=== PATIENT | female | born 1940 | race Caucasian/White ===

== ENCOUNTER → 2017-11-19 08:07 | Outpatient (CLI) | payer MEDICARE, SELFPAY ==
--- NOTE | 2017-11-19 08:09 | DI.MG.S_ITS ---
BILATERAL DIGITAL SCREENING MAMMOGRAM 3D/2D WITH CAD: 11/19/2017 CLINICAL: Routine screening. Comparison is made to exams dated: 11/14/2016 mammogram, 10/13/2015 mammogram, and 10/07/2014 mammogram - [facility]. There are scattered fibroglandular elements in both breasts. Current study was also evaluated with a Computer Aided Detection (CAD) system. No significant masses, calcifications, or other findings are seen in either breast. There has been no significant interval change. IMPRESSION: NEGATIVE There is no mammographic evidence of malignancy. A 1 year screening mammogram is recommended. This exam was interpreted at Station ID: [id number]. NOTE: For mammograms, a report in lay terms will be sent to the patient. Approximately 15% of breast malignancies will not be visualized mammographically. In the management of a palpable breast mass, a negative mammogram must not discourage biopsy of a clinically suspicious lesion. Electronically Signed By: Jackson turcios/chel:11/19/2017 20:12:35 letter sent: Normal Exam ACR BI-RADS Category 1: Negative 3341F
== END ==
PROVIDERS: Family Provider Family Medicine; PCP Family Medicine; Visit Provider Family Medicine
DX: Z12.31 Encounter for screening mammogram for malignant neoplasm of breast (principal)
CPT/HCPCS: 77063; 77067

== ENCOUNTER → 2018-03-03 09:33 | Outpatient (CLI) | payer MEDICARE, SELFPAY ==
--- NOTE | 2018-03-03 | DI.ECHO.S_ITS ---
[facility] +---------+ [facility] +---------+ : : [address] [address] : : : : [id number] : : : : Phone: [phone]---------+ Echocardiogram Report + + :Name: HERBIE SALAS Study Date: 03/03/2018 Height: 61 in : :[facility] Exam Location: IS Weight: 136 lb : : Gender: Female BSA: 1.6 m2 : :: 1940 Age: 77 yrs BP: 140/86 mmHg: :Reason For Study: NONRHEUMATIC MR : :Ordering Physician: Peyton : :Milo Performed By: Kelly Bryan : :Referring: PEYTON TOBAR : + + Interpretation Summary The left ventricle is normal in size. The ejection fraction is estimated to be 55-60%. The right ventricle is normal in size and function. There is mild to moderate mitral regurgitation. Compared to the prior echo study, there has been a decrease in the severity of mitral regurgitation. There is moderate aortic regurgitation. Compared to the prior echo study, there has been no change in the severity of aortic regurgitation. There is mild tricuspid regurgitation. Compared to the prior echo exam, there has been no change in TR severity. The right ventricular systolic pressure is estimated to be at least 24 mmHg based on an estimated right atrial pressure of 3 mm Hg. The ascending aorta is mildly enlarged. Procedure: A two-dimensional transthoracic echocardiogram with color flow and Doppler was performed. The study quality was technically adequate. Comparison is made with the echocardiogram of 10/16/15. The patient was in normal sinus rhythm during the exam. Left Ventricle: The left ventricle is normal in size. Proximal septal thickening is noted. There is no echo evidence for significant left ventricular outflow tract obstruction. There is no thrombus. The ejection fraction is estimated to be 55-60%. There are no focal wall motion abnormalities. Diastolic parameters suggest a relaxation abnormality of the left ventricle, consistent with probable normal filling pressures. Right Ventricle: The right ventricle is normal in size and function. Atria: The left atrial size is normal. Left atrial size has decreased since the prior echo exam. There has been no significant change since the previous study. Right atrial size is normal. There is no Doppler evidence for an interatrial shunt. The atrial septum is aneurysmal. Mitral Valve: The mitral valve leaflets appear mildly thickened, but open well. There is mild mitral annular calcification. There is mild to moderate mitral regurgitation. Compared to the prior echo study, there has been a decrease in the severity of mitral regurgitation. Aortic Valve: The aortic valve is trileaflet. There is mild aortic valve sclerosis. The aortic valve opens well. There is an eccentric jet of aortic insufficiency directed against the anterior mitral leaflet. There is moderate aortic regurgitation. Compared to the prior echo study, there has been no change in the severity of aortic regurgitation. Tricuspid Valve: The tricuspid valve is normal. There is mild tricuspid regurgitation. The right ventricular systolic pressure is estimated to be at least 24 mmHg based on an estimated right atrial pressure of 3 mm Hg. Compared to the prior echo exam, there has been no change in TR severity. Pulmonic Valve: The pulmonic valve leaflets are thin and pliable; valve motion is normal. There is trace pulmonic regurgitation. Great Vessels: The aortic root is normal size. The ascending aorta is mildly enlarged. The aortic arch is normal in size. The pulmonary artery is normal size. The IVC is of normal diameter and collapses greater than 50% with a sniff. This suggests a low right atrial pressure of 3 mm Hg. Pericardium/ Pleura There is no pericardial effusion. There is no pleural effusion. MMode/2D Measurements & Calculations LVIDd: 4.5 cm LVOT diam: 1.9 cm LVIDs: 3.0 cm Ao root diam: 2.8 cm FS: 33.2 % asc Aorta Diam: 3.7 cm EPSS: 0.87 cm Ao Arch Diam (Prox Trans): 2.7 cm IVSd: 0.66 cm LVPWd: 0.78 cm LV aquino. diameter/BSA (cm/m^2): 2.8 LV sys. diameter/BSA (cm/m^2): 1.9 LA A2 area: 16.9 cm2 RA long axis: 4.0 cm LA A4 area: 14.1 cm2 RA area: 13.0 cm2 LA length (vol): 4.8 cm RA vol: 35.7 ml LA vol: 42.4 ml RA : 22.3 ml/m2 LA vol index: 26.4 ml/m2 IVC diam: 1.0 cm RVD1 (basal): 3.5 cm RVD2 (mid): 2.2 cm TAPSE: 2.4 cm Doppler Measurements & Calculations Ao V2 max: 103.0 cm/sec LVOT Max Isreal: 93.0 cm/sec Ao V2 mean: 65.8 cm/sec LV V1 max P.5 mmHg Ao max P.2 mmHg LV V1 VTI: 17.5 cm Ao mean P.0 mmHg FEMI(I,D): 2.9 cm2 Ao V2 VTI: 17.9 cm FEMI(V,D): 2.6 cm2 sev ratio: 0.98 FEMI indexed to BSA (cm^2/m^2): 1.8 AI P1/2t: 408.5 msec AI dec slope: 299.9 cm/sec2 MV E max isreal: 32.6 cm/sec TR max isreal: 229.4 cm/sec MV A max isreal: 68.5 cm/sec TR max P.0 mmHg MV E/A: 0.48 PA V2 max: 63.9 cm/sec Med Peak E' Isreal: 2.8 cm/sec PA V2 mean: 46.8 cm/sec E/E' med: 11.5 PA mean P.96 mmHg Lat Peak E' Isreal: 6.3 cm/sec PA pr(Accel): 51.6 mmHg E/E' lat: 5.2 E/e' average: 8.3 MV dec time: 0.34 sec Reading Physician:ROBER
== END ==
PROVIDERS: PCP Family Medicine; Visit Provider Internal Medicine Cardiovascular Disease
DX: I08.3 Combined rheumatic disorders of mitral, aortic and tricuspid valves (principal)
CPT/HCPCS: 93306

== ENCOUNTER → 2018-05-11 07:18 | Outpatient (CLI) | payer MEDICARE, SELFPAY ==
[2018-05-11 08:59] LABS: Add Manual Diff / Slide Review NO; Basophils Absolute Auto 0 /uL (0-100); Basophils Percent Auto 0.8 % (0-2); Eosinophils Absolute Auto 400 /uL (0-450); Eosinophils Percent Auto 7.3 % (2-4); Hematocrit 43.1 % (36-46); Hemoglobin 15.2 g/dL (12.0-16.0); Lymphocytes Absolute Auto 2300 /uL (1100-4500); Lymphocytes Percent Auto 41.6 % (25-40); Mean Corpuscular HGB Conc 35.2 % (30-36); Mean Corpuscular Hemoglobin 31.2 PG (26-34); Mean Corpuscular Volume 88.6 fL (80-100); Monocytes Absolute Auto 500 /uL (0-900); Monocytes Percent Auto 9.2 % (3-14); Neutrophils Absolute Auto 2300 /uL (1500-7000); Neutrophils Percent Auto 41.1 % (50-75); Platelet Count 222 X10^3/uL (150-400); Red Blood Cell Count 4.87 X10^6/uL (4.0-5.2); Red Cell Distribution Width 13.1 % (11.6-14.8); White Blood Cell Count 5.5 X10^3/uL (4.5-11.0)
[2018-05-11 09:27] LABS: Alanine Aminotransferase 25 IU/L (9-52); Albumin 4.3 g/dL (3.5-5.0); Albumin Globulin Ratio 1.3 (1.0-2.8); Alkaline Phosphatase 76 U/L (38-126); Aspartate Aminotransferase 28 IU/L (14-36); BUN Creatinine Ratio 22.9 (6-22); Bilirubin Total 0.5 mg/dL (0.2-1.3); Blood Urea Nitrogen 16 mg/dL (7-17); Calcium 9.1 mg/dL (8.4-10.2); Carbon Dioxide 28 mmol/L (22-32); Chloride 103 mmol/L (98-107); Cholesterol 208 mg/dL (140-199); Estimated Glomerular Filt Rate > 60.0 mL/min (>60); Globulin 3.4 g/dL (1.7-4.1); Glucose 90 mg/dL (80-110); HDL Cholesterol 39 mg/dL (40-60); HEMOLYSIS < 15 (0-50); LDL Cholesterol Calculated 119 mg/dL (<100); Potassium 4.2 mmol/L (3.4-5.1); Sodium 141 mmol/L (137-145); Total Protein 7.7 g/dL (6.3-8.2); Triglycerides 248 mg/dL (35-150)
[2018-05-11 09:57] LABS: TSH w/ Reflex to FT4 3.16 uIU/mL (0.47-4.68)
== END ==
PROVIDERS: PCP Family Medicine; Visit Provider Family Medicine
DX: E78.5 Hyperlipidemia, unspecified (principal); I10 Essential (primary) hypertension; I48.91 Unspecified atrial fibrillation
CPT/HCPCS: 36415; 80053; 80061; 84443; 85025

== ENCOUNTER → 2018-08-07 08:20 | Outpatient (CLI) | payer MEDICARE, SELFPAY | PROVIDERS: PCP Family Medicine; Visit Provider Specialist | DX: R30.0 Dysuria (principal) | CPT/HCPCS: 87086 ==

== ENCOUNTER → 2018-12-19 09:36 | Outpatient (CLI) | payer MEDICARE, SELFPAY ==
--- NOTE | 2018-12-19 | DI.MG.S_ITS ---
BILATERAL DIGITAL SCREENING MAMMOGRAM 3D/2D WITH CAD: 12/19/2018 CLINICAL: Routine screening. Comparison is made to exams dated: 11/19/2017 mammogram, 11/14/2016 mammogram, and 10/13/2015 mammogram - [facility]. There are scattered fibroglandular elements in both breasts. Current study was also evaluated with a Computer Aided Detection (CAD) system. No significant masses, calcifications, or other findings are seen in either breast. There has been no significant interval change. IMPRESSION: NEGATIVE There is no mammographic evidence of malignancy. A 1 year screening mammogram is recommended. This exam was interpreted at Station ID: [id number]. NOTE: For mammograms, a report in lay terms will be sent to the patient. Approximately 15% of breast malignancies will not be visualized mammographically. In the management of a palpable breast mass, a negative mammogram must not discourage biopsy of a clinically suspicious lesion. Electronically Signed By: Marilyn pearce/chel:12/21/2018 10:14:09 letter sent: Normal Exam ACR BI-RADS Category 1: Negative 3341F
== END ==
PROVIDERS: PCP Family Medicine; Visit Provider Family Medicine
DX: Z12.31 Encounter for screening mammogram for malignant neoplasm of breast (principal)
CPT/HCPCS: 77063; 77067

== ENCOUNTER → 2020-02-18 10:40 | Outpatient (CLI) | payer MEDICARE, SELFPAY ==
[2020-02-18 11:26] LABS: Appearance Urine UA SL CLOUDY; Bilirubin Urine UA NEGATIVE (NEGATIVE); Color Urine UA YELLOW; Glucose Urine UA NEGATIVE (Negative); Ketones Urine UA NEGATIVE (NEGATIVE); Leukocyte Esterase Urine UA 3+ (NEGATIVE); Nitrite Urine UA NEGATIVE (Negative); Occult Blood Urine UA 2+ (Negative); Protein Urine UA NEGATIVE (Negative); Urobilinogen Urine UA 0.2 E.U./dL (0.2)
[2020-02-18 11:41] LABS: Bacteria Urine Few (2-10); Culture Indicated Urine Specimen Cultured; RBC Urine 1-5/HPF (0-5/HPF); WBC Urine 30-100/HPF (0-5/HPF)
== END ==
PROVIDERS: PCP Family Medicine; Referring Provider Specialist; Visit Provider Specialist
DX: R39.9 Unspecified symptoms and signs involving the genitourinary system (principal)
CPT/HCPCS: 81001; 87077; 87086; 87186

== ENCOUNTER → 2020-09-27 07:05 | Outpatient (CLI) | payer MEDICARE, SELFPAY ==
[2020-09-27 08:15] LABS: Add Manual Diff / Slide Review NO; Basophils Absolute Auto 0 /uL (0-100); Basophils Percent Auto 0.5 % (0-2); Eosinophils Absolute Auto 300 /uL (0-450); Eosinophils Percent Auto 4.6 % (2-4); Hematocrit 41.8 % (36-46); Hemoglobin 14.3 g/dL (12.0-16.0); Lymphocytes Absolute Auto 2600 /uL (1100-4500); Lymphocytes Percent Auto 46.7 % (25-40); Mean Corpuscular HGB Conc 34.1 % (30-36); Mean Corpuscular Hemoglobin 31.6 PG (26-34); Mean Corpuscular Volume 92.5 fL (80-100); Monocytes Absolute Auto 500 /uL (0-900); Monocytes Percent Auto 8.8 % (3-14); Neutrophils Absolute Auto 2200 /uL (1500-7000); Neutrophils Percent Auto 39.4 % (50-75); Platelet Count 243 X10^3/uL (150-400); Red Blood Cell Count 4.52 X10^6/uL (4.0-5.2); Red Cell Distribution Width 12.8 % (11.6-14.8); White Blood Cell Count 5.6 X10^3/uL (4.5-11.0)
[2020-09-27 08:46] LABS: Alanine Aminotransferase 15 IU/L (<35); Albumin 4.1 g/dL (3.5-5.0); Albumin Globulin Ratio 1.2 (1.0-2.8); Alkaline Phosphatase 71 U/L (38-126); Aspartate Aminotransferase 27 IU/L (14-36); Bilirubin Total 0.7 mg/dL (0.2-1.3); Blood Urea Nitrogen 14 mg/dL (7-17); Calcium 9.5 mg/dL (8.4-10.2); Carbon Dioxide 27 mmol/L (22-32); Chloride 106 mmol/L (98-107); Cholesterol 180 mg/dL (140-199); Estimated Glomerular Filt Rate > 60.0 mL/min (>60); Globulin 3.4 g/dL (1.7-4.1); Glucose 98 mg/dL (80-110); HDL Cholesterol 42 mg/dL (40-60); HEMOLYSIS < 15 (0-50); LDL Cholesterol Calculated 117 mg/dL (<100); Sodium 138 mmol/L (137-145); Total Protein 7.5 g/dL (6.3-8.2); Triglycerides 106 mg/dL (35-150)
[2020-09-27 09:17] LABS: Thyroid Stimulating Hormone 2.75 uIU/mL (0.47-4.68)
== END ==
PROVIDERS: PCP Family Medicine; Referring Provider Family Medicine; Visit Provider Family Medicine
DX: E78.5 Hyperlipidemia, unspecified (principal); I10 Essential (primary) hypertension; I48.91 Unspecified atrial fibrillation
CPT/HCPCS: 36415; 80053; 80061; 84443; 85025

== ENCOUNTER → 2020-11-21 13:26 | Outpatient (CLI) | payer MEDICARE, SELFPAY ==
--- NOTE | 2020-11-21 | DI.ECHO.S_ITS ---
[facility] +---------+ Hospital +---------+ : : [address] : [address] [address] : : : : [id number] : : : : Phone: [phone]---------+ Echocardiogram Report + + :Name: HERBIE SALAS Study Date: 11/21/2020 Height: 61 in : :[facility] ReadingLocation: Weight: 120 lb : : Gender: Female BSA: 1.5 m2 : :: 1940 Age: 80 yrs BP: 162/93 mmHg: :Reason For Study: HYPERTENSION : :Ordering Physician: EKATERINA, : :PEYTON Performed By: Arely Zacarias : :Referring: PEYTON TOBAR : + + Interpretation Summary The left ventricle is normal in size and wall thickness. The ejection fraction is estimated to be 55-60%. The right ventricle is normal in size and function. There is mild to moderate mitral regurgitation. No significant change in mitral regurgitation severity from the previous study. There is moderate aortic regurgitation. Compared to the prior echo study, there has been no change in the severity of aortic regurgitation. There is mild to moderate tricuspid regurgitation. Compared to the prior echo exam, there has been an increase in TR severity. The right ventricular systolic pressure is estimated to be at least 27 mmHg based on an estimated right atrial pressure of 3 mm Hg. Procedure: A two-dimensional transthoracic echocardiogram with color flow and Doppler was performed. The study quality was technically adequate. Comparison is made with the echocardiogram of 03/03/2018. The patient was in sinus rhythm with heart rates between 74-84 bpm during the exam. Left Ventricle: The left ventricle is normal in size and wall thickness. There is no thrombus. The ejection fraction is estimated to be 55-60%. Septal motion is consistent with conduction abnormality. Diastolic parameters suggest a relaxation abnormality of the left ventricle, consistent with probable normal filling pressures. Right Ventricle: The right ventricle is normal in size and function. Atria: The left atrium is moderately dilated. The left atrium has significantly increased in size since the prior echo exam. Right atrial size is normal. The atrial septum is aneurysmal. There is no Doppler evidence for an interatrial shunt. Mitral Valve: The mitral valve leaflets appear mildly thickened, but open well. There is mild mitral annular calcification. There is mild to moderate mitral regurgitation. Compared to the prior echo study, there has been no change in the severity of mitral regurgitation. Aortic Valve: The aortic valve is trileaflet. The aortic valve opens well. There is no aortic valve stenosis. There is moderate aortic regurgitation. Compared to the prior echo study, there has been no change in the severity of aortic regurgitation. Tricuspid Valve: The tricuspid valve is normal. There is mild to moderate tricuspid regurgitation. The right ventricular systolic pressure is estimated to be at least 27 mmHg based on an estimated right atrial pressure of 3 mm Hg. Compared to the prior echo exam, there has been an increase in TR severity. Pulmonic Valve: The pulmonic valve is not well seen, but is grossly normal. There is mild to moderate pulmonic regurgitation. Great Vessels: The aortic root is normal size. The ascending aorta could not be visualized. The IVC is of normal diameter and collapses greater than 50% with a sniff. This suggests a low right atrial pressure of 3 mm Hg. Pericardium/ Pleura There is no pericardial effusion. There is no pleural effusion. MMode/2D Measurements & Calculations LVIDd: 3.7 cm LVOT diam: 2.1 cm LVIDs: 2.7 cm Ao root diam: 2.8 cm FS: 26.5 % Ao Arch Diam (Prox Trans): 2.4 cm IVSd: 0.83 cm LVPWd: 0.77 cm LV aquino. diameter/BSA (cm/m^2): 2.4 LV sys. diameter/BSA (cm/m^2): 1.8 LA A2 area: 22.9 cm2 RA long axis: 4.7 cm LA A4 area: 16.4 cm2 RA area: 14.6 cm2 LA length (vol): 4.8 cm RA vol: 38.2 ml LA vol: 66.4 ml RA : 25.1 ml/m2 LA vol index: 43.7 ml/m2 IVC diam: 0.85 cm RVD1 (basal): 3.0 cm TAPSE: 1.9 cm Doppler Measurements & Calculations Ao V2 max: 147.9 cm/sec LVOT Max Isreal: 107.9 cm/sec Ao V2 mean: 102.3 cm/sec LV V1 max P.7 mmHg Ao max P.8 mmHg LV V1 VTI: 21.9 cm Ao mean P.8 mmHg FEMI(I,D): 2.8 cm2 Ao V2 VTI: 26.1 cm FEMI(V,D): 2.4 cm2 sev ratio: 0.84 FEMI indexed to BSA (cm^2/m^2): 1.8 MV E max isreal: 39.5 cm/sec TR max isreal: 244.8 cm/sec MV A max isreal: 74.9 cm/sec TR max P.0 mmHg MV E/A: 0.53 PA V2 max: 106.2 cm/sec Med Peak E' Isreal: 5.8 cm/sec PA V2 mean: 71.5 cm/sec E/E' med: 6.9 PA mean P.4 mmHg Lat Peak E' Isreal: 6.8 cm/sec PA pr(Accel): 48.2 mmHg E/E' lat: 5.8 E/e' average: 6.3 MV dec time: 0.28 sec SV(LVOT): 73.2 ml Reading Physician:03:54 PM
== END ==
PROVIDERS: PCP Family Medicine; Referring Provider Internal Medicine Cardiovascular Disease; Visit Provider Internal Medicine Cardiovascular Disease
DX: I10 Essential (primary) hypertension (principal); Z98.890 Other specified postprocedural states; Z86.79 Personal history of other diseases of the circulatory system; I35.1 Nonrheumatic aortic (valve) insufficiency; I34.0 Nonrheumatic mitral (valve) insufficiency; I07.1 Rheumatic tricuspid insufficiency
CPT/HCPCS: 93306

== ENCOUNTER → 2020-11-25 13:28 | Outpatient (CLI) | payer MEDICARE, SELFPAY ==
--- NOTE | 2020-11-25 13:30 | DI.MG.S_ITS ---
BILATERAL DIGITAL SCREENING MAMMOGRAM 3D/2D WITH CAD: 11/25/2020 CLINICAL: Routine screening. Comparison is made to exams dated: 12/19/2018 mammogram, 11/19/2017 mammogram, and 11/14/2016 mammogram - [facility]. There are scattered fibroglandular elements in both breasts. Current study was also evaluated with a Computer Aided Detection (CAD) system. No significant masses, calcifications, or other findings are seen in either breast. There has been no significant interval change. IMPRESSION: NEGATIVE There is no mammographic evidence of malignancy. A 1 year screening mammogram is recommended. This exam was interpreted at Station ID: [id number]. NOTE: For mammograms, a report in lay terms will be sent to the patient. Approximately 15% of breast malignancies will not be visualized mammographically. In the management of a palpable breast mass, a negative mammogram must not discourage biopsy of a clinically suspicious lesion. Electronically Signed By: Prasanth Rivera M.D. at/chel:11/27/2020 07:20:41 letter sent: Normal Exam ACR BI-RADS Category 1: Negative 3341F
== END ==
PROVIDERS: PCP Family Medicine; Referring Provider Family Medicine; Visit Provider Family Medicine
DX: Z12.31 Encounter for screening mammogram for malignant neoplasm of breast (principal)
CPT/HCPCS: 77063; 77067

== ENCOUNTER → 2021-02-09 08:47 | Outpatient (CLI) | payer MEDICARE, SELFPAY ==
[2021-02-09] MEDS: COVID-19 VACC #3, MRNA(MOD) 50 MCG/0.25 ML VIAL IM (08:57)
== END ==
PROVIDERS: PCP Family Medicine; Visit Provider Internal Medicine
DX: Z23 Encounter for immunization (principal)
CPT/HCPCS: 0013A; 91301

== ENCOUNTER → 2021-11-26 11:27 | Outpatient (CLI) | payer MEDICARE, SELFPAY ==
--- NOTE | 2021-11-26 11:31 | DI.RAD.S_ITS ---
PROCEDURE: XR HIP W PEL IF DONE RT 2V INDICATIONS: rt hip pain TECHNIQUE: AP pelvis with lateral view(s) of the right hip(s). COMPARISON: None. FINDINGS: Bones: Severe degenerative changes of the right hip with loss of the joint space, subchondral sclerosis, subchondral cystic changes, and osteophytosis consistent with severe osteoarthritis. Mild osteoarthritis is noted of the left hip. No fractures or dislocations. Pelvic ring appears intact. No suspicious bony lesions. The visualized lumbar spine has degenerative changes. Soft tissues: The visualized bowel gas pattern is normal. No suspicious soft tissue calcifications. IMPRESSION: Severe osteoarthritis of the right hip. Dictated by: Rodri Torres M.D. on 11/26/2021 at 14:34 Approved by: Rodri Torres M.D. on 11/26/2021 at 14:35
== END ==
PROVIDERS: PCP Family Medicine; Referring Provider Family Medicine; Visit Provider Family Medicine
DX: M25.551 Pain in right hip (principal); M16.11 Unilateral primary osteoarthritis, right hip
CPT/HCPCS: 73502

== ENCOUNTER → 2021-12-12 15:25 | Outpatient (CLI) | payer MEDICARE, SELFPAY ==
--- NOTE | 2021-12-12 15:28 | DI.MG.S_ITS ---
BILATERAL DIGITAL SCREENING MAMMOGRAM 3D/2D WITH CAD: 12/12/2021 CLINICAL: Routine screening. Comparison is made to exams dated: 11/25/2020 mammogram, 12/19/2018 mammogram, 11/14/2016 mammogram, and 11/19/2017 mammogram - [facility]. There are scattered areas of fibroglandular density in both breasts (category b / 25%-50% glandular tissue). Current study was also evaluated with a Computer Aided Detection (CAD) system. No significant masses, calcifications, or other findings are seen in either breast. There has been no significant interval change. IMPRESSION: NEGATIVE There is no mammographic evidence of malignancy. A 1 year screening mammogram is recommended. Based on the Tyrer Cuzick model (a risk assessment model) the patient's lifetime risk is 0.7% and her 10 year risk is 0.0%. According to the ACR, ACS, and NCCN guidelines, an annual breast MRI exam along with mammogram is recommended if the patient's lifetime risk is 20% or greater. This exam was interpreted at Station ID: [id number]. NOTE: For mammograms, a report in lay terms will be sent to the patient. Approximately 15% of breast malignancies will not be visualized mammographically. In the management of a palpable breast mass, a negative mammogram must not discourage biopsy of a clinically suspicious lesion. Electronically Signed By: Prasanth holden/chel:12/13/2021 07:13:05 letter sent: Normal Exam ACR BI-RADS Category 1: Negative 3341F
== END ==
PROVIDERS: PCP Family Medicine; Referring Provider Family Medicine; Visit Provider Family Medicine
DX: Z12.31 Encounter for screening mammogram for malignant neoplasm of breast (principal)
CPT/HCPCS: 77063; 77067

== ENCOUNTER → 2022-07-09 07:05 | Outpatient (CLI) | payer MEDICARE, SELFPAY ==
[2022-07-09 08:39] LABS: Add Manual Diff / Slide Review NO; Basophils Absolute Auto 0 /uL (0-100); Basophils Percent Auto 0.7 % (0-2); Eosinophils Absolute Auto 100 /uL (0-450); Hematocrit 41.5 % (36-46); Hemoglobin 14.4 g/dL (12.0-16.0); Lymphocytes Absolute Auto 2700 /uL (1100-4500); Lymphocytes Percent Auto 44.2 % (25-40); Mean Corpuscular HGB Conc 34.7 % (30-36); Mean Corpuscular Hemoglobin 32.7 PG (26-34); Mean Corpuscular Volume 94.3 fL (80-100); Monocytes Absolute Auto 600 /uL (0-900); Monocytes Percent Auto 9.4 % (3-14); Neutrophils Absolute Auto 2600 /uL (1500-7000); Neutrophils Percent Auto 43.7 % (50-75); Platelet Count 239 X10^3/uL (150-400)
[2022-07-09 08:54] LABS: Alanine Aminotransferase 19 IU/L (<35); Albumin 4.2 g/dL (3.5-5.0); Albumin Globulin Ratio 1.3 (1.0-2.8); Alkaline Phosphatase 75 U/L (38-126); Aspartate Aminotransferase 24 IU/L (14-36); BUN Creatinine Ratio 27.4 (6-22); Bilirubin Total 0.8 mg/dL (0.2-1.3); Blood Urea Nitrogen 17 mg/dL (7-17); Calcium 9.2 mg/dL (8.4-10.2); Carbon Dioxide 30 mmol/L (22-32); Chloride 102 mmol/L (98-107); Cholesterol 175 mg/dL (140-199); Estimated Glomerular Filt Rate > 60 mL/min (>60); Globulin 3.2 g/dL (1.7-4.1); Glucose 102 mg/dL (80-110); HDL Cholesterol 54 mg/dL (40-60); HEMOLYSIS < 15 (0-50); LDL Cholesterol Calculated 94 mg/dL (<100); Potassium 4.1 mmol/L (3.4-5.1); Sodium 139 mmol/L (137-145); Total Protein 7.4 g/dL (6.3-8.2); Triglycerides 135 mg/dL (35-150)
[2022-07-09 09:24] LABS: TSH w/ Reflex to FT4 2.85 uIU/mL (0.47-4.68)
[2022-07-09 09:47] LABS: Vitamin B12 > 1000 pg/mL (239-931)
== END ==
PROVIDERS: PCP Family Medicine; Referring Provider Family Medicine; Visit Provider Family Medicine
DX: E78.5 Hyperlipidemia, unspecified (principal); I10 Essential (primary) hypertension; I48.91 Unspecified atrial fibrillation
CPT/HCPCS: 36415; 80053; 80061; 82607; 84443; 85025

== ENCOUNTER → 2022-09-26 11:01 | Outpatient (CLI) | payer MEDICARE, SELFPAY ==
[2022-09-26 12:27] LABS: Add Manual Diff / Slide Review NO; Basophils Absolute Auto 0 /uL (0-100); Basophils Percent Auto 0.5 % (0-2); Eosinophils Absolute Auto 100 /uL (0-450); Eosinophils Percent Auto 1.5 % (2-4); Hematocrit 41.5 % (36-46); Hemoglobin 14.3 g/dL (12.0-16.0); Lymphocytes Absolute Auto 2100 /uL (1100-4500); Lymphocytes Percent Auto 26.4 % (25-40); Mean Corpuscular HGB Conc 34.4 % (30-36); Mean Corpuscular Hemoglobin 32.7 PG (26-34); Monocytes Absolute Auto 700 /uL (0-900); Monocytes Percent Auto 8.5 % (3-14); Neutrophils Absolute Auto 5100 /uL (1500-7000); Neutrophils Percent Auto 63.1 % (50-75); Platelet Count 264 X10^3/uL (150-400); Red Blood Cell Count 4.37 X10^6/uL (4.0-5.2); Red Cell Distribution Width 12.5 % (11.6-14.8)
[2022-09-26 12:36] LABS: BUN Creatinine Ratio 35.1 (6-22); Blood Urea Nitrogen 20 mg/dL (7-17); Calcium 9.4 mg/dL (8.4-10.2); Carbon Dioxide 29 mmol/L (22-32); Chloride 102 mmol/L (98-107); Estimated Glomerular Filt Rate > 60 mL/min (>60); Glucose 92 mg/dL (80-110); HEMOLYSIS < 15 (0-50); Potassium 4.5 mmol/L (3.4-5.1); Sodium 137 mmol/L (137-145)
== END ==
PROVIDERS: PCP Family Medicine; Referring Provider Physician Assistant; Visit Provider Physician Assistant
DX: Z01.810 Encounter for preprocedural cardiovascular examination (principal)
CPT/HCPCS: 36415; 80048; 85025

== ENCOUNTER → 2022-09-30 13:15 | Outpatient (CLI) | payer MEDICARE, SELFPAY ==
--- NOTE | 2022-09-30 13:15 | DI.MRI.S_ITS ---
PROCEDURE: MR HEAD/BRAIN WO/W CON INDICATIONS: tremor and balance diffculty TECHNIQUE: Noncontrast axial T1 spin echo, axial T2 fast spin echo, sagittal and axial FLAIR, coronal T2 fast spin echo, axial gradient echo, axial diffusion and ADC through the brain. After the administration of contrast, axial and coronal and sagittal T1 spin echo with fat saturation through the brain. COMPARISON: None. FINDINGS: Image quality: Excellent. CSF spaces: Basal cisterns are patent. No extra-axial fluid collections. Ventricles are normal in size and shape. Brain: No midline shift. No intracranial bleeds or masses. No abnormal intracranial enhancement. There is cerebral volume loss for age. There is periventricular white matter chronic small vessel ischemic change. The brainstem appears normal. Diffusion-weighted images demonstrate no acute ischemic insults. No chronic ischemic insults. Normal intravascular flow voids are present. Skull and face: Calvarial marrow is normal in signal. Orbits appear normal. Sinuses: Sinuses and mastoids appear clear. IMPRESSION: 1. Volume loss and small vessel ischemic disease. 2. No acute process. No recent infarct. Dictated by: Nicole Pan M.D. on 09/30/2022 at 16:13 Approved by: Nicole Pan M.D. on 09/30/2022 at 16:14
== END ==
PROVIDERS: PCP Family Medicine; Referring Provider Family Medicine; Visit Provider Family Medicine
DX: G20 Parkinson's disease (principal); I67.82 Cerebral ischemia
CPT/HCPCS: 70553; A9579

== ENCOUNTER → 2022-10-09 08:51 | Outpatient (CLI) | payer MEDICARE, SELFPAY ==
[2022-10-10 03:18] LABS: Labcorp Hemoglobin (Hb) A1c 5.2 % (4.8-5.6)
== END ==
PROVIDERS: PCP Family Medicine; Referring Provider Orthopaedic Surgery; Visit Provider Orthopaedic Surgery
DX: R73.9 Hyperglycemia, unspecified (principal)
CPT/HCPCS: 36415; 83036

== ENCOUNTER 2022-11-02 11:23 | Inpatient (IN) | payer MEDICARE, SELFPAY ==
[2022-10-15 08:53] VITALS: BMI 21.9
[2022-10-15 12:29] VITALS: BMI 21.9
[2022-10-31] VITALS (15 sets, daily range): BP systolic 114–158; BP diastolic 47–93; PULSE 68–87; RESP 12–24; TEMP 35.3–36.9; O2SAT 94–97; BMI 21.9
--- NOTE | 2022-10-31 10:09 | DI.RAD.S_ITS ---
PROCEDURE: XR HIP W PEL IF DONE RT 2V INDICATIONS: TOTAL RIGHT HIP TECHNIQUE: 2 view(s) of the hip acquired. COMPARISON: [facility], CR, XR HIP W PEL IF DONE RT 2V, 10/31/2022, 15:11. [facility], CR, XR PELVIS WITH LATERAL HIP RIGHT, 08/19/2022, 16:59. [facility], CR, XR HIP W PEL IF DONE RT 2V, 11/26/2021, 11:43. FINDINGS: Bones: Patient is status post right hip arthroplasty, with hardware components in expected positions. The hip joint appears congruent. The visualized bony structures appear intact. Soft tissues: Overlying postoperative changes are noted. No suspicious soft tissue densities. IMPRESSION: Normal postoperative examination. Dictated by: Mark Greene M.D. on 10/31/2022 at 16:48 Approved by: Mark Greene M.D. on 10/31/2022 at 16:49
--- NOTE | 2022-10-31 10:10 | DI.RAD.S_ITS ---
PROCEDURE: XR HIP W PEL IF DONE RT 2V INDICATIONS: INTEROP TOTAL RIGHT HIP TECHNIQUE: AP pelvis with lateral view(s) of the right hip(s). COMPARISON: [facility], CR, XR HIP W PEL IF DONE RT 2V, 10/31/2022, 16:23. [facility], CR, XR PELVIS WITH LATERAL HIP RIGHT, 08/19/2022, 16:59. [facility], CR, XR HIP W PEL IF DONE RT 2V, 11/26/2021, 11:43. FINDINGS: Multiple fluoroscopy images demonstrate right hip arthroplasty. The hip prosthesis is in anatomic alignment. IMPRESSION: Right hip arthroplasty with prosthesis in anatomic alignment. Dictated by: Chacorta Son M.D. on 10/31/2022 at 17:19 Approved by: Chacorta Son M.D. on 10/31/2022 at 17:20
[2022-10-31] MEDS: LACTATED RINGERS 1,000 ML 125 ML IV (12:10)
[2022-10-31] MEDS: VANCOMYCIN 1,000 MG/200 ML PIGGYBACK 200 MG IV (12:51)
--- NOTE | 2022-10-31 13:33 | PM.PREOP ---
Pre-operative Note Interval Note History & Physical reviewed/Exam performed by Physician: Yes Changes to H&P: No
[2022-10-31] MEDS: CEFAZOLIN 2 GM/100 ML PREMIX 100 ML IV ×2 (14:17→21:14)
--- NOTE | 2022-10-31 14:34 | SUR.OPER ---
Patient supine on padded [place] table, one arm on padded arm board at <90, other arm padded and secured with tape across patient's chest, both legs secured in padded traction boots and positioned per surgeon, padded post at patient's groin, pressure points checked and padded.
[2022-10-31] MEDS: BUPIVACAINE LIPOSOME 266 MG/20 ML VIAL INJ (14:37)
[2022-10-31] MEDS: BUPIVACAINE 0.25% (PF) 60 ML, EPINEPHrine 0.3 MG INJ (14:39)
[2022-10-31] MEDS: OXYCODONE IR 5 MG TABLET PO ×2 (16:38→21:14)
[2022-10-31] MEDS: HYDROMORPHONE 2 MG INJ IV (16:43)
[2022-10-31] MEDS: ACETAMINOPHEN 325 MG TABLET 975 MG PO (16:59)
--- NOTE | 2022-10-31 17:02 | PM.OP.1 ---
Operative Date/Time/Diagnoses Date of procedure: 10/31/22 Time of procedure: 14:00 Pre-op diagnosis: Right total hip arthroplasty anterior approach Post-op diagnosis: same Procedure & Clinicians Procedure: Right total hip arthroplasty anterior approach Same procedure as scheduled: Yes Indications: The patient has had progressively worsening right hip pain with radiographic changes consistent with arthritis. Non-operative management has failed and the patient has requested total hip replacement. The risks, benefits and alternatives to surgery were discussed with the patient prior to proceeding. Risks discussed included, but were not limited to, failure to relieve pain, leg length discrepancy, dislocation, stiffness, infection, nerve damage, deep venous thrombosis, pulmonary embolism, stroke, coma, heart attack, permanent paralysis and , as well as the potential need for eventual revision of the prosthetic. Surgeon: Linda Martin Manager Of Human Resources: Perry Hairston Anesthesia Type: General and Spinal Operative Notes Findings: Severe right hip osteoarthritis, adequate stability, soft bone Closure Type: primary Specimen(s): none sent Prosthetic devices, grafts, tissues, transplants, or devices: Martin and Nephew 54 mm R3, neutral poly liner, 36 by -3 Oxinium head, size 2 polar stem with collar, one 6.5 mm screw Estimated Blood Loss (mL): 250 Blood products transfused: none Procedure in detail: The patient was brought to the operating room. Patient was carefully positioned in the supine position. Time-out was performed and antibiotics were given. Anesthesia was induced. She was positioned in the on the table in order to allow hyperextension of the hip. The right lower extremity was prepped and draped in a standard sterile fashion. An anterior right hip incision was made 1 fingerbreadth lateral to the anterior superior iliac spine and extended distally towards the greater trochanter. Dissection was carried out through skin and subcutaneous tissues. Superficial hemostasis was achieved. The fascia over the tensor fascia zak was defined and incised with a knife. Two Allis clamps were used to grasp the fascia. Tensor fascia zak was retracted laterally. A gelpi retractor was placed. Dissection was carried out down along the neck. The circumflex vessels were carefully identified and cauterized with the Aqua Mantis. A PA was used throughout the procedure and was essential for intraoperative retraction and safe implantation of the components. There was good visualization of the femoral neck. A Cobra was placed superior to the neck and the gluteus fibers were carefully stripped from that superior aspect of the capsule. A 2nd retractor was placed along the inferior aspect of the neck. The rectus insertion along the capsule was partially released. A 3rd retractor that was then gently placed over the rim of the acetabulum under the rectus. Capsule was carefully incised and released from the intertrochanteric line circumferentially superior to the mid sagittal line and inferiorly to the mid sagittal line until the lesser trochanter was palpable. A tag stitch was placed both in the superior and inferior limb of the capsular insertion. Along the acetabulum capsule was also released up to the mid sagittal 12:00 position. A portion of the labrum was resected. A saw was used to perform an osteotomy at the level of the intertrochanteric line and the junction of the superior femoral neck leaving approximately 1 finger breath of residual inferior neck above the lesser trochanter. A 2nd cut was made along the femoral neck at the base of the head and a napkin ring of neck was removed. Corkscrew was placed in the femoral head and the head was removed without difficulty. Retractors were then repositioned around the acetabulum. Residual labrum was resected and additional osteophytes were removed. A reamer that was 4 mm below the templated size was placed by hand in the acetabulum and it was reamed to centralize the acetabulum. It was then reamed up to 2 under the templated size and fluoroscopy was brought in to confirm the position of the reaming and depth of reaming. I reamed 1 under the anticipated size. A trial cup was placed and noted that it was appropriately sized and fluoroscopy confirmed position and depth. The component was open and inserted without difficulty fluoroscopic imaging was used to confirm that the cup had been adequately seated and was well positioned. It was further stabilized with a single screw. Neutral poly liner was placed. The cup was tested and noted to be stable. Attention was then directed to the femur. The femur was gently hyperextended additional capsular release was performed as needed in order to allow adequate visualization of the proximal femur with elevation of the femur. Patient was placed in a hyperextended slightly adducted position with maximum external rotation. Box osteotome was used to check for any residual neck as well as sclerotic bone along the trochanter. Caro pepper was placed in the femur. Additional broaching was performed. Canal finder was used to determine the alignment of the canal and position. Starter broach was placed. The canal was then appropriately broached up to the templated size as long as there was adequate stability of the broach and serial advancement of the broach without excessive impingement. Specific attention was directed at avoiding varus attempting to direct the distal aspect of the broach more anteriorly and avoiding excessive anteversion. Trial reduction showed acceptable range of motion, good stability, no posterior impingement, yazdanism of leg length and appropriate lateral shuck. I also hyperflexed the hip and checked that there was no impingement anteriorly and there was good stability with flexion, adduction and internal rotation. Marcaine and Exparel were injected. The stem was placed without difficulty. Repeat trial reduction and x-ray showed acceptable overall position, length, and no evidence of the femoral fracture. Final head was placed. Wound was meticulously irrigated with normal saline. The hip was reduced and additional Exparel and Marcaine were injected. The capsule was closed with interrupted nonabsorbable sutures. The fascia of the tensor was closed with interrupted and running Vicryl. No drain was placed. Any tensor fascia zak muscle that appeared to be contused or injured which was a minimal amount was carefully resected. Capsule around the tensor was injected with Exparel and Marcaine. The skin was closed with barbed stitches for the subcutaneous tissue and skin. We also used surgical glue. The wound was dressed sterilely. Brief Betadine soak was also used and was meticulously irrigated with normal saline. Patient was transferred to recovery room in satisfactory condition. Complications: none Post-operative Condition: stable Disposition: Acute Care Plan for aftercare: The patient will be maintained on a standard total hip replacement protocol with weight bearing as tolerated and anterior hip precautions. The patient will receive Aspirin and sequential compression devices for DVT prophylaxis. The patient will be discharged home when safe for the home environment.
[2022-10-31] MEDS: LACTATED RINGERS 1,000 ML 100 ML IV (18:01)
--- NOTE | 2022-10-31 18:33 | PC.NURSE ---
Day shift: Pt up to acute care at 1730 from PACU. Pt has baseline L hand tremors from Parkinson's. Pt rates pain 5/10 in R hip, though she states she does not want anymore pain medication at this time. R hip dressing NAYANA CDI. Educated pt about anterior hip precautions. No nausea. Pt tolerating general diet. PIV R hand, LR @ 100. Pt's spouse at bedside. Will continue to monitor.
[2022-10-31] MEDS: DOCUSATE 100 MG CAPSULE PO (20:24)
[2022-10-31] MEDS: ASPIRIN EC 81 MG TABLET PO (20:24)
[2022-10-31] MEDS: CALCIUM CARBONATE 500 MG TAB PO (21:14)
[2022-10-31] MEDS: ACETAMINOPHEN 325 MG TABLET 650 MG PO (23:11)
[2022-11-01] VITALS (9 sets, daily range): BP systolic 130–143; BP diastolic 65–75; PULSE 70–97; RESP 14–19; TEMP 36.6–36.9; O2SAT 94–96
[2022-11-01] MEDS: ACETAMINOPHEN 325 MG TABLET 650 MG PO ×2 (05:36→12:30)
[2022-11-01] MEDS: CEFAZOLIN 2 GM/100 ML PREMIX 100 ML IV (05:37)
[2022-11-01] MEDS: OXYCODONE IR 10 MG TABLET PO ×4 (05:45→16:29)
[2022-11-01 06:22] LABS: Hematocrit 37.4 % (36-46)
[2022-11-01] MEDS: DOCUSATE 100 MG CAPSULE PO ×2 (08:56→20:18)
[2022-11-01] MEDS: lisinopriL 5 MG TABLET 2.5 MG PO (08:56)
[2022-11-01] MEDS: ASCORBIC ACID 500 MG TABLET PO (08:56)
[2022-11-01] MEDS: FISH OIL 1,000 MG CAPSULE 1000 MG PO (08:56)
[2022-11-01] MEDS: CARBIDOPA-LEVODOPA ER 50/200 TABLET 0.5 EACH PO ×2 (08:58→20:19)
[2022-11-01] MEDS: METOPROLOL ER 25 MG TABLET PO ×2 (08:58→20:14)
[2022-11-01] MEDS: CALCIUM CARBONATE 500 MG TAB PO (08:58)
[2022-11-01] MEDS: MULTIVITAMIN 1 TABLET 1 TAB PO (08:58)
[2022-11-01] MEDS: ASPIRIN EC 81 MG TABLET PO ×2 (08:58→20:14)
[2022-11-01] MEDS: CHOLECALCIFEROL (VITAMIN D3) 1,000 UNIT TABLET 1000 UNIT PO (08:58)
--- NOTE | 2022-11-01 09:45 | PT.IIE ---
Current Diagnoses Unilateral primary osteoarthritis, right hip (10/31/22) Pain in right hip (10/31/22) Surgery Performed Operation Date: 10/31/22 13:45 Actual Procedures p Total Hip Arthroplasty/Anterior Approach(Right) - Linda Martin MD Surgical History (Last Updated 10/15/22 @ 09:20 by Farrah Guzman, JESSIKA) H/O wrist surgery (~2007) History of bilateral cataract extraction History of cardiac radiofrequency ablation (~2015) Hx of eye surgery Status post tonsillectomy and adenoidectomy Medical History (Last Updated 10/15/22 @ 12:34 by Kayce Tejada, JESSIKA) Atrial fibrillation GERD (gastroesophageal reflux disease) Glaucoma Hearing impaired Hypertension Low back pain Neuropathy Osteoarthritis PAC (premature atrial contraction) Presence of pessary PVC's (premature ventricular contractions) Tremor Physical Therapy Inpatient Evaluation/Re-Eval M1 PT/OT-IP Prior Functional Status Start: 11/01/22 09:34 Freq: NEEDED Status: Active Protocol: Document 11/01/22 08:40 MB (Rec: 11/01/22 09:45 MB [id number]) Medical Review Prior Functional Status Medical History Reviewed Yes Diet/Fluid Consistency Regular Communication WNLs, no issues noted Mobility and Gait I Activities of Daily Living and IADL's I Social History Household Members spouse Living Arrangements House Number of Floors (Floors) One Floor Number of Stairs To Enter/Railing? 2 steps and no rail to enter, pt used the trash can to help her up the steps which she verbalizes she knows is unsteady Home Environment Standard Height Toilet,Walk in Shower Home Equipment Front Wheel Walker,Straight Cane,Grab Bars Near Toilet, Grab Bars In Shower Employment Status Retired M2 PT-IP Current Condition Start: 11/01/22 09:34 Freq: NEEDED Status: Active Protocol: Document 11/01/22 08:40 MB (Rec: 11/01/22 09:45 MB [id number]) Physical Therapy Current Condition Current Condition Evaluation Date 11/01/22 Treatment Diagnosis R THR M3 PT-IP Subjective Start: 11/01/22 09:34 Freq: NEEDED Status: Active Protocol: Document 11/01/22 08:40 MB (Rec: 11/01/22 09:45 MB [id number]) Subjective Physical Therapy Visit Type Type Initial Evaluation Visit Start Time 08:40 Visit Stop Time 08:58 Total Visit Minutes 18 Number of CANARY BREEDER Visits 0 Physical Therapy Visit Comments Patient Comments I need to get on the commode. Patient Goals To go home Therapy Pain Assessment Pain When Pain Assessed At Rest Pain Present Pain Present Pain Reported Location Right Hip Intensity 2 Scale Used DavisAleida (Faces) Description Acute Pain Behaviors Calling Out,Guarding Pain Management Techniques Distraction,Re-positioning M4 PT-IP Mobility and Gait Start: 11/01/22 09:34 Freq: NEEDED Status: Active Protocol: Document 11/01/22 08:40 MB (Rec: 11/01/22 09:45 MB [id number]) PT-Bed Mobility Assessment Supine to Sit Supine to Sit Maximum Assistance,1 Person Assistance,Head of Bed Elevated,Bedrails Scooting Scooting to Edge of Bed Maximum Assistance,Dependent PT-Transfer Assessment Sit to and From Stand Sit to and from Stand Minimal Assistance,1 Person Assistance,Use of Upper Extremities Equipment Transfer Assistive Device Gait Belt,Front Wheeled Walker Orthotic/Prosthetic Devices or Brace: No Transfers Transfer Destination Bedside Commode Transfer Technique Stand Step Pivot Transfer Ability Level of Assist Moderate Assistance,1 Person Assistance,Use of Upper Extremities Comments Mobility Comments Pt states that her pain is bad and nsg states that she is due for pain medications but pt states that she needs to get on commode with PT and so PT does initiate mobility. She is max to dependent using bed pad to scoot out to edge of bed. Pt does not move her non- surgical left leg well: keeps it extended with transfers, etc, and has poor movement and body awareness and requires cues for all mobility tasks. Gait Assessment Gait Gait Assistance Required: Moderate Assistance,2 Person Assist Distance (Feet) 2 Able to Maintain Weight Bearing Status Yes During Gait Assistive Devices Assistive Device Gait Belt,Front Wheeled Walker Orthotic/Prosthetic Devices or Brace: No Gait Deviations General Gait Pattern Antalgic,Decreased Stride Length,Decreased Feet Clearance Factors Limiting Gait Function Factors Limiting Gait Function Decreased Activity Tolerance, Decreased Sensation,Decreased Strength,Difficulty Following Directions,Incoordination, Limited Range of Motion,Pain, Poor Balance,Poor Safety Awareness Comments Gait Comments Pt has trouble moving feet and following commands for stepping. She takes short, scooting steps with cues and assistance for balance and to move the walker for BSC to chair with mostly retropulsion movement. PT-Balance Assessment Sitting Balance and Reactions Static Sitting Balance Ability Fair Dynamic Sitting Balance Ability Fair Standing Balance and Reactions Static Standing Balance Ability Poor Dynamic Standing Balance Ability Poor Device Used RW M5 PT-IP Objective Assessments Start: 11/01/22 09:34 Freq: NEEDED Status: Active Protocol: Document 11/01/22 08:40 MB (Rec: 11/01/22 09:45 MB [id number]) Orientation Orientation/Cognition Level of Alertness Alert Orientation Name,Age,Birthday,Month,Date, Year,Day of Week,Place, Situation Language Function Ability No Deficits Noted Safety Awareness Decreased Safety Awareness Memory Description No Deficits Noted Gross Range of Motion Upper Extremity ROM Impairments Defer to OT Lower Extremity ROM Assessment Right Impaired Strength Comments Strength Comments Deferred MMT d/t urgency to get up to commode and pt with poor command following. M7 PT-IP Assessment and Plan Start: 11/01/22 09:34 Freq: NEEDED Status: Active Protocol: Document 11/01/22 08:40 MB (Rec: 11/01/22 09:45 MB [id number]) PT Summary Assessment and Plan Potential Rehabilitation Potential Fair Status of Condition at Evaluation Evolving Summary Impairments Pain,ROM,Strength,Balance,Bed Mobility,Transfers,Gait, Activity Tolerance Progress Towards Goals Slow Progress due to Pain,Slow Progress due to Activity Tolerance Assessment Summary Pt is an 82 y/o female presenting with high pain this date s/p R THR last date. She is due pain meds on PT arrival but wishes to get up to the BSC. Pt does not move her non-surgical side well and this appears to be a body awareness issue. She requires cues for all mobility. She requires heavy assist with RW to get up to BSC and then to get from BSC to chair. She will benefit from PT to improve mobility and gait to prepare for d/c home with her , Tommie. Goals Bed Mobility Goal Standby Assistance Transfer Goal Standby Assistance,Front Wheeled Walker Gait Goal Standby Assistance,Front Wheel Walker Gait Distance 75 Other Goals Pt will ascend and descend 2 steps with RW and min A since she has no rails at her steps at home. Days to Meet Goals 5 Frequency of Treatment Frequency Of Treatment Twice a Day Treatment Plan Physical Therapy Treatment Plan Bed Mobility Training,Transfer Training,Gait Training, Therapeutic Exercise,Balance Retraining,Post Op Education, Discharge Planning,Hot or Cold Pack Precautions Anterior Hip Precautions No Hip Extension,No Hip External Rotation Weight Bearing Status Weight Bearing Status Weight Bear as Tolerated Recommendations To Nursing Amount of Assist Needed 2 Person Assist Discharge Recommendations PT Discharge Recommendations Home with 21/10 Assist Available,Home Health, Outpatient PT Transportation Needs at Discharge Private Vehicle
--- NOTE | 2022-11-01 10:46 | PM.DS.1 ---
History of Present Illness History of Present Illness Date Patient Seen: 11/01/22 Time Patient Seen: 10:47 Chief complaint: Hip pain Narrative: Hip pain it has been moderate. No fever chills. No nausea or vomiting. Discharge Providers Provider Discharge Date: 11/01/22 Primary care physician: Michael Fierro MD Consults: 10/31/22 12:47 Consult to Anesthesiology Routine Comment: Consulting Provider: Anesthesiologist Reason for consultation: Regional block for post operative pain control 10/31/22 17:17 Consult to Discharge Planning Routine Comment: Consult to Occupational Therapy Evaluate & Treat Comment: Physician Instructions: Evaluate and treat Consult to Physical Therapy Evaluate & Treat Comment: Physician Instructions: post op LINNEA protocol Discharge provider: Perry Hairston PA-C Summary Hospital Course Discharge Diagnosis: Right hip osteoarthritis Hospital Course: Right total hip arthroplasty anterior approach Same procedure as scheduled: Yes Indications: The patient has had progressively worsening right hip pain with radiographic changes consistent with arthritis. Non-operative management has failed and the patient has requested total hip replacement. The risks, benefits and alternatives to surgery were discussed with the patient prior to proceeding. Risks discussed included, but were not limited to, failure to relieve pain, leg length discrepancy, dislocation, stiffness, infection, nerve damage, deep venous thrombosis, pulmonary embolism, stroke, coma, heart attack, permanent paralysis and , as well as the potential need for eventual revision of the prosthetic. Surgeon: Linda Martin Land Acquisition Manager: Perry Hairston Anesthesia Type: General and Spinal Operative Notes Findings: Severe right hip osteoarthritis, adequate stability, soft bone Closure Type: primary Specimen(s): none sent Prosthetic devices, grafts, tissues, transplants, or devices: Martin and Nephew 54 mm R3, neutral poly liner, 36 by -3 Oxinium head, size 2 polar stem with collar, one 6.5 mm screw Estimated Blood Loss (mL): 250 Blood products transfused: none Patient admitted to the hospital for the above-mentioned procedure. Patient consented to the same. Patient underwent right total hip arthroplasty, anterior approach October 31, 2022. Patient back in her room recovering well as in stable condition. Patient will be weight-bearing as tolerated on right lower extremity. Anterior hip precautions. Aspirin for DVT prophylaxis. She will be discharged today after physical therapy if safe for home environment. Exam Vital Signs (past 8 hours): - 11/01/22 08:36 11/01/22 08:56 11/01/22 08:58 Temperature 97.9 F Pulse Rate 70 70 70 Respiratory Rate 16 Blood Pressure 130/66 133/66 130/66 Pulse Oximetry 96 Oxygen Flow Rate 0 Oxygen Delivery Method Room Air Oxygen Flow Rate 0 Narrative Exam Narrative: 82-year-old female resting comfortably in bedside chair in no apparent distress. Angela dressing is on and functioning. Dressing is clean, dry and intact. Motor functions intact bilateral lower extremities. Const General: cooperative Nutritional Appearance: average body habitus Resp Effort & Inspection: normal respiratory effort and able to speak in complete sentences Objective Labs 11/01/22 04:44 Labs: Laboratory Results - last 24 hr 11/01/22 04:44 Hgb 13.0 Hct 37.4 PFSH Medical History Atrial fibrillation GERD (gastroesophageal reflux disease) Glaucoma Hearing impaired Hypertension Low back pain Neuropathy Osteoarthritis PAC (premature atrial contraction) Presence of pessary PVC's (premature ventricular contractions) Tremor Surgical History H/O wrist surgery (~2007) History of bilateral cataract extraction History of cardiac radiofrequency ablation (~2015) Hx of eye surgery Status post tonsillectomy and adenoidectomy Family History Sister Cerebral aneurysm Brother Myocardial infarction Father Colon cancer Mother Cerebral aneurysm Social History marital status: household members: spouse Smoking Status: Never smoker alcohol intake: former substance use type: does not use Discharge Assessment & Plan Assessment and Plan Assessment: Patient progressing as expected Plan of Treatment: Mobilize with physical therapy, weight-bearing as tolerated, anterior hip precautions Multimodal pain management Discharge home today after physical therapy if safe for home environment. Discharge Plan Discharge Plan Patient Disposition: Home Discharge orders & Medications Discharge Orders: Discharge (Order); Ordered 11/01/22 Ordered By: Perry Hairston Prescriptions: New acetaminophen 325 mg Tablet 650 mg PO Q6H Qty: 60 0RF aspirin 81 mg Tablet,Delayed Release (Dr/Ec) 81 mg PO BID Qty: 60 0RF oxycodone 5 mg Tablet 5 mg PO Q3H PRN (Reason: Pain, Moderate (4-6)) Qty: 40 0RF Continued ascorbic acid (vitamin C) 500 mg tablet 500 mg PO DAILY cranberry extract 250 mg capsule 250 mg PO DAILY Rx Instructions: administer with a meal metoprolol succinate [Toprol XL] 25 mg tablet extended release 24 hr 25 mg PO BID Qty: 60 12RF carbidopa-levodopa 25-100 mg tablet extended release 1 tab PO BID Qty: 60 1RF cholecalciferol (vitamin D3) 25 mcg (1,000 unit) capsule 25 mcg PO DAILY multivitamin Tablet 1 tab PO DAILY Qty: 0 omega 7-drv-hwd-fish oil [Fish Oil] 1,000 mg (120 mg-180 mg) Capsule 1 cap PO DAILY Qty: 0 calcium carbonate 600 mg calcium (1,500 mg) Tablet 600 mg PO BID Qty: 0 tafluprost (PF) [Zioptan (PF)] 0.0015 % Dropperette 1 drp OPHTHALMIC (EYE) BID Qty: 0 aspirin 81 MG tablet,chewable 81 mg PO QDAY Qty: 0 Trimo-Pepe Jelly 0.025-0.01 % gel See Rx Instructions .ROUTE .COMPLEX Qty: 113.4 2RF Dose Instruction: APPLY 1 APPLICATORFUL VAGINALLY TWICE A WEEK Rx Instructions: APPLY 1 APPLICATORFUL VAGINALLY TWICE A WEEK lisinopril 2.5 mg tablet 2.5 mg PO QDAY Qty: 90 1RF timolol 0.5 % Drops 1 drp OPHTHALMIC (EYE) DAILY Discontinued acetaminophen 650 mg Tablet Extended Release 1,300 mg PO TID Follow up/Referrals: Michael Fierro MD [Primary Care Provider] - Linda Martin MD [Physician] - As previously scheduled (Follow up w/ Divya Dupree PA-C, on 11/13/2022 @ 2:30 pm at [facility] in [place].) Diet/Activity/Treatments Diet: Diet as Tolerated Activity: Weightbearing as tolerated to right leg. Anterior hip precautions. Cold/Heat Therapy: Ice to right hip as needed for pain. Skin/Wound/Dressing Care Report to your healthcare provider any signs of infection, such as:: chills, fever, night sweats, unusual drainage and unusual redness Dressing: May shower. Keep dressing in place until follow up in office. No bathing or otherwise soaking incision. Call the office if the dressing becomes saturated inside. Visit Report/Discharge Packet Instructions: DI for Hip Replacement Stand Alone Forms: Patient Portal/API, Surgery Discharge Discharge Data Primary Care Provider: Michael Fierro Attending Provider: Linda Martin VTE Deep Vein Thrombosis/Pulmonary Embolism Present on Admission: No
--- NOTE | 2022-11-01 13:09 | CM.DANOTE ---
Initial Discharge Assessment Note: Case reviewed, met with patient, spouse and daughter Silke. Introduced self and role. P[facility]: Dr Michael Fierro 82 year old female underwent R LINNEA yesterday, 10/31/2022. Patient has Parkinson's, L hand tremor. Lives in [place] with her spouse Tucker and has local family who are in healthcare. She has outpatient PT appointments set up to start next week. PLAN: Discharge when medically cleared. 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 Yes Advance Directives on File No History Provided By Patient,Medical Record Prior Living Arrangements House Household Members spouse Type of transporation used prior to Relies on Others admit Comment rarely drives Independent with ADL's Yes Is patient alert and oriented? Yes: slowed affect with hand tremor, Parkinson's Needs Assistance With Managing Medications,Home Chores / Shopping Caregiver for Another No Patient/Family Preference OP PT Therapy Barriers to Discharge No Discharge Plan Home Referrals Initiated None needed Review Status In Process Next Review Type Continued Stay Review Pre-Anesthesia Assessment Start: 10/15/22 08:53 Freq: Status: Active Protocol: Document 10/15/22 08:53 TC (Rec: 10/15/22 09:39 TC [id number]) Pre-Anesthesia Assessment Patient Information Reviewed Via Phone Assessment Assessment Completed With Patient Diagnostic Results BMP/CMP,CBC,EKG Comment Labs @ [facility] 09/20/22, outside EKG scanned Primary Care Provider Michael Fierro Seen Specialist in Last 12 Months Yes Specialist Seen [facility],Orthopedist Primary Language Lebanese Vice President Of Operations Required No Height 154.94 cm Weight 52.617 kg Body Mass Index (BMI) 21.9 Hearing Ability Hearing Impaired,Use of Hearing Aid Visual Assist Glasses Dentition Type Teeth, Natural Present,Teeth, Missing Barriers to Learning Auditory Hx Anesthesia Reactions No Hx Family Anesthesia Reaction No Hx Malignant Hyperthermia No Hx Blood Transfusions No Anesthesia Review Requested No alcohol intake former Smoking Status Never smoker Substance Use Type does not use Pain Present Pain Reported Musculoskeletal Symptoms Abnormal Gait,Back Pain, Difficulty Walking,Joint Pain, Tremors History of Falling (Recent or History of No ) Patient is completely paralyzed or No completely immobile Mental Status Oriented to own ability Is patient on oxygen? No Does patient have LEWIS/SOB No Hx Sleep Apnea No Currently Taking a Beta Marisol Yes: Metoprolol Can You Climb a Flight of Stairs Without Yes SOB Hx Chest Pain No Hx SOB No Hx Syncope or Dizziness No Anti-Coagulant Therapy Yes: ASA 81mg-advised to hold [address] Fierro Has a [facility] Yes [facility] Car[facility] name Dr. Pedraza Hx Pacemaker/ICD No Pacemaker Rep Required? No Diet Type At Home Regular Dysphagia No Gastrointestinal Symptoms Reflux Chronic UTI No Bladder Pattern Urgency Urinary Catheter Present No Hx Urinary Self Catheterization No Comment Pessary in place Diabetes No HgbA1C 5.2 Date 09/20/22 Patient No Lactating No Hx Drug Resistant Organism No Presence of External or Internal Medical Yes: Left wrist Devices Have you had any close contact with No someone diagnosed with COVID-19? Received a COVID vaccine? Yes Received all doses? No Marital Status Lives With spouse Current Living Arrangements House Number of Floors (Floors) One Floor Number of Stairs To Enter/Railing? 2 Support System Spouse Does the Patient Have Assistance After Yes Surgery Patient Discharge Plan Description Return Home Comment Pt advised overnight length of stay per surgeon Feels Safe in Current Environment Yes Been Physically Hurt or Threatened By a No Person in Current Environment Do you have thoughts of harming yourself None or others? Are you currently considering suicide? No Do you have a plan to hurt yourself or No Plan others? Do You Have Any Spiritual Beliefs That No May Affect Your HC Choices? Do You Have Any Cultural Practices That No May Affect Your HC Choices? Comment Anglican Who Can We Speak to About Patient's Care Family, friends Identifying Code for Release of Patient Declines to issue Information Health Care Proxy/Next of Kin Tucker () Health Care Proxy or [phone] Emergency Contact Name Tucker () Emergency Contact or [phone] Advance Directives? Yes Advance Directives on File No Requested Patient Bring Advanced Yes Directives DOS Power of Automobile Service Advisor Yes Power of Automobile Service Advisor Name Silke (daughter) Power of Automobile Service Advisor PAC Instructions Do not shave/clip surgical site,Durable medical equipment ,Medications to take/avoid, Nasal antibiotic,No ETOH/ petroleum product on skin DOS, NPO,Pre-surgical wash,Sensory aids,Sturdy shoes/comfortable clothes,Do not bring valuables and remove jewelry Document 10/15/22 12:29 CAB (Rec: 10/15/22 12:29 CAB [id number]) Pre-Anesthesia Assessment Patient Information Reviewed Via Phone Assessment Assessment Completed With Patient Diagnostic Results BMP/CMP,CBC,EKG Comment Labs @ [facility] 09/20/22, outside EKG scanned Primary Care Provider Michael Fierro Seen Specialist in Last 12 Months Yes Specialist Seen [facility],Orthopedist Primary Language Lebanese Vice President Of Operations Required No Height 154.94 cm Weight 52.617 kg Body Mass Index (BMI) 21.9 Hearing Ability Hearing Impaired,Use of Hearing Aid Visual Assist Glasses Dentition Type Teeth, Natural Present,Teeth, Missing Barriers to Learning Auditory Hx Anesthesia Reactions No Hx Family Anesthesia Reaction No Hx Malignant Hyperthermia No Hx Blood Transfusions No Anesthesia Review Requested No alcohol intake former Smoking Status Never smoker Substance Use Type does not use Pain Present Pain Reported Musculoskeletal Symptoms Abnormal Gait,Back Pain, Difficulty Walking,Joint Pain, Tremors History of Falling (Recent or History of No ) Patient is completely paralyzed or No completely immobile Mental Status Oriented to own ability Is patient on oxygen? No Does patient have LEWIS/SOB No Hx Sleep Apnea No Currently Taking a Beta Marisol Yes: Metoprolol Can You Climb a Flight of Stairs Without Yes SOB Hx Chest Pain No Hx SOB No Hx Syncope or Dizziness No Anti-Coagulant Therapy Yes: ASA 81mg-advised to hold [address] Fierro Has a [facility] Yes: Last visit 01/23/[address] Pedraza Hx Pacemaker/ICD No Pacemaker Rep Required? No Comment Cardiac records scanned Diet Type At Home Regular Dysphagia No Gastrointestinal Symptoms Reflux Chronic UTI No Bladder Pattern Urgency Urinary Catheter Present No Hx Urinary Self Catheterization No Comment Pessary in place Diabetes No HgbA1C 5.2 Date 09/20/22 Patient No Lactating No Hx Drug Resistant Organism No Presence of External or Internal Medical Yes: Left wrist Devices Have you had any close contact with No someone diagnosed with COVID-19? Received a COVID vaccine? Yes Received all doses? No Marital Status Lives With spouse Current Living Arrangements House Number of Floors (Floors) One Floor Number of Stairs To Enter/Railing? 2 Support System Spouse Does the Patient Have Assistance After Yes Surgery Patient Discharge Plan Description Return Home Comment Pt advised overnight length of stay per surgeon Feels Safe in Current Environment Yes Been Physically Hurt or Threatened By a No Person in Current Environment Do you have thoughts of harming yourself None or others? Are you currently considering suicide? No Do you have a plan to hurt yourself or No Plan others? Do You Have Any Spiritual Beliefs That No May Affect Your HC Choices? Do You Have Any Cultural Practices That No May Affect Your HC Choices? Comment Anglican Who Can We Speak to About Patient's Care Family, friends Identifying Code for Release of Patient Declines to issue Information Health Care Proxy/Next of Kin Tucker () Health Care Proxy or [phone] Emergency Contact Name Tucker () Emergency Contact or [phone] Advance Directives? Yes Advance Directives on File No Requested Patient Bring Advanced Yes Directives DOS Power of Automobile Service Advisor Yes Power of Automobile Service Advisor Name Silke (daughter) Power of Automobile Service Advisor PAC Instructions Do not shave/clip surgical site,Durable medical equipment ,Medications to take/avoid, Nasal antibiotic,No ETOH/ petroleum product on skin DOS, NPO,Pre-surgical wash,Sensory aids,Sturdy shoes/comfortable clothes,Do not bring valuables and remove jewelry
--- NOTE | 2022-11-01 13:20 | P.DS_ITS ---
History of Present Illness History of Present Illness Date Patient Seen: 11/01/22 Chief complaint: Hip pain Narrative: Hip pain it has been moderate. No fever chills. No nausea or vomiting. Discharge Providers Provider Primary care physician: Michael Fierro MD Consults: 10/31/22 12:47 Consult to Anesthesiology Routine Comment: Consulting Provider: Anesthesiologist Reason for consultation: Regional block for post operative pain control 10/31/22 17:17 Consult to Discharge Planning Routine Comment: Consult to Occupational Therapy Evaluate & Treat Comment: Physician Instructions: Evaluate and treat Consult to Physical Therapy Evaluate & Treat Comment: Physician Instructions: post op LINNEA protocol Discharge provider: Perry Hairston PA-C Exam Vital Signs (past 8 hours): - 11/01/22 08:36 11/01/22 08:56 11/01/22 08:58 Temperature 97.9 F Pulse Rate 70 70 70 Respiratory Rate 16 Blood Pressure 130/66 133/66 130/66 Pulse Oximetry 96 Oxygen Flow Rate 0 Oxygen Delivery Method Room Air Oxygen Flow Rate 0 Objective Labs 11/01/22 04:44 Labs: Laboratory Results - last 24 hr 11/01/22 04:44 Hgb 13.0 Hct 37.4 PFSH Medical History Atrial fibrillation GERD (gastroesophageal reflux disease) Glaucoma Hearing impaired Hypertension Low back pain Neuropathy Osteoarthritis PAC (premature atrial contraction) Presence of pessary PVC's (premature ventricular contractions) Tremor Surgical History H/O wrist surgery (~2007) History of bilateral cataract extraction History of cardiac radiofrequency ablation (~2015) Hx of eye surgery Status post tonsillectomy and adenoidectomy Family History Sister Cerebral aneurysm Brother Myocardial infarction Father Colon cancer Mother Cerebral aneurysm Social History marital status: household members: spouse Smoking Status: Never smoker alcohol intake: former substance use type: does not use Discharge Assessment & Plan Assessment and Plan Assessment: Patient progressing as expected Plan of Treatment: Mobilize with physical therapy, weight-bearing as tolerated, anterior hip precautions Multimodal pain management Discharge home today after physical therapy if safe for home environment. Discharge Plan Discharge Plan Patient Disposition: Home Discharge orders & Medications Discharge Orders: Discharge (Order); Ordered 11/01/22 Ordered By: Perry Hariston Prescriptions: New acetaminophen 325 mg Tablet 650 mg PO Q6H Qty: 60 0RF aspirin 81 mg Tablet,Delayed Release (Dr/Ec) 81 mg PO BID Qty: 60 0RF oxycodone 5 mg Tablet 5 mg PO Q3H PRN (Reason: Pain, Moderate (4-6)) Qty: 40 0RF Continued ascorbic acid (vitamin C) 500 mg tablet 500 mg PO DAILY cranberry extract 250 mg capsule 250 mg PO DAILY Rx Instructions: administer with a meal metoprolol succinate [Toprol XL] 25 mg tablet extended release 24 hr 25 mg PO BID Qty: 60 12RF carbidopa-levodopa 25-100 mg tablet extended release 1 tab PO BID Qty: 60 1RF cholecalciferol (vitamin D3) 25 mcg (1,000 unit) capsule 25 mcg PO DAILY multivitamin Tablet 1 tab PO DAILY Qty: 0 omega 3-aeu-ckf-fish oil [Fish Oil] 1,000 mg (120 mg-180 mg) Capsule 1 cap PO DAILY Qty: 0 calcium carbonate 600 mg calcium (1,500 mg) Tablet 600 mg PO BID Qty: 0 tafluprost (PF) [Zioptan (PF)] 0.0015 % Dropperette 1 drp OPHTHALMIC (EYE) BID Qty: 0 aspirin 81 MG tablet,chewable 81 mg PO QDAY Qty: 0 Trimo-Pepe Jelly 0.025-0.01 % gel See Rx Instructions .ROUTE .COMPLEX Qty: 113.4 2RF Dose Instruction: APPLY 1 APPLICATORFUL VAGINALLY TWICE A WEEK Rx Instructions: APPLY 1 APPLICATORFUL VAGINALLY TWICE A WEEK lisinopril 2.5 mg tablet 2.5 mg PO QDAY Qty: 90 1RF timolol 0.5 % Drops 1 drp OPHTHALMIC (EYE) DAILY Discontinued acetaminophen 650 mg Tablet Extended Release 1,300 mg PO TID Follow up/Referrals: Michael Fierro MD [Primary Care Provider] - Linda Martin MD [Physician] - As previously scheduled (Follow up w/ Divya Dupree PA-C, on 11/13/2022 @ 2:30 pm at [facility] Diet/Activity/Treatments Diet: Diet as Tolerated Activity: Weightbearing as tolerated to right leg. Anterior hip precautions. Cold/Heat Therapy: Ice to right hip as needed for pain. Skin/Wound/Dressing Care Report to your healthcare provider any signs of infection, such as:: chills, fever, night sweats, unusual drainage and unusual redness Dressing: May shower. Keep dressing in place until follow up in office. No bathing or otherwise soaking incision. Call the office if the dressing becomes saturated inside. Visit Report/Discharge Packet Instructions: DI for Hip Replacement Stand Alone Forms: Patient Portal/API, Surgery Discharge Discharge Data Primary Care Provider: Michael Fierro Attending Provider: Linda Martin VTE Deep Vein Thrombosis/Pulmonary Embolism Present on Admission: No
--- NOTE | 2022-11-01 14:30 | PT.IPTN ---
Current Diagnoses Unilateral primary osteoarthritis, right hip (10/31/22) Pain in right hip (10/31/22) Surgery Performed Operation Date: 10/31/22 13:45 Actual Procedures p Total Hip Arthroplasty/Anterior Approach(Right) - Linda Martin MD Physical Therapy Treatment Note M2 PT-IP Current Condition Start: 11/01/22 09:34 Freq: NEEDED Status: Active Protocol: Document 11/01/22 08:40 MB (Rec: 11/01/22 09:45 MB [id number]) Physical Therapy Current Condition Current Condition Evaluation Date 11/01/22 Treatment Diagnosis R THR M3 PT-IP Subjective Start: 11/01/22 09:34 Freq: NEEDED Status: Active Protocol: Document 11/01/22 15:41 TS (Rec: 11/01/22 15:58 TS [id number]) Subjective Physical Therapy Visit Type Type Treatment Note Visit Start Time 14:30 Visit Stop Time 15:00 Total Visit Minutes 30 Notes Spouse present. Number of SQUAD LEADER Visits 1 Physical Therapy Visit Comments Patient Comments Pt agreeable to PT. Patient Goals To go home Therapy Pain Assessment Pain When Pain Assessed During Mobility Pain Present Pain Present Pain Reported M4 PT-IP Mobility and Gait Start: 11/01/22 09:34 Freq: NEEDED Status: Active Protocol: Document 11/01/22 15:41 TS (Rec: 11/01/22 15:58 TS [id number]) PT-Bed Mobility Assessment Sit to Supine Sit to Supine Moderate Assistance PT-Transfer Assessment Sit to and From Stand Sit to and from Stand Minimal Assistance,1 Person Assistance,Use of Upper Extremities Equipment Transfer Assistive Device Gait Belt,Front Wheeled Walker Orthotic/Prosthetic Devices or Brace: No Comments Mobility Comments Pt found resting in chair agreeable to PT. Pt recalled 2 /2 hip precautions prior to mobility. Spouse was edcuated on proper donning of gait prior to sit to stand. Sit to stand with FWW Maryellen with BUE support pushing from arms of chair, pt required cues to scoot forward in chair and weight forward. Pt initially in standing leaning back on heels required cues for weight forward on toes. She ambulated ~30' CGA/Maryellen with slow step to gait, cues for leading with RLE. Pt made it to door of room where she had buckling of LLE requriing Maryellen for balance, spouse was educated on handplacement on gait. Pt ambualted back to bed , required max cueing for sit to supine and ModA for LEs into bed. Once in bed pt laterally scooted SBA and scooted to HOB SBA with cues provided for pushing through heels and elbows. Pt was left in bed with call light nearby, spouse in room, RN notified. Gait Assessment Gait Gait Assistance Required: Contact Guard Assist,Minimum Assistance,1 Person Assist Distance (Feet) 30 Able to Maintain Weight Bearing Status Yes During Gait Assistive Devices Assistive Device Gait Belt,Front Wheeled Walker Orthotic/Prosthetic Devices or Brace: No Gait Deviations General Gait Pattern Antalgic,Decreased Stride Length,Decreased Feet Clearance Factors Limiting Gait Function Factors Limiting Gait Function Decreased Activity Tolerance, Decreased Sensation,Decreased Strength,Difficulty Following Directions,Incoordination, Limited Range of Motion,Pain, Poor Balance,Poor Safety Awareness Comments Gait Comments See mobility comments. Stair Climbing Assessment Comments Stair Climbing Comments Not safe at this time. PT-Balance Assessment Sitting Balance and Reactions Static Sitting Balance Ability Good Dynamic Sitting Balance Ability Fair Standing Balance and Reactions Static Standing Balance Ability Fair Dynamic Standing Balance Ability Fair Device Used FWW M5 PT-IP Objective Assessments Start: 11/01/22 09:34 Freq: NEEDED Status: Active Protocol: Document 11/01/22 08:40 MB (Rec: 11/01/22 09:45 MB [id number]) Orientation Orientation/Cognition Level of Alertness Alert Orientation Name,Age,Birthday,Month,Date, Year,Day of Week,Place, Situation Language Function Ability No Deficits Noted Safety Awareness Decreased Safety Awareness Memory Description No Deficits Noted Gross Range of Motion Upper Extremity ROM Impairments Defer to OT Lower Extremity ROM Assessment Right Impaired Strength Comments Strength Comments Deferred MMT d/t urgency to get up to commode and pt with poor command following. M7 PT-IP Assessment and Plan Start: 11/01/22 09:34 Freq: NEEDED Status: Active Protocol: Document 11/01/22 15:41 TS (Rec: 11/01/22 15:58 TS [id number]) PT Summary Assessment and Plan Potential Rehabilitation Potential Fair Summary Impairments Pain,ROM,Strength,Balance,Bed Mobility,Transfers,Gait, Activity Tolerance Progress Towards Goals Progressing Toward Goals Assessment Summary Pt made good progress with her mobility this session. She is Maryellen for sit to stands from chair, does require cues for weight forward in standing, pt leans back on heels. She progressed her ambulation to ~ 30' CGA/Maryellen. After ~20' pt's LLE buckled requiring Maryellen for stability. She performed sit to supine ModA for her LEs int bed. Pt requires Max cueing for all mobility with verbal and tactile cues. Spouse was educated on donning of gait belt, proper sequencing of sit to stands and assistance with gait. PT continues to recommend Home with HHPT. Will see pt tomorrow morning for stair training prior to d/c. Due to buckling of LLEs was unable to perform this afternoon. Goals Bed Mobility Goal Standby Assistance Transfer Goal Standby Assistance,Front Wheeled Walker Gait Goal Standby Assistance,Front Wheel Walker Gait Distance 75 Other Goals Pt will ascend and descend 2 steps with RW and min A since she has no rails at her steps at home. Days to Meet Goals 5 Frequency of Treatment Frequency Of Treatment Twice a Day Treatment Plan Physical Therapy Treatment Plan Bed Mobility Training,Transfer Training,Gait Training, Therapeutic Exercise,Balance Retraining,Post Op Education, Discharge Planning,Hot or Cold Pack Precautions Anterior Hip Precautions No Hip Extension,No Hip External Rotation Weight Bearing Status Weight Bearing Status Weight Bear as Tolerated Recommendations To Nursing Amount of Assist Needed 1 Person Assist Discharge Recommendations PT Discharge Recommendations Home with 21/10 Assist Available,Home Health, Outpatient PT Transportation Needs at Discharge Private Vehicle
--- NOTE | 2022-11-01 16:32 | OT.IP.EVAL ---
Current Diagnoses Unilateral primary osteoarthritis, right hip (10/31/22) Pain in right hip (10/31/22) Surgery Performed Operation Date: 10/31/22 13:45 Actual Procedures p Total Hip Arthroplasty/Anterior Approach(Right) - Linda Martin MD Past Medical History (Last Reviewed 11/01/22 @ 10:49 by Perry Hairston PA-C) Atrial fibrillation GERD (gastroesophageal reflux disease) Glaucoma Hearing impaired Hypertension Low back pain Neuropathy Osteoarthritis PAC (premature atrial contraction) Presence of pessary PVC's (premature ventricular contractions) Tremor Surgical History (Last Reviewed 11/01/22 @ 10:49 by Perry Hairston PA-C) H/O wrist surgery (~2007) History of bilateral cataract extraction History of cardiac radiofrequency ablation (~2015) Hx of eye surgery Status post tonsillectomy and adenoidectomy Occupational Therapy Inpatient Evaluation/Re-Eval M1 PT/OT-IP Prior Functional Status Start: 11/01/22 17:13 Freq: NEEDED Status: Active Protocol: Document 11/01/22 15:25 [facility] (Rec: 11/01/22 18:19 [facility] [id number]) Medical Review Prior Functional Status Medical History Reviewed Yes Diet/Fluid Consistency Regular Communication WNLs, no issues noted Mobility and Gait I Activities of Daily Living and IADL's I Social History Household Members spouse Living Arrangements House Number of Floors (Floors) One Floor Number of Stairs To Enter/Railing? 2 steps and no rail to enter, pt used the trash can to help her up the steps which she verbalizes she knows is unsteady Home Environment Standard Height Toilet,Walk in Shower Home Equipment Front Wheel Walker,Straight Cane,Raised Toilet Seat w/ Armrests,Hand Held Shower,Long Handled Shoe Horn,Grab Bars Near Toilet,Grab Bars In Shower Additional Social History Comment Pt has a built in seat in the shower. M2 OT-IP Current Condition Start: 11/01/22 17:13 Freq: Status: Active Protocol: Document 11/01/22 15:25 [facility] (Rec: 11/01/22 18:19 [facility] [id number]) Occupational Therapy Current Condition Current Condition Evaluation Date 11/01/22 Treatment Diagnosis S/p R LINNEA Diagnosis Onset Date 10/31/22 Post Operative Precautions Anterior Hip Precautions No Hip Extension,No Hip External Rotation Other Precautions Dr. Martin stated no hyperextension greater than 30 degrees for RLE and no back hyperextension. M3 OT- IP Subjective and Pain Start: 11/01/22 17:13 Freq: Status: Active Protocol: Document 11/01/22 15:25 [facility] (Rec: 11/01/22 18:19 [facility] [id number]) OT- Subjective Occupational Therapy Visit Type Type Initial Evaluation Visit Start Time 15:25 Visit Stop Time 16:33 Total Visit Minutes 68 Occupational Therapy Visit Comments Patient Comments Pt wanting to use the toilet. Pt's present for OT session and also participated in caregiver training. Patient/Caregiver Goals To go home. OT Pain Assessment Pain When Pain Assessed At Rest Pain Present Pain Present Pain Reported Location Right Hip Intensity 7 Scale Used Numeric (0 - 10) M4 OT- IP ADL's Start: 11/01/22 17:13 Freq: Status: Active Protocol: Document 11/01/22 15:25 [facility] (Rec: 11/01/22 18:19 [facility] [id number]) OT [id number] Comments OT Self-Feeding Comments not at meal time OT ADL-Grooming Comments OT Grooming Comments not performed OT ADL-Oral Care Comments Oral Care Comments Not performed. OT ADL-Dressing General Eval Lower Body Dressing Ability Maximum Assistance Areas Needing Assistance Underpants/Brief OT ADL-Toileting General Evaluation Toileting Ability Maximum Assistance Areas Needing Assistance Manage Clothing,Perform Perineal Hygiene Comments OT Toileting Comments Pt needing assist for all brief management and hygiene needs. OT ADL-Bathing Comments OT Bathing Comments Sponge bath more appropriate at this time due to decreased balance and mobility. M5 OT- IP IADL's Start: 11/01/22 17:13 Freq: Status: Active Protocol: Document 11/01/22 15:25 [facility] (Rec: 11/01/22 18:19 [facility] [id number]) OT-Instrumental Activities of Daily Living Deficits IADL Deficits Identified Deficits Meal Preparation Meal Preparation Caregiver Provides Assist Kaiako Kura Tuar[place] Kaiako Kura Tuarua Caregiver Provides Assist M6 OT- IP Functional Cognition Start: 11/01/22 17:13 Freq: Status: Active Protocol: Document 11/01/22 15:25 [facility] (Rec: 11/01/22 18:19 [facility] [id number]) Cognitive Factors Limiting Selfcare Function Cognitive Ability Level of Alertness Alert,Confusional State Patient Orientation Name,Place,Situation Attention Span Ability Capable of Focused Attention, Unable to Sustain Attention Ability to Follow Commands Able to Follow One Step Commands with Increased Time, Able to Follow One Step Commands with Repetition Memory Description Short Term Impaired Safety Awareness Decreased Recall of Precautions,Decreased Ability to Apply Precautions Cognitive Comments Cognitive Assessment Comments Pt needing step by step cues with visual and tactile cues in order to follow her hip precautions. Pt having difficulty to initiate her movement and a little slow to process information. Pt states is very tired and did not sleep well last night. Pt not remembering her hip precautions as well. OT- Vision and Hearing OT- Vision Assessment Visual Acuity Glasses For Reading M7 OT- IP Mobility and Balance Start: 11/01/22 17:13 Freq: Status: Active Protocol: Document 11/01/22 15:25 [facility] (Rec: 11/01/22 18:19 [facility] [id number]) OT- Bed Mobility Assessment Supine to Sit Supine to Sit Assist Maximum Assistance,1 Person Assistance,Head of Bed Elevated OT-Transfer Assessment Sit to and From Stand Sit to and from Stand Moderate Assistance,Maximum Assistance Transfers Transfer Ability Moderate Assistance,2 Person Assistance Technique Transfer Destination Bed,Bedside Commode,Chair Transfer Technique Stand Step Pivot Devices Transfer Assistive Devices Gait Belt,4 Wheeled Walker Comments Mobility Comments MAXAX 1 to help move her RLE to the edge of the bed and assist to help get her trunk upright. Pt's states that pt can sleep in his bed which is adjustable. MOD/ MAXAx1 to stand and pt tends to lean on her heels posterior and needing education to get her weight over her feet. Practiced with pt's as pt too tired of sequence of scooting forwards, make sure her feet are back so able to come to stand better without posterior lean. Transfer MODA X2 with FWW, pt having difficulty to picker and packer her feet . OT- Balance Assessment Sitting Balance and Reactions Static Sitting Balance Ability Fair Dynamic Sitting Balance Ability Poor Standing Balance and Reactions Static Standing Balance Ability Poor Dynamic Standing Balance Ability Poor M9 OT- IP Assessment and Plan Start: 11/01/22 17:13 Freq: Status: Active Protocol: Document 11/01/22 15:25 [facility] (Rec: 11/01/22 18:19 [facility] [id number]) OT Summary Assessment and Plan Potential Rehabilitation Potential Good Analytic Complexity at Evaluation Low Summary OT Impairments Pain,Balance,Functional Mobility,Grooming,Dressing, Toileting,Bathing,Toilet Transfers,Shower Transfers, Activity Tolerance Progress Towards Goals Slow Progress due to Pain,Slow Progress due to Activity Tolerance Assessment Summary Pt low complexity and main barriers are pain, decreased balance, activity tolerance, and having difficulty to follow her hip precautions. Able to do caregiver training with pt and her and pt will benefit from continued training with her as currently pt needing MODAX2 for transfers and MAXA for bed mobility needs. Pt at this time would benefit from skilled rehab, otherwise if able to improve maybe able to go home with 24/ assist with home health. Goals Self-Feeding Goal Independent Grooming Goal Independent Dressing Goal Minimal Assistance Toileting Goal Minimal Assistance Bathing Goal Minimal Assistance Toilet Transfer Goal Standby Assistance Shower Transfer Goal Minimal Assistance Days to Meet Goals 15 Frequency of Treatment Frequency Of Treatment Once a Day Treatment Plan OT Treatment Plan ADL Training,Functional Mobility,Patient/Family Education,Discharge Planning Discharge Recommendations OT Discharge Recommendations SNF Rehab Other Discharge Recommendations Hopefully if pt improved, pt to go home with 24/7 assist with home health. Transportation Needs at Discharge Wheelchair/Cabulance
--- NOTE | 2022-11-01 19:59 | DI.RAD.S_ITS ---
PROCEDURE: XR HIP RT 1V INDICATIONS: fall TECHNIQUE: Single view of the hip were acquired. COMPARISON: [facility], CR, XR HIP W PEL IF DONE RT 2V, 10/31/2022, 16:23. FINDINGS: Bones: A right hip prosthesis is redemonstrated. No definite fracture or dislocation. No new suspicious periprosthetic lucencies. Soft tissues: There are postsurgical changes within the overlying soft tissues. IMPRESSION: 1. No definite fracture or dislocation. Dictated by: Evangelista Wilkerson M.D. on 11/01/2022 at 21:31 Approved by: Evangelista Wilkerson M.D. on 11/01/2022 at 21:32
[2022-11-01] MEDS: MELATONIN 3 MG TABLET PO (20:17)
[2022-11-01] MEDS: OXYCODONE IR 5 MG TABLET PO (20:19)
--- NOTE | 2022-11-01 21:40 | DI.RAD.S_ITS ---
PROCEDURE: XR CHEST 1V INDICATIONS: decreased resp status TECHNIQUE: One view of the chest was acquired. COMPARISON: , , CHEST 2 VIEW, 06/22/2015, 7:47. FINDINGS: Surgical changes and devices: None. Lungs and pleura: Lungs are clear. No pleural effusions or pneumothorax. Mediastinum: Mediastinal contours appear normal. Heart size is normal. Bones and chest wall: No suspicious bony lesions. Overlying soft tissues appear unremarkable. IMPRESSION: 1. No acute cardiopulmonary disease. Dictated by: Evangelista Wilkerson M.D. on 11/01/2022 at 23:01 Approved by: Evangelista Wilkerson M.D. on 11/01/2022 at 23:02
[2022-11-01] MEDS: ALBUTEROL/IPRATROPIUM 3 ML AMPUL INH (22:55)
--- NOTE | 2022-11-01 23:44 | PC.NURSE ---
Addendum entered by Sana Epstein R.N. 11/02/22 06:48: Patient resting in bed and was able to sleep a few hours. Lung sounds improving, still on 2L sats 96%. Pain to hip has been controlled well with percolone 5mg Addendum entered by Sana Epstein R.N. 11/01/22 23:48: At 2109 came out of room and said patient had loud breath sounds. This RN went in to see patient and found that she had rhonchi sounding lung sounds and a wet cough. At the beginning of the shift patients breath sounds were clear throughout. Spoke w/ again and got a chest xray ordered and started on o2 @ 2L. RT came to see patient and did some suctioning, which helped. Patient still w/a slight cough and producing some thick sputum. Before o2 was started her stats ranged from 88-94%, w/2L sats are 95-97%. Patient denies any new pain. Original Note: Patient checked on at 1915 and was sitting in the recliner and denied any needs at that time. At 1930 PICU NURSE found patient lying on the grown next to the recliner. Patient states she slid off the chair, but did not fall. Patient denied any increased pain or hitting her head. 3 assist back to bed with hoier lift and tolerated well. notified and hip xray ordered. Vital signs stable.
[2022-11-02] VITALS (17 sets, daily range): BP systolic 95–151; BP diastolic 44–66; PULSE 72–154; RESP 10–22; TEMP 36.7–37.3; O2SAT 93–96
[2022-11-02] MEDS: OXYCODONE IR 5 MG TABLET PO (01:32)
--- NOTE | 2022-11-02 08:55 | PT.IPTN ---
Current Diagnoses Unilateral primary osteoarthritis, right hip (10/31/22) Pain in right hip (10/31/22) Surgery Performed Operation Date: 10/31/22 13:45 Actual Procedures p Total Hip Arthroplasty/Anterior Approach(Right) - Linda Martin MD Physical Therapy Treatment Note M2 PT-IP Current Condition Start: 11/01/22 09:34 Freq: NEEDED Status: Active Protocol: Document 11/01/22 08:40 MB (Rec: 11/01/22 09:45 MB [id number]) Physical Therapy Current Condition Current Condition Evaluation Date 11/01/22 Treatment Diagnosis R THR M3 PT-IP Subjective Start: 11/01/22 09:34 Freq: NEEDED Status: Active Protocol: Document 11/02/22 09:24 TS (Rec: 11/02/22 09:51 TS [id number]) Subjective Physical Therapy Visit Type Type Treatment Note Visit Start Time 08:55 Visit Stop Time 09:20 Total Visit Minutes 25 Notes spouse present for caregiver training. 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 Patient Goals To go home Therapy Pain Assessment Pain When Pain Assessed During Mobility Pain Present Pain Present Pain Reported M4 PT-IP Mobility and Gait Start: 11/01/22 09:34 Freq: NEEDED Status: Active Protocol: Document 11/02/22 09:24 TS (Rec: 11/02/22 09:51 TS [id number]) PT-Bed Mobility Assessment Supine to Sit Supine to Sit Maximum Assistance,1 Person Assistance,Head of Bed Elevated,Bedrails Scooting Scooting to Edge of Bed Maximum Assistance PT-Transfer Assessment Sit to and From Stand Sit to and from Stand Minimal Assistance,1 Person Assistance,Use of Upper Extremities Equipment Transfer Assistive Device Gait Belt,Front Wheeled Walker Orthotic/Prosthetic Devices or Brace: No Comments Mobility Comments Pt found resting on 2L of o2 @ 96%, on RA 93%. Supine to sit with HOB elevated 45D Max for uprighting trunk and brining RLE to EOB. Pt required MaxA for scooting to EOB with transfer pad, pt maintained sitting balance with BUE support. Spouse donned gait belt for pt sitting EOB. Sit to stand with FWW Maryellen with spouse, pt with some retroleaning, provided cues for weight forward onto toes. Pt stood ~1 min with poor balance requiring ModA to stay upright from spouse, pt sat back on EOB. Sit to stand with Maryellen from spouse, decreased retroleaning this attempt, CGA for standing balance from spouse. She ambulated CGA with spouse ~15' in room with FWW with shuffling gait. She performed steps x2 with L hand support from spouse on step stool Maryellen, provided cues for step sequencing. Stand to sit into chair Maryellen for slow eccentric control. Pt sat in chair Spo2 91% on RA after mobility. Pt was left in chair with call light nearby, spouse in room, RN notified. Gait Assessment Gait Gait Assistance Required: Contact Guard Assist,1 Person Assist Distance (Feet) 15 Able to Maintain Weight Bearing Status Yes During Gait Assistive Devices Assistive Device Gait Belt,Front Wheeled Walker Orthotic/Prosthetic Devices or Brace: No Gait Deviations General Gait Pattern Antalgic,Decreased Stride Length,Decreased Feet Clearance Factors Limiting Gait Function Factors Limiting Gait Function Decreased Activity Tolerance, Decreased Sensation,Decreased Strength,Difficulty Following Directions,Incoordination, Limited Range of Motion,Pain, Poor Balance,Poor Safety Awareness Comments Gait Comments See mobility comments. Stair Climbing Assessment Evaluation Level of Assist On Stairs Minimal Assistance,1 Person Assistance Devices Stair Climbing Assistive Devices Left Railing Technique/Endurance Stair Climbing Direction Ascend and Descend Stair Climbing Technique Step Over Step Number of Steps Climbed 2 Comments Stair Climbing Comments See mobility comments. PT-Balance Assessment Sitting Balance and Reactions Static Sitting Balance Ability Good Dynamic Sitting Balance Ability Fair Standing Balance and Reactions Static Standing Balance Ability Fair Dynamic Standing Balance Ability Fair Device Used FWW M5 PT-IP Objective Assessments Start: 11/01/22 09:34 Freq: NEEDED Status: Active Protocol: Document 11/01/22 08:40 MB (Rec: 11/01/22 09:45 MB [id number]) Orientation Orientation/Cognition Level of Alertness Alert Orientation Name,Age,Birthday,Month,Date, Year,Day of Week,Place, Situation Language Function Ability No Deficits Noted Safety Awareness Decreased Safety Awareness Memory Description No Deficits Noted Gross Range of Motion Upper Extremity ROM Impairments Defer to OT Lower Extremity ROM Assessment Right Impaired Strength Comments Strength Comments Deferred MMT d/t urgency to get up to commode and pt with poor command following. M6 PT-IP Treatment Start: 11/01/22 09:34 Freq: NEEDED Status: Active Protocol: Document 11/02/22 09:24 TS (Rec: 11/02/22 09:51 TS [id number]) Physical Therapy Treatment Education Education Provided Precautions,Post-Op Packet, Safety M7 PT-IP Assessment and Plan Start: 11/01/22 09:34 Freq: NEEDED Status: Active Protocol: Document 11/02/22 09:24 TS (Rec: 11/02/22 09:51 TS [id number]) PT Summary Assessment and Plan Potential Rehabilitation Potential Fair Summary Progress Towards Goals Progressing Toward Goals Assessment Summary Pt continues to require MaxA for bed mobility with uprighting trunk and RLE assist. She required use of transfer pad for scooting to EOB, pt maintained balance with BUE support sitting EOB. Spouse assisted pt with donning of gait belt prior to OOB mobility. She performed sit to stand Maryellen from spouse, pt had difficulty maintaining balance requiring ModA with support from spouse. Sit to stand 2nd attempt with Maryellen, had better balance with decreased retroleaning and CGA from spouse. She ambulated ~ 15' in room CGA from spouse with continued shuffle gait and use of FWW. She progressed to stairs x2 with Maryellen and LUE support from balance, pt had no buckling or LOB. Pt performed all mobility on RA at 91%, RN requested to keep off o2 at this time. PT is recommending home with 24/7 and HHPT. Spouse has been assisting pt with donning of gait belt, bed mobility, sit to stand, gait and with stairs and feels very comfortable with support she will need at home. Goals Bed Mobility Goal Standby Assistance Transfer Goal Standby Assistance,Front Wheeled Walker Gait Goal Standby Assistance,Front Wheel Walker Gait Distance 75 Other Goals Pt will ascend and descend 2 steps with RW and min A since she has no rails at her steps at home. Days to Meet Goals 5 Frequency of Treatment Frequency Of Treatment Twice a Day Treatment Plan Physical Therapy Treatment Plan Bed Mobility Training,Transfer Training,Gait Training, Therapeutic Exercise,Balance Retraining,Post Op Education, Discharge Planning,Hot or Cold Pack Precautions Anterior Hip Precautions No Hip Extension,No Hip External Rotation Weight Bearing Status Weight Bearing Status Weight Bear as Tolerated Discharge Recommendations PT Discharge Recommendations Home with 24/7 Assist Available,Home Health, Outpatient PT Transportation Needs at Discharge Private Vehicle
[2022-11-02] MEDS: FISH OIL 1,000 MG CAPSULE 1000 MG PO (09:13)
[2022-11-02] MEDS: MULTIVITAMIN 1 TABLET 1 TAB PO (09:13)
[2022-11-02] MEDS: DOCUSATE 100 MG CAPSULE PO ×2 (09:13→21:25)
[2022-11-02] MEDS: CALCIUM CARBONATE 500 MG TAB PO ×2 (09:13→21:24)
[2022-11-02] MEDS: ASCORBIC ACID 500 MG TABLET PO (09:13)
[2022-11-02] MEDS: ASPIRIN EC 81 MG TABLET PO ×2 (09:14→21:24)
[2022-11-02] MEDS: CHOLECALCIFEROL (VITAMIN D3) 1,000 UNIT TABLET 1000 UNIT PO (09:14)
[2022-11-02] MEDS: CARBIDOPA-LEVODOPA ER 50/200 TABLET 0.5 EACH PO ×2 (09:14→21:25)
--- NOTE | 2022-11-02 09:54 | DI.RAD.S_ITS ---
PROCEDURE: XR CHEST 1V INDICATIONS: Secretions, lung sounds TECHNIQUE: One view of the chest was acquired. COMPARISON: [facility], CR, XR CHEST 1V, 11/01/2022, 21:42. FINDINGS: Surgical changes and devices: None. Lungs and pleura: Lungs are clear. No pleural effusions or pneumothorax. Right infrahilar infiltrate consistent with pneumonia versus atelectasis. Mediastinum: Mediastinal contours appear normal. Heart size is normal. Bones and chest wall: No suspicious bony lesions. Rightward curvature of the thoracic spine. Overlying soft tissues appear unremarkable. IMPRESSION: Right infrahilar infiltrate consistent with atelectasis or pneumonia. Dictated by: Rodri Torres M.D. on 11/02/2022 at 10:50 Approved by: Rodri Torres M.D. on 11/02/2022 at 10:51
[2022-11-02] MEDS: METOPROLOL ER 25 MG TABLET PO ×2 (10:00→21:24)
[2022-11-02] MEDS: lisinopriL 5 MG TABLET 2.5 MG PO (10:02)
[2022-11-02 10:21] LABS: Add Manual Diff / Slide Review NO; Basophils Absolute Auto 0 /uL (0-100); Basophils Percent Auto 0.2 % (0-2); Eosinophils Absolute Auto 0 /uL (0-450); Hematocrit 33.9 % (36-46); Hemoglobin 11.8 g/dL (12.0-16.0); Lymphocytes Absolute Auto 600 /uL (1100-4500); Lymphocytes Percent Auto 5.5 % (25-40); Mean Corpuscular HGB Conc 34.8 % (30-36); Mean Corpuscular Volume 94.9 fL (80-100); Monocytes Absolute Auto 1100 /uL (0-900); Monocytes Percent Auto 9.5 % (3-14); Neutrophils Absolute Auto 9600 /uL (1500-7000); Neutrophils Percent Auto 84.8 % (50-75); Platelet Count 233 X10^3/uL (150-400); Red Blood Cell Count 3.57 X10^6/uL (4.0-5.2); Red Cell Distribution Width 12.5 % (11.6-14.8); White Blood Cell Count 11.4 X10^3/uL (4.5-11.0)
[2022-11-02 10:33] LABS: Alanine Aminotransferase 18 IU/L (<35); Albumin 3.6 g/dL (3.5-5.0); Albumin Globulin Ratio 1.2 (1.0-2.8); Alkaline Phosphatase 62 U/L (38-126); Aspartate Aminotransferase 45 IU/L (14-36); BUN Creatinine Ratio 27.9 (6-22); Bilirubin Total 1.1 mg/dL (0.2-1.3); Blood Urea Nitrogen 17 mg/dL (7-17); Calcium 8.5 mg/dL (8.4-10.2); Carbon Dioxide 24 mmol/L (22-32); Chloride 91 mmol/L (98-107); Estimated Glomerular Filt Rate > 60 mL/min (>60); Glucose 183 mg/dL (80-110); HEMOLYSIS < 15 (0-50); Potassium 4.1 mmol/L (3.4-5.1); Sodium 124 mmol/L (137-145); Total Protein 6.6 g/dL (6.3-8.2)
--- NOTE | 2022-11-02 10:35 | P.PN_ITS ---
Subjective Subjective Date Patient Seen: 11/02/22 Time Patient Seen: 10:36 Interval history: Patient did not pass physical therapy yesterday evening in stayed overnight. Patient is seen along with her nurse and states that she was having some congestion later yesterday evening and a chest x-ray was completed. Patient has been running 90-91% O2 saturation and requiring 2 L of O2 overnight. Respiratory therapy has been called her room twice for nasopharyngeal suction. Patient denies chest pain. States her hip pain is mild. She denies any fever or chills. Exam Vital Signs (past 8 hours): - 11/02/22 03:35 11/02/22 04:18 11/02/22 07:31 Temperature 98.4 F 98.1 F Pulse Rate 80 118 H 72 Respiratory Rate 18 16 10 L Blood Pressure 100/44 L 104/66 Pulse Oximetry 95 93 94 Oxygen Delivery Method Nasal Cannula Oxygen Flow Rate 2 2 Fraction of Inspired Oxygen 28 11/02/22 10:00 11/02/22 10:02 11/02/22 09:48 Temperature Pulse Rate 154 H 146 H 148 H Respiratory Rate 20 Blood Pressure 108/53 L 108/53 L Pulse Oximetry 95 Oxygen Delivery Method Nasal Cannula Oxygen Flow Rate 2 Fraction of Inspired Oxygen 28 Fraction of Inspired Oxygen 28 SaO2/FiO2 Ratio 339 Oxygen Delivery Method Nasal Cannula Oxygen Flow Rate 2 Narrative Exam Narrative: 82-year-old female resting in bedside chair in no apparent distress. Angela dressing is on and functioning. Dressing is clean, dry and intact. Motor functions intact bilateral lower extremities. Sensation grossly intact to light touch bilateral lower extremities. Const General: cooperative and comfortable Nutritional Appearance: average body habitus Orientation: alert Resp Effort & Inspection: normal respiratory effort and able to speak in complete sentences Auscultation: rhonchi Extrem General: edema (Mild pitting edema bilateral lower extremities) Objective Labs 11/02/22 10:15 11/02/22 10:15 Labs: Laboratory Results - last 24 hr 11/02/22 11/02/22 10:15 10:15 WBC 11.4 H RBC 3.57 L Hgb 11.8 L Hct 33.9 L MCV 94.9 MCH 33.0 MCHC 34.8 RDW 12.5 Plt Count 233 Neut % (Auto) 84.8 H Lymph % (Auto) 5.5 L [place] % (Auto) 9.5 Eos % (Auto) 0.0 L Baso % (Auto) 0.2 Neut # (Auto) 9600 H Lymph # (Auto) 600 L [place] # (Auto) 1100 H Eos # (Auto) 0 Baso # (Auto) 0 Sodium 124 L Potassium 4.1 Chloride 91 L Carbon Dioxide 24 BUN 17 Creatinine 0.61 Estimated GFR > 60 BUN/Creatinine Ratio 27.9 H Glucose 183 H Calcium 8.5 Total Bilirubin 1.1 AST 45 H ALT 18 Alkaline Phosphatase 62 Total Protein 6.6 Albumin 3.6 Globulin 3.0 Albumin/Globulin Ratio 1.2 PFSH Medical History Atrial fibrillation GERD (gastroesophageal reflux disease) Glaucoma Hearing impaired Hypertension Low back pain Neuropathy Osteoarthritis PAC (premature atrial contraction) Presence of pessary PVC's (premature ventricular contractions) Tremor Surgical History H/O wrist surgery (~2007) History of bilateral cataract extraction History of cardiac radiofrequency ablation (~2015) Hx of eye surgery Status post tonsillectomy and adenoidectomy Family History Sister Cerebral aneurysm Brother Myocardial infarction Father Colon cancer Mother Cerebral aneurysm Social History marital status: household members: spouse Smoking Status: Never smoker alcohol intake: former substance use type: does not use Assessment & Plan Post-op Postoperative Procedures: Procedures Operation Date: 10/31/22 13:45 Actual Procedure Side Surgeon p Total Hip Arthroplasty/Anterior Approach Right Linda Martin MD Postoperative day: 2 Postoperative status narrative: Patient seen yesterday and was stable status post right total hip arthroplasty, anterior approach. Yesterday evening she required 2 L of O2 and was satting around 90 91%. Required nasopharyngeal suction twice. This morning her heart rate is elevated at 160-170. Patient has history of AFib and a hospitalist consultation has been requested. Postoperative plan narrative: CBC, CMP, EKG, chest x-ray ordered Hospitalist consult requested, spoke personally with hospitalist Multimodal pain management Aspirin for DVT prophylaxis Weightbearing as tolerated, anterior hip precautions Disposition to be determined Quality VTE Deep Vein Thrombosis/Pulmonary Embolism Present on Admission: No
[2022-11-02] MEDS: FUROSEMIDE 20 MG/2 ML VIAL IV (10:59)
--- NOTE | 2022-11-02 11:32 | P.CONS_ITS ---
History of Present Illness Consult details Date Patient Seen: 11/02/22 Time Patient Seen: 10:30 Chief complaint: Hip pain Reason for consult: afib Requesting provider: Perry Hairston Narrative: Pt is 82 yo female with h/o hand tremor, afib s/p successful ablation 7 yrs ago, HTN s/p elective right total on Oct 31. Last night she started to develop difficulty with breathing and RT noted difficulty clearing her secretions. This AM pt went into afib with RVR, HR 150-160 range. Denies chest pain, palpitations, and has not been afebrile. She states she hasn't had an afib episode since ablation 7 years ago. Denies history of CHF. She is on metoprolol and low dose of lisinopriln in addition to her Sinemet. Chest x-ray normal. EKG afib RVR with non-specific ST, T changes. Trop 0.020. Pt was recently started on Sinemet by PCP and referred to neurologist for w/u of possible Parkinson disease (has neuro appt in November) Meds Home Medications and Allergies Home Medications Medication Instructions Recorded Confirmed Type multivitamin 1 tab PO DAILY ##0 10/03/11 10/31/22 History omega 5-zqo-cab-fish oil 1,000 mg 1 cap PO DAILY ##0 10/03/11 10/31/22 History (120 mg-180 mg) capsule (Fish Oil) calcium carbonate 600 mg calcium 600 mg PO BID ##0 10/25/11 10/31/22 History (1,500 mg) tablet tafluprost (PF) 0.0015 % eye drops 1 drp ophthalmic (eye) BID ##0 12/15/15 10/31/22 History in a dropperette (Zioptan (PF)) aspirin 81 mg chewable tablet 81 mg PO QDAY ##0 04/21/17 10/31/22 History ascorbic acid (vitamin C) 500 mg 500 mg PO DAILY 09/26/20 10/31/22 History tablet cranberry extract 250 mg capsule 250 mg PO DAILY 09/26/20 10/31/22 History metoprolol succinate 25 mg 25 mg PO BID #60 tabs 09/26/20 10/31/22 Rx tablet,extended release 24 hr (Toprol XL) oxyquinoline 0.025 %-sodium lauryl See Rx Instructions .Route 12/17/21 10/31/22 Rx sulfate 0.01 % vaginal gel .COMPLEX #113.4 grams (Trimo-Pepe Jelly) lisinopril 2.5 mg tablet 2.5 mg PO QDAY #90 tabs 05/01/22 10/31/22 Rx carbidopa ER 25 mg-levodopa 100 mg 1 tab PO BID #60 tabs 09/12/22 10/31/22 Rx tablet,extended release cholecalciferol (vitamin D3) 25 25 mcg PO DAILY 09/26/22 10/31/22 History mcg (1,000 unit) capsule timolol 0.5 % eye drops 1 drp ophthalmic (eye) DAILY 10/15/22 10/31/22 History acetaminophen 325 mg tablet 650 mg PO Q6H #60 tabs 11/01/22 Rx aspirin 81 mg tablet,delayed 81 mg PO BID #60 tabs 11/01/22 Rx release oxycodone 5 mg tablet 5 mg PO Q3H PRN Pain, Moderate 11/01/22 Rx (4-6) #40 tabs Allergies Allergy/AdvReac Type Severity Reaction Status Date / Time adhesive [ADHESIVE] Allergy Severe Rash Verified 10/15/22 09:13 PAPER TAPE Allergy Unknown Pt unsure Uncoded 10/15/22 09:13 if a true allergy Exam Vital Signs (past 8 hours): - 11/02/22 03:35 11/02/22 04:18 11/02/22 07:31 Temperature 98.4 F 98.1 F Pulse Rate 80 118 H 72 Respiratory Rate 18 16 10 L Blood Pressure 100/44 L 104/66 Pulse Oximetry 95 93 94 Oxygen Delivery Method Nasal Cannula Oxygen Flow Rate 2 2 Fraction of Inspired Oxygen 28 11/02/22 10:00 11/02/22 10:02 11/02/22 09:48 Temperature Pulse Rate 154 H 146 H 148 H Respiratory Rate 20 Blood Pressure 108/53 L 108/53 L Pulse Oximetry 95 Oxygen Delivery Method Nasal Cannula Oxygen Flow Rate 2 Fraction of Inspired Oxygen 28 Fraction of Inspired Oxygen 28 SaO2/FiO2 Ratio 339 Oxygen Delivery Method Nasal Cannula Oxygen Flow Rate 2 Narrative Exam Narrative: Gen: alert, cooperative Lungs: bilat insp and exp rhonchi, no crackles CV: tachy, irregularly irregular, slight systolic murmur Ext: no edema Neuro: nl affect and speeck, bilat resting hand tremor Objective Labs 11/02/22 10:15 11/02/22 10:15 Labs: Laboratory Results - last 24 hr 11/02/22 11/02/22 11/02/22 10:15 10:15 10:15 WBC 11.4 H RBC 3.57 L Hgb 11.8 L Hct 33.9 L MCV 94.9 MCH 33.0 MCHC 34.8 RDW 12.5 Plt Count 233 Neut % (Auto) 84.8 H Lymph % (Auto) 5.5 L [place] % (Auto) 9.5 Eos % (Auto) 0.0 L Baso % (Auto) 0.2 Neut # (Auto) 9600 H Lymph # (Auto) 600 L [place] # (Auto) 1100 H Eos # (Auto) 0 Baso # (Auto) 0 Sodium 124 L Potassium 4.1 Chloride 91 L Carbon Dioxide 24 BUN 17 Creatinine 0.61 Estimated GFR > 60 BUN/Creatinine Ratio 27.9 H Glucose 183 H Calcium 8.5 Total Bilirubin 1.1 AST 45 H ALT 18 Alkaline Phosphatase 62 Troponin I 0.020 Total Protein 6.6 Albumin 3.6 Globulin 3.0 Albumin/Globulin Ratio 1.2 PFSH Medical History Atrial fibrillation GERD (gastroesophageal reflux disease) Glaucoma Hearing impaired Hypertension Low back pain Neuropathy Osteoarthritis PAC (premature atrial contraction) Presence of pessary PVC's (premature ventricular contractions) Tremor Surgical History H/O wrist surgery (~2007) History of bilateral cataract extraction History of cardiac radiofrequency ablation (~2015) Hx of eye surgery Status post tonsillectomy and adenoidectomy Family History Sister Cerebral aneurysm Brother Myocardial infarction Father Colon cancer Mother Cerebral aneurysm Social History marital status: household members: spouse Tobacco & Substance Use Smoking Status: Never smoker alcohol intake: former substance use type: does not use Assessment & Plan Assessment & Plan narrative: 1. Paroxysmal afib with RVR -diltiazem IV was ordered but pt converted to SR prior to administration -ECHO in 11/18 EF 55-60% -K nl -cont usual metoprolol ER 25 bid -cardiac monitoring -trend troponin 2. Rhonchi with difficulty clearing secretions -chest x-ray looks normal -received 20 mg IV Lasix for possible fluid overload although this seems less likely now -lowest sat 90% RA, cont prn O2 with humidity to keep sat > 92% -flutter valve -alb nebs qid -ST swallow eval 3. Postop hyponatremia -SIADH vs fluid over load -recheck lytes in AM 4. hypertension -cont metoprolol -hold lisinopril in case needs to be on dilt drip 5. Probable Parkinson's -cont Sinemet recently started while awaiting neuro consult 6. s/p rt total hio -managed by [facility]
[2022-11-02] MEDS: ACETAMINOPHEN 325 MG TABLET 650 MG PO ×2 (12:15→17:32)
--- NOTE | 2022-11-02 13:30 | PC.NURSE ---
Addendum entered by Shell Hankins R.N. 11/02/22 19:18: When patient transferred to ICU, pt converted to SR and provider was notified. Diltiazem was not administered to pt due to pt being in SR and provider agreed Dilt not needed in SR. After POLISH COMPOUNDER assessed pt, RN reinforced with patient to tuck chin and sit up 90 degrees to take meds, food, and water. Spoke with provider mid-day that patient's BPs were a little soft (SBP 90s) - asymptomatic, and provider ordered a 1L bolus. Before shift change RN notified provider that troponins trended up from 0.02 to 0.05. Original Note: Patient has surgical dressing in place; wound care not performed. During am assessment, RN noticed patient's pulse and HR on pulse oximetry were irregular. RN connected telemetry and observed a tachyarrythmia.
[2022-11-02] MEDS: ALBUTEROL 2.5 MG/3 ML NEB (ADULT) INH ×2 (13:36→18:04)
--- NOTE | 2022-11-02 14:29 | CM.DPNOTE ---
Discharge Planning Note: Patient was moved to room 230 today after arrhythmia developed AF RVR. Spouse and daughter are with her. She has been choking with intake, ST in to evaluate. Discussed with pt, daughter and Home Health services, and they are interested, chose [facility]. Referral sent to [facility], spoke with Johnathan. PLAN: Currently, when medically cleared, home with [facility] Farhana Wallace RN/DCP
[2022-11-02] MEDS: [UNRECOGNIZED DRUG - OTHER] EYE-BOTH (14:52)
[2022-11-02] MEDS: TIMOLOL 0.5% EYE-BOTH (14:52)
--- NOTE | 2022-11-02 15:32 | PT.IPTN ---
Current Diagnoses Unilateral primary osteoarthritis, right hip (11/02/22) Pain in right hip (11/02/22) Surgery Performed Operation Date: 10/31/22 13:45 Actual Procedures p Total Hip Arthroplasty/Anterior Approach(Right) - Linda Martin MD Physical Therapy Treatment Note M2 PT-IP Current Condition Start: 11/01/22 09:34 Freq: NEEDED Status: Active Protocol: Document 11/01/22 08:40 MB (Rec: 11/01/22 09:45 MB [id number]) Physical Therapy Current Condition Current Condition Evaluation Date 11/01/22 Treatment Diagnosis R THR M3 PT-IP Subjective Start: 11/01/22 09:34 Freq: NEEDED Status: Active Protocol: Document 11/02/22 16:19 TS (Rec: 11/02/22 16:31 TS [id number]) Subjective Physical Therapy Visit Type Type Treatment Note Visit Start Time 15:32 Visit Stop Time 15:55 Total Visit Minutes 23 Notes Spouse and daughter present Number of MEDICAL OFFICE WORKER Visits 3 Physical Therapy Visit Comments Patient Comments Pt found resting on 2L of o2, Spo2 94%, pt wanting to ambulate without o2, on RA after mobility, Spo2 90%. Patient Goals To go home M4 PT-IP Mobility and Gait Start: 11/01/22 09:34 Freq: NEEDED Status: Active Protocol: Document 11/02/22 16:19 TS (Rec: 11/02/22 16:31 TS [id number]) PT-Bed Mobility Assessment Supine to Sit Supine to Sit Maximum Assistance,1 Person Assistance,Head of Bed Elevated,Bedrails Sit to Supine Sit to Supine Maximum Assistance Scooting Scooting to Edge of Bed Moderate Assistance PT-Transfer Assessment Sit to and From Stand Sit to and from Stand Minimal Assistance,1 Person Assistance,Use of Upper Extremities Equipment Transfer Assistive Device Gait Belt,Front Wheeled Walker Orthotic/Prosthetic Devices or Brace: No Comments Mobility Comments Supine to sit MaxA with spouse support for uprighting trunk, therapist assisted LEs to EOB . She scooted to EOB with ModA and use of transfer pad, pt used BUE support to scoot hips forward. Sit to stand Maryellen with spouse, pt continues to have some retroleaning, requires cues for feet flat. She ambulated in room ~25' CGA /Maryellen with spouse for balance, continues to ambulate with slow shuffle gait and with freezing episodes. When provided cues for larger steps pt improves with step length and height. Sit to supine into bed MaxA for LEs into bed and repositioning of trunk. She scooted to HOB MaxA x2 with assistance from AUTOMATIC SPINNING LATHE SETTER. Pt was left in bed with call light nearby, spouse and daughter in room, RN notified. Gait Assessment Gait Gait Assistance Required: Contact Guard Assist,Minimum Assistance,1 Person Assist Distance (Feet) 25 Able to Maintain Weight Bearing Status Yes During Gait Assistive Devices Assistive Device Gait Belt,Front Wheeled Walker Orthotic/Prosthetic Devices or Brace: No Gait Deviations General Gait Pattern Antalgic,Decreased Stride Length,Decreased Feet Clearance Factors Limiting Gait Function Factors Limiting Gait Function Decreased Activity Tolerance, Decreased Sensation,Decreased Strength,Difficulty Following Directions,Incoordination, Limited Range of Motion,Pain, Poor Balance,Poor Safety Awareness Comments Gait Comments See mobility comments. PT-Balance Assessment Sitting Balance and Reactions Static Sitting Balance Ability Good Dynamic Sitting Balance Ability Fair Standing Balance and Reactions Static Standing Balance Ability Fair Dynamic Standing Balance Ability Fair Device Used FWW M5 PT-IP Objective Assessments Start: 11/01/22 09:34 Freq: NEEDED Status: Active Protocol: Document 11/01/22 08:40 MB (Rec: 11/01/22 09:45 MB [id number]) Orientation Orientation/Cognition Level of Alertness Alert Orientation Name,Age,Birthday,Month,Date, Year,Day of Week,Place, Situation Language Function Ability No Deficits Noted Safety Awareness Decreased Safety Awareness Memory Description No Deficits Noted Gross Range of Motion Upper Extremity ROM Impairments Defer to OT Lower Extremity ROM Assessment Right Impaired Strength Comments Strength Comments Deferred MMT d/t urgency to get up to commode and pt with poor command following. M6 PT-IP Treatment Start: 11/01/22 09:34 Freq: NEEDED Status: Active Protocol: Document 11/02/22 16:19 TS (Rec: 11/02/22 16:31 TS [id number]) Physical Therapy Treatment Education Education Provided Precautions,Post-Op Packet, Safety M7 PT-IP Assessment and Plan Start: 11/01/22 09:34 Freq: NEEDED Status: Active Protocol: Document 11/02/22 16:19 TS (Rec: 11/02/22 16:31 TS [id number]) PT Summary Assessment and Plan Potential Rehabilitation Potential Fair Summary Progress Towards Goals Progressing Toward Goals Assessment Summary Pt continues to be on 2L of o2 at 94% at rest, during mobility desats to 90%. She continues to be MaxA for supine to sit. She scooted to EOB with ModA and demonstrated stronger UE strength to scoot to EOB this session. She continues to have some retroleaning initially in standing requiring cues for her weight forward. She progressed her gait to 25' CGA /Maryellen for balance this session , LEs do buckle slighlty and requires cues for knees ext. PT continues to recommend home with / and HHPT. Spouse has been very supportive and has been involved in every session with PT. Goals Bed Mobility Goal Standby Assistance Transfer Goal Standby Assistance,Front Wheeled Walker Gait Goal Standby Assistance,Front Wheel Walker Gait Distance 75 Other Goals Pt will ascend and descend 2 steps with RW and min A since she has no rails at her steps at home. Days to Meet Goals 5 Frequency of Treatment Frequency Of Treatment Twice a Day Treatment Plan Physical Therapy Treatment Plan Bed Mobility Training,Transfer Training,Gait Training, Therapeutic Exercise,Balance Retraining,Post Op Education, Discharge Planning,Hot or Cold Pack Precautions Anterior Hip Precautions No Hip Extension,No Hip External Rotation Weight Bearing Status Weight Bearing Status Weight Bear as Tolerated Discharge Recommendations PT Discharge Recommendations Home with 21/10 Assist Available,Home Health, Outpatient PT Transportation Needs at Discharge Private Vehicle
--- NOTE | 2022-11-02 16:23 | ST.IPCSEOM ---
Visit Care Team Role Provider Type Michael Fierro MD Primary Care Provider Physician Specialty: Family Practice Address: [address] [place] [address], [id number] Email: [email or web address] Stevie Darby DO Other Providers Physician Specialty: Anesthesiology Address: [address] [place] [address], [address] Email: Sedrick Hill MD Other Providers Physician Specialty: Anesthesiology Address: [address] [place] [address], [address] Email: Denilson Gamez MD Other Providers Physician Specialty: Anesthesiology Address: [address] [place] [address], [address] Phone: Fax: Email: [email or web address] Paula Gunn MD Other Providers Physician Specialty: Anesthesiology Address: [address] [place] [address], [address] Phone: Fax: Email: Gilberto Woods MD Other Providers Physician Specialty: Anesthesiology Address: [address] [place] [address], [address] Email: Papito Barros MD Other Providers Physician Specialty: Anesthesiology Address: [address] [place] [address], [id number] Email: Kayce Rowe MD Other Providers Physician Specialty: Anesthesiology Address: [address] [place] [address], [address] Email: Ashlie Willingham MD Other Providers Physician Specialty: Anesthesiology Address: Phone: Fax: Email: [email or web address] Claudia Arroyo MD Other Providers Physician Specialty: Anesthesiology Address: [address] [place] [address], [address] Email: Jan Reich MD Other Providers Physician Specialty: Internal Medicine Address: [address] [place] [address], [address] Email: [email or web address] Prasanth Montelongo MD Other Providers Physician Specialty: Anesthesiology Address: [address] [place] [address], [phone] Email: Linda Martin MD Admit Provider Physician Attending Provider Referring Provider Specialty: Orthopedics Orthopedic Surgery Address: [address] [place] [address], [phone] Email: [email or web address] Current Diagnoses Unilateral primary osteoarthritis, right hip (11/02/22) Pain in right hip (11/02/22) Past Medical History (Last Reviewed 11/02/22 @ 10:40 by Perry Hairston PA-C) Atrial fibrillation (Medical) GERD (gastroesophageal reflux disease) (Medical) Glaucoma (Medical) Hearing impaired (Medical) Deaf in left ear, bilateral hearing aids Hypertension (Medical) Low back pain (Medical) Neuropathy (Medical) Feet Osteoarthritis (Medical) PAC (premature atrial contraction) (Medical) Presence of pessary (Medical) PVC's (premature ventricular contractions) (Medical) Tremor (Medical) Bilateral hands, Neurology appt in November 2022 for possible Parkinson's Speech-Language Pathology Swallow Evaluation MEDICAL CASE WORKER Clinical Swallow Evaluation Start: 11/02/22 14:05 Freq: Status: Active Protocol: Document 11/02/22 15:42 [id number] (Rec: 11/02/22 16:22 K [id number]) Clinical Swallow Evaluation Session Time Visit Start Time 14:00 Visit Stop Time 15:00 Total Visit Minutes 60 Referral Referring Provider Perry Hairston PA-C Reason for Referral difficuty swallowing Setting Assessment Location Outpatient Care Visit Type Note Type Initial evaluation Next Note Type Next Note Type Treatment Note Patient Information Identification Type Name,Date of ,Wristband History pt was seen for a clinical swallow evaluation after developing s/sx of aspiration/ cougHing with PO intake. Pt reported that she had difficulty with swallowing a Tylenol tablet earlier today. Last evening nursing reported at 2110 came out of room and said patient had loud breath sounds. The pt had developed rhonchi sounding lung sounds and a wet cough, even though at the beginning of the shift her breath sounds were clear throughout. Chest xray indicated pt's lungs are clear with no pleural effusions or pneumothorax. Right infrahilar infiltrate consistent with pneumonia versus atelectasis. Pt was put on w/2L O2. Pt and family reported that pt is scheduled for neurological evaluation re : Parkinson's Disease. Subjective Observations Pt was in her bed with her family present in her room. Pt was in agreement to swallow assessment. Pt was repositioned in bed at 90 degrees. Pt indicated hip did not hurt. Pt demonstrated resting tremor in left hand and head. Reported by Patient/Caregiver Pain/Discomfort No Other Symptoms Coughing,Difficulty swallowing pills,Difficulty swallowing solids,Food gets stuck Current Diet NPO The IDDSI Framework Protocol: IDDSI.1 Objective Assessment Mental Status Alert,Responsive,Cooperative Oral Integrity WFL Dentition Within normal limits Observation of Lips at Rest Symmetrical Tongue Function Within normal limits Jaw Function Within normal limits Comment OME and DKS observed to be WNL . Speech was clear. No s/sx of cognitive decile or language deficits. Food and Liquid Trials Position During Assessment Upright (90 degrees) Liquids Trialed Ice chips,Thin (IDDSI 0), Mildly Thick (IDDSI 2), Moderately Thick (IDDSI 3 Solid Trials Purred (IDDSI 4),Minced & Moist (IDDSI 5),Soft & Bite- sized (IDDSI 6),Regular (IDDSI 7) Administration Type Tea spoon,Cup single sip, Controlled cup sip,Straw Oral Impairment Within functional limits Oral Phase Comments Pt demonstrated adequate mastication, left and right lingual tongue sweeps of the buccal areas. ROM, speed and strength were observed to be WFL Pharyngeal Impairment Mildly impaired Pharyngeal Phase Comments Hyolaryngeal elevation was reduced upon palpation Indicating tongue base weakness . Pt's swallow was audible with wet quality in upright position. Audible or gulpy swallows may indicate reduction in the coordination if the pharyngeal structures. In upright position thin, NTL and HTL liquid trials resulted in (delayed). Chin tuck swallowing strategy was described and demonstrated for the pt. Fatigue/Endurance Mild fatigue Strategies Attempted Chin tuck Results Trials with HTL, NTL, and thin liquids WITH the chin tucked appeared to be safely tolerated without a reflexive cough. Regular texture was also safely tolerated. Medications whole in applesauce carrier recommended . Thin liquids via SPOON ONLY to reduce aspiration risk. NO STRAWS. Patient safely tolerated thin liquids with a regular texture with a chin tuck implemented every swallow . Pt and family indicated they understood and were all in agreement with the treatment plan. ST is recommended via HH when discharged. The IDDSI Framework Protocol: IDDSI.1 Findings Swallowing Function Dysphagia unspecified Severity of Swallow Impairment Mildly-moderately impaired Contributing Factors to Swallow Reduced oral strength/ Impairment coordination/sensation, Impaired oral-pharyngeal transport,Impaired airway protection Prognosis Good Based on Family support,Duration of symptoms/severity Impact on Safety and Functioning Risk for aspiration Recommendations Instrumental Assessment No Swallowing Treatment Yes Frequency ST follow up with HH Recommended Solids Regular (IDDSI 7) Recommended Liquids Thin (IDDSI 0) Safety Precautions/Swallowing Supervision needed for all Recommendations meals,Remain upright (90 degrees) during all oral intake,Upright position at least 30 minutes after meals, Small bites and sips when eating,Slow rate; swallow between bites,No straw,Family assistance/supervision Medication Recommendations Whole in Carrier,Crushed in Carrier Discharge Recommendations Home with Home Health Education Patient/Caregiver Education Described results of evaluation,Patient expressed understanding of evaluation, Patient expressed agreement with goals & treatment plans, Family/caregivers expressed understanding of evaluation, Family/caregivers expressed agreement with goals & treatment plans,Patient expressed understanding of safety precautions,Patient expressed understanding of feeding recommendations,Family /caregivers expressed understanding of safety precautions,Family/caregivers expressed understanding of feeding recommendations Goals Short-term Goals 1)Pt will implement a chin tuck head position when eating / drinking/taking medications to reduce aspiration risk. 2) Pt will consume liquids by SPOON only to reduce risk of aspiration. Long-term Goals Pt will safely tolerate least restrictive diet to meet nutrition and hydration needs without s/sx aspiration.
[2022-11-02] MEDS: polyethylene glycoL 3350 17 GM POWD.PACK PO (16:24)
[2022-11-02] MEDS: SODIUM CHLORIDE 0.9% 1,000 ML 1000 ML IV (16:24)
[2022-11-02 17:14] LABS: MRSA (Nasal) PCR Not Detected (Not Detect)
[2022-11-02 18:38] LABS: Troponin I 0.051 ng/mL (0.01-0.034)
[2022-11-02] MEDS: MELATONIN 3 MG TABLET PO (21:25)
[2022-11-03] VITALS (16 sets, daily range): BP systolic 91–166; BP diastolic 53–71; PULSE 69–138; RESP 15–26; TEMP 36.8–37.7; O2SAT 92–98
[2022-11-03 02:36] LABS: Add Manual Diff / Slide Review NO; Basophils Absolute Auto 0 /uL (0-100); Basophils Percent Auto 0.1 % (0-2); Eosinophils Absolute Auto 0 /uL (0-450); Eosinophils Percent Auto 0.1 % (2-4); Hematocrit 28.7 % (36-46); Hemoglobin 10.1 g/dL (12.0-16.0); Lymphocytes Absolute Auto 900 /uL (1100-4500); Lymphocytes Percent Auto 15.2 % (25-40); Mean Corpuscular HGB Conc 35.2 % (30-36); Mean Corpuscular Hemoglobin 33.4 PG (26-34); Mean Corpuscular Volume 94.9 fL (80-100); Monocytes Absolute Auto 400 /uL (0-900); Monocytes Percent Auto 6.7 % (3-14); Neutrophils Absolute Auto 4700 /uL (1500-7000); Neutrophils Percent Auto 77.9 % (50-75); Platelet Count 178 X10^3/uL (150-400); Red Blood Cell Count 3.02 X10^6/uL (4.0-5.2); Red Cell Distribution Width 12.4 % (11.6-14.8)
[2022-11-03 02:46] LABS: BUN Creatinine Ratio 28.9 (6-22); Blood Urea Nitrogen 13 mg/dL (7-17); Carbon Dioxide 26 mmol/L (22-32); Chloride 95 mmol/L (98-107); Estimated Glomerular Filt Rate > 60 mL/min (>60); Glucose 117 mg/dL (80-110); HEMOLYSIS < 15 (0-50); Potassium 3.7 mmol/L (3.4-5.1); Sodium 126 mmol/L (137-145)
[2022-11-03 02:58] LABS: Troponin I 0.037 ng/mL (0.01-0.034)
--- NOTE | 2022-11-03 04:26 | PC.NURSE ---
Addendum entered by Jocelyn Pino R.N. 11/03/22 06:34: 0634- Patient remains on diltiazem at 5mg/hr. BP tolerating well. Patient denies discomfort. Will leave gtt until po orders rec. Original Note: 0415- Patient back in AFib RVR rate 110-140's vitals are stable, lung sounds unchanged from earlier assessment. Patient in no distress. Message out to Tele Road Roller Operator [employer] await orders.
[2022-11-03] MEDS: DILTIAZEM 125 MG/125 ML PIGGYBACK IV (04:37)
[2022-11-03] MEDS: ALBUTEROL 2.5 MG/3 ML NEB (ADULT) INH ×2 (07:15→13:10)
--- NOTE | 2022-11-03 07:54 | P.PN_ITS ---
Subjective Subjective Date Patient Seen: 11/03/22 Interval history: She is seen today to follow-up her hip replacement and atrial fibrillation with rapid ventricular response. The temperature is 99.8?. The hemoglobin is 10.1. The sodium has risen from 124 up to 126. The Troponin is 0.037. Her labs will be rechecked tomorrow. She is not on any SSRI or receiving any IV fluid. She w ill be changed from IV diltiazem to oral diltiazem. She is already on metoprolol. Overnight at around 4 am she converted from sinus rhythm back into atrial fibrillation. She was started on a diltiazem drip and returned to sinus rhythm. She recalls to me that Dr. Oneil did a cardiac ablation for the atrial fibrillation 7 years ago. Exam Vital Signs (past 8 hours): - 11/03/22 00:10 11/03/22 05:03 11/03/22 04:45 Temperature 98.4 F 99.8 F H Pulse Rate 78 131 H 122 H Respiratory Rate 26 H 19 19 Blood Pressure 166/56 H 112/68 117/61 Pulse Oximetry 94 94 93 Oxygen Delivery Method Oxygen Flow Rate 11/03/22 05:00 11/03/22 05:15 11/03/22 07:18 Temperature Pulse Rate 119 H 122 H 81 Respiratory Rate 18 15 18 Blood Pressure 117/65 113/62 Pulse Oximetry 92 92 92 Oxygen Delivery Method Nasal Cannula Oxygen Flow Rate 1 Fraction of Inspired Oxygen 24 SaO2/FiO2 Ratio 387 Oxygen Delivery Method Nasal Cannula Oxygen Flow Rate 1 Narrative Exam Narrative: She is alert, frail, in no apparent distress. Lungs are clear to auscultation bilaterally Heart is tachycardic, regular rhythm, no murmur Abdomen is soft, bowel sounds positive, nontender, no organomegaly Extremities have no ankle edema Objective Labs 11/03/22 02:25 11/03/22 02:25 Labs: Laboratory Results - last 24 hr 11/02/22 11/02/22 11/02/22 10:15 10:15 10:15 WBC 11.4 H RBC 3.57 L Hgb 11.8 L Hct 33.9 L MCV 94.9 MCH 33.0 MCHC 34.8 RDW 12.5 Plt Count 233 Neut % (Auto) 84.8 H Lymph % (Auto) 5.5 L [place] % (Auto) 9.5 Eos % (Auto) 0.0 L Baso % (Auto) 0.2 Neut # (Auto) 9600 H Lymph # (Auto) 600 L [place] # (Auto) 1100 H Eos # (Auto) 0 Baso # (Auto) 0 Sodium 124 L Potassium 4.1 Chloride 91 L Carbon Dioxide 24 BUN 17 Creatinine 0.61 Estimated GFR > 60 BUN/Creatinine Ratio 27.9 H Glucose 183 H Calcium 8.5 Total Bilirubin 1.1 AST 45 H ALT 18 Alkaline Phosphatase 62 Troponin I 0.020 Total Protein 6.6 Albumin 3.6 Globulin 3.0 Albumin/Globulin Ratio 1.2 Nasal Screen MRSA (PCR) 11/02/22 11/02/22 11/03/22 10:44 18:00 02:25 WBC 6.0 RBC 3.02 L Hgb 10.1 L Hct 28.7 L MCV 94.9 MCH 33.4 MCHC 35.2 RDW 12.4 Plt Count 178 Neut % (Auto) 77.9 H Lymph % (Auto) 15.2 L [place] % (Auto) 6.7 Eos % (Auto) 0.1 L Baso % (Auto) 0.1 Neut # (Auto) 4700 Lymph # (Auto) 900 L [place] # (Auto) 400 Eos # (Auto) 0 Baso # (Auto) 0 Sodium Potassium Chloride Carbon Dioxide BUN Creatinine Estimated GFR BUN/Creatinine Ratio Glucose Calcium Total Bilirubin AST ALT Alkaline Phosphatase Troponin I 0.051 H Total Protein Albumin Globulin Albumin/Globulin Ratio Nasal Screen MRSA (PCR) Not detected 11/03/22 02:25 WBC RBC Hgb Hct MCV MCH MCHC RDW Plt Count Neut % (Auto) Lymph % (Auto) [place] % (Auto) Eos % (Auto) Baso % (Auto) Neut # (Auto) Lymph # (Auto) [place] # (Auto) Eos # (Auto) Baso # (Auto) Sodium 126 L Potassium 3.7 Chloride 95 L Carbon Dioxide 26 BUN 13 Creatinine 0.45 L Estimated GFR > 60 BUN/Creatinine Ratio 28.9 H Glucose 117 H Calcium 8.0 L Total Bilirubin AST ALT Alkaline Phosphatase Troponin I 0.037 H Total Protein Albumin Globulin Albumin/Globulin Ratio Nasal Screen MRSA (PCR) [facility] [place] Medical History Atrial fibrillation GERD (gastroesophageal reflux disease) Glaucoma Hearing impaired Hypertension Low back pain Neuropathy Osteoarthritis PAC (premature atrial contraction) Presence of pessary PVC's (premature ventricular contractions) Tremor Surgical History H/O wrist surgery (~2007) History of bilateral cataract extraction History of cardiac radiofrequency ablation (~2015) Hx of eye surgery Status post tonsillectomy and adenoidectomy Family History Sister Cerebral aneurysm Brother Myocardial infarction Father Colon cancer Mother Cerebral aneurysm Social History marital status: household members: spouse Smoking Status: Never smoker alcohol intake: former substance use type: does not use Assessment & Plan Assessment & Plan narrative: 1. Paroxysmal afib with RVR -diltiazem IV was given last night, changed/added 180 mg Diltiazem PO on 11/03/22 -ECHO on 11/18 EF 55-60% -K nl -cont usual metoprolol ER 25 bid -cardiac monitoring 2. Rhonchi with difficulty clearing secretions -chest x-ray looked normal -received 20 mg IV Lasix for possible fluid overload although this seems less likely now -lowest sat 90% RA, cont prn O2 with humidity to keep sat > 92% -flutter valve -alb nebs qid -ST swallow eval 3. Postop hyponatremia -SIADH vs fluid over load -Na 124 and 126 -recheck lytes in AM 4. hypertension -cont metoprolol -Add PO Diltiazem -hold lisinopril in case needs to be on dilt drip 5. Probable Parkinson's -cont Sinemet recently started while awaiting neuro consult 6. s/p rt total hio -managed by Ortho Quality VTE Deep Vein Thrombosis/Pulmonary Embolism Present on Admission: No
[2022-11-03] MEDS: ASPIRIN EC 81 MG TABLET PO ×2 (08:49→21:13)
[2022-11-03] MEDS: ASCORBIC ACID 500 MG TABLET PO (08:49)
[2022-11-03] MEDS: METOPROLOL ER 25 MG TABLET PO ×2 (08:49→21:12)
[2022-11-03] MEDS: MULTIVITAMIN 1 TABLET 1 TAB PO (08:49)
[2022-11-03] MEDS: DOCUSATE 100 MG CAPSULE PO ×2 (08:50→21:12)
[2022-11-03] MEDS: FISH OIL 1,000 MG CAPSULE 1000 MG PO (08:50)
[2022-11-03] MEDS: dilTIAZem CD 180 MG CAP PO (08:50)
[2022-11-03] MEDS: CALCIUM CARBONATE 500 MG TAB PO ×2 (08:50→21:12)
[2022-11-03] MEDS: CARBIDOPA-LEVODOPA ER 50/200 TABLET 0.5 EACH PO ×2 (08:50→21:12)
[2022-11-03] MEDS: CHOLECALCIFEROL (VITAMIN D3) 1,000 UNIT TABLET 1000 UNIT PO (08:50)
[2022-11-03] MEDS: TIMOLOL 0.5% EYE-BOTH (08:51)
[2022-11-03] MEDS: ACETAMINOPHEN 325 MG TABLET 650 MG PO ×3 (08:51→23:26)
[2022-11-03] MEDS: [UNRECOGNIZED DRUG - OTHER] EYE-BOTH (08:51)
--- NOTE | 2022-11-03 10:46 | PM.PNPO.1 ---
Subjective Subjective Interval history: Patient is status post total hip arthroplasty whose postoperative course has been complicated by arrhythmia and pulmonary issues. The patient is doing well today with very good pain control. Exam Vital Signs (past 8 hours): - 11/03/22 05:03 11/03/22 04:45 11/03/22 05:00 Temperature 99.8 F H Pulse Rate 131 H 122 H 119 H Respiratory Rate 19 19 18 Blood Pressure 112/68 117/61 117/65 Pulse Oximetry 94 93 92 Oxygen Delivery Method Oxygen Flow Rate 11/03/22 05:15 11/03/22 07:18 11/03/22 07:59 Temperature 99.4 F Pulse Rate 122 H 81 Respiratory Rate 15 18 Blood Pressure 113/62 Pulse Oximetry 92 92 Oxygen Delivery Method Nasal Cannula Oxygen Flow Rate 1 11/03/22 07:59 11/03/22 08:49 Temperature 99.4 F Pulse Rate 138 H Respiratory Rate Blood Pressure 146/60 H Pulse Oximetry Oxygen Delivery Method Oxygen Flow Rate Fraction of Inspired Oxygen 24 SaO2/FiO2 Ratio 387 Oxygen Delivery Method Nasal Cannula Oxygen Flow Rate 1 Narrative Exam Narrative: Patient's dressing is clean and dry. No sign of any drainage. Positive dorsiflexion and plantar flexion of the toes and ankle. Palpable pedal pulses. Brisk cap refill and nontender to palpation to the posterior calves. Objective Labs 11/03/22 02:25 11/03/22 02:25 Labs: Laboratory Results - last 24 hr 11/02/22 11/02/22 11/02/22 10:15 10:44 18:00 WBC RBC Hgb Hct MCV MCH MCHC RDW Plt Count Neut % (Auto) Lymph % (Auto) [place] % (Auto) Eos % (Auto) Baso % (Auto) Neut # (Auto) Lymph # (Auto) [place] # (Auto) Eos # (Auto) Baso # (Auto) Sodium Potassium Chloride Carbon Dioxide BUN Creatinine Estimated GFR BUN/Creatinine Ratio Glucose Calcium Troponin I 0.020 0.051 H Nasal Screen MRSA (PCR) Not detected 11/03/22 11/03/22 02:25 02:25 WBC 6.0 RBC 3.02 L Hgb 10.1 L Hct 28.7 L MCV 94.9 MCH 33.4 MCHC 35.2 RDW 12.4 Plt Count 178 Neut % (Auto) 77.9 H Lymph % (Auto) 15.2 L [place] % (Auto) 6.7 Eos % (Auto) 0.1 L Baso % (Auto) 0.1 Neut # (Auto) 4700 Lymph # (Auto) 900 L [place] # (Auto) 400 Eos # (Auto) 0 Baso # (Auto) 0 Sodium 126 L Potassium 3.7 Chloride 95 L Carbon Dioxide 26 BUN 13 Creatinine 0.45 L Estimated GFR > 60 BUN/Creatinine Ratio 28.9 H Glucose 117 H Calcium 8.0 L Troponin I 0.037 H Nasal Screen MRSA (PCR) [facility] Medical History Atrial fibrillation GERD (gastroesophageal reflux disease) Glaucoma Hearing impaired Hypertension Low back pain Neuropathy Osteoarthritis PAC (premature atrial contraction) Presence of pessary PVC's (premature ventricular contractions) Tremor Surgical History H/O wrist surgery (~2007) History of bilateral cataract extraction History of cardiac radiofrequency ablation (~2015) Hx of eye surgery Status post tonsillectomy and adenoidectomy Family History Sister Cerebral aneurysm Brother Myocardial infarction Father Colon cancer Mother Cerebral aneurysm Social History marital status: household members: spouse Smoking Status: Never smoker alcohol intake: former substance use type: does not use Assessment & Plan Post-op Postoperative Procedures: Procedures Operation Date: 10/31/22 13:45 Actual Procedure Side Surgeon p Total Hip Arthroplasty/Anterior Approach Right Linda Martin MD Postoperative day: 3 Postoperative plan narrative: Patient is status post a right total hip arthroplasty. Patient will continue to mobilize with physical therapy. Patient's cardiac and respiratory issues are being managed by the hospitalist. Quality VTE Deep Vein Thrombosis/Pulmonary Embolism Present on Admission: No
[2022-11-03] MEDS: dilTIAZem 30 MG TABLET 180 MG PO (10:59)
[2022-11-03] MEDS: OXYCODONE IR 5 MG TABLET PO (15:24)
[2022-11-03] MEDS: dilTIAZem 5 MG/ML SDV 20 MG IV (18:06)
[2022-11-03] MEDS: MELATONIN 3 MG TABLET PO (21:13)
[2022-11-03] MEDS: TAFLUPROST 0.0015% 1 EACH EYE-BOTH (21:14)
[2022-11-04] VITALS (39 sets, daily range): BP systolic 79–137; BP diastolic 50–78; PULSE 67–145; RESP 17–44; TEMP 36.4–37.4; O2SAT 89–98
[2022-11-04] MEDS: ACETAMINOPHEN 325 MG TABLET 650 MG PO ×3 (04:57→17:18)
[2022-11-04 05:16] LABS: Add Manual Diff / Slide Review NO; Basophils Absolute Auto 0 /uL (0-100); Basophils Percent Auto 0.1 % (0-2); Eosinophils Absolute Auto 0 /uL (0-450); Eosinophils Percent Auto 0.3 % (2-4); Hematocrit 24.5 % (36-46); Hemoglobin 8.8 g/dL (12.0-16.0); Lymphocytes Absolute Auto 1100 /uL (1100-4500); Lymphocytes Percent Auto 18.2 % (25-40); Mean Corpuscular HGB Conc 35.8 % (30-36); Mean Corpuscular Volume 94.9 fL (80-100); Monocytes Absolute Auto 600 /uL (0-900); Monocytes Percent Auto 10.6 % (3-14); Neutrophils Absolute Auto 4200 /uL (1500-7000); Neutrophils Percent Auto 70.8 % (50-75); Platelet Count 232 X10^3/uL (150-400); Red Blood Cell Count 2.59 X10^6/uL (4.0-5.2); Red Cell Distribution Width 12.4 % (11.6-14.8); White Blood Cell Count 5.9 X10^3/uL (4.5-11.0)
[2022-11-04 05:18] LABS: BUN Creatinine Ratio 34.9 (6-22); Blood Urea Nitrogen 15 mg/dL (7-17); Carbon Dioxide 28 mmol/L (22-32); Chloride 95 mmol/L (98-107); Estimated Glomerular Filt Rate > 60 mL/min (>60); Glucose 106 mg/dL (80-110); HEMOLYSIS < 15 (0-50); Potassium 3.8 mmol/L (3.4-5.1); Sodium 127 mmol/L (137-145)
[2022-11-04] MEDS: OXYCODONE IR 5 MG TABLET PO ×2 (06:23→21:35)
--- NOTE | 2022-11-04 06:57 | PC.NURSE ---
Pt has slept well this shift; she has however, been in and out of Afib multiple times; discussed with Dr Anderson earlier; will watch unless rate gets too high and sustained, in which case we will give cardizem ivp; she has been up to the toilet twice to have a bm but was only able to pass flatus; she was premedicated for PT this morning
[2022-11-04] MEDS: [UNRECOGNIZED DRUG - OTHER] EYE-BOTH (08:34)
[2022-11-04] MEDS: TIMOLOL 0.5% EYE-BOTH (08:34)
[2022-11-04] MEDS: CARBIDOPA-LEVODOPA ER 50/200 TABLET 0.5 EACH PO ×2 (08:35→21:32)
[2022-11-04] MEDS: ASCORBIC ACID 500 MG TABLET PO (08:35)
[2022-11-04] MEDS: CHOLECALCIFEROL (VITAMIN D3) 1,000 UNIT TABLET 1000 UNIT PO (08:35)
[2022-11-04] MEDS: DOCUSATE 100 MG CAPSULE PO ×2 (08:35→21:33)
[2022-11-04] MEDS: MULTIVITAMIN 1 TABLET 1 TAB PO (08:35)
[2022-11-04] MEDS: CALCIUM CARBONATE 500 MG TAB PO ×2 (08:35→21:40)
[2022-11-04] MEDS: ASPIRIN EC 81 MG TABLET PO ×2 (08:36→21:33)
[2022-11-04] MEDS: METOPROLOL ER 25 MG TABLET PO ×2 (08:36→13:55)
[2022-11-04] MEDS: FISH OIL 1,000 MG CAPSULE 1000 MG PO (08:36)
--- NOTE | 2022-11-04 09:15 | PT-IP ANOTE ---
Attempted to work with Magalie at 0900. HR appeared stable at 95 and SpO2 was 91% on 2L/min NC. After donning socks and prepping the area but before the pt moved, HR was 135 and rhythm a fib. Will check back later this AM for therapy if VS stable
--- NOTE | 2022-11-04 10:18 | PM.EVENT ---
Event Note Event Note (Rapid Response, Code, or fall): Dr. Fierro will take over consultation role for patient moving forward, do not hesitate to contact with any additional questions for hospitalist service.
--- NOTE | 2022-11-04 11:12 | OT.IP.TRT ---
Current Diagnoses Unilateral primary osteoarthritis, right hip (11/02/22) Pain in right hip (11/02/22) Surgery Performed Operation Date: 10/31/22 13:45 Actual Procedures p Total Hip Arthroplasty/Anterior Approach(Right) - Linda Martin MD Occupational Therapy Treatment Note M2 OT-IP Current Condition Start: 11/01/22 17:13 Freq: Status: Active Protocol: Document 11/01/22 15:25 [facility] (Rec: 11/01/22 18:19 [facility] [id number]) Occupational Therapy Current Condition Current Condition Evaluation Date 11/01/22 Treatment Diagnosis S/p R LINNEA Diagnosis Onset Date 10/31/22 Post Operative Precautions Anterior Hip Precautions No Hip Extension,No Hip External Rotation Other Precautions Dr. Martin stated no hyperextension greater than 30 degrees for RLE and no back hyperextension. M3 OT- IP Subjective and Pain Start: 11/01/22 17:13 Freq: Status: Active Protocol: Document 11/04/22 12:45 [facility] (Rec: 11/04/22 12:48 [facility] [id number]) OT- Subjective Occupational Therapy Visit Type Type Progress Note Visit Start Time 10:54 Visit Stop Time 11:12 Total Visit Minutes 18 Notes Pt's present throughout OT Pain Assessment Pain When Pain Assessed At Rest Pain Present Pain Present Denied Pain M4 OT- IP ADL's Start: 11/01/22 17:13 Freq: Status: Active Protocol: Document 11/01/22 15:25 [facility] (Rec: 11/01/22 18:19 [facility] [id number]) OT [id number] Comments OT Self-Feeding Comments not at meal time OT ADL-Grooming Comments OT Grooming Comments not performed OT ADL-Oral Care Comments Oral Care Comments Not performed. OT ADL-Dressing General Eval Lower Body Dressing Ability Maximum Assistance Areas Needing Assistance Underpants/Brief OT ADL-Toileting General Evaluation Toileting Ability Maximum Assistance Areas Needing Assistance Manage Clothing,Perform Perineal Hygiene Comments OT Toileting Comments Pt needign assist for all brief management and hygiene needs. OT ADL-Bathing Comments OT Bathing Comments Sponge bath more appropriat at this time due to decreased balance and mobility. M5 OT- IP IADL's Start: 11/01/22 17:13 Freq: Status: Active Protocol: Document 11/01/22 15:25 [facility] (Rec: 11/01/22 18:19 [facility] [id number]) OT-Instrumental Activities of Daily Living Deficits IADL Deficits Identified Deficits Meal Preparation Meal Preparation Caregiver Provides Assist Transition Advisor Transition Advisor Caregiver Provides Assist M6 OT- IP Functional Cognition Start: 11/01/22 17:13 Freq: Status: Active Protocol: Document 11/01/22 15:25 [facility] (Rec: 11/01/22 18:19 [facility] [id number]) Cognitive Factors Limiting Selfcare Function Cognitive Ability Level of Alertness Alert,Confusional State Patient Orientation Name,Place,Situation Attention Span Ability Capable of Focused Attention, Unable to Sustain Attention Ability to Follow Commands Able to Follow One Step Commands with Increased Time, Able to Follow One Step Commands with Repetition Memory Description Short Term Impaired Safety Awareness Decreased Recall of Precautions,Decreased Ability to Apply Precautions Cognitive Comments Cognitive Assessment Comments Pt needing step by step cues with visual and tactile cues in order to follow her hip precautions. Pt having difficulty to initiate her movement and a little slow to process information. Pt states is very tired and did not sleep well last night. Pt not remembering her hip precautions as well. OT- Vision and Hearing OT- Vision Assessment Visual Acuity Glasses For Reading M7 OT- IP Mobility and Balance Start: 11/01/22 17:13 Freq: Status: Active Protocol: Document 11/04/22 12:45 [facility] (Rec: 11/04/22 12:48 [facility] [id number]) OT- Bed Mobility Assessment Supine to Sit Supine to Sit Assist Maximum Assistance Scooting Scooting to Edge of Bed Maximum Assistance OT-Transfer Assessment Sit to and From Stand Sit to and from Stand Moderate Assistance,1 Person Assistance Transfers Transfer Ability Moderate Assistance,1 Person Assistance Technique Transfer Destination Bed,Chair Transfer Technique Stand Step Pivot Devices Transfer Assistive Devices Gait Belt,Front Wheeled Walker Comments Mobility Comments Pt transfered from bed to chair. She was able to scoot self back in chair. OT- Balance Assessment Sitting Balance and Reactions Static Sitting Balance Ability Good Dynamic Sitting Balance Ability Good M9 OT- IP Assessment and Plan Start: 11/01/22 17:13 Freq: Status: Active Protocol: Document 11/04/22 12:45 [facility] (Rec: 11/04/22 12:48 [facility] [id number]) OT Summary Assessment and Plan Potential Rehabilitation Potential Good Analytic Complexity at Evaluation Low Summary OT Impairments Pain,Balance,Functional Mobility,Grooming,Dressing, Toileting,Bathing,Toilet Transfers,Shower Transfers, Activity Tolerance Progress Towards Goals Slow Progress due to Pain,Slow Progress due to Activity Tolerance Assessment Summary Pt presents on this date with Afib and breathing deficits. Pt's HR stayed below 110 for consistent HR but spiked a few times prior to transfer. Pt states fatigued after transfer to chair. Pt left sitting up in chair with call button within reach and all needs at time met. Goals Self-Feeding Goal Independent Grooming Goal Independent Dressing Goal Minimal Assistance Toileting Goal Minimal Assistance Bathing Goal Minimal Assistance Toilet Transfer Goal Standby Assistance Shower Transfer Goal Minimal Assistance Days to Meet Goals 15 Frequency of Treatment Frequency Of Treatment Once a Day Treatment Plan OT Treatment Plan ADL Training,Functional Mobility,Patient/Family Education,Discharge Planning Discharge Recommendations OT Discharge Recommendations SNF Rehab Transportation Needs at Discharge Wheelchair/Cabulance
--- NOTE | 2022-11-04 11:22 | CM.DPC ---
Addendum entered by SHANDRA Aaron 11/04/22 13:58: STYRENE DEHYDRATION REACTOR OPERATOR reported that patient could benefit from speech therapy addition to HH order. HAZARDOUS MATERIALS DRIVER updated FtF sheet and emailed Johnathan from [facility]. SHANDRA aAron Original Note: DCP Continued: Per PT, patient HR shot up to 135/patient went into afib. Per provider, not medically ready today. Johnathan from [facility] called HAZARDOUS MATERIALS DRIVER back. Reports they are ready to accept patient whenever she d/c, and their soonest start of care time is Fri/ for PT/OT. HAZARDOUS MATERIALS DRIVER entered room and reintroduced self and role. Patient sitting in chair and accompanied by spouse. HAZARDOUS MATERIALS DRIVER updated patient and spouse on potential start dates. They are hoping to d/c soon and wish to go home. Plan: d/c home with family and [facility] when medically stable. transport with spouse in POV. CM team continue to follow closely.
--- NOTE | 2022-11-04 12:38 | PM.PN.1 ---
Subjective Subjective Date Patient Seen: 11/04/22 Time Patient Seen: 12:38 Exam Vital Signs (past 8 hours): - 11/04/22 05:00 11/04/22 05:00 11/04/22 06:00 Temperature Pulse Rate 79 Respiratory Rate 24 Blood Pressure 133/63 115/68 Pulse Oximetry 95 Oxygen Delivery Method Oxygen Flow Rate 4 11/04/22 06:00 11/04/22 07:00 11/04/22 07:00 Temperature Pulse Rate 119 H 123 H Respiratory Rate 19 23 Blood Pressure 116/55 L Pulse Oximetry 97 97 Oxygen Delivery Method Oxygen Flow Rate 4 11/04/22 08:00 11/04/22 08:00 11/04/22 08:00 Temperature 97.7 F Pulse Rate 129 H Respiratory Rate 28 H Blood Pressure 112/72 Pulse Oximetry 95 Oxygen Delivery Method Nasal Cannula Oxygen Flow Rate 11/04/22 09:30 11/04/22 09:00 11/04/22 09:00 Temperature Pulse Rate 88 Respiratory Rate Blood Pressure 120/56 L Pulse Oximetry 94 Oxygen Delivery Method Oxygen Flow Rate 2 11/04/22 09:00 11/04/22 10:00 11/04/22 10:01 Temperature Pulse Rate 104 H 88 Respiratory Rate 38 H 29 H Blood Pressure 105/62 Pulse Oximetry 92 94 Oxygen Delivery Method Oxygen Flow Rate 11/04/22 10:01 11/04/22 11:00 11/04/22 12:00 Temperature Pulse Rate 89 86 82 Respiratory Rate 37 H 23 23 Blood Pressure Pulse Oximetry 93 94 94 Oxygen Delivery Method Oxygen Flow Rate Fraction of Inspired Oxygen 24 SaO2/FiO2 Ratio 387 Oxygen Delivery Method Nasal Cannula Oxygen Flow Rate 2 Objective Labs 11/04/22 04:13 11/04/22 04:13 Labs: Laboratory Results - last 24 hr 11/04/22 11/04/22 04:13 04:13 WBC 5.9 RBC 2.59 L Hgb 8.8 L Hct 24.5 L MCV 94.9 MCH 34.0 MCHC 35.8 RDW 12.4 Plt Count 232 Neut % (Auto) 70.8 Lymph % (Auto) 18.2 L [place] % (Auto) 10.6 Eos % (Auto) 0.3 L Baso % (Auto) 0.1 Neut # (Auto) 4200 Lymph # (Auto) 1100 [place] # (Auto) 600 Eos # (Auto) 0 Baso # (Auto) 0 Sodium 127 L Potassium 3.8 Chloride 95 L Carbon Dioxide 28 BUN 15 Creatinine 0.43 L Estimated GFR > 60 BUN/Creatinine Ratio 34.9 H Glucose 106 Calcium 8.0 L PFSH Medical History Atrial fibrillation GERD (gastroesophageal reflux disease) Glaucoma Hearing impaired Hypertension Low back pain Neuropathy Osteoarthritis PAC (premature atrial contraction) Presence of pessary PVC's (premature ventricular contractions) Tremor Surgical History H/O wrist surgery (~2007) History of bilateral cataract extraction History of cardiac radiofrequency ablation (~2015) Hx of eye surgery Status post tonsillectomy and adenoidectomy Family History Sister Cerebral aneurysm Brother Myocardial infarction Father Colon cancer Mother Cerebral aneurysm Social History marital status: household members: spouse Smoking Status: Never smoker alcohol intake: former substance use type: does not use Quality VTE Deep Vein Thrombosis/Pulmonary Embolism Present on Admission: No
--- NOTE | 2022-11-04 13:08 | P.PN_ITS ---
Subjective Subjective Date Patient Seen: 11/04/22 Time Patient Seen: 13:08 Interval history: 82-year-old female doing well this morning. Had a little episode of atrial fibrillation. Heart rates up to the 130s. Nonsustained she is in normal sinus rhythm now. History of ablation procedure on metoprolol twice a day blood pressure stable she is not been bradycardic. She is on oxygen which she is normally not at home. She is feeling a little raspy and gurgly she is been eating working with physical therapy. Mentating well. at bedside discussed care with the day nurse. Exam Vital Signs (past 8 hours): - 11/04/22 06:00 11/04/22 06:00 11/04/22 07:00 Temperature Pulse Rate 119 H Respiratory Rate 19 Blood Pressure 115/68 116/55 L Pulse Oximetry 97 Oxygen Delivery Method Oxygen Flow Rate 4 11/04/22 07:00 11/04/22 08:00 11/04/22 08:00 Temperature 97.7 F Pulse Rate 123 H 129 H Respiratory Rate 23 28 H Blood Pressure 112/72 Pulse Oximetry 97 95 Oxygen Delivery Method Oxygen Flow Rate 11/04/22 08:00 11/04/22 09:30 11/04/22 09:00 Temperature Pulse Rate 88 Respiratory Rate Blood Pressure Pulse Oximetry 94 Oxygen Delivery Method Nasal Cannula Oxygen Flow Rate 2 11/04/22 09:00 11/04/22 09:00 11/04/22 10:00 Temperature Pulse Rate 104 H 88 Respiratory Rate 38 H 29 H Blood Pressure 120/56 L Pulse Oximetry 92 94 Oxygen Delivery Method Oxygen Flow Rate 11/04/22 10:01 11/04/22 10:01 11/04/22 11:00 Temperature Pulse Rate 89 86 Respiratory Rate 37 H 23 Blood Pressure 105/62 Pulse Oximetry 93 94 Oxygen Delivery Method Oxygen Flow Rate 11/04/22 12:00 Temperature Pulse Rate 82 Respiratory Rate 23 Blood Pressure Pulse Oximetry 94 Oxygen Delivery Method Oxygen Flow Rate Fraction of Inspired Oxygen 24 SaO2/FiO2 Ratio 387 Oxygen Delivery Method Nasal Cannula Oxygen Flow Rate 2 Narrative Exam Narrative: Gen.: Alert no apparent distress good historian HEENT: Pupils equal round and reactive or mucosa is moist neck is supple Cardio: S1-S2 regular rate and rhythm currently slight systolic murmur Respiratory: Lungs mild increased work of breathing some crackles at the lung bases Abdomen: Soft nontender no rebound or guarding no liver spleen enlargement no appreciable hernias Extremities: Warm dry perfused Objective Labs 11/04/22 04:13 11/04/22 04:13 Labs: Laboratory Results - last 24 hr 11/04/22 11/04/22 04:13 04:13 WBC 5.9 RBC 2.59 L Hgb 8.8 L Hct 24.5 L MCV 94.9 MCH 34.0 MCHC 35.8 RDW 12.4 Plt Count 232 Neut % (Auto) 70.8 Lymph % (Auto) 18.2 L [place] % (Auto) 10.6 Eos % (Auto) 0.3 L Baso % (Auto) 0.1 Neut # (Auto) 4200 Lymph # (Auto) 1100 [place] # (Auto) 600 Eos # (Auto) 0 Baso # (Auto) 0 Sodium 127 L Potassium 3.8 Chloride 95 L Carbon Dioxide 28 BUN 15 Creatinine 0.43 L Estimated GFR > 60 BUN/Creatinine Ratio 34.9 H Glucose 106 Calcium 8.0 L PFSH Medical History Atrial fibrillation GERD (gastroesophageal reflux disease) Glaucoma Hearing impaired Hypertension Low back pain Neuropathy Osteoarthritis PAC (premature atrial contraction) Presence of pessary PVC's (premature ventricular contractions) Tremor Surgical History H/O wrist surgery (~2007) History of bilateral cataract extraction History of cardiac radiofrequency ablation (~2015) Hx of eye surgery Status post tonsillectomy and adenoidectomy Family History Sister Cerebral aneurysm Brother Myocardial infarction Father Colon cancer Mother Cerebral aneurysm Social History marital status: household members: spouse Smoking Status: Never smoker alcohol intake: former substance use type: does not use Assessment & Plan Assessment and plan (1) Atrial fibrillation: Qualifiers: Atrial fibrillation type: unspecified Qualified Code(s): I48.91 - U nspecified atrial fibrillation Status: None Plan Status post right hip total arthroplasty done on 10/31/2022. Progressing well with physical therapy pain is well controlled as poor orthopedic surgery care complicated by postoperative atrial fibrillation. Atrial fibrillation with rapid ventricular response patient with a history of atrial fibrillation and ablation. Patient has gone in and out of atrial fibrillation was placed on Cardizem drips she is now off that. Still having short bursts of atrial fib. Recommend increasing metoprolol to 50 mg twice a day. Discussed anticoagulation with patient which she was on previously. A call into the orthopedic surgeon to discuss when we can start anticoagulation on this patient for prevention of stroke. Hemoglobin hematocrit slightly low we will recheck. Echocardiogram reviewed continue checking electrolytes continue with telemetry monitoring. Hypoxia. Patient requiring oxygen chest x-ray reveals reviewed. She has some crackles at lung bases. She is she is requiring 2-3 L. With her recent surgery going in and out of AFib. There may be a small component of fluid overload 40 mg of IV Lasix today monitor electrolytes. Postoperative anemia. Recheck hemoglobin hematocrit make sure stable before starting anticoagulation Hyponatremia recheck sodium. Hypertension continue with blood pressure. Parkinson's disease continue with Sinemet Disposition and plan increase metoprolol to 50 b.i.d.. Lasix 40 mg today. Continue to work with physical therapy. Discussion with Orthopedic surgery on when to start anticoagulation. Anticipate discharge 20/4 to 48 hours may need nursing home facility Quality VTE Deep Vein Thrombosis/Pulmonary Embolism Present on Admission: No
--- NOTE | 2022-11-04 13:20 | PT.IPTN ---
Current Diagnoses Unspecified atrial fibrillation (11/02/22) Unilateral primary osteoarthritis, right hip (11/02/22) Pain in right hip (11/02/22) Surgery Performed Operation Date: 10/31/22 13:45 Actual Procedures p Total Hip Arthroplasty/Anterior Approach(Right) - Linda Martin MD Physical Therapy Treatment Note M2 PT-IP Current Condition Start: 11/01/22 09:34 Freq: NEEDED Status: Active Protocol: Document 11/01/22 08:40 MB (Rec: 11/01/22 09:45 MB [id number]) Physical Therapy Current Condition Current Condition Evaluation Date 11/01/22 Treatment Diagnosis R THR M3 PT-IP Subjective Start: 11/01/22 09:34 Freq: NEEDED Status: Active Protocol: Document 11/04/22 13:40 TS (Rec: 11/04/22 13:55 TS [id number]) Subjective Physical Therapy Visit Type Type Treatment Note Visit Start Time 13:20 Visit Stop Time 13:36 Total Visit Minutes 16 Notes Spouse present Number of BOX STACKER Visits 4 Physical Therapy Visit Comments Patient Comments Pt found resting on 2L of o2 at 92%, HR 95, pt reports feeling weak, agreeable to PT. Patient Goals To go home M4 PT-IP Mobility and Gait Start: 11/01/22 09:34 Freq: NEEDED Status: Active Protocol: Document 11/04/22 13:40 TS (Rec: 11/04/22 13:55 TS [email or web address]) PT-Transfer Assessment Sit to and From Stand Sit to and from Stand Moderate Assistance,1 Person Assistance,Use of Upper Extremities Equipment Transfer Assistive Device Gait Belt,Front Wheeled Walker Orthotic/Prosthetic Devices or Brace: No Comments Mobility Comments Pt found resting in chair, agreeable to PT. Sit to stand w/FWW Maryellen for retroleaning, pt self-corrected without cues . She ambulated ~15' in room CGA slow step to gait with freezing episodes, requires cues for steps and turning in FWW. Sit to supine into bed ModA for LEs, pt laterally scooted SBA with cues for lifting hips and repositioning in bed. Pt was left in bed with call light nearby, spouse and RT in room. Gait Assessment Gait Gait Assistance Required: Contact Guard Assist,1 Person Assist Distance (Feet) 15 Able to Maintain Weight Bearing Status Yes During Gait Assistive Devices Assistive Device Gait Belt,Front Wheeled Walker Orthotic/Prosthetic Devices or Brace: No Gait Deviations General Gait Pattern Antalgic,Decreased Stride Length,Decreased Feet Clearance Factors Limiting Gait Function Factors Limiting Gait Function Decreased Activity Tolerance, Decreased Sensation,Decreased Strength,Difficulty Following Directions,Incoordination, Limited Range of Motion,Pain, Poor Balance,Poor Safety Awareness Comments Gait Comments See mobility comments. PT-Balance Assessment Sitting Balance and Reactions Static Sitting Balance Ability Good Dynamic Sitting Balance Ability Fair Standing Balance and Reactions Static Standing Balance Ability Fair Dynamic Standing Balance Ability Fair Device Used FWW M5 PT-IP Objective Assessments Start: 11/01/22 09:34 Freq: NEEDED Status: Active Protocol: Document 11/01/22 08:40 MB (Rec: 11/01/22 09:45 MB [id number]) Orientation Orientation/Cognition Level of Alertness Alert Orientation Name,Age,Birthday,Month,Date, Year,Day of Week,Place, Situation Language Function Ability No Deficits Noted Safety Awareness Decreased Safety Awareness Memory Description No Deficits Noted Gross Range of Motion Upper Extremity ROM Impairments Defer to OT Lower Extremity ROM Assessment Right Impaired Strength Comments Strength Comments Deferred MMT d/t urgency to get up to commode and pt with poor command following. M6 PT-IP Treatment Start: 11/01/22 09:34 Freq: NEEDED Status: Active Protocol: Document 11/04/22 13:40 TS (Rec: 11/04/22 13:55 TS [email or web address]) Physical Therapy Treatment Education Education Provided Precautions,Post-Op Packet, Safety M7 PT-IP Assessment and Plan Start: 11/01/22 09:34 Freq: NEEDED Status: Active Protocol: Document 11/04/22 13:40 TS (Rec: 11/04/22 13:55 [email or web address]) PT Summary Assessment and Plan Potential Rehabilitation Potential Fair Summary Progress Towards Goals Slow Progress due to Medical Issues,Slow Progress due to Activity Tolerance Assessment Summary Pt continues to be Maryellen for sit to stand. She has some retroleaning initially in standing but self-corrected without cues. She ambulated ~ 15' CGA, HR increased from 95 at rest to 120's with mobility , reports feeling weak and requesting back to bed. Pt is slow with gait and has freezing episodes, requires cues for steps and FWW management. She continues to be on 2L of o2 at 92% at rest, desats to 90% with mobility. PT continues to recommend home 24/7 assist and HHPT. Goals Bed Mobility Goal Standby Assistance Transfer Goal Standby Assistance,Front Wheeled Walker Gait Goal Standby Assistance,Front Wheel Walker Gait Distance 75 Other Goals Pt will ascend and descend 2 steps with RW and min A since she has no rails at her steps at home. Days to Meet Goals 5 Frequency of Treatment Frequency Of Treatment Twice a Day Treatment Plan Physical Therapy Treatment Plan Bed Mobility Training,Transfer Training,Gait Training, Therapeutic Exercise,Balance Retraining,Post Op Education, Discharge Planning,Hot or Cold Pack Precautions Anterior Hip Precautions No Hip Extension,No Hip External Rotation Weight Bearing Status Weight Bearing Status Weight Bear as Tolerated Discharge Recommendations PT Discharge Recommendations Home with 24/7 Assist Available,Home Health, Outpatient PT Transportation Needs at Discharge Private Vehicle
--- NOTE | 2022-11-04 13:37 | ST.IPDYTX ---
Visit Care Team Role Provider Type Michael Fierro MD Primary Care Provider Physician Specialty: Family Practice Address: [address] [place] [address], [id number] Email: [email or web address] Stevie Darby DO Other Providers Physician Specialty: Anesthesiology Address: [address] [place] [address], [id number] Email: Sedrick Hill MD Other Providers Physician Specialty: Anesthesiology Address: [address] [place] [address], [address] Email: Denilson Gamez MD Other Providers Physician Specialty: Anesthesiology Address: [address] [place] [address], [address] Phone: Fax: Email: [email or web address] Paula Gunn MD Other Providers Physician Specialty: Anesthesiology Address: [address] [place] [address], [address] Phone: Fax: Email: Gilberto Woods MD Other Providers Physician Specialty: Anesthesiology Address: [address] [place] [address], [address] Email: Papito Barros MD Other Providers Physician Specialty: Anesthesiology Address: [address] [place] [address], [address] Email: Kayce Rowe MD Other Providers Physician Specialty: Anesthesiology Address: [address] [place] [address], [address] Email: Ashlie Willingham MD Other Providers Physician Specialty: Anesthesiology Address: Phone: Fax: Email: [email or web address] Arroyo MD Other Providers Physician Specialty: Anesthesiology Address: [address] [place] [address], [address] Email: Jan Reich MD Other Providers Physician Specialty: Internal Medicine Address: [address] [place] [address], [address] Email: [email or web address] Other Providers Physician Specialty: Anesthesiology Address: [address] [place] [address], [address] Email: Linda Martin MD Admit Provider Physician Attending Provider Referring Provider Specialty: Orthopedics Orthopedic Surgery Address: [address] [place] [address], [address] Email: [email or web address] WALLPAPER EMBOSSER HELPER Dysphagia Treatment WALLPAPER EMBOSSER HELPER Dysphagia Treatment Start: 11/02/22 14:05 Freq: Status: Active Protocol: Document 11/04/22 13:20 CG (Rec: 11/04/22 13:26 CG [id number]) Dysphagia Treatment Session Time Visit Start Time 13:07 Visit Stop Time 13:22 Total Visit Minutes 15 Visit Information Visit Number 2 Setting Assessment Location Acute Care Patient Information Subjective Observations Pt was seated in chair at bedside with her family present in the room. She stated that she felt weak. Oxygen saturation was noted to remain steady at 92% throughout treatment with NC in place. She was alert and oriented and with good insight into swallowing deficits. Treatment Liquids Trialed Thin (IDDSI 0) Administration Type Cup Single Sip,Cup Consecutive Sips Pharyngeal Strategies Chin Tuck Treatment Activities WALLPAPER EMBOSSER HELPER reviewed compensatory strategies with pt to check for understanding. Additionally, conducted PO trials of thin liquids via single cup sip and consecutive cup sip. WALLPAPER EMBOSSER HELPER consulted with care management to discuss referral for home health WALLPAPER EMBOSSER HELPER services for dysphagia upon d/ c. The IDDSI Framework Protocol: IDDSI.1 Assessment Patient Response to Treatment Good Rehab Potential Good Assessment of Improvement Pt independently recalled chin tuck strategy upon WALLPAPER EMBOSSER HELPER probe. Pt stated that she was using teaspoon for thin liquids yesterday, but had progressed herself to sipping from a cup today (not using a straw). During trials of thin liquid via cup sip, pt presented with timely, audible swallows. Serial swallows of thin via cup sip with chin tuck resulted in delayed weak cough , concerning for aspiration/ penetration. Pt was instructed to tuck chin lower if possible before trialing single cup sips. Given deeper chin tuck and single sips, pt did not present with overt s/ sx aspiration/penetration ( though silent aspiration cannot be ruled out without an instrumental assessment). Pt may be a candidate for instrumental assessment once more medically stable; however , she would likely be unable to tolerate transfer and study at this time based on respiratory status. Pt states she very occasionally coughs on foods, but instances of coughing have decreased since initial WALLPAPER EMBOSSER HELPER evaluation. Pt demonstrates good awareness of deficits, good recall of recommendations , and overall intact cognitive functioning which is positive for prognosis and rehabilitation potential. Recommendations Liquids Order Thin (IDDSI 0) Diet Order Regular (IDDSI 7) Medication Recommendations Whole in Carrier,Crushed in Carrier Aspiration Precautions Recommended Precautions Small Bites/Sips,Chin Tuck Additional Precautions One sip at a time. No straws. Treatment Plan Placement Recommendation after Discharge Home with Home Health Appropriate for Continued Therapy Yes Therapy Recommendations Continue daily while inpatient . Recommend home health speech therapy for dysphagia, and consider MBSS when able to tolerate. Dysphagia Goals Short-term goals: 1) Pt will implement a chin tuck head position when eating / drinking/taking medications to reduce aspiration risk. 2) Pt will consume liquids by SPOON only to reduce risk of aspiration. (DISCONTINUE ) 3) Pt will consume liquids by single cup sip (no serial swallows, no straws) in order to decrease risk of aspiration . (NEW GOAL 11/04/22) Long-term goals: 1) Pt will safely tolerate least restrictive diet to meet nutrition and hydration needs without s/sx aspiration.
[2022-11-04] MEDS: ALBUTEROL 2.5 MG/3 ML NEB (ADULT) INH (13:39)
--- NOTE | 2022-11-04 13:39 | ST.IPDYTX ---
Visit Care Team Role Provider Type Michael Fierro MD Primary Care Provider Physician Specialty: Family Practice Address: [address] [place] [address], [address] Email: [email or web address] Stevie Darby DO Other Providers Physician Specialty: Anesthesiology Address: [address] [place] [address], [address] Email: Sedrick Hill MD Other Providers Physician Specialty: Anesthesiology Address: [address] [place] [address], [address] Email: Denilson Gamez MD Other Providers Physician Specialty: Anesthesiology Address: [address] [place] [address], [address] Phone: Fax: Email: [email or web address] Other Providers Physician Specialty: Anesthesiology Address: [address] [place] [address], [address] Phone: Fax: Email: Gilberto Woods MD Other Providers Physician Specialty: Anesthesiology Address: [address] [place] [address], [address] Email: Papito Barros MD Other Providers Physician Specialty: Anesthesiology Address: [address] [place] [address], [address] Email: Kayce Rowe MD Other Providers Physician Specialty: Anesthesiology Address: [address] [place] [address], [address] Email: Ashlie Willingham MD Other Providers Physician Specialty: Anesthesiology Address: Phone: Fax: Email: [email or web address] Claudia Arroyo MD Other Providers Physician Specialty: Anesthesiology Address: [address] [place] [address], [address] Email: Jan Reich MD Other Providers Physician Specialty: Internal Medicine Address: [address] [place] [address], [address] Email: [email or web address] Montelongo MD Other Providers Physician Specialty: Anesthesiology Address: [address] [place] [address], [address] Email: Linda Martin MD Admit Provider Physician Attending Provider Referring Provider Specialty: Orthopedics Orthopedic Surgery Address: [address] [place] [address], [address] Email: [email or web address] SAFEKEEPING CLERK Dysphagia Treatment SAFEKEEPING CLERK Dysphagia Treatment Start: 11/02/22 14:05 Freq: Status: Active Protocol: Document 11/04/22 13:20 CG (Rec: 11/04/22 13:26 CG [id number]) Dysphagia Treatment Session Time Visit Start Time 13:07 Visit Stop Time 13:22 Total Visit Minutes 15 Visit Information Visit Number 2 Setting Assessment Location Acute Care Patient Information Subjective Observations Pt was seated in chair at bedside with her family present in the room. She stated that she felt weak. Oxygen saturated was noted to remain steady at 92% throughout treatment with NC in place. She was alert and oriented and with good insight into swallowing deficits. Treatment Liquids Trialed Thin (IDDSI 0) Administration Type Cup Single Sip,Cup Consecutive Sips Pharyngeal Strategies Chin Tuck Treatment Activities SAFEKEEPING CLERK reviewed compensatory strategies with pt to check for understanding. Additionally, conducted PO trials of thin liquids via single cup sip and consecutive cup sip. SAFEKEEPING CLERK consulted with care management to discuss referral for home health SAFEKEEPING CLERK services for dysphagia upon d/ c. The IDDSI Framework Protocol: IDDSI.1 Assessment Patient Response to Treatment Good Rehab Potential Good Assessment of Improvement Pt independently recalled chin tuck strategy upon SAFEKEEPING CLERK probe. Pt stated that she was using teaspoon for thin liquids yesterday, but had progressed herself to sipping from a cup today (not using a straw). During trials of thin liquid via cup sip, pt presented with timely, audible swallows. Serial swallows of thin via cup sip with chin tuck resulted in delayed weak cough , concerning for aspiration/ penetration. Pt was instructed to tuck chin lower if possible before trialing single cup sips. Given deeper chin tuck and single sips, pt did not present with overt s/ sx aspiration/penetration ( though silent aspiration cannot be ruled out without an instrumental assessment). Pt may be a candidate for instrumental assessment once more medically stable; however , she would likely be unable to tolerate transfer and study at this time based on respiratory status. Pt states she very occasionally coughs on foods, but instances of coughing have decreased since initial SAFEKEEPING CLERK evaluation. Pt demonstrates good awareness of deficits, good recall of recommendations , and overall intact cognitive functioning which is positive for prognosis and rehabilitation potential. Recommendations Liquids Order Thin (IDDSI 0) Diet Order Regular (IDDSI 7) Medication Recommendations Whole in Carrier,Crushed in Carrier Aspiration Precautions Recommended Precautions Small Bites/Sips,Chin Tuck Additional Precautions One sip at a time. No straws. Treatment Plan Placement Recommendation after Discharge Home with Home Health Appropriate for Continued Therapy Yes Therapy Recommendations Continue daily while inpatient . Recommend home health speech therapy for dysphagia, and consider MBSS when able to tolerate. Dysphagia Goals Short-term goals: 1) Pt will implement a chin tuck head position when eating / drinking/taking medications to reduce aspiration risk. 2) Pt will consume liquids by SPOON only to reduce risk of aspiration. (DISCONTINUE ) 3) Pt will consume liquids by single cup sip (no serial swallows, no straws) in order to decrease risk of aspiration . (NEW GOAL 11/04/22) Long-term goals: 1) Pt will safely tolerate least restrictive diet to meet nutrition and hydration needs without s/sx aspiration.
[2022-11-04] MEDS: FUROSEMIDE 40 MG/4 ML VIAL IV (13:55)
[2022-11-04] MEDS: METOPROLOL TARTRATE 5 MG/5 ML INJ IV ×2 (16:35→17:50)
--- NOTE | 2022-11-04 17:05 | PC.NURSE ---
Day Shift Note Pt alert and oriented x3. On 3L NC at start of shift, now weaned to RA 92-93%. Denies any shortness of breath or pain. Up with PT and in chair for several hours. NSR with PACs with spurts of afib RVR in the 130-140s. Receiving PO metoprolol per MD order. This afternoon at approx 1400 pt back in afib RVR, extra dose of PO metoprolol and IV lasix unsuccessful at controlling rate so Dr. Fierro notified. Order received for 5 mg IV metoprolol now dose that could be repeated in 1 hour if needed. Med administered and pt converted back unto NSR at 1700, rate in the 70-80s. Call light within reach, using appropriately to make needs known. in room.
[2022-11-04] MEDS: polyethylene glycoL 3350 17 GM POWD.PACK PO (18:21)
--- NOTE | 2022-11-04 19:27 | P.PN_ITS ---
Subjective Subjective Date Patient Seen: 11/04/22 Interval history: Patient is resting comfortably in bed this morning with at bedside. She states her hip is doing very well and she is having minimal pain. Physical therapy has been going well and she has no concerns. Exam Vital Signs (past 8 hours): - 11/04/22 12:00 11/04/22 13:40 11/04/22 14:07 Temperature Pulse Rate 82 90 95 H Respiratory Rate 23 24 Blood Pressure 119/55 L Pulse Oximetry 94 93 Oxygen Delivery Method Nasal Cannula Oxygen Flow Rate 2 Fraction of Inspired Oxygen 28 11/04/22 13:00 11/04/22 13:58 11/04/22 13:58 Temperature 98.8 F Pulse Rate 101 H 92 H Respiratory Rate 37 H 23 Blood Pressure 119/55 L Pulse Oximetry 91 93 Oxygen Delivery Method Oxygen Flow Rate Fraction of Inspired Oxygen 11/04/22 14:00 11/04/22 15:00 11/04/22 16:30 Temperature Pulse Rate 91 H 139 H Respiratory Rate 24 23 Blood Pressure Pulse Oximetry 93 94 92 Oxygen Delivery Method Oxygen Flow Rate 0 Fraction of Inspired Oxygen Fraction of Inspired Oxygen 28 SaO2/FiO2 Ratio 332 Oxygen Delivery Method Nasal Cannula Oxygen Flow Rate 0 Narrative Exam Narrative: Pleasant 82 year old female. Awake, alert, and oriented. Right hip john clean and dry with few small spots of dried blood, intact to suction. Strength and sensation intact to bilateral lower extremities. Bilateral calves soft, comp ressible, nontender with no palpable cords or masses. Objective Labs 11/04/22 04:13 11/04/22 04:13 Labs: Laboratory Results - last 24 hr 11/04/22 11/04/22 04:13 04:13 WBC 5.9 RBC 2.59 L Hgb 8.8 L Hct 24.5 L MCV 94.9 MCH 34.0 MCHC 35.8 RDW 12.4 Plt Count 232 Neut % (Auto) 70.8 Lymph % (Auto) 18.2 L [place] % (Auto) 10.6 Eos % (Auto) 0.3 L Baso % (Auto) 0.1 Neut # (Auto) 4200 Lymph # (Auto) 1100 [place] # (Auto) 600 Eos # (Auto) 0 Baso # (Auto) 0 Sodium 127 L Potassium 3.8 Chloride 95 L Carbon Dioxide 28 BUN 15 Creatinine 0.43 L Estimated GFR > 60 BUN/Creatinine Ratio 34.9 H Glucose 106 Calcium 8.0 L PFS Medical History Atrial fibrillation GERD (gastroesophageal reflux disease) Glaucoma Hearing impaired Hypertension Low back pain Neuropathy Osteoarthritis PAC (premature atrial contraction) Presence of pessary PVC's (premature ventricular contractions) Tremor Surgical History H/O wrist surgery (~2007) History of bilateral cataract extraction History of cardiac radiofrequency ablation (~2015) Hx of eye surgery Status post tonsillectomy and adenoidectomy Family History Sister Cerebral aneurysm Brother Myocardial infarction Father Colon cancer Mother Cerebral aneurysm Social History marital status: household members: spouse Smoking Status: Never smoker alcohol intake: former substance use type: does not use Assessment & Plan Post-op Postoperative Procedures: Procedures Operation Date: 10/31/22 13:45 Actual Procedure Side Surgeon p Total Hip Arthroplasty/Anterior Approach Right Linda Martin MD Postoperative day: 4 Postoperative status: other (intermittent atrial fibrillation with RVR) Postoperative status narrative: Orthopedically, patient is progressing as expected following right total hip arthroplasty. However, she developed runs of atrial fibrillation with RVR which is being treated by the hospitalist team. Postoperative plan narrative: Routine post-op care for right hip total arthroplasty. Cardiac and pulmonary workup/treatment per hospitalist. Ok to start anticoagulation as indicated per Dr. Martin. Quality VTE Deep Vein Thrombosis/Pulmonary Embolism Present on Admission: No
[2022-11-04] MEDS: METOPROLOL ER 25 MG TABLET 50 MG PO (21:31)
[2022-11-04] MEDS: APIXABAN 5 MG TABLET 2.5 MG PO (21:33)
[2022-11-04] MEDS: MELATONIN 3 MG TABLET PO (21:34)
[2022-11-04] MEDS: TAFLUPROST 0.0015% 1 EACH EYE-BOTH (21:45)
[2022-11-05] VITALS (45 sets, daily range): BP systolic 80–137; BP diastolic 47–85; PULSE 69–153; RESP 7–52; TEMP 36.6–36.9; O2SAT 92–96
[2022-11-05] MEDS: OXYCODONE IR 5 MG TABLET PO (05:40)
[2022-11-05] MEDS: ACETAMINOPHEN 325 MG TABLET 650 MG PO ×4 (05:40→22:32)
[2022-11-05 06:09] LABS: Add Manual Diff / Slide Review NO; Basophils Absolute Auto 0 /uL (0-100); Basophils Percent Auto 0.2 % (0-2); Eosinophils Absolute Auto 100 /uL (0-450); Eosinophils Percent Auto 0.8 % (2-4); Hematocrit 29.6 % (36-46); Hemoglobin 10.5 g/dL (12.0-16.0); Lymphocytes Absolute Auto 1200 /uL (1100-4500); Lymphocytes Percent Auto 17.8 % (25-40); Mean Corpuscular HGB Conc 35.3 % (30-36); Mean Corpuscular Hemoglobin 33.4 PG (26-34); Mean Corpuscular Volume 94.4 fL (80-100); Monocytes Absolute Auto 700 /uL (0-900); Monocytes Percent Auto 10.4 % (3-14); Neutrophils Absolute Auto 4800 /uL (1500-7000); Neutrophils Percent Auto 70.8 % (50-75); Platelet Count 273 X10^3/uL (150-400); Red Blood Cell Count 3.14 X10^6/uL (4.0-5.2); Red Cell Distribution Width 12.4 % (11.6-14.8); White Blood Cell Count 6.8 X10^3/uL (4.5-11.0)
[2022-11-05 06:14] LABS: BUN Creatinine Ratio 27.4 (6-22); Blood Urea Nitrogen 17 mg/dL (7-17); Calcium 8.2 mg/dL (8.4-10.2); Carbon Dioxide 35 mmol/L (22-32); Chloride 91 mmol/L (98-107); Estimated Glomerular Filt Rate > 60 mL/min (>60); Glucose 106 mg/dL (80-110); HEMOLYSIS < 15 (0-50); Potassium 3.7 mmol/L (3.4-5.1); Sodium 128 mmol/L (137-145)
--- NOTE | 2022-11-05 08:48 | P.PN_ITS ---
Subjective Subjective Date Patient Seen: 11/05/22 Time Patient Seen: 07:30 Interval history: Patient seen and evaluated this morning. Care reviewed with the daytime ICU nurse. Patient's daughter at bedside. Patient has been going in and out of atrial fibrillation. Patient has been relatively asymptomatic. Heart rates up into the 130s. Yesterday patient was given diuresis with Lasix. Increase dose of metoprolol. After discussion with Cardiology recommendations for anticoagulation reviewed and patient was started on Eliquis. Overnight patient is still having episodes of atrial fibrillation. In this morning she is in atrial fibrillation with a heart rate about 130. Blood pressure stable. Saturations are improved 94% on room air after Lasix yesterday. Had a moderate amount of diuresis. Tolerating her diet ambulating well with physical therapy. On a good bowel regimen. Hip looks clean dry and intact and no signs of infection. Exam Vital Signs (past 8 hours): - 11/05/22 01:00 11/05/22 01:00 11/05/22 02:00 Temperature Pulse Rate 71 Respiratory Rate 18 Blood Pressure 97/53 L 104/57 L Pulse Oximetry 93 Oxygen Delivery Method 11/05/22 02:00 11/05/22 03:00 11/05/22 03:00 Temperature Pulse Rate 72 69 Respiratory Rate 14 15 Blood Pressure 80/47 L Pulse Oximetry 94 93 Oxygen Delivery Method 11/05/22 04:00 11/05/22 04:01 11/05/22 04:01 Temperature Pulse Rate 71 71 Respiratory Rate 15 12 Blood Pressure 97/52 L Pulse Oximetry 95 94 Oxygen Delivery Method 11/05/22 04:06 11/05/22 05:42 11/05/22 05:00 Temperature 98 F Pulse Rate 98 H Respiratory Rate 18 Blood Pressure 118/57 L Pulse Oximetry 96 Oxygen Delivery Method Room Air 11/05/22 05:00 11/05/22 06:00 11/05/22 06:00 Temperature Pulse Rate 75 130 H Respiratory Rate 19 19 Blood Pressure 116/77 Pulse Oximetry 93 93 Oxygen Delivery Method 11/05/22 07:00 11/05/22 07:00 11/05/22 08:00 Temperature Pulse Rate 124 H Respiratory Rate 13 Blood Pressure 115/67 117/78 Pulse Oximetry 93 Oxygen Delivery Method 11/05/22 08:00 11/05/22 08:22 Temperature Pulse Rate 131 H Respiratory Rate 15 Blood Pressure Pulse Oximetry 94 94 Oxygen Delivery Method Room Air Fraction of Inspired Oxygen 28 SaO2/FiO2 Ratio 332 Oxygen Delivery Method Room Air Oxygen Flow Rate 0 Narrative Exam Narrative: Gen.: Alert good historian says she slept well last night feeling a little bit better she says ambulating better HEENT: Pupils equal round and reactive or mucosa is moist neck is supple Cardio: S1-S2 irregular rate and rhythm Respiratory: Lungs show normal respiratory effort with no significant increased work of breathing crackles that were in the lung bases yesterday or improved Abdomen: Soft nontender Extremities: No edema warm dry perfused Objective Labs 11/05/22 05:38 11/05/22 05:38 Labs: Laboratory Results - last 24 hr 11/05/22 11/05/22 05:38 05:38 WBC 6.8 RBC 3.14 L Hgb 10.5 L Hct 29.6 L MCV 94.4 MCH 33.4 MCHC 35.3 RDW 12.4 Plt Count 273 Neut % (Auto) 70.8 Lymph % (Auto) 17.8 L [place] % (Auto) 10.4 Eos % (Auto) 0.8 L Baso % (Auto) 0.2 Neut # (Auto) 4800 Lymph # (Auto) 1200 [place] # (Auto) 700 Eos # (Auto) 100 Baso # (Auto) 0 Sodium 128 L Potassium 3.7 Chloride 91 L Carbon Dioxide 35 H BUN 17 Creatinine 0.62 Estimated GFR > 60 BUN/Creatinine Ratio 27.4 H Glucose 106 Calcium 8.2 L PFSH Medical History Atrial fibrillation GERD (gastroesophageal reflux disease) Glaucoma Hearing impaired Hypertension Low back pain Neuropathy Osteoarthritis PAC (premature atrial contraction) Presence of pessary PVC's (premature ventricular contractions) Tremor Surgical History H/O wrist surgery (~2007) History of bilateral cataract extraction History of cardiac radiofrequency ablation (~2015) Hx of eye surgery Status post tonsillectomy and adenoidectomy Family History Sister Cerebral aneurysm Brother Myocardial infarction Father Colon cancer Mother Cerebral aneurysm Social History marital status: household members: spouse Smoking Status: Never smoker alcohol intake: former substance use type: does not use Assessment & Plan Assessment and plan (1) Osteoarthritis of left hip: Qualifiers: Osteoarthritis type: primary Qualified Code(s): M16.12 - Unilateral primary osteoarthritis, left hip Status: Acute (2) Atrial fibrillation: Qualifiers: Atrial fibrillation type: unspecified Qualified Code(s): I48.91 - Unspecified atrial fibrillation Status: None Plan Right hip arthritis status post right hip arthroplasty on 10/31/2022. Progressing with with physical therapy. Orthopedics is rounding. Incision looks good today. Continue with physical therapy. Anticipate optimistically di scharging home. Atrial fibrillation with rapid ventricular response. Patient was diuresed yesterday with Lasix increased her dose of metoprolol despite this patient is still having breakthrough atrial fibrillation. Discussed care with her primary claim approver. Will go ahead and start patient on amiodarone she will get 150 mg bolus then 1 milligram/minute for 6 hours and 0.5 milligram/minute for the next 18 hours at which point she will be on 400 mg twice daily for 1 week 400 mg once daily for week and then back to 200 mg. Discussed this with patient and daughter. Again recommended anticoagulation with Alysiaqurodolfo patient was started this morning at 2.5 mg twice daily. Reviewed this with Orthopedic surgery who agreed for her to be on anticoagulation. Respiratory failure with hypoxia requiring oxygen. A combination of fluid overload due to intermittent atrial fibrillation. Patient required IV Lasix to help improve oxygenation. She is saturating at 94% today with out any oxygen s upplementation. Appears to be more euvolemic at this point. Continue to monitor ins and outs and fluid balance. Postoperative anemia. Hemoglobin hematocrit is improved after diuresis yesterday stable. No signs of significant blood loss due to surgical procedure Hyponatremia sodium stable and improving Parkinson's disease. Probable diagnosis has a neurology appointment. We will continue with Sinemet at this point. Plan today. Start IV amiodarone continue with anticoagulation. Anticipate discharge home as she will go home with and daughters at bedside for ongoing care. Quality VTE Deep Vein Thrombosis/Pulmonary Embolism Present on Admission: No
[2022-11-05] MEDS: DOCUSATE 100 MG CAPSULE PO ×2 (09:53→21:18)
[2022-11-05] MEDS: CALCIUM CARBONATE 500 MG TAB PO ×2 (09:53→21:16)
[2022-11-05] MEDS: APIXABAN 5 MG TABLET 2.5 MG PO ×2 (09:53→21:16)
[2022-11-05] MEDS: CHOLECALCIFEROL (VITAMIN D3) 1,000 UNIT TABLET 1000 UNIT PO (09:54)
[2022-11-05] MEDS: METOPROLOL ER 25 MG TABLET 50 MG PO (09:54)
[2022-11-05] MEDS: CARBIDOPA-LEVODOPA ER 50/200 TABLET 0.5 EACH PO ×2 (09:54→21:16)
[2022-11-05] MEDS: MULTIVITAMIN 1 TABLET 1 TAB PO (09:54)
[2022-11-05] MEDS: ASCORBIC ACID 500 MG TABLET PO (09:54)
[2022-11-05] MEDS: AMIODARONE 150 MG/100 ML PIGGYBACK 600 MG IV (10:25)
[2022-11-05] MEDS: TIMOLOL 0.5% EYE-BOTH (10:29)
[2022-11-05] MEDS: [UNRECOGNIZED DRUG - OTHER] EYE-BOTH (10:29)
[2022-11-05] MEDS: AMIODARONE 360 MG/200 ML PIGGYBACK 33.3 MG IV (10:37)
--- NOTE | 2022-11-05 11:19 | P.PN_ITS ---
Subjective Subjective Date Patient Seen: 11/05/22 Time Patient Seen: 07:50 Interval history: Patient states her hip pain is mild. Denies shortness of breath or chest pain. No fever chills. Exam Vital Signs (past 8 hours): - 11/05/22 04:00 11/05/22 04:01 11/05/22 04:01 Temperature Pulse Rate 71 71 Respiratory Rate 15 12 Blood Pressure 97/52 L Pulse Oximetry 95 94 Oxygen Delivery Method 11/05/22 04:06 11/05/22 05:42 11/05/22 05:00 Temperature 98 F Pulse Rate 98 H Respiratory Rate 18 Blood Pressure 118/57 L Pulse Oximetry 96 Oxygen Delivery Method Room Air 11/05/22 05:00 11/05/22 06:00 11/05/22 06:00 Temperature Pulse Rate 75 130 H Respiratory Rate 19 19 Blood Pressure 116/77 Pulse Oximetry 93 93 Oxygen Delivery Method 11/05/22 07:00 11/05/22 07:00 11/05/22 08:00 Temperature Pulse Rate 124 H Respiratory Rate 13 Blood Pressure 115/67 117/78 Pulse Oximetry 93 Oxygen Delivery Method 11/05/22 08:00 11/05/22 08:22 11/05/22 09:00 Temperature 98.4 F Pulse Rate 131 H 144 H Respiratory Rate 15 21 Blood Pressure Pulse Oximetry 94 94 94 Oxygen Delivery Method Room Air 11/05/22 09:53 11/05/22 09:53 11/05/22 10:00 Temperature Pulse Rate 141 H Respiratory Rate 24 Blood Pressure 127/75 125/73 Pulse Oximetry 92 Oxygen Delivery Method 11/05/22 10:00 11/05/22 10:43 Temperature Pulse Rate 153 H 126 H Respiratory Rate 21 Blood Pressure 102/56 L Pulse Oximetry 93 Oxygen Delivery Method Fraction of Inspired Oxygen 28 SaO2/FiO2 Ratio 332 Oxygen Delivery Method Room Air Oxygen Flow Rate 0 Narrative Exam Narrative: 82-year-old female resting comfortably in bed in no apparent distress. Right hip dressing is clean, dry and intact. Angela dressing is on and functioning. Motor functions intact distal bilateral lower extremities. Sensation grossly intact to light touch bilateral lower extremities. Const General: cooperative and comfortable Orientation: alert Resp Effort & Inspection: normal respiratory effort and able to speak in complete sen [facility] Objective Labs 11/05/22 05:38 11/05/22 05:38 Labs: Laboratory Results - last 24 hr 11/05/22 11/05/22 05:38 05:38 WBC 6.8 RBC 3.14 L Hgb 10.5 L Hct 29.6 L MCV 94.4 MCH 33.4 MCHC 35.3 RDW 12.4 Plt Count 273 Neut % (Auto) 70.8 Lymph % (Auto) 17.8 L [place] % (Auto) 10.4 Eos % (Auto) 0.8 L Baso % (Auto) 0.2 Neut # (Auto) 4800 Lymph # (Auto) 1200 [place] # (Auto) 700 Eos # (Auto) 100 Baso # (Auto) 0 Sodium 128 L Potassium 3.7 Chloride 91 L Carbon Dioxide 35 H BUN 17 Creatinine 0.62 Estimated GFR > 60 BUN/Creatinine Ratio 27.4 H Glucose 106 Calcium 8.2 L PFSH Medical History Atrial fibrillation GERD (gastroesophageal reflux disease) Glaucoma Hearing impaired Hypertension Low back pain Neuropathy Osteoarthritis PAC (premature atrial contraction) Presence of pessary PVC's (premature ventricular contractions) Tremor Surgical History H/O wrist surgery (~2007) History of bilateral cataract extraction History of cardiac radiofrequency ablation (~2015) Hx of eye surgery Status post tonsillectomy and adenoidectomy Family History Sister Cerebral aneurysm Brother Myocardial infarction Father Colon cancer Mother Cerebral aneurysm Social History marital status: household members: spouse Smoking Status: Never smoker alcohol intake: former substance use type: does not use Assessment & Plan Post-op Postoperative Procedures: Procedures Operation Date: 10/31/22 13:45 Actual Procedure Side Surgeon p Total Hip Arthroplasty/Anterior Approach Right Linda Martin MD Postoperative day: 5 Postoperative status narrative: Stable status post right total hip arthroplasty, anterior approach. Hospitalist consulted on November 02, 2022 for atrial fibrillation. Postoperative plan narrative: Weightbearing as tolerated with anterior hip precautions. Dr. Fierro currently following for her AFib. He has started the patient on Eliquis at cardiology recommendation. Appreciate Dr. Fierro's assistance in managing patient with difficult medical history. Disposition to be determined Quality VTE Deep Vein Thrombosis/Pulmonary Embolism Present on Admission: No
--- NOTE | 2022-11-05 12:58 | PT.IPTN ---
Current Diagnoses Unspecified atrial fibrillation (11/02/22) Unilateral primary osteoarthritis, right hip (11/02/22) Unilateral primary osteoarthritis, left hip (11/02/22) Pain in right hip (11/02/22) Surgery Performed Operation Date: 10/31/22 13:45 Actual Procedures p Total Hip Arthroplasty/Anterior Approach(Right) - Linda Martin MD Physical Therapy Treatment Note M2 PT-IP Current Condition Start: 11/01/22 09:34 Freq: NEEDED Status: Active Protocol: Document 11/01/22 08:40 MB (Rec: 11/01/22 09:45 MB [id number]) Physical Therapy Current Condition Current Condition Evaluation Date 11/01/22 Treatment Diagnosis R THR M3 PT-IP Subjective Start: 11/01/22 09:34 Freq: NEEDED Status: Active Protocol: Document 11/05/22 12:14 TS (Rec: 11/05/22 12:58 TS [id number]) Subjective Physical Therapy Visit Type Type Treatment Note Visit Start Time 11:49 Visit Stop Time 12:12 Total Visit Minutes 23 Notes Spouse present Number of CEREAL MILLER Visits 5 Physical Therapy Visit Comments Patient Comments Pt found resting on RA Spo2 95 %, BP 112/59, HR 80. Pt reports she feels she is improving, not having much pain, agreeable to PT. Patient Goals To go home M4 PT-IP Mobility and Gait Start: 11/01/22 09:34 Freq: NEEDED Status: Active Protocol: Document 11/05/22 12:14 TS (Rec: 11/05/22 12:58 TS [id number]) PT-Transfer Assessment Sit to and From Stand Sit to and from Stand Moderate Assistance,1 Person Assistance,Use of Upper Extremities Equipment Transfer Assistive Device Gait Belt,Front Wheeled Walker Orthotic/Prosthetic Devices or Brace: No Comments Mobility Comments Pt found resting in chair, agreeable to PT. Spouse donned gait belt prior to sit to stand, provided cues for scooting forward in the chair. Sit to stand with spouse ModA for retroleaning/poor balance and difficulty trainsitioning RUE to FWW. Pt required a few seconds to find balance with spouse holding onto gait belt and use of FWW. pt ambulated ~ 20' in room Maryellen for balance and use of FWW with step thru gait. She performed steps x3 with Maryellen and handheld assist from spouse, pt is slow/ cautious to step, no buckling or LOB. Pt was left back in chair, SPo2 93% on RA, HR 100, HR recovered to low 90's within ~1min. Gait Assessment Gait Gait Assistance Required: Contact Guard Assist,1 Person Assist Distance (Feet) 20 Able to Maintain Weight Bearing Status Yes During Gait Assistive Devices Assistive Device Gait Belt,Front Wheeled Walker Orthotic/Prosthetic Devices or Brace: No Gait Deviations General Gait Pattern Antalgic,Decreased Stride Length,Decreased Feet Clearance Factors Limiting Gait Function Factors Limiting Gait Function Decreased Activity Tolerance, Decreased Sensation,Decreased Strength,Difficulty Following Directions,Incoordination, Limited Range of Motion,Pain, Poor Balance,Poor Safety Awareness Comments Gait Comments See mobility comments. Stair Climbing Assessment Evaluation Level of Assist On Stairs Minimal Assistance,1 Person Assistance Devices Stair Climbing Assistive Devices Left Railing Technique/Endurance Stair Climbing Direction Ascend and Descend Stair Climbing Technique Step to Step Number of Steps Climbed 3 Comments Stair Climbing Comments See mobility comments. PT-Balance Assessment Sitting Balance and Reactions Static Sitting Balance Ability Good Dynamic Sitting Balance Ability Fair Standing Balance and Reactions Static Standing Balance Ability Fair Dynamic Standing Balance Ability Fair Device Used FWW M5 PT-IP Objective Assessments Start: 11/01/22 09:34 Freq: NEEDED Status: Active Protocol: Document 11/01/22 08:40 MB (Rec: 11/01/22 09:45 MB [id number]) Orientation Orientation/Cognition Level of Alertness Alert Orientation Name,Age,Birthday,Month,Date, Year,Day of Week,Place, Situation Language Function Ability No Deficits Noted Safety Awareness Decreased Safety Awareness Memory Description No Deficits Noted Gross Range of Motion Upper Extremity ROM Impairments Defer to OT Lower Extremity ROM Assessment Right Impaired Strength Comments Strength Comments Deferred MMT d/t urgency to get up to commode and pt with poor command following. M6 PT-IP Treatment Start: 11/01/22 09:34 Freq: NEEDED Status: Active Protocol: Document 11/05/22 12:14 TS (Rec: 11/05/22 12:58 TS [id number]) Physical Therapy Treatment Education Education Provided Precautions,Post-Op Packet, Safety M7 PT-IP Assessment and Plan Start: 11/01/22 09:34 Freq: NEEDED Status: Active Protocol: Document 08/08/23 12:14 TS (Rec: 11/05/22 12:58 TS [id number]) PT Summary Assessment and Plan Potential Rehabilitation Potential Fair Summary Progress Towards Goals Slow Progress due to Medical Issues,Slow Progress due to Activity Tolerance Assessment Summary Pt made progress with her mobility this session. She continues to be ModA for sit to stand from chair, has poor balance when transitioning UEs to FWW. She continues to ambulate ~20' CGA, pt demonstrates increase gait speed and larger steps with no freezing episodes this session. She performed steps x3 with Maryellen and handheld assist, no buckling or LOB. Pt 's HR was more stable, at rest HR 80 with mobility it increased to HR 102. She tolerated mobility well on RA with Spo2 93% after mobility. PT recommends return home with 24/7 assist and HHPT. Pt's spouse has been working with therapist and pt her entire stay in hospital and has been doing well providing the assist she needs. Goals Bed Mobility Goal Standby Assistance Transfer Goal Standby Assistance,Front Wheeled Walker Gait Goal Standby Assistance,Front Wheel Walker Gait Distance 75 Other Goals Pt will ascend and descend 2 steps with RW and min A since she has no rails at her steps at home. Days to Meet Goals 5 Frequency of Treatment Frequency Of Treatment Twice a Day Treatment Plan Physical Therapy Treatment Plan Bed Mobility Training,Transfer Training,Gait Training, Therapeutic Exercise,Balance Retraining,Post Op Education, Discharge Planning,Hot or Cold Pack Precautions Anterior Hip Precautions No Hip Extension,No Hip External Rotation Weight Bearing Status Weight Bearing Status Weight Bear as Tolerated Discharge Recommendations PT Discharge Recommendations Home with 24/7 Assist Available,Home Health, Outpatient PT Transportation Needs at Discharge Private Vehicle
--- NOTE | 2022-11-05 13:06 | ST.IPDYTX ---
Visit Care Team Role Provider Type Michael Fierro MD Primary Care Provider Physician Specialty: Family Practice Address: [address] [place] [address], [id number] Email: [email or web address] Stevie Darby DO Other Providers Physician Specialty: Anesthesiology Address: [address] [place] [address], [id number] Email: Sedrick Hill MD Other Providers Physician Specialty: Anesthesiology Address: [address] [place] [address], [id number] Email: Denilson Gamez MD Other Providers Physician Specialty: Anesthesiology Address: [address] [place] [address], [address] Phone: Fax: Email: [email or web address] Other Providers Physician Specialty: Anesthesiology Address: [address] [place] [address], [address] Phone: Fax: Email: Gilberto Woods MD Other Providers Physician Specialty: Anesthesiology Address: [address] [place] [address], [address] Email: Papito Barros MD Other Providers Physician Specialty: Anesthesiology Address: [address] [place] [address], [address] Email: Kayce Rowe MD Other Providers Physician Specialty: Anesthesiology Address: [address] [place] [address], [address] Email: Ashlie Willingham MD Other Providers Physician Specialty: Anesthesiology Address: Phone: Fax: Email: [email or web address] Other Providers Physician Specialty: Anesthesiology Address: [address] [place] [address], [address] Email: Jan Reich MD Other Providers Physician Specialty: Internal Medicine Address: [address] [place] [address], [address] Email: [email or web address] Prasanth Montelongo MD Other Providers Physician Specialty: Anesthesiology Address: [address] [place] [address], [id number] Email: Linda Martin MD Admit Provider Physician Attending Provider Referring Provider Specialty: Orthopedics Orthopedic Surgery Address: [address] [place] [address], [phone] Email: [email or web address] OTOLARYNGOLOGY NURSE Dysphagia Treatment OTOLARYNGOLOGY NURSE Dysphagia Treatment Start: 11/02/22 14:05 Freq: Status: Active Protocol: Document 11/05/22 12:54 CG (Rec: 11/05/22 13:06 CG [id number]) Dysphagia Treatment Session Time Visit Start Time 12:45 Visit Stop Time 13:00 Total Visit Minutes 15 Visit Information Visit Number 3 Setting Assessment Location Acute Care Patient Information Subjective Observations Pt was seated in chair at bedside with her present in the room. She has been weaned off oxygen and O2 was at 93 on room air. She had her lunch tray present upon ST entry to the room. Treatment Liquids Trialed Thin (IDDSI 0) Solids Trialed Regular (IDDSI 7) Administration Type Cup Single Sip,Controlled Cup Sip Pharyngeal Strategies Chin Tuck Treatment Activities OTOLARYNGOLOGY NURSE reviewed pt chart; Assessed tolerance of regular solids and single sips thin liquid with trials of white bread bun, salad, and sips tea and water. Discussed discharge plan and consulting with PCP if s/sx exacerbate again after d/c. The IDDSI Framework Protocol: IDDSI.1 Assessment Patient Response to Treatment Good Rehab Potential Good Assessment of Improvement Pt stated she is not having any difficulty eating, but states I have to chew plenty. Pt was observed to chew thoroughly, though mastication was still efficient for PO nutrition. Pt states she hasn 't been using chin tuck for most swallows as she no longer feels she needs to. Assessed pt tolerance of thin liquids without chin tuck but with chin held level. One small cough was observed following all trials, but did not appear to be related to swallow. However, silent aspiration cannot be ruled out without an instrumental assessment. Pt independently paced herself between sips and refrained from serial swallows as had been previously suggested. At this time, pt appears safe with thin liquids via single sip with chin held level. Pt demonstrates excellent awareness and carryover of safety recommendations/swallow precautions. Will d/c speech orders at this time, but encouraged pt to discuss with PCP if symptoms of dysphagia re-emerge after d/c from hospital, and consider MBSS. Recommendations Recommendations Continue Current Diet Liquids Order Thin (IDDSI 0) Diet Order Regular (IDDSI 7) Medication Recommendations Whole in Carrier,Crushed in Carrier Aspiration Precautions Recommended Precautions Small Bites/Sips Additional Precautions One sip at a time. No straws. Treatment Plan Placement Recommendation after Discharge Home with Home Health Appropriate for Continued Therapy Yes Therapy Recommendations Discharge OTOLARYNGOLOGY NURSE orders at this time. Pt is tolerating regular solids and thin liquids via single sip; compliant with swallow precautions. Dysphagia Goals Short-term goals: 1) Pt will implement a chin tuck head position when eating / drinking/taking medications to reduce aspiration risk. 2) Pt will consume liquids by SPOON only to reduce risk of aspiration. (DISCONTINUE ) 3) Pt will consume liquids by single cup sip (no serial swallows, no straws) in order to decrease risk of aspiration . (NEW GOAL 11/04/22) Long-term goals: 1) Pt will safely tolerate least restrictive diet to meet nutrition and hydration needs without s/sx aspiration.
--- NOTE | 2022-11-05 14:03 | OT.IP.TRT ---
Current Diagnoses Unspecified atrial fibrillation (11/02/22) Unilateral primary osteoarthritis, right hip (11/02/22) Unilateral primary osteoarthritis, left hip (11/02/22) Pain in right hip (11/02/22) Surgery Performed Operation Date: 10/31/22 13:45 Actual Procedures p Total Hip Arthroplasty/Anterior Approach(Right) - Linda Martin MD Occupational Therapy Treatment Note M2 OT-IP Current Condition Start: 11/01/22 17:13 Freq: Status: Active Protocol: Document 11/01/22 15:25 [facility] (Rec: 11/01/22 18:19 [facility] [id number]) Occupational Therapy Current Condition Current Condition Evaluation Date 11/01/22 Treatment Diagnosis S/p R LINNEA Diagnosis Onset Date 10/31/22 Post Operative Precautions Anterior Hip Precautions No Hip Extension,No Hip External Rotation Other Precautions Dr. Martin stated no hyperextension greater than 30 degrees for RLE and no back hyperextension. M3 OT- IP Subjective and Pain Start: 11/01/22 17:13 Freq: Status: Active Protocol: Document 11/05/22 14:03 [facility] (Rec: 11/05/22 14:37 [facility] [id number]) OT- Subjective Occupational Therapy Visit Type Type Treatment Note Visit Start Time 13:43 Visit Stop Time 14:03 Total Visit Minutes 20 Occupational Therapy Visit Comments Patient Comments Pt agreed to get up to do grooming needs. Patient/Caregiver Goals TO go home. OT Pain Assessment Pain When Pain Assessed At Rest Pain Present Pain Present Denied Pain M4 OT- IP ADL's Start: 11/01/22 17:13 Freq: Status: Active Protocol: Document 11/05/22 14:03 [facility] (Rec: 11/05/22 14:37 [facility] [id number]) OT FOA-Pwbp-Rcwtwpd General Evaluation Self-Feeding Ability Independent OT ADL-Grooming General Evaluation Grooming Ability Standby Assistance Areas Needing Assistance Retrieving/Set-up of Grooming Items Comments OT Grooming Comments Pt able to stand with FWW and he holding onto her with CGA to close SBA. OT ADL-Oral Care General Eval Oral Care Ability Independent OT ADL-Dressing General Eval Lower Body Dressing Ability Maximum Assistance Comments OT Dressing Comments Assist to straighten out her socks. OT ADL-Toileting Comments OT Toileting Comments Pt not having to go at this time. OT ADL-Bathing Comments OT Bathing Comments To look at caregiver training for shower tomorrow if appropriate, pt too tired to attempt today. M5 OT- IP IADL's Start: 11/01/22 17:13 Freq: Status: Active Protocol: Document 11/01/22 15:25 [facility] (Rec: 11/01/22 18:19 [facility] [id number]) OT-Instrumental Activities of Daily Living Deficits IADL Deficits Identified Deficits Meal Preparation Meal Preparation Caregiver Provides Assist Senior Telecommunications Consultant Senior Telecommunications Consultant Caregiver Provides Assist M6 OT- IP Functional Cognition Start: 11/01/22 17:13 Freq: Status: Active Protocol: Document 11/05/22 14:03 [facility] (Rec: 11/05/22 14:37 [facility] [id number]) Cognitive Factors Limiting Selfcare Function Cognitive Comments Cognitive Assessment Comments Pt still having difficulty to remember her precautions and needing reminders from her . M7 OT- IP Mobility and Balance Start: 11/01/22 17:13 Freq: Status: Active Protocol: Document 11/05/22 14:03 [facility] (Rec: 11/05/22 14:37 [facility] [id number]) OT-Transfer Assessment Sit to and From Stand Sit to and from Stand Minimal Assistance,Moderate Assistance Transfers Transfer Ability Contact Guard Assistance, Minimal Assistance Technique Transfer Destination Chair Transfer Technique Stand Step Pivot Devices Transfer Assistive Devices Gait Belt,Front Wheeled Walker Comments Mobility Comments BRENDA to MOD A x1 to help to stand from her and CGA to walk to the sink and back. Pt's able to demonstrate good safety to be able to assist his at this time. OT- Balance Assessment Sitting Balance and Reactions Static Sitting Balance Ability Good Dynamic Sitting Balance Ability Good Standing Balance and Reactions Static Standing Balance Ability Fair Dynamic Standing Balance Ability Fair M9 OT- IP Assessment and Plan Start: 11/01/22 17:13 Freq: Status: Active Protocol: Document 11/05/22 14:03 [facility] (Rec: 11/05/22 14:37 [facility] [id number]) OT Summary Assessment and Plan Potential Rehabilitation Potential Good Analytic Complexity at Evaluation Low Summary OT Impairments Pain,Balance,Functional Mobility,Grooming,Dressing, Toileting,Bathing,Toilet Transfers,Shower Transfers, Activity Tolerance Progress Towards Goals Slow Progress due to Medical Issues,Slow Progress due to Activity Tolerance Assessment Summary Pt doing better today and pt's able to safely assist pt to stand and walk to the sink in order to do her grooming needs. Looking to do caregiver training for showering if appropriate tomorrow. Pt to go home with 24/7 available assist with home health when medically stable. Goals Self-Feeding Goal Independent Grooming Goal Independent Dressing Goal Minimal Assistance Toileting Goal Minimal Assistance Bathing Goal Minimal Assistance Toilet Transfer Goal Standby Assistance Shower Transfer Goal Contact Guard Assistance Days to Meet Goals 10 Frequency of Treatment Frequency Of Treatment Once a Day Treatment Plan OT Treatment Plan ADL Training,Functional Mobility,Patient/Family Education,Discharge Planning Discharge Recommendations OT Discharge Recommendations Home with 24/7 Assist Available,Home Health Transportation Needs at Discharge Private Vehicle
--- NOTE | 2022-11-05 14:50 | PT.IPTN ---
Current Diagnoses Unspecified atrial fibrillation (11/02/22) Unilateral primary osteoarthritis, right hip (11/02/22) Unilateral primary osteoarthritis, left hip (11/02/22) Pain in right hip (11/02/22) Surgery Performed Operation Date: 10/31/22 13:45 Actual Procedures p Total Hip Arthroplasty/Anterior Approach(Right) - Linda Martin MD Physical Therapy Treatment Note M2 PT-IP Current Condition Start: 11/01/22 09:34 Freq: NEEDED Status: Active Protocol: Document 11/01/22 08:40 MB (Rec: 11/01/22 09:45 MB [id number]) Physical Therapy Current Condition Current Condition Evaluation Date 11/01/22 Treatment Diagnosis R THR M3 PT-IP Subjective Start: 11/01/22 09:34 Freq: NEEDED Status: Active Protocol: Document 11/05/22 15:13 TS (Rec: 11/05/22 15:24 TS [id number]) Subjective Physical Therapy Visit Type Type Treatment Note Visit Start Time 14:50 Visit Stop Time 15:11 Total Visit Minutes 21 Number of FIREARMS INSTRUCTOR Visits 6 Physical Therapy Visit Comments Patient Comments Pt up with nursing using commode, agreeable to PT. M4 PT-IP Mobility and Gait Start: 11/01/22 09:34 Freq: NEEDED Status: Active Protocol: Document 11/05/22 15:13 TS (Rec: 11/05/22 15:24 TS [id number]) PT-Bed Mobility Assessment Sit to Supine Sit to Supine Minimal Assistance PT-Transfer Assessment Sit to and From Stand Sit to and from Stand Minimal Assistance,Moderate Assistance Equipment Transfer Assistive Device Gait Belt,Front Wheeled Walker Orthotic/Prosthetic Devices or Brace: No Comments Mobility Comments Sit to stand from commode ModA with FWW, pt retroleans and requires cues to grasp FWW. She ambulated ~25' in room CGA , has no freezing episodes or LOB. Sit to supine Maryellen for LEs inot bed, pt scooted to HOB SBA. Pt performed bed ex of quad sets, heel slides, glute sets and SLR x5. Pt was left in bed with call light in reach, all needs met. Gait Assessment Gait Gait Assistance Required: Contact Guard Assist,1 Person Assist Distance (Feet) 25 Able to Maintain Weight Bearing Status Yes During Gait Assistive Devices Assistive Device Gait Belt,Front Wheeled Walker Orthotic/Prosthetic Devices or Brace: No Gait Deviations General Gait Pattern Antalgic,Decreased Stride Length,Decreased Feet Clearance Factors Limiting Gait Function Factors Limiting Gait Function Decreased Activity Tolerance, Decreased Sensation,Decreased Strength,Incoordination, Limited Range of Motion,Pain, Poor Balance,Poor Safety Awareness Comments Gait Comments See mobility comments. PT-Balance Assessment Sitting Balance and Reactions Static Sitting Balance Ability Good Dynamic Sitting Balance Ability Good Standing Balance and Reactions Static Standing Balance Ability Fair Dynamic Standing Balance Ability Fair Device Used FWW M5 PT-IP Objective Assessments Start: 11/01/22 09:34 Freq: NEEDED Status: Active Protocol: Document 11/01/22 08:40 MB (Rec: 11/01/22 09:45 MB [id number]) Orientation Orientation/Cognition Level of Alertness Alert Orientation Name,Age,Birthday,Month,Date, Year,Day of Week,Place, Situation Language Function Ability No Deficits Noted Safety Awareness Decreased Safety Awareness Memory Description No Deficits Noted Gross Range of Motion Upper Extremity ROM Impairments Defer to OT Lower Extremity ROM Assessment Right Impaired Strength Comments Strength Comments Deferred MMT d/t urgency to get up to commode and pt with poor command following. M6 PT-IP Treatment Start: 11/01/22 09:34 Freq: NEEDED Status: Active Protocol: Document 11/05/22 15:13 TS (Rec: 11/05/22 15:24 TS [id number]) Physical Therapy Treatment Education Education Provided Precautions,Post-Op Packet, Safety M7 PT-IP Assessment and Plan Start: 11/01/22 09:34 Freq: NEEDED Status: Active Protocol: Document 11/05/22 15:13 TS (Rec: 11/05/22 15:24 TS [id number]) PT Summary Assessment and Plan Potential Rehabilitation Potential Fair Summary Progress Towards Goals Progressing Toward Goals Assessment Summary Pt continues to require ModA for sit to stand, has poor static standing balance initially when standing up, requires cues to grasp FWW. She progressed her ambulation to ~25' CGA w/FWW, has no freezing episodes and no LOB. Pt performed bed ex of quad sets, heel slides, glute sets and SLR, she tolerated it well with minimal pain. PT recommends return home with 24 /7 assist from spouse/family and HHPT. Goals Bed Mobility Goal Standby Assistance Transfer Goal Standby Assistance,Front Wheeled Walker Gait Goal Standby Assistance,Front Wheel Walker Gait Distance 75 Other Goals Pt will ascend and descend 2 steps with RW and min A since she has no rails at her steps at home. Days to Meet Goals 5 Frequency of Treatment Frequency Of Treatment Twice a Day Treatment Plan Physical Therapy Treatment Plan Bed Mobility Training,Transfer Training,Gait Training, Therapeutic Exercise,Balance Retraining,Post Op Education, Discharge Planning,Hot or Cold Pack Precautions Anterior Hip Precautions No Hip Extension,No Hip External Rotation Weight Bearing Status Weight Bearing Status Weight Bear as Tolerated Discharge Recommendations PT Discharge Recommendations Home with 24/ Assist Available,Home Health, Outpatient PT Transportation Needs at Discharge Private Vehicle
--- NOTE | 2022-11-05 14:51 | CM.DPC ---
DCP Continued: [employer] reviewed EMR. Per nursing staff, patient is ICU status again and is not ready for d/c at this time. Per nursing staff, home with [facility] continues to remain an appropriate d/c plan at this time. Plan: d/c home with [facility] for speech, PT, OT, when medically stable. Transport with spouse. CM team will continue to follow closely. SHANDRA Aaron
[2022-11-05] MEDS: AMIODARONE 360 MG/200 ML PIGGYBACK 16.7 MG IV (16:23)
[2022-11-05] MEDS: polyethylene glycoL 3350 17 GM POWD.PACK PO (16:30)
[2022-11-05] MEDS: GLYCERIN SUPP ADULT 1 SUPP 1 EACH PR (16:41)
[2022-11-05] MEDS: METOPROLOL ER 25 MG TABLET PO (21:17)
[2022-11-05] MEDS: MELATONIN 3 MG TABLET PO (21:17)
[2022-11-05] MEDS: SODIUM CHLORIDE 0.9% FLUSH 10 ML IV (21:18)
[2022-11-05] MEDS: TAFLUPROST 0.0015% 1 EACH EYE-BOTH (21:41)
[2022-11-06] VITALS (36 sets, daily range): BP systolic 99–171; BP diastolic 53–85; PULSE 64–131; RESP 8–29; TEMP 36.6–36.7; O2SAT 93–97
[2022-11-06] MEDS: AMIODARONE 360 MG/200 ML PIGGYBACK 16.7 MG IV ×3 (03:35→22:14)
[2022-11-06] MEDS: OXYCODONE IR 5 MG TABLET PO (03:46)
[2022-11-06] MEDS: ACETAMINOPHEN 325 MG TABLET 650 MG PO ×3 (04:21→17:25)
[2022-11-06 04:35] LABS: Add Manual Diff / Slide Review NO; Basophils Absolute Auto 0 /uL (0-100); Basophils Percent Auto 0.2 % (0-2); Eosinophils Absolute Auto 100 /uL (0-450); Eosinophils Percent Auto 1.3 % (2-4); Hematocrit 29.7 % (36-46); Hemoglobin 10.4 g/dL (12.0-16.0); Lymphocytes Absolute Auto 1500 /uL (1100-4500); Lymphocytes Percent Auto 21.2 % (25-40); Mean Corpuscular Volume 94.5 fL (80-100); Monocytes Absolute Auto 700 /uL (0-900); Monocytes Percent Auto 10.5 % (3-14); Neutrophils Absolute Auto 4600 /uL (1500-7000); Neutrophils Percent Auto 66.8 % (50-75); Platelet Count 292 X10^3/uL (150-400); Red Blood Cell Count 3.14 X10^6/uL (4.0-5.2); Red Cell Distribution Width 12.2 % (11.6-14.8)
[2022-11-06 04:48] LABS: Alanine Aminotransferase 14 IU/L (<35); Albumin 2.9 g/dL (3.5-5.0); Alkaline Phosphatase 73 U/L (38-126); Aspartate Aminotransferase 30 IU/L (14-36); BUN Creatinine Ratio 28.6 (6-22); Bilirubin Total 0.6 mg/dL (0.2-1.3); Blood Urea Nitrogen 14 mg/dL (7-17); Calcium 8.2 mg/dL (8.4-10.2); Carbon Dioxide 34 mmol/L (22-32); Chloride 93 mmol/L (98-107); Estimated Glomerular Filt Rate > 60 mL/min (>60); Glucose 105 mg/dL (80-110); HEMOLYSIS < 15 (0-50); Magnesium 2.2 mg/dL (1.6-2.3); Potassium 3.4 mmol/L (3.4-5.1); Sodium 131 mmol/L (137-145); Total Protein 5.9 g/dL (6.3-8.2)
[2022-11-06 04:57] LABS: NT-proBNP (BNP-Adult 18+) 1030 pg/mL (<450)
--- NOTE | 2022-11-06 07:23 | P.PN_ITS ---
Subjective Subjective Date Patient Seen: 11/06/22 Time Patient Seen: 07:23 Interval history: 82-year-old woman status post right total hip arthroplasty on 10/31/2022 struggling with intermittent atrial fibrillation. Started on amiodarone infusion parenterally yesterday as per Cardiology over the phone. Patient has been in and out of AFib even after the IV amiodarone was initiated but over the last several hours has remained in sinus rhythm. Coming to the end of her 24 hour infusion Also with a bit of volume overload/acute congestive heart failure with preserved ejection fraction seemingly resolved now on room air Also bit anemic postoperatively Exam Vital Signs (past 8 hours): - 11/06/22 00:00 11/06/22 00:00 11/06/22 01:00 Pulse Rate 75 Respiratory Rate 18 Blood Pressure 131/60 125/62 Pulse Oximetry 96 11/06/22 01:00 11/06/22 02:00 11/06/22 02:00 Pulse Rate 73 66 Respiratory Rate 24 16 Blood Pressure 119/58 L Pulse Oximetry 97 93 11/06/22 03:00 11/06/22 03:00 11/06/22 04:00 Pulse Rate 65 Respiratory Rate 8 L Blood Pressure 114/57 L 99/73 Pulse Oximetry 95 11/06/22 04:00 11/06/22 05:00 11/06/22 05:01 Pulse Rate 107 H 103 H Respiratory Rate 17 15 Blood Pressure 125/64 Pulse Oximetry 95 94 11/06/22 05:01 11/06/22 06:00 11/06/22 06:00 Pulse Rate 102 H 64 Respiratory Rate 16 13 Blood Pressure 110/53 L Pulse Oximetry 95 95 11/06/22 07:00 11/06/22 07:00 Pulse Rate 66 Respiratory Rate 18 Blood Pressure 120/57 L Pulse Oximetry 96 Fraction of Inspired Oxygen 28 SaO2/FiO2 Ratio 332 Oxygen Delivery Method Room Air Oxygen Flow Rate 0 Objective Labs 11/06/22 03:51 11/06/22 03:51 Labs: Laboratory Results - last 24 hr 11/06/22 11/06/22 03:51 03:51 WBC 7.0 RBC 3.14 L Hgb 10.4 L Hct 29.7 L MCV 94.5 MCH 33.0 MCHC 35.0 RDW 12.2 Plt Count 292 Neut % (Auto) 66.8 Lymph % (Auto) 21.2 L Buchanan % (Auto) 10.5 Eos % (Auto) 1.3 L Baso % (Auto) 0.2 Neut # (Auto) 4600 Lymph # (Auto) 1500 Buchanan # (Auto) 700 Eos # (Auto) 100 Baso # (Auto) 0 Sodium 131 L Potassium 3.4 Chloride 93 L Carbon Dioxide 34 H BUN 14 Creatinine 0.49 L Estimated GFR > 60 BUN/Creatinine Ratio 28.6 H Glucose 105 Calcium 8.2 L Magnesium 2.2 Total Bilirubin 0.6 AST 30 ALT 14 Alkaline Phosphatase 73 NT-Pro-B Natriuret Pep 1030 H Total Protein 5.9 L Albumin 2.9 L Globulin 3.0 Albumin/Globulin Ratio 1.0 PFSH Medical History (Updated 11/06/22 @ 07:18 by Trace Michel MD) Atrial fibrillation GERD (gastroesophageal reflux disease) GERD without esophagitis Glaucoma Hearing impaired Hypertension Low back pain Neuropathy Osteoarthritis PAC (premature atrial contraction) Presence of pessary PVC's (premature ventricular contractions) Tremor Unspecified hypothyroidism (05/11/13) Surgical History H/O wrist surgery (~2007) History of bilateral cataract extraction History of cardiac radiofrequency ablation (~2015) Hx of eye surgery Status post tonsillectomy and adenoidectomy Family History Sister Cerebral aneurysm Brother Myocardial infarction Father Colon cancer Mother Cerebral aneurysm Social History marital status: household members: spouse Smoking Status: Never smoker alcohol intake: former substance use type: does not use Assessment & Plan Assessment & Plan narrative: 1. Patient has completed IV amiodarone infusion. Continue with amiodarone 400 mg b.i.d. x1 week as per Cardiology following the parental amiodarone. That will be followed by amiodarone 400 mg daily for an additional week then 200 mg daily following that with close follow-up by Cardiology. This plan was put forth by Cardiology over the phone. Patient appears to receive her cardiology care from [facility], although no recent notes exist in the chart (patient reports she sees Dr. Paliwal) 2. Acute congestive heart failure/volume overload-patient remains on room air without evidence of hypoxia. No need for additional diuretic therapy at this time. Probably improving her overall cardiac function with sinus rhythm and rate control has made a significant difference. Last echocardiogram however was 2020 (least this is the most recent that is available in the EMR). At this point she deserves repeat echocardiography to re-evaluate cardiac function in the setting both the atrial fibrillation as well as the congestive heart failure, in my opinion. Echo has been ordered 3. Postoperative anemia-stable. No issue at this time 4. Status post right total hip arthroplasty 10/31/2022-continue skilled therapies and rehabilitation as per Orthopedic surgery. Overall plan is for patient to discharge home with home health services as well as family assistance 5. Hypertension-patient's blood pressures been stable through all of this. No change in plan for today 6. Disposition-patient probably needs least another 24 hours in the hospital to monitor her rhythm prior to probable discharge home as above in the next 24-48 hours. Quality VTE Deep Vein Thrombosis/Pulmonary Embolism Present on Admission: No
--- NOTE | 2022-11-06 07:29 | DI.ECHO.S_ITS ---
[facility]---------+ [facility] +---------+ : : [address] : : [place] [address] : : : : [id number] : : : : Phone: [phone]+ Echocardiogram Report + + :Name: HERBIE SALAS Study Date: 11/06/2022 Height: 61 in : :[facility] ReadingLocation: Weight: 116 lb : : Gender: Female BSA: 1.5 m2 : :: 1940 Age: 82 yrs BP: 133/66 mmHg: :Reason For Study: ATRIAL FIBRILLATION, CONGESTIVE HEART : :FAILURE : :Ordering Physician: TIERRA, : :DALE Barrett Performed By: Arely Zacarias : :Referring: DALE MAYORGA : + + Interpretation Summary The ejection fraction is estimated to be 55-60%. Grade II diastolic dysfunction. The left atrium is moderately dilated. The right ventricle is normal in size and function. The right atrium is mildly dilated. There is moderate mitral, aortic and tricuspid regurgitation. The right ventricular systolic pressure is estimated to be at least 37 mmHg based on an estimated right atrial pressure of 3 mm Hg. There is a trivial pericardial effusion noted. Compared to the prior study dated 11/21/2020, there is a slight increase in the mitral and tricuspid regurgitation. Procedure: A two-dimensional transthoracic echocardiogram with color flow and Doppler was performed. The study quality was technically adequate. Comparison is made with the echocardiogram of 11/21/2020. The patient was in sinus rhythm with heart rates between 64-66 bpm during the exam. Left Ventricle: The left ventricle is normal in size and wall thickness. The ejection fraction is estimated to be 55-60%. Diastolic parameters suggest a pseudonormalization pattern, consistent with probable elevated filling pressures. Right Ventricle: The right ventricle is normal in size and function. Atria: The left atrium is moderately dilated. The right atrium is mildly dilated. There is no Doppler evidence for an interatrial shunt. The interatrial septum bows toward right atrium consistent with elevated left atrial pressure. Mitral Valve: The mitral valve leaflets appear mildly thickened, but open well. There is moderate mitral regurgitation. Aortic Valve: The aortic valve is trileaflet. The aortic valve opens well. The aortic valve is slightly calcified. There is no aortic valve stenosis. There is moderate aortic regurgitation. Tricuspid Valve: The tricuspid valve is normal in structure and function. There is moderate tricuspid regurgitation. The right ventricular systolic pressure is estimated to be at least 37 mmHg based on an estimated right atrial pressure of 3 mm Hg. Pulmonic Valve: The pulmonic valve is not well visualized. There is mild to moderate pulmonic regurgitation. Great Vessels: The aortic root is normal size. The dimensions of the ascending aorta are normal. The IVC is of normal diameter and collapses greater than 50% with a sniff. This suggests a low right atrial pressure of 3 mm Hg. Pericardium/ Pleura There is a trivial pericardial effusion noted. There is no pleural effusion. MMode/2D Measurements & Calculations LVIDd: 5.1 cm LVOT diam: 2.0 cm LVIDs: 3.6 cm Ao root diam: 2.7 cm FS: 29.0 % asc Aorta Diam: 3.7 cm EPSS: 0.65 cm Ao Arch Diam (Prox Trans): 2.6 cm IVSd: 0.71 cm LVPWd: 0.73 cm LV aquino. diameter/BSA (cm/m^2): 3.4 LV sys. diameter/BSA (cm/m^2): 2.4 LA A2 area: 22.2 cm2 RA long axis: 4.8 cm LA A4 area: 18.0 cm2 RA area: 14.2 cm2 LA length (vol): 5.6 cm RA vol: 35.7 ml LA vol: 60.9 ml RA : 23.8 ml/m2 LA vol index: 40.6 ml/m2 IVC diam: 1.2 cm RVD1 (basal): 3.4 cm RVD2 (mid): 2.4 cm TAPSE: 2.7 cm Doppler Measurements & Calculations Ao V2 max: 150.3 cm/sec LVOT Max Isreal: 101.1 cm/sec Ao V2 mean: 96.7 cm/sec LV V1 max P.1 mmHg Ao max P.0 mmHg LV V1 VTI: 23.3 cm Ao mean P.4 mmHg FEMI(I,D): 2.4 cm2 Ao V2 VTI: 29.1 cm FEMI(V,D): 2.0 cm2 sev ratio: 0.80 FEMI indexed to BSA (cm^2/m^2): 1.6 AI P1/2t: 608.2 msec AI dec slope: 216.0 cm/sec2 MV E max isreal: 46.9 cm/sec TR max isreal: 292.9 cm/sec MV A max isreal: 44.7 cm/sec TR max P.3 mmHg MV E/A: 1.1 PA V2 max: 106.7 cm/sec Med Peak E' Isreal: 7.4 cm/sec PA V2 mean: 76.2 cm/sec E/E' med: 6.4 PA mean P.6 mmHg Lat Peak E' Isreal: 8.5 cm/sec PA pr(Accel): 43.0 mmHg E/E' lat: 5.5 E/e' average: 6.0 MV dec time: 0.23 sec SV(LVOT): 70.2 ml Reading Physician:01:17 PM
[2022-11-06] MEDS: ASCORBIC ACID 500 MG TABLET PO (09:16)
[2022-11-06] MEDS: APIXABAN 5 MG TABLET 2.5 MG PO ×2 (09:16→20:55)
[2022-11-06] MEDS: MULTIVITAMIN 1 TABLET 1 TAB PO (09:16)
[2022-11-06] MEDS: CHOLECALCIFEROL (VITAMIN D3) 1,000 UNIT TABLET 1000 UNIT PO (09:17)
[2022-11-06] MEDS: FISH OIL 1,000 MG CAPSULE 1000 MG PO (09:17)
[2022-11-06] MEDS: DOCUSATE 100 MG CAPSULE PO ×2 (09:17→20:53)
[2022-11-06] MEDS: METOPROLOL ER 25 MG TABLET PO ×2 (09:17→09:38)
[2022-11-06] MEDS: TIMOLOL 0.5% EYE-BOTH ×2 (09:18→20:59)
[2022-11-06] MEDS: [UNRECOGNIZED DRUG - OTHER] EYE-BOTH ×2 (09:18→20:59)
[2022-11-06] MEDS: CARBIDOPA-LEVODOPA ER 50/200 TABLET 0.5 EACH PO ×2 (09:18→20:54)
[2022-11-06] MEDS: SODIUM CHLORIDE 0.9% FLUSH 10 ML IV ×2 (09:18→20:58)
[2022-11-06] MEDS: TAFLUPROST 1 EACH EYE-BOTH (09:19)
[2022-11-06] MEDS: CALCIUM CARBONATE 500 MG TAB PO ×2 (09:19→20:55)
--- NOTE | 2022-11-06 09:53 | P.PN_ITS ---
Subjective Subjective Interval history: Patient is resting comfortably in bed this morning with family at bedside. She has no complaints whatsoever about her right hip. She states physical therapy is going well. She is little to no pain to the right hip, well controlled with medication when it does bother her. Denies fever, chills, chest pain, shortness of breath, nausea, vomiting. Exam Vital Signs (past 8 hours): - 11/06/22 02:00 11/06/22 02:00 11/06/22 03:00 Temperature Pulse Rate 66 Respiratory Rate 16 Blood Pressure 119/58 L 114/57 L Pulse Oximetry 93 11/06/22 03:00 11/06/22 04:00 11/06/22 04:00 Temperature Pulse Rate 65 107 H Respiratory Rate 8 L 17 Blood Pressure 99/73 Pulse Oximetry 95 95 11/06/22 05:00 11/06/22 05:01 11/06/22 05:01 Temperature Pulse Rate 103 H 102 H Respiratory Rate 15 16 Blood Pressure 125/64 Pulse Oximetry 94 95 11/06/22 06:00 11/06/22 06:00 11/06/22 07:00 Temperature Pulse Rate 64 Respiratory Rate 13 Blood Pressure 110/53 L 120/57 L Pulse Oximetry 95 11/06/22 07:00 11/06/22 09:17 11/06/22 09:38 Temperature Pulse Rate 66 123 H 131 H Respiratory Rate 18 Blood Pressure 131/85 131/85 Pulse Oximetry 96 11/06/22 08:00 11/06/22 08:00 11/06/22 08:58 Temperature Pulse Rate 69 Respiratory Rate 18 Blood Pressure 132/62 131/85 Pulse Oximetry 96 11/06/22 08:58 11/06/22 09:00 11/06/22 09:00 Temperature 98.1 F Pulse Rate 121 H 123 H Respiratory Rate 21 20 Blood Pressure 157/81 H Pulse Oximetry 95 94 Fraction of Inspired Oxygen 28 SaO2/FiO2 Ratio 332 Oxygen Delivery Method Room Air Oxygen Flow Rate 0 Narrative Exam Narrative: Pleasant 82-year-old female. Awake, alert, and oriented. Right hip john dressing clean, dry, intact to suction. Strength and sensation intact to bilateral lower extremities. Bilateral calf soft, compressible, nontender with no palpable cords or masses. Objective Labs 11/06/22 03:51 11/06/22 03:51 Labs: Laboratory Results - last 24 hr 11/06/22 11/06/22 03:51 03:51 WBC 7.0 RBC 3.14 L Hgb 10.4 L Hct 29.7 L MCV 94.5 MCH 33.0 MCHC 35.0 RDW 12.2 Plt Count 292 Neut % (Auto) 66.8 Lymph % (Auto) 21.2 L [place] % (Auto) 10.5 Eos % (Auto) 1.3 L Baso % (Auto) 0.2 Neut # (Auto) 4600 Lymph # (Auto) 1500 [place] # (Auto) 700 Eos # (Auto) 100 Baso # (Auto) 0 Sodium 131 L Potassium 3.4 Chloride 93 L Carbon Dioxide 34 H BUN 14 Creatinine 0.49 L Estimated GFR > 60 BUN/Creatinine Ratio 28.6 H Glucose 105 Calcium 8.2 L Magnesium 2.2 Total Bilirubin 0.6 AST 30 ALT 14 Alkaline Phosphatase 73 NT-Pro-B Natriuret Pep 1030 H Total Protein 5.9 L Albumin 2.9 L Globulin 3.0 Albumin/Globulin Ratio 1.0 PFSH Medical History Atrial fibrillation GERD (gastroesophageal reflux disease) GERD without esophagitis Glaucoma Hearing impaired Hypertension Low back pain Neuropathy Osteoarthritis PAC (premature atrial contraction) Presence of pessary PVC's (premature ventricular contractions) Tremor Unspecified hypothyroidism (05/11/13) Surgical History H/O wrist surgery (~2007) History of bilateral cataract extraction History of cardiac radiofrequency ablation (~2015) Hx of eye surgery Status post tonsillectomy and adenoidectomy Family History Sister Cerebral aneurysm Brother Myocardial infarction Father Colon cancer Mother Cerebral aneurysm Social History marital status: household members: spouse Smoking Status: Never smoker alcohol intake: former substance use type: does not use Assessment & Plan Post-op Postoperative Procedures: Procedures Operation Date: 10/31/22 13:45 Actual Procedure Side Surgeon p Total Hip Arthroplasty/Anterior Approach Right Linda Martin MD Postoperative day: 6 Postoperative status narrative: Patient's postoperative course was complicated by return of atrial fibrillation with RVR. Hospitalist continues to manage. Patient has been progressing well after right total hip arthroplasty from an orthopedic standpoint. Postoperative plan narrative: Cardiac management per hospitalist team. Routine postoperative care following right total hip arthroplasty, anterior approach - safe for discharge with planned home health physical therapy at this time. Continue multimodal pain regimen as needed. Ice to hip as needed. Follow up with Orthopedics in 2 weeks-keep dressing clean, dry, intact until that time. Patient was given instructions for a john bandage. Quality VTE Deep Vein Thrombosis/Pulmonary Embolism Present on Admission: No
--- NOTE | 2022-11-06 10:26 | PC.NURSE ---
Addendum entered by Shell Hankins R.N. 11/06/22 19:16: Pt converted back to SR within about 20 mins (around 1820). Addendum entered by Shell Hankins R.N. 11/06/22 18:14: Pt went back into Afib RVR around 1800 when RN got patient up to bathroom (ratges 110s-120s). Original Note: RN noticed that pt had gone into Afib RVR around 0840 and amiodarone gtt was supposed to be turned off at 0915. RN called provider around 0900 and asked for clarification to see if amiodarone should be continued. Provider said that gtt should be continued another 12h and oral not given. Around 0930 RN called provider for clarification on metoprolol dosing (25mg ER or 50mg ER). Provider said to give 50mg ER. Provider also said to continued Amiodarone gtt for 24h (to be turned off 8/10 am around 0900). RN observed and assessed R hip dressing. Wound care was not performed as surgical dressing to remain in place.
[2022-11-06] MEDS: POTASSIUM CHLORIDE 20 MEQ TAB 40 MEQ PO (10:56)
--- NOTE | 2022-11-06 11:42 | PT.IPTN ---
Current Diagnoses Unspecified atrial fibrillation (11/02/22) Unilateral primary osteoarthritis, right hip (11/02/22) Unilateral primary osteoarthritis, left hip (11/02/22) Pain in right hip (11/02/22) Surgery Performed Operation Date: 10/31/22 13:45 Actual Procedures p Total Hip Arthroplasty/Anterior Approach(Right) - Linda Martin MD Physical Therapy Treatment Note M2 PT-IP Current Condition Start: 11/01/22 09:34 Freq: NEEDED Status: Active Protocol: Document 11/01/22 08:40 MB (Rec: 11/01/22 09:45 MB [id number]) Physical Therapy Current Condition Current Condition Evaluation Date 11/01/22 Treatment Diagnosis R THR M3 PT-IP Subjective Start: 11/01/22 09:34 Freq: NEEDED Status: Active Protocol: Document 11/06/22 12:50 TS (Rec: 11/06/22 13:08 TS [id number]) Subjective Physical Therapy Visit Type Type Treatment Note Visit Start Time 11:42 Visit Stop Time 12:07 Total Visit Minutes 25 Number of GIS PROFESSOR Visits 7 Physical Therapy Visit Comments Patient Comments Pt found resting in bed, agreeable to PT. Therapy Pain Assessment Pain When Pain Assessed During Mobility Pain Present Pain Present Pain Reported M4 PT-IP Mobility and Gait Start: 11/01/22 09:34 Freq: NEEDED Status: Active Protocol: Document 11/06/22 12:50 TS (Rec: 11/06/22 13:08 TS [id number]) PT-Bed Mobility Assessment Supine to Sit Supine to Sit Minimal Assistance Scooting Scooting to Edge of Bed Maximum Assistance PT-Transfer Assessment Sit to and From Stand Sit to and from Stand Contact Guard Assistance Equipment Transfer Assistive Device Gait Belt,Front Wheeled Walker Orthotic/Prosthetic Devices or Brace: No Comments Mobility Comments Spo2 prior to mobility 95% on RA, HR 68, BP 123/71. Pt performed bed ex glute sets, quad sets, heel slide and ankle pumps prior to mobility. Supine to sit Maryellen for uprighting trunk. She scooted to EOB MaxA with transfer pad, provided cues for pushing off bed with BUE support. Sit to stand CGA, pt had no retroleaning. She ambulated in room ~60' CGA, provided cues for increased step length and height with heel to toe contact, required management of lines. Pt up to chair CGA, call light was left in reach, spouse in room. Gait Assessment Gait Gait Assistance Required: Contact Guard Assist,1 Person Assist Distance (Feet) 60 Able to Maintain Weight Bearing Status Yes During Gait Assistive Devices Assistive Device Gait Belt,Front Wheeled Walker Orthotic/Prosthetic Devices or Brace: No Gait Deviations General Gait Pattern Antalgic,Decreased Stride Length,Decreased Feet Clearance Factors Limiting Gait Function Factors Limiting Gait Function Decreased Activity Tolerance, Decreased Sensation,Decreased Strength,Incoordination, Limited Range of Motion,Poor Balance,Poor Safety Awareness Comments Gait Comments See mobility comments. PT-Balance Assessment Sitting Balance and Reactions Static Sitting Balance Ability Good Dynamic Sitting Balance Ability Good Standing Balance and Reactions Static Standing Balance Ability Fair Dynamic Standing Balance Ability Fair Device Used FWW M5 PT-IP Objective Assessments Start: 11/01/22 09:34 Freq: NEEDED Status: Active Protocol: Document 11/01/22 08:40 MB (Rec: 11/01/22 09:45 MB [id number]) Orientation Orientation/Cognition Level of Alertness Alert Orientation Name,Age,Birthday,Month,Date, Year,Day of Week,Place, Situation Language Function Ability No Deficits Noted Safety Awareness Decreased Safety Awareness Memory Description No Deficits Noted Gross Range of Motion Upper Extremity ROM Impairments Defer to OT Lower Extremity ROM Assessment Right Impaired Strength Comments Strength Comments Deferred MMT d/t urgency to get up to commode and pt with poor command following. M6 PT-IP Treatment Start: 11/01/22 09:34 Freq: NEEDED Status: Active Protocol: Document 11/06/22 12:50 TS (Rec: 11/06/22 13:08 [id number]) Physical Therapy Treatment Education Education Provided Precautions,Post-Op Packet, Safety Other Treatments Other Treatment Performed Bed ex of lute sets, quad sets , heel slides and ankle pumps. M7 PT-IP Assessment and Plan Start: 11/01/22 09:34 Freq: NEEDED Status: Active Protocol: Document 11/06/22 12:50 TS (Rec: 11/06/22 13:08 [id number]) PT Summary Assessment and Plan Potential Rehabilitation Potential Fair Summary Impairments Pain,ROM,Strength,Balance,Bed Mobility,Transfers,Gait, Activity Tolerance Progress Towards Goals Progressing Toward Goals Assessment Summary Pt is making good progress with her mobility. She progressed to CGA with FWW for sit to stand, had no retroleaning or LOB. She progressed her gait to ~60' CGA, has a quicker paced gait, she improves step length and height with cues. She performed bed ex of glute sets , quad sets, heel slides and ankle pumps, demonstrates good carryover of exercises from previous session. PT recommends home with 24/7 assist and HHPT when medically stable. Goals Bed Mobility Goal Standby Assistance Transfer Goal Standby Assistance,Front Wheeled Walker Gait Goal Standby Assistance,Front Wheel Walker Gait Distance 75 Other Goals Pt will ascend and descend 2 steps with RW and min A since she has no rails at her steps at home. Days to Meet Goals 5 Frequency of Treatment Frequency Of Treatment Twice a Day Treatment Plan Physical Therapy Treatment Plan Bed Mobility Training,Transfer Training,Gait Training, Therapeutic Exercise,Balance Retraining,Post Op Education, Discharge Planning,Hot or Cold Pack Precautions Anterior Hip Precautions No Hip Extension,No Hip External Rotation Weight Bearing Status Weight Bearing Status Weight Bear as Tolerated Discharge Recommendations PT Discharge Recommendations Home with 24/7 Assist Available,Home Health, Outpatient PT Transportation Needs at Discharge Private Vehicle
--- NOTE | 2022-11-06 13:18 | OT.IPNOTE ---
Attempted to do caregiver training for showering needs. Pt still on IV and not wanting to shower at this time. Able to finalize all OT equipment and needs. Pt's able to state good understanding for all needs and has demonstrated good ability to safely assist his during prior OT session. Discharge pt from OT services. NO charge. Case management aware.
--- NOTE | 2022-11-06 15:25 | CM.DPC ---
DCP Continued: Per nursing staff, patient needed a drip again last night. Switched to orals this morning. Not ready for d/c. Family reported to nursing staff plan is home with [facility] when stable. Plan: d/c home with supportive family with [facility] for speech/ot/pt. CM team will continue to follow as needed. SHANDRA Aaron
--- NOTE | 2022-11-06 15:36 | PT.IPTN ---
Current Diagnoses Unspecified atrial fibrillation (11/02/22) Unilateral primary osteoarthritis, right hip (11/02/22) Unilateral primary osteoarthritis, left hip (11/02/22) Pain in right hip (11/02/22) Surgery Performed Operation Date: 10/31/22 13:45 Actual Procedures p Total Hip Arthroplasty/Anterior Approach(Right) - Linda Martin MD Physical Therapy Treatment Note M2 PT-IP Current Condition Start: 11/01/22 09:34 Freq: NEEDED Status: Active Protocol: Document 11/01/22 08:40 MB (Rec: 11/01/22 09:45 MB [id number]) Physical Therapy Current Condition Current Condition Evaluation Date 11/01/22 Treatment Diagnosis R THR M3 PT-IP Subjective Start: 11/01/22 09:34 Freq: NEEDED Status: Active Protocol: Document 11/06/22 15:52 TS (Rec: 11/06/22 15:59 TS [id number]) Subjective Physical Therapy Visit Type Type Treatment Note Visit Start Time 15:36 Visit Stop Time 15:48 Total Visit Minutes 12 Number of INBOUND SALES REPRESENTATIVE Visits 1 Physical Therapy Visit Comments Patient Comments Pt found resting in bed, says she would like to rest, was agreeable to bed exercises. M4 PT-IP Mobility and Gait Start: 11/01/22 09:34 Freq: NEEDED Status: Active Protocol: Document 11/06/22 12:50 TS (Rec: 11/06/22 13:08 TS [id number]) PT-Bed Mobility Assessment Supine to Sit Supine to Sit Minimal Assistance Scooting Scooting to Edge of Bed Maximum Assistance PT-Transfer Assessment Sit to and From Stand Sit to and from Stand Contact Guard Assistance Equipment Transfer Assistive Device Gait Belt,Front Wheeled Walker Orthotic/Prosthetic Devices or Brace: No Comments Mobility Comments Spo2 prior to mobility 95% on RA, HR 68, BP 123/71. Pt performed bed ex glute sets, quad sets, heel slide and ankle pumps prior to mobility. Supine to sit Maryellen for uprighting trunk. She scooted to EOB MaxA with transfer pad, provided cues for pushing off bed with BUE support. Sit to stand CGA, pt had no retroleaning. She ambulated in room ~60' CGA, provided cues for increased step length and height with heel to toe contact, required management of lines. Pt up to chair CGA, call light was left in reach, spouse in room. Gait Assessment Gait Gait Assistance Required: Contact Guard Assist,1 Person Assist Distance (Feet) 60 Able to Maintain Weight Bearing Status Yes During Gait Assistive Devices Assistive Device Gait Belt,Front Wheeled Walker Orthotic/Prosthetic Devices or Brace: No Gait Deviations General Gait Pattern Antalgic,Decreased Stride Length,Decreased Feet Clearance Factors Limiting Gait Function Factors Limiting Gait Function Decreased Activity Tolerance, Decreased Sensation,Decreased Strength,Incoordination, Limited Range of Motion,Poor Balance,Poor Safety Awareness Comments Gait Comments See mobility comments. PT-Balance Assessment Sitting Balance and Reactions Static Sitting Balance Ability Good Dynamic Sitting Balance Ability Good Standing Balance and Reactions Static Standing Balance Ability Fair Dynamic Standing Balance Ability Fair Device Used FWW M5 PT-IP Objective Assessments Start: 11/01/22 09:34 Freq: NEEDED Status: Active Protocol: Document 11/01/22 08:40 MB (Rec: 11/01/22 09:45 MB [id number]) Orientation Orientation/Cognition Level of Alertness Alert Orientation Name,Age,Birthday,Month,Date, Year,Day of Week,Place, Situation Language Function Ability No Deficits Noted Safety Awareness Decreased Safety Awareness Memory Description No Deficits Noted Gross Range of Motion Upper Extremity ROM Impairments Defer to OT Lower Extremity ROM Assessment Right Impaired Strength Comments Strength Comments Deferred MMT d/t urgency to get up to commode and pt with poor command following. M6 PT-IP Treatment Start: 11/01/22 09:34 Freq: NEEDED Status: Active Protocol: Document 11/06/22 15:52 TS (Rec: 11/06/22 15:59 TS [id number]) Physical Therapy Treatment Exercises Exercises Ankle Pumps,Gluteal Sets,Quad Sets,Heel Slides Other Treatments Other Treatment Performed Pt performed ankle pumps, glute sets, quad sets and heel slides in bed. Educated pt on the importance of strengthening LEs while in bed and intensity and frequency of exercise. M7 PT-IP Assessment and Plan Start: 11/01/22 09:34 Freq: NEEDED Status: Active Protocol: Document 11/06/22 15:52 TS (Rec: 11/06/22 15:59 TS [id number]) PT Summary Assessment and Plan Potential Rehabilitation Potential Fair Summary Impairments Pain,ROM,Strength,Balance,Bed Mobility,Transfers,Gait, Activity Tolerance Progress Towards Goals Progressing Toward Goals Assessment Summary Pt feeling fatigued this afternoon, requested to stay in bed, was agreable to perform bed ex. She performed glute sets, quad sets, ankle pumps and heel slides. She did require some cueing for sequencing of exercises. PT continues to recommend return home with 24/7 assist and HH. Goals Bed Mobility Goal Standby Assistance Transfer Goal Standby Assistance,Front Wheeled Walker Gait Goal Standby Assistance,Front Wheel Walker Gait Distance 75 Other Goals Continue to assess carryover of post-op exercises, hip precautions, progress gait and attempt stairs x2. Days to Meet Goals 5 Frequency of Treatment Frequency Of Treatment Twice a Day Treatment Plan Physical Therapy Treatment Plan Bed Mobility Training,Transfer Training,Gait Training, Therapeutic Exercise,Balance Retraining,Post Op Education, Discharge Planning,Hot or Cold Pack Precautions Anterior Hip Precautions No Hip Extension,No Hip External Rotation Weight Bearing Status Weight Bearing Status Weight Bear as Tolerated Discharge Recommendations PT Discharge Recommendations Home with 24/7 Assist Available,Home Health, Outpatient PT Transportation Needs at Discharge Private Vehicle
[2022-11-06] MEDS: METOPROLOL ER 25 MG TABLET 50 MG PO (20:53)
[2022-11-06] MEDS: MELATONIN 3 MG TABLET PO (20:54)
[2022-11-07] VITALS (12 sets, daily range): BP systolic 120–156; BP diastolic 59–79; PULSE 63–110; RESP 13–16; TEMP 36.4–37.3; O2SAT 95–97
[2022-11-07 04:52] LABS: HEMOLYSIS < 15 (0-50); Potassium 4.1 mmol/L (3.4-5.1)
--- NOTE | 2022-11-07 07:54 | PM.PN.1 ---
Subjective Subjective Date Patient Seen: 11/07/22 Time Patient Seen: 07:55 Interval history: Patient feeling very tired. Sleeping very poorly in the ICU setting. Did better once the SCDs removed last night Continues to go in and out of atrial fibrillation and pretty rapid ventricular response when she was in AFib. As noted yesterday cardiology suggested continuing her amiodarone infusion and upping the dose of her metoprolol. Hard to know if that made much of a difference Blood pressures have been good if not on the high side despite the higher dose metoprolol. Heart rate in the 60s when in sinus rhythm Up with physical therapy etcetera. No evidence of complication related to her hip surgery Exam Vital Signs (past 8 hours): - 11/07/22 00:00 11/07/22 00:00 11/07/22 04:00 Temperature Pulse Rate 65 Respiratory Rate 15 Blood Pressure 121/64 156/79 H Pulse Oximetry 97 Oxygen Flow Rate 11/07/22 04:00 Temperature 97.7 F Pulse Rate 102 H Respiratory Rate 14 Blood Pressure Pulse Oximetry 96 Oxygen Flow Rate 0 Fraction of Inspired Oxygen 28 SaO2/FiO2 Ratio 332 Oxygen Delivery Method Room Air Oxygen Flow Rate 0 Objective Labs 11/06/22 03:51 11/07/22 04:10 Labs: Laboratory Results - last 24 hr 11/07/22 04:10 Potassium 4.1 PFSH Medical History Atrial fibrillation GERD (gastroesophageal reflux disease) GERD without esophagitis Glaucoma Hearing impaired Hypertension Low back pain Neuropathy Osteoarthritis PAC (premature atrial contraction) Presence of pessary PVC's (premature ventricular contractions) Tremor Unspecified hypothyroidism (05/11/13) Surgical History H/O wrist surgery (~2007) History of bilateral cataract extraction History of cardiac radiofrequency ablation (~2015) Hx of eye surgery Status post tonsillectomy and adenoidectomy Family History Sister Cerebral aneurysm Brother Myocardial infarction Father Colon cancer Mother Cerebral aneurysm Social History marital status: household members: spouse Smoking Status: Never smoker alcohol intake: former substance use type: does not use Assessment & Plan Assessment & Plan narrative: 1. Atrial fibrillation-I think will try stopping the IV amiodarone this morning and switch to oral amiodarone. I will increase her metoprolol further since looks like her blood pressure and heart rate will support that. Cardiology felt very confident that those 2 drugs plus time away from the metabolic stress of her surgery will make a huge difference and she will revert back to her typical rhythm. 2. Acute congestive heart failure/volume overload-echocardiography essentially unchanged from 2020. Evidence of significant diastolic dysfunction present. Therefore her heart failure would best be characterized as chronic congestive heart failure with preserved ejection fraction. She is not hypoxic and does not demonstrate evidence of volume overload at this time. No need for additional diuretics etcetera 3. Postoperative anemia-stable. No issue at this time. Have not checked in a couple days and see no reason to recheck unless there is evidence of bleeding etcetera 4. Status post right total hip arthroplasty 10/31/2022-continue skilled therapies and rehabilitation as per Orthopedic surgery. Overall plan is for patient to discharge home with home health services as well as family assistance 5. Hypertension-patient's blood pressures been stable through all of this. Patient will have increase in metoprolol as above more in effort to address her rhythm disturbance than anything else 6. Disposition-patient probably needs least another 24 hours in the hospital to monitor her rhythm prior to probable discharge home as above in the next 24-48 hours. If she can maintain sinus rhythm for 24+ hours I would feel comfortable discharging her home Quality VTE Deep Vein Thrombosis/Pulmonary Embolism Present on Admission: No
[2022-11-07] MEDS: CHOLECALCIFEROL (VITAMIN D3) 1,000 UNIT TABLET 1000 UNIT PO (08:53)
[2022-11-07] MEDS: DOCUSATE 100 MG CAPSULE PO (08:53)
[2022-11-07] MEDS: [UNRECOGNIZED DRUG - OTHER] EYE-BOTH (08:53)
[2022-11-07] MEDS: ASCORBIC ACID 500 MG TABLET PO (08:53)
[2022-11-07] MEDS: FISH OIL 1,000 MG CAPSULE 1000 MG PO (08:53)
[2022-11-07] MEDS: TIMOLOL 0.5% EYE-BOTH (08:53)
[2022-11-07] MEDS: CALCIUM CARBONATE 500 MG TAB PO ×2 (08:53→20:52)
[2022-11-07] MEDS: METOPROLOL ER 25 MG TABLET 75 MG PO ×2 (08:54→20:55)
[2022-11-07] MEDS: MULTIVITAMIN 1 TABLET 1 TAB PO (08:54)
[2022-11-07] MEDS: CARBIDOPA-LEVODOPA ER 50/200 TABLET 0.5 EACH PO ×2 (08:54→20:54)
[2022-11-07] MEDS: APIXABAN 5 MG TABLET 2.5 MG PO ×2 (08:55→20:53)
[2022-11-07] MEDS: SODIUM CHLORIDE 0.9% FLUSH 10 ML IV ×2 (08:57→20:56)
[2022-11-07] MEDS: AMIODARONE 200 MG TABLET 400 MG PO ×2 (09:09→17:11)
--- NOTE | 2022-11-07 10:30 | PT.IPTN ---
Current Diagnoses Unspecified atrial fibrillation (11/02/22) Unilateral primary osteoarthritis, right hip (11/02/22) Unilateral primary osteoarthritis, left hip (11/02/22) Pain in right hip (11/02/22) Surgery Performed Operation Date: 10/31/22 13:45 Actual Procedures p Total Hip Arthroplasty/Anterior Approach(Right) - Linda Martin MD Physical Therapy Treatment Note M2 PT-IP Current Condition Start: 11/01/22 09:34 Freq: NEEDED Status: Active Protocol: Document 11/01/22 08:40 MB (Rec: 11/01/22 09:45 MB [id number]) Physical Therapy Current Condition Current Condition Evaluation Date 11/01/22 Treatment Diagnosis R THR M3 PT-IP Subjective Start: 11/01/22 09:34 Freq: NEEDED Status: Active Protocol: Document 11/07/22 10:30 AB (Rec: 11/07/22 13:18 AB [id number]) Subjective Physical Therapy Visit Type Type Initial Evaluation Visit Start Time 10:30 Visit Stop Time 11:02 Total Visit Minutes 32 Number of GIFT SHOP CLERK Visits 0 Physical Therapy Visit Comments Patient Comments agreeable to do PT Therapy Pain Assessment Pain Present Pain Present Denied Pain M4 PT-IP Mobility and Gait Start: 11/01/22 09:34 Freq: NEEDED Status: Active Protocol: Document 11/07/22 10:30 AB (Rec: 11/07/22 13:18 AB [email or web address]) PT-Bed Mobility Assessment Supine to Sit Supine to Sit Moderate Assistance,Maximum Assistance,1 Person Assistance PT-Transfer Assessment Sit to and From Stand Sit to and from Stand Minimal Assistance,1 Person Assistance,Use of Upper Extremities Equipment Transfer Assistive Device Gait Belt,Front Wheeled Walker Orthotic/Prosthetic Devices or Brace: No Transfers Transfer Destination Chair Transfer Technique ambulated Transfer Ability Level of Assist Minimal Assistance,1 Person Assistance,Use of Upper Extremities Comments Mobility Comments pt supine in bed. reviewed anterior hip precautions and pt recalled 1/2. MI 86 bpm. completed supine to sit mod to max A and max cues. able to sit on EOB CGA but only SBA after repositioning. daughter in room and declined caregiver training. pt completed sit to stand from EOB min A and max cues. has increase posterior trunk lean with initial standing requiring min A for balance and positioning. cued for upright posture. pt ambulated in room ~ 40 ft using FWW CGA with cues for upright posture . pt agreed to sit up on the chair. educated pt for sit to stand techniques. completed sit<> stand x 3 reps CGA to min A and cues provided. positioned pt on the chair. call light and table placed within reach. Gait Assessment Gait Gait Assistance Required: Contact Guard Assist Distance (Feet) 40 Able to Maintain Weight Bearing Status Yes During Gait Assistive Devices Assistive Device Gait Belt,Front Wheeled Walker Orthotic/Prosthetic Devices or Brace: No Gait Deviations General Gait Pattern Decreased Feet Clearance Factors Limiting Gait Function Factors Limiting Gait Function Decreased Activity Tolerance, Decreased Strength,Difficulty Following Directions,Limited Range of Motion,Poor Balance, Poor Safety Awareness M5 PT-IP Objective Assessments Start: 11/01/22 09:34 Freq: NEEDED Status: Active Protocol: Document 11/01/22 08:40 MB (Rec: 11/01/22 09:45 MB [id number]) Orientation Orientation/Cognition Level of Alertness Alert Orientation Name,Age,Birthday,Month,Date, Year,Day of Week,Place, Situation Language Function Ability No Deficits Noted Safety Awareness Decreased Safety Awareness Memory Description No Deficits Noted Gross Range of Motion Upper Extremity ROM Impairments Defer to OT Lower Extremity ROM Assessment Right Impaired Strength Comments Strength Comments Deferred MMT d/t urgency to get up to commode and pt with poor command following. M6 PT-IP Treatment Start: 11/01/22 09:34 Freq: NEEDED Status: Active Protocol: Document 11/07/22 10:30 AB (Rec: 11/07/22 13:18 AB [email or web address]) Physical Therapy Treatment Education Education Provided Precautions,Safety M7 PT-IP Assessment and Plan Start: 11/01/22 09:34 Freq: NEEDED Status: Active Protocol: Document 11/07/22 10:30 AB (Rec: 11/07/22 13:18 AB [email or web address]) PT Summary Assessment and Plan Potential Rehabilitation Potential Good Summary Impairments Pain,ROM,Strength,Balance, Coordination,Sensation,Tone, Cognition,Bed Mobility, Transfers,Gait,Activity Tolerance Progress Towards Goals Slow Progress due to Medical Issues,Slow Progress due to Activity Tolerance Assessment Summary pt requiring mod to max A for bed mobility, min A for sit to stand and CGA for ambulation using FWW. Caregiver training was completed 11/05/22 with spouse assisting pt. pt may go home when medically stable and will benefit from HHPT. pt continues to present with decrease activity tolerance affecting mobility level and will need 24/7 assist availability and spouse will be able to provide. Goals Bed Mobility Goal Standby Assistance Transfer Goal Standby Assistance,Front Wheeled Walker Gait Goal Standby Assistance,Front Wheel Walker Gait Distance 75 Other Goals up/down 2 steps without rails: TUFTER HAND min A Days to Meet Goals 10 Frequency of Treatment Frequency Of Treatment Twice a Day Treatment Plan Physical Therapy Treatment Plan Bed Mobility Training,Transfer Training,Gait Training, Therapeutic Exercise,Balance Retraining,Post Op Education, Discharge Planning,Hot or Cold Pack Precautions Anterior Hip Precautions No Hip Extension,No Hip External Rotation Weight Bearing Status Weight Bearing Status Weight Bear as Tolerated Allowed Weight Bearing Amount (enter % RLE WBAT or #) (%) Recommendations To Nursing Amount of Assist Needed 1 Person Assist Discharge Recommendations PT Discharge Recommendations Home with 24/7 Assist Available,Home Health Transportation Needs at Discharge Private Vehicle
--- NOTE | 2022-11-07 10:45 | PM.PNPO.1 ---
Subjective Subjective Date Patient Seen: 11/07/22 Time Patient Seen: 10:45 Interval history: Patient denies hip pain. No shortness of breath or chest pain. Exam Vital Signs (past 8 hours): - 11/07/22 04:00 11/07/22 04:00 11/07/22 06:00 Temperature 97.7 F Pulse Rate 102 H 63 Respiratory Rate 14 13 Blood Pressure 156/79 H Pulse Oximetry 96 95 Oxygen Flow Rate 0 11/07/22 07:54 11/07/22 07:54 11/07/22 08:00 Temperature 99.1 F Pulse Rate 65 Respiratory Rate 16 Blood Pressure 133/62 141/65 H Pulse Oximetry 95 Oxygen Flow Rate 11/07/22 08:00 11/07/22 08:54 11/07/22 09:54 Temperature Pulse Rate 67 110 H 110 H Respiratory Rate 14 Blood Pressure 141/65 H Pulse Oximetry 96 Oxygen Flow Rate Fraction of Inspired Oxygen 28 SaO2/FiO2 Ratio 332 Oxygen Delivery Method Room Air Oxygen Flow Rate 0 Narrative Exam Narrative: Pleasant 82-year-old female resting in bed in no apparent distress. John dressing is on and functioning. Dressing is clean, dry and intact. Motor functions intact bilateral lower extremities. Sensation grossly intact to light touch. Const General: cooperative and comfortable Nutritional Appearance: average body habitus Resp Effort & Inspection: normal respiratory effort and able to speak in complete sentences Objective Labs 11/06/22 03:51 11/07/22 04:10 Labs: Laboratory Results - last 24 hr 11/07/22 04:10 Potassium 4.1 PFSH Medical History Atrial fibrillation GERD (gastroesophageal reflux disease) GERD without esophagitis Glaucoma Hearing impaired Hypertension Low back pain Neuropathy Osteoarthritis PAC (premature atrial contraction) Presence of pessary PVC's (premature ventricular contractions) Tremor Unspecified hypothyroidism (05/11/13) Surgical History H/O wrist surgery (~2007) History of bilateral cataract extraction History of cardiac radiofrequency ablation (~2015) Hx of eye surgery Status post tonsillectomy and adenoidectomy Family History Sister Cerebral aneurysm Brother Myocardial infarction Father Colon cancer Mother Cerebral aneurysm Social History marital status: household members: spouse Smoking Status: Never smoker alcohol intake: former substance use type: does not use Assessment & Plan Post-op Postoperative Procedures: Procedures Operation Date: 10/31/22 13:45 Actual Procedure Side Surgeon p Total Hip Arthroplasty/Anterior Approach Right Linda Martin MD Postoperative day: 7 Postoperative status narrative: Stable status post right total hip arthroplasty, anterior approach October 31, 2022 Internal Medicine managing Atrial fibrillation, acute congestive heart failure/volume overload, postop anemia, hypertension Postoperative plan narrative: Weightbearing as tolerated, anterior hip precautions Reviewed john dressing with nurse. May discontinue the pump when it shuts off. Okay to cut the tubing at the base and cover with Tegaderm. Leave dressing in place Disposition likely home tomorrow pending Internal Medicine recommendation. Quality VTE Deep Vein Thrombosis/Pulmonary Embolism Present on Admission: No
[2022-11-07] MEDS: ACETAMINOPHEN 325 MG TABLET 650 MG PO ×2 (12:34→17:09)
--- NOTE | 2022-11-07 19:11 | PC.NURSE ---
Day shift: Pt in NSR most of shift, went into A fib RVR at approximately 1815. Dr. Lombardi notified, stated pt can have scheduled metoprolol early if needed if pt does not convert back to NSR on own. HR 100-110, pt asymptomatic. BP stable. Care ongoing. Bed alarm active, call light within reach and pt able to use to make needs known.
[2022-11-07] MEDS: [UNRECOGNIZED DRUG - OTHER] EYE-RIGHT (20:52)
[2022-11-07] MEDS: TIMOLOL 0.5% EYE-RIGHT (20:52)
[2022-11-07] MEDS: MELATONIN 3 MG TABLET 6 MG PO (20:54)
[2022-11-08] VITALS (25 sets, daily range): BP systolic 104–148; BP diastolic 58–80; PULSE 60–135; RESP 14–31; TEMP 35.8–37.4; O2SAT 89–96
--- NOTE | 2022-11-08 03:31 | PC.NURSE ---
2100- Some medications fell on the floor. Replaced medication and gave to patient. Meds were eloquis, and Metoprolol po. Patient positioned per her request to her left side after po meds given. Angela drain pulled at change of shift and covered with opsite. Hip dressing intact. Patient converted back to NSR after a 3 second pause. EKG on chart. Will monitor.
--- NOTE | 2022-11-08 07:51 | PM.PN.1 ---
Subjective Subjective Date Patient Seen: 11/08/22 Time Patient Seen: 07:51 Interval history: Patient has gone about 12+ hours between episodes of atrial fibrillation. Did have a 3 second pause last time when she converted back to sinus rhythm. She is minimally if at all symptomatic with this. The episodes seem to be triggered by increased physical activity such as getting up out of bed to a chair or even standard postop PT Otherwise she is up and around doing well postoperatively. Has drains removed etcetera. Seems to be actually quite functional on her new hip etcetera Exam Vital Signs (past 8 hours): - 11/08/22 00:00 11/08/22 04:00 Pulse Rate 60 62 Respiratory Rate 16 21 Pulse Oximetry 95 95 Fraction of Inspired Oxygen 28 SaO2/FiO2 Ratio 332 Oxygen Delivery Method Room Air Oxygen Flow Rate 0 Objective Labs 11/06/22 03:51 11/07/22 04:10 [facility] Medical History Atrial fibrillation GERD (gastroesophageal reflux disease) GERD without esophagitis Glaucoma Hearing impaired Hypertension Low back pain Neuropathy Osteoarthritis PAC (premature atrial contraction) Presence of pessary PVC's (premature ventricular contractions) Tremor Unspecified hypothyroidism (05/11/13) Surgical History H/O wrist surgery (~2007) History of bilateral cataract extraction History of cardiac radiofrequency ablation (~2015) Hx of eye surgery Status post tonsillectomy and adenoidectomy Family History Sister Cerebral aneurysm Brother Myocardial infarction Father Colon cancer Mother Cerebral aneurysm Social History marital status: household members: spouse Smoking Status: Never smoker alcohol intake: former substance use type: does not use Assessment & Plan Assessment & Plan narrative: 1. Atrial fibrillation-I think she can stay on the oral amiodarone and continue with the loading in that fashion. Her trajectory seems to be improvement. I did discuss this with Dr. Alcazar while her tilesetter who agrees that continuing with the oral amiodarone and probably trying to push metoprolol to maximum tolerated dose as well as giving her more time to get farther away from the metabolic stress of surgery etcetera will be beneficial. She should also continue to be anticoagulated for stroke risk reduction of course. 2. Acute congestive heart failure/volume overload-not an active issue. I think she is euvolemic at this point. 3. Postoperative anemia-stable. Do not plan to recheck unless there is clinical evidence bleeding etcetera 4. Status post right total hip arthroplasty 10/31/2022-continue skilled therapies and rehabilitation as per Orthopedic surgery. Doing quite well actually. Clearly the plan for her to go home was the correct 1 from the beginning. 5. Hypertension-patient's blood pressures been stable through all of this. Patient will have increase in metoprolol as above more in effort to address her rhythm disturbance than anything else 6. Disposition-I still would like to see patient go 24 hours without an episode of atrial fibrillation prior to discharge Quality VTE Deep Vein Thrombosis/Pulmonary Embolism Present on Admission: No
[2022-11-08] MEDS: AMIODARONE 200 MG TABLET 400 MG PO ×2 (08:19→17:20)
--- NOTE | 2022-11-08 09:00 | PT.IPTN ---
Current Diagnoses Unspecified atrial fibrillation (11/02/22) Unilateral primary osteoarthritis, right hip (11/02/22) Unilateral primary osteoarthritis, left hip (11/02/22) Pain in right hip (11/02/22) Surgery Performed Operation Date: 10/31/22 13:45 Actual Procedures p Total Hip Arthroplasty/Anterior Approach(Right) - Linda Martin MD Physical Therapy Treatment Note M2 PT-IP Current Condition Start: 11/01/22 09:34 Freq: NEEDED Status: Active Protocol: Document 11/01/22 08:40 MB (Rec: 11/01/22 09:45 MB [id number]) Physical Therapy Current Condition Current Condition Evaluation Date 11/01/22 Treatment Diagnosis R THR M3 PT-IP Subjective Start: 11/01/22 09:34 Freq: NEEDED Status: Active Protocol: Document 11/08/22 09:41 TS (Rec: 11/08/22 09:57 TS [id number]) Subjective Physical Therapy Visit Type Type Treatment Note Visit Start Time 09:00 Visit Stop Time 09:20 Total Visit Minutes 20 Number of FREELANCE DIRECTOR Visits 1 Physical Therapy Visit Comments Patient Comments Pt using restroom, family present in room, pt reports feeling fatgiued and did not sleep much, agreeable to PT. M4 PT-IP Mobility and Gait Start: 11/01/22 09:34 Freq: NEEDED Status: Active Protocol: Document 11/08/22 09:41 TS (Rec: 11/08/22 09:57 TS [id number]) PT-Transfer Assessment Sit to and From Stand Sit to and from Stand Contact Guard Assistance,1 Person Assistance,Use of Upper Extremities Equipment Transfer Assistive Device Gait Belt,Front Wheeled Walker Comments Mobility Comments Pt ambulated out of restroom and into hallway ~150' SBA, provided cues for increased stpe height and length and upright posture, pt needs consistent cueing throughtout gait. Pt ambulated back to chair, performed exercises of ankle pumps, glute sets, quad sets and heel slides. HR 130 and Spo2 97% after exercises, pt denied SOB. Pt was left in bed with call light nearby, family in room, Rn notified. Gait Assessment Gait Gait Assistance Required: Standby Assistance Distance (Feet) 150 Able to Maintain Weight Bearing Status Yes During Gait Assistive Devices Assistive Device Gait Belt,Front Wheeled Walker Orthotic/Prosthetic Devices or Brace: No Gait Deviations General Gait Pattern Antalgic,Decreased Stride Length,Decreased Feet Clearance,Narrow Based Gait, Step-to Gait Factors Limiting Gait Function Factors Limiting Gait Function Decreased Activity Tolerance, Decreased Strength,Difficulty Following Directions,Limited Range of Motion,Poor Balance, Poor Safety Awareness Comments Gait Comments See mobility comments. PT-Balance Assessment Sitting Balance and Reactions Static Sitting Balance Ability Good Dynamic Sitting Balance Ability Good Standing Balance and Reactions Static Standing Balance Ability Fair Dynamic Standing Balance Ability Fair Device Used FWW M5 PT-IP Objective Assessments Start: 11/01/22 09:34 Freq: NEEDED Status: Active Protocol: Document 11/01/22 08:40 MB (Rec: 11/01/22 09:45 MB [id number]) Orientation Orientation/Cognition Level of Alertness Alert Orientation Name,Age,Birthday,Month,Date, Year,Day of Week,Place, Situation Language Function Ability No Deficits Noted Safety Awareness Decreased Safety Awareness Memory Description No Deficits Noted Gross Range of Motion Upper Extremity ROM Impairments Defer to OT Lower Extremity ROM Assessment Right Impaired Strength Comments Strength Comments Deferred MMT d/t urgency to get up to commode and pt with poor command following. M6 PT-IP Treatment Start: 11/01/22 09:34 Freq: NEEDED Status: Active Protocol: Document 11/08/22 09:41 TS (Rec: 11/08/22 09:57 TS [id number]) Physical Therapy Treatment Exercises Exercises Ankle Pumps,Gluteal Sets,Quad Sets,Heel Slides Education Education Provided Precautions,Safety M7 PT-IP Assessment and Plan Start: 11/01/22 09:34 Freq: NEEDED Status: Active Protocol: Document 11/08/22 09:41 TS (Rec: 11/08/22 09:57 TS [id number]) PT Summary Assessment and Plan Potential Rehabilitation Potential Good Summary Impairments Pain,ROM,Strength,Balance, Coordination,Sensation,Tone, Cognition,Bed Mobility, Transfers,Gait,Activity Tolerance Progress Towards Goals Slow Progress due to Medical Issues,Slow Progress due to Activity Tolerance Assessment Summary Pt was SBA for gait ~150', continues to require max cueing for increasing step length/height and upright posture. She performed bed ex of ankle pumps, glute sets, quad sets and heel slides, instructed pt in frequency and intensity. Pt feeling more fatigued this morning than previously. Her HR is 130 after mobility and Spo2 97% at rest. PT continues to recommend home 24/7 assist and HHPT. Goals Bed Mobility Goal Standby Assistance Transfer Goal Standby Assistance,Front Wheeled Walker Gait Goal Standby Assistance,Front Wheel Walker Gait Distance 75 Other Goals up/down 2 steps without rails: BEAN VINER min A Days to Meet Goals 10 Frequency of Treatment Frequency Of Treatment Twice a Day Treatment Plan Physical Therapy Treatment Plan Bed Mobility Training,Transfer Training,Gait Training, Therapeutic Exercise,Balance Retraining,Post Op Education, Discharge Planning,Hot or Cold Pack Precautions Anterior Hip Precautions No Hip Extension,No Hip External Rotation Weight Bearing Status Weight Bearing Status Weight Bear as Tolerated Allowed Weight Bearing Amount (enter % RLE WBAT or #) (%) Recommendations To Nursing Amount of Assist Needed 1 Person Assist Discharge Recommendations PT Discharge Recommendations Home with 24/7 Assist Available,Home Health Transportation Needs at Discharge Private Vehicle
[2022-11-08] MEDS: FISH OIL 1,000 MG CAPSULE 1000 MG PO (09:15)
[2022-11-08] MEDS: APIXABAN 5 MG TABLET 2.5 MG PO ×2 (09:15→21:51)
[2022-11-08] MEDS: ASCORBIC ACID 500 MG TABLET PO (09:15)
[2022-11-08] MEDS: CARBIDOPA-LEVODOPA ER 50/200 TABLET 0.5 EACH PO ×2 (09:15→21:52)
[2022-11-08] MEDS: CALCIUM CARBONATE 500 MG TAB PO ×2 (09:15→21:51)
[2022-11-08] MEDS: METOPROLOL ER 50 MG TABLET 100 MG PO ×2 (09:16→21:54)
[2022-11-08] MEDS: CHOLECALCIFEROL (VITAMIN D3) 1,000 UNIT TABLET 1000 UNIT PO (09:16)
[2022-11-08] MEDS: MULTIVITAMIN 1 TABLET 1 TAB PO (09:16)
[2022-11-08] MEDS: SODIUM CHLORIDE 0.9% FLUSH 10 ML IV ×2 (09:36→21:55)
[2022-11-08] MEDS: [UNRECOGNIZED DRUG - OTHER] EYE-RIGHT ×2 (09:37→21:55)
[2022-11-08] MEDS: TIMOLOL 0.5% EYE-RIGHT ×2 (09:37→21:55)
--- NOTE | 2022-11-08 10:37 | PM.DS.1 ---
History of Present Illness History of Present Illness Date Patient Seen: 11/08/22 Time Patient Seen: 10:38 Chief complaint: Hip pain Narrative: Operative Date/Time/Diagnoses Date of procedure: 10/31/22 Time of procedure: 14:00 Pre-op diagnosis: Right total hip arthroplasty anterior approach Post-op diagnosis: same Procedure & Clinicians Procedure: Right total hip arthroplasty anterior approach Same procedure as scheduled: Yes Indications: The patient has had progressively worsening right hip pain with radiographic changes consistent with arthritis. Non-operative management has failed and the patient has requested total hip replacement. The risks, benefits and alternatives to surgery were discussed with the patient prior to proceeding. Risks discussed included, but were not limited to, failure to relieve pain, leg length discrepancy, dislocation, stiffness, infection, nerve damage, deep venous thrombosis, pulmonary embolism, stroke, coma, heart attack, permanent paralysis and , as well as the potential need for eventual revision of the prosthetic. Surgeon: Linda Martin [employer] Settlement Processor: Perry Hairston Anesthesia Type: General and Spinal Operative Notes Findings: Severe right hip osteoarthritis, adequate stability, soft bone Closure Type: primary Specimen(s): none sent Prosthetic devices, grafts, tissues, transplants, or devices: Martin and Nephew 54 mm R3, neutral poly liner, 36 by -3 Oxinium head, size 2 polar stem with collar, one 6.5 mm screw Estimated Blood Loss (mL): 250 Blood products transfused: none Discharge Providers Provider Date of admission: 11/02/22 11:23 Discharge Date: 11/08/22 Primary care physician: Michael Fierro MD Consults: 10/31/22 12:47 Consult to Anesthesiology Routine Comment: Consulting Provider: Anesthesiologist Reason for consultation: Regional block for post operative pain control 10/31/22 17:17 Consult to Discharge Planning Routine Comment: Consult to Occupational Therapy Evaluate & Treat Comment: Physician Instructions: Evaluate and treat Consult to Physical Therapy Evaluate & Treat Comment: Physician Instructions: post op LINNEA protocol 11/02/22 09:56 Consult to Physician Routine Comment: Consulting Provider: Jan Reich Reason for consultation: afib Has provider been notified: Yes 11/02/22 12:07 Consult to Speech Therapy Evaluate & Treat Comment: pt having difficulty with swallow Physician Instructions: Evaluate and treat Discharge provider: Divya Dupree PA-C Summary Hospital Course Discharge Diagnosis: Right hip osteoarthritis, s/p right total hip arthroplasty Atrial fibrillation Acute congestive heart failure Acute postoperative anemia d/t expected surgical blood loss Hospital Course: Ms Bear's hospital course was complicated by perioperative fluid overload and renewed atrial fibrillation; in review of notes, it appears she has a h/o a fib and ablation. She was diuresed and started on IV amiodarone. Her metoprolol was increased from 25mg BID prior to admission to 100 mg BID. She was switched to PO amiodarone which appeared to provide adequate rate control. She was started on Eliquis 2.5 mg BID for VTE prophylaxis. On POD# 8 she was feeling well and very much wanted to go home. She was evaluated by PT throughout her stay and has good family support at home. She was eating and voiding without difficulty. Exam Vital Signs (past 8 hours): - 11/08/22 04:00 11/08/22 06:00 11/08/22 07:56 Temperature 97.9 F Pulse Rate 62 65 113 H Respiratory Rate 21 14 28 H Blood Pressure Pulse Oximetry 95 95 92 Oxygen Delivery Method 11/08/22 07:56 11/08/22 08:00 11/08/22 09:16 Temperature Pulse Rate 135 H 130 H Respiratory Rate 26 H Blood Pressure 134/79 135/75 Pulse Oximetry 92 Oxygen Delivery Method 11/08/22 10:19 11/08/22 09:00 Temperature Pulse Rate 69 Respiratory Rate Blood Pressure 104/59 L Pulse Oximetry Oxygen Delivery Method Room Air Fraction of Inspired Oxygen 28 SaO2/FiO2 Ratio 332 Oxygen Delivery Method Room Air Oxygen Flow Rate 0 Narrative Exam Narrative: 5/5 strength in hip flexors, quadriceps, hamstrings, DF, PF, EHL on right. Sensation to light touch intact throughout RLE. Calf soft, compressible, nontender and without palpable cords or masses. NAYANA dressing with scant bloody drainage, battery pack has been disconnected. Objective Labs 11/06/22 03:51 11/07/22 04:10 [facility] Medical History Atrial fibrillation GERD (gastroesophageal reflux disease) GERD without esophagitis Glaucoma Hearing impaired Hypertension Low back pain Neuropathy Osteoarthritis PAC (premature atrial contraction) Presence of pessary PVC's (premature ventricular contractions) Tremor Unspecified hypothyroidism (05/11/13) Surgical History H/O wrist surgery (~2007) History of bilateral cataract extraction History of cardiac radiofrequency ablation (~2015) Hx of eye surgery Status post tonsillectomy and adenoidectomy Family History Sister Cerebral aneurysm Brother Myocardial infarction Father Colon cancer Mother Cerebral aneurysm Social History marital status: household members: spouse Smoking Status: Never smoker alcohol intake: former substance use type: does not use Discharge Assessment & Plan Assessment and Plan Assessment: Right hip osteoarthritis, s/p right total hip arthroplasty Atrial fibrillation Acute congestive heart failure Acute postoperative anemia d/t expected surgical blood loss Plan of Treatment: Discharge home w/ increase of metoprolol, addition of amiodarone and Eliquis as above. Pt has pain medication rx at home. Outpt PT, f/u in 1 week in office as scheduled. Discharge Plan Discharge Plan Patient Disposition: Home Discharge orders & Medications Prescriptions: New acetaminophen 325 mg Tablet 650 mg PO Q6H Qty: 60 0RF aspirin 81 mg Tablet,Delayed Release (Dr/Ec) 81 mg PO BID Qty: 60 0RF oxycodone 5 mg Tablet 5 mg PO Q3H PRN (Reason: Pain, Moderate (4-6)) Qty: 40 0RF amiodarone 400 mg tablet 400 mg PO BID Qty: 60 0RF apixaban 2.5 mg tablet 2.5 mg PO BID Qty: 60 0RF metoprolol succinate 100 mg tablet extended release 24 hr 100 mg PO BID Qty: 60 0RF Continued ascorbic acid (vitamin C) 500 mg tablet 500 mg PO DAILY cranberry extract 250 mg capsule 250 mg PO DAILY Rx Instructions: administer with a meal metoprolol succinate [Toprol XL] 25 mg tablet extended release 24 hr 25 mg PO BID Qty: 60 12RF carbidopa-levodopa 25-100 mg tablet extended release 1 tab PO BID Qty: 60 1RF cholecalciferol (vitamin D3) 25 mcg (1,000 unit) capsule 25 mcg PO DAILY multivitamin Tablet 1 tab PO DAILY Qty: 0 omega 4-apf-rsl-fish oil [Fish Oil] 1,000 mg (120 mg-180 mg) Capsule 1 cap PO DAILY Qty: 0 calcium carbonate 600 mg calcium (1,500 mg) Tablet 600 mg PO BID Qty: 0 tafluprost (PF) [Zioptan (PF)] 0.0015 % Dropperette 1 drp OPHTHALMIC (EYE) BID Qty: 0 aspirin 81 MG tablet,chewable 81 mg PO QDAY Qty: 0 Trimo-Pepe Jelly 0.025-0.01 % gel See Rx Instructions .ROUTE .COMPLEX Qty: 113.4 2RF Dose Instruction: APPLY 1 APPLICATORFUL VAGINALLY TWICE A WEEK Rx Instructions: APPLY 1 APPLICATORFUL VAGINALLY TWICE A WEEK lisinopril 2.5 mg tablet 2.5 mg PO QDAY Qty: 90 1RF timolol 0.5 % Drops 1 drp OPHTHALMIC (EYE) DAILY Discontinued acetaminophen 650 mg Tablet Extended Release 1,300 mg PO TID Follow up/Referrals: Michael Fierro MD [Primary Care Provider] - Linda Martin MD [Physician] - As previously scheduled (Follow up w/ Divya Dupree PA-C, on 11/13/2022 @ 2:30 pm at [facility].) Diet/Activity/Treatments Diet: Diet as Tolerated Activity: Weightbearing as tolerated to right leg. Anterior hip precautions. Cold/Heat Therapy: Ice to right hip as needed for pain. Skin/Wound/Dressing Care Report to your healthcare provider any signs of infection, such as:: chills, fever, night sweats, unusual drainage and unusual redness Dressing: May shower. Keep dressing in place until follow up in office. No bathing or otherwise soaking incision. Call the office if the dressing becomes saturated inside. Visit Report/Discharge Packet Instructions: DI for Hip Replacement, DI for Prescription Opioid Use Stand Alone Forms: Patient Portal/API, Surgery Discharge, Stroke Signs & Symptoms Discharge Data Primary Care Provider: Michael Fierro Quality VTE Deep Vein Thrombosis/Pulmonary Embolism Present on Admission: No
--- NOTE | 2022-11-08 12:04 | PC.NURSE ---
This morning around 0730, pt went into Afib RVR. Spoke with Dr. Michel during rounds while Pt was in Afib RVR. Pt remained in Afib RVR rate 110s-140s (120s-130s average) for about two hours and then converted back to SR around [id number]. Mid morning, SUSANA Dupree came and told RN that patient was to be discharged. RN was unaware that pt had been cleared by Dr. Michel, and RN called Dr. Michel. RN clarified with Dr. Michel that pt was not to be discharged today after having 1.5-2h of Afib RVR this am.
--- NOTE | 2022-11-08 12:29 | CM.DPNOTE ---
Met with patient to confirm her DCP of home with supportive family and [facility]. She states she is looking forward to going home and starting with HH therapies. Call to Johnathan with [facility], he anticipates earliest start of care for Friday. F2F recieved from Dr. Fierro to be scanned into chart.
--- NOTE | 2022-11-08 14:01 | PT.IPTN ---
Current Diagnoses Unspecified atrial fibrillation (11/02/22) Unilateral primary osteoarthritis, right hip (11/02/22) Unilateral primary osteoarthritis, left hip (11/02/22) Pain in right hip (11/02/22) Surgery Performed Operation Date: 10/31/22 13:45 Actual Procedures p Total Hip Arthroplasty/Anterior Approach(Right) - Linda Martin MD Physical Therapy Treatment Note M2 PT-IP Current Condition Start: 11/01/22 09:34 Freq: NEEDED Status: Active Protocol: Document 11/01/22 08:40 MB (Rec: 11/01/22 09:45 MB [id number]) Physical Therapy Current Condition Current Condition Evaluation Date 11/01/22 Treatment Diagnosis R THR M3 PT-IP Subjective Start: 11/01/22 09:34 Freq: NEEDED Status: Active Protocol: Document 11/08/22 14:22 TS (Rec: 11/08/22 14:39 TS [id number]) Subjective Physical Therapy Visit Type Type Treatment Note Visit Start Time 14:01 Visit Stop Time 14:21 Total Visit Minutes 20 Notes Vitals:pre-mobility BP 107/58, HR 72, Spo2 96%. After mobility Spo2 94%, HR 76. Number of SAMPLE DISPLAY PREPARER Visits 2 Physical Therapy Visit Comments Patient Comments Pt reports she is feeling like she has more energy this afternoon and did some of her exericses, agreeable to PT. M4 PT-IP Mobility and Gait Start: 11/01/22 09:34 Freq: NEEDED Status: Active Protocol: Document 11/08/22 14:22 TS (Rec: 11/08/22 14:39 TS [id number]) PT-Bed Mobility Assessment Sit to Supine Sit to Supine Minimal Assistance Scooting Scooting Up and Down in Bed Standby Assistance PT-Transfer Assessment Sit to and From Stand Sit to and from Stand Contact Guard Assistance,1 Person Assistance,Use of Upper Extremities Equipment Transfer Assistive Device Gait Belt,Front Wheeled Walker Orthotic/Prosthetic Devices or Brace: No Comments Mobility Comments Sit to stand with FWW CGA, pt used BUE to push-up from arms of chair, braces back of LEs against chair to assist in balance. She ambulated ~150' SBA initially with shuffling gait, cued for increased step length/height. Pt ambulated back to room, Sit to supine Maryellen for LEs into bed, pt scooted to [facility] SBA. Pt recalled 1/2 hip precautions after mobility. Pt was left in bed with call light and tray table within reach, RN notified. Gait Assessment Gait Gait Assistance Required: Standby Assistance Distance (Feet) 150 Able to Maintain Weight Bearing Status Yes During Gait Assistive Devices Assistive Device Gait Belt,Front Wheeled Walker Orthotic/Prosthetic Devices or Brace: No Gait Deviations General Gait Pattern Antalgic,Decreased Stride Length,Decreased Feet Clearance,Narrow Based Gait, Step-to Gait Factors Limiting Gait Function Factors Limiting Gait Function Decreased Activity Tolerance, Decreased Strength,Difficulty Following Directions,Limited Range of Motion,Poor Balance, Poor Safety Awareness Comments Gait Comments See mobility comments. PT-Balance Assessment Sitting Balance and Reactions Static Sitting Balance Ability Good Dynamic Sitting Balance Ability Good Standing Balance and Reactions Static Standing Balance Ability Fair Dynamic Standing Balance Ability Fair Device Used FWW M5 PT-IP Objective Assessments Start: 11/01/22 09:34 Freq: NEEDED Status: Active Protocol: Document 11/01/22 08:40 MB (Rec: 11/01/22 09:45 MB [id number]) Orientation Orientation/Cognition Level of Alertness Alert Orientation Name,Age,Birthday,Month,Date, Year,Day of Week,Place, Situation Language Function Ability No Deficits Noted Safety Awareness Decreased Safety Awareness Memory Description No Deficits Noted Gross Range of Motion Upper Extremity ROM Impairments Defer to OT Lower Extremity ROM Assessment Right Impaired Strength Comments Strength Comments Deferred MMT d/t urgency to get up to commode and pt with poor command following. M6 PT-IP Treatment Start: 11/01/22 09:34 Freq: NEEDED Status: Active Protocol: Document 11/08/22 14:22 TS (Rec: 11/08/22 14:39 [id number]) Physical Therapy Treatment Education Education Provided Precautions,Safety M7 PT-IP Assessment and Plan Start: 11/01/22 09:34 Freq: NEEDED Status: Active Protocol: Document 11/08/22 14:22 TS (Rec: 11/08/22 14:39 [id number]) PT Summary Assessment and Plan Potential Rehabilitation Potential Good Summary Impairments Pain,ROM,Strength,Balance, Coordination,Sensation,Tone, Cognition,Bed Mobility, Transfers,Gait,Activity Tolerance Progress Towards Goals Slow Progress due to Medical Issues,Slow Progress due to Activity Tolerance Assessment Summary Pt is CGA for sit to stand with FWW, she does use back of LEs against chair for initial standing balance. She continued to ambulate ~150' SBA with FWW, required some cueing for increased step length/height but less than morning session. Sit to supine was Maryellen for LEs into bed, bed is very high making it more difficult for her to perform more independently. PT continues to recommend return home with 24/7 assist and HH. Goals Bed Mobility Goal Standby Assistance Transfer Goal Standby Assistance,Front Wheeled Walker Gait Goal Standby Assistance,Front Wheel Walker Gait Distance 75 Other Goals up/down 2 steps without rails: BELT PUNCHER min A Days to Meet Goals 10 Frequency of Treatment Frequency Of Treatment Twice a Day Treatment Plan Physical Therapy Treatment Plan Bed Mobility Training,Transfer Training,Gait Training, Therapeutic Exercise,Balance Retraining,Post Op Education, Discharge Planning,Hot or Cold Pack Precautions Anterior Hip Precautions No Hip Extension,No Hip External Rotation Weight Bearing Status Weight Bearing Status Weight Bear as Tolerated Allowed Weight Bearing Amount (enter % RLE WBAT or #) (%) Recommendations To Nursing Amount of Assist Needed 1 Person Assist Discharge Recommendations PT Discharge Recommendations Home with 24/ Assist Available,Home Health Transportation Needs at Discharge Private Vehicle
[2022-11-08] MEDS: ACETAMINOPHEN 325 MG TABLET 650 MG PO ×2 (17:19→23:41)
[2022-11-08] MEDS: MELATONIN 3 MG TABLET 6 MG PO (21:54)
[2022-11-08] MEDS: OXYCODONE IR 5 MG TABLET PO (21:57)
[2022-11-09] VITALS (7 sets, daily range): BP systolic 110–160; BP diastolic 58–72; PULSE 60–87; RESP 18–20; TEMP 36.6–37.3; O2SAT 95–97
[2022-11-09] MEDS: ACETAMINOPHEN 325 MG TABLET 650 MG PO (05:58)
[2022-11-09] MEDS: APIXABAN 5 MG TABLET 2.5 MG PO (08:36)
[2022-11-09] MEDS: CARBIDOPA-LEVODOPA ER 50/200 TABLET 0.5 EACH PO (08:36)
[2022-11-09] MEDS: DOCUSATE 100 MG CAPSULE PO (08:37)
[2022-11-09] MEDS: FISH OIL 1,000 MG CAPSULE 1000 MG PO (08:37)
[2022-11-09] MEDS: MULTIVITAMIN 1 TABLET 1 TAB PO (08:38)
[2022-11-09] MEDS: CHOLECALCIFEROL (VITAMIN D3) 1,000 UNIT TABLET 1000 UNIT PO (08:38)
[2022-11-09] MEDS: METOPROLOL ER 50 MG TABLET 100 MG PO (08:38)
[2022-11-09] MEDS: CALCIUM CARBONATE 500 MG TAB PO (08:38)
[2022-11-09] MEDS: AMIODARONE 200 MG TABLET 400 MG PO ×2 (08:38→17:00)
[2022-11-09] MEDS: ASCORBIC ACID 500 MG TABLET PO (08:38)
[2022-11-09] MEDS: SODIUM CHLORIDE 0.9% FLUSH 10 ML IV (08:39)
[2022-11-09] MEDS: [UNRECOGNIZED DRUG - OTHER] EYE-RIGHT (08:39)
[2022-11-09] MEDS: TIMOLOL 0.5% EYE-RIGHT (08:39)
--- NOTE | 2022-11-09 09:00 | PT.IPTN ---
Current Diagnoses Acute posthemorrhagic anemia (11/02/22) Essential (primary) hypertension (11/02/22) Unspecified atrial fibrillation (11/02/22) Unilateral primary osteoarthritis, right hip (11/02/22) Unilateral primary osteoarthritis, left hip (11/02/22) Pain in right hip (11/02/22) Presence of unspecified artificial hip joint (11/02/22) Surgery Performed Operation Date: 10/31/22 13:45 Actual Procedures p Total Hip Arthroplasty/Anterior Approach(Right) - Linda Martin MD Physical Therapy Treatment Note M2 PT-IP Current Condition Start: 11/01/22 09:34 Freq: NEEDED Status: Active Protocol: Document 11/01/22 08:40 MB (Rec: 11/01/22 09:45 MB [id number]) Physical Therapy Current Condition Current Condition Evaluation Date 11/01/22 Treatment Diagnosis R THR M3 PT-IP Subjective Start: 11/01/22 09:34 Freq: NEEDED Status: Active Protocol: Document 11/09/22 09:32 TS (Rec: 11/09/22 09:48 TS [id number]) Subjective Physical Therapy Visit Type Type Treatment Note Visit Start Time 09:00 Visit Stop Time 09:26 Total Visit Minutes 26 Notes Spo2 95%, HR 96 at rest, Spo2 96%, HR 106 after mobility. Number of WASTE ELIMINATION Visits 3 Physical Therapy Visit Comments Patient Comments Pt reports she got a good night sleep and is feeling better this morning, agreeable to PT. M4 PT-IP Mobility and Gait Start: 11/01/22 09:34 Freq: NEEDED Status: Active Protocol: Document 11/09/22 09:32 TS (Rec: 11/09/22 09:48 TS [id number]) PT-Bed Mobility Assessment Supine to Sit Supine to Sit Minimal Assistance,1 Person Assistance Scooting Scooting to Edge of Bed Minimal Assistance PT-Transfer Assessment Sit to and From Stand Sit to and from Stand Contact Guard Assistance,1 Person Assistance,Use of Upper Extremities Equipment Transfer Assistive Device Gait Belt,Front Wheeled Walker Orthotic/Prosthetic Devices or Brace: No Comments Mobility Comments Pt found resting in bed, daughter in room, agreeable to PT. Supine to sit Maryellen for uprighting trunk, pt scooted LEs over to EOB. She scooted to EOB Maryellen with some extra effort. Sit to stand CGA with FWW and no retroleaning. She ambulated ~180' SBA w/FWW , denied any dizziness or SOB. Pt ambulated bakc to room, performed steps x3 with Maryellen and LUE rail support with counter support. Pt was left in chair with call light nearby, daughter in room, RN notified. Gait Assessment Gait Gait Assistance Required: Standby Assistance Distance (Feet) 180 Able to Maintain Weight Bearing Status Yes During Gait Assistive Devices Assistive Device Gait Belt,Front Wheeled Walker Orthotic/Prosthetic Devices or Brace: No Gait Deviations General Gait Pattern Antalgic,Decreased Stride Length,Decreased Feet Clearance,Narrow Based Gait Factors Limiting Gait Function Factors Limiting Gait Function Decreased Activity Tolerance, Decreased Strength,Limited Range of Motion,Poor Balance, Poor Safety Awareness Comments Gait Comments See mobility comments. Stair Climbing Assessment Evaluation Level of Assist On Stairs Minimal Assistance,1 Person Assistance Devices Stair Climbing Assistive Devices Left Railing Technique/Endurance Stair Climbing Direction Ascend and Descend Stair Climbing Technique Step to Step Number of Steps Climbed 3 Comments Stair Climbing Comments See mobility comments. PT-Balance Assessment Sitting Balance and Reactions Static Sitting Balance Ability Good Dynamic Sitting Balance Ability Good Standing Balance and Reactions Static Standing Balance Ability Fair Dynamic Standing Balance Ability Fair Device Used FWW M5 PT-IP Objective Assessments Start: 11/01/22 09:34 Freq: NEEDED Status: Active Protocol: Document 11/01/22 08:40 MB (Rec: 11/01/22 09:45 MB [id number]) Orientation Orientation/Cognition Level of Alertness Alert Orientation Name,Age,Birthday,Month,Date, Year,Day of Week,Place, Situation Language Function Ability No Deficits Noted Safety Awareness Decreased Safety Awareness Memory Description No Deficits Noted Gross Range of Motion Upper Extremity ROM Impairments Defer to OT Lower Extremity ROM Assessment Right Impaired Strength Comments Strength Comments Deferred MMT d/t urgency to get up to commode and pt with poor command following. M6 PT-IP Treatment Start: 11/01/22 09:34 Freq: NEEDED Status: Active Protocol: Document 11/09/22 09:32 TS (Rec: 11/09/22 09:48 TS [id number]) Physical Therapy Treatment Education Education Provided Precautions,Safety Other Treatments Other Treatment Performed Pt educated on continuing to perform post-op exercises while here in hospital. M7 PT-IP Assessment and Plan Start: 11/01/22 09:34 Freq: NEEDED Status: Active Protocol: Document 11/09/22 09:32 TS (Rec: 11/09/22 09:48 TS [id number]) PT Summary Assessment and Plan Potential Rehabilitation Potential Good Summary Impairments Pain,ROM,Strength,Balance, Coordination,Sensation,Tone, Cognition,Bed Mobility, Transfers,Gait,Activity Tolerance Progress Towards Goals Slow Progress due to Medical Issues,Slow Progress due to Activity Tolerance Assessment Summary Pt made some progress with bed mobility requiring decreased assist for supine to sit to Maryellen and scooting to EOB Maryellen. She progressed her gait to ~ 180' SBA w/FWW, continues to require some cueing for increased step length. She performed steps x3 w/Maryellen and LUE counter support, has no buckling or LOB. PT is recommending return home with 24/7 assist and HH. Goals Bed Mobility Goal Standby Assistance Transfer Goal Standby Assistance,Front Wheeled Walker Gait Goal Standby Assistance,Front Wheel Walker Gait Distance 75 Other Goals up/down 2 steps without rails: CONFERENCE TRANSLATOR min A Days to Meet Goals 10 Frequency of Treatment Frequency Of Treatment Twice a Day Treatment Plan Physical Therapy Treatment Plan Bed Mobility Training,Transfer Training,Gait Training, Therapeutic Exercise,Balance Retraining,Post Op Education, Discharge Planning,Hot or Cold Pack Precautions Anterior Hip Precautions No Hip Extension,No Hip External Rotation Weight Bearing Status Weight Bearing Status Weight Bear as Tolerated Allowed Weight Bearing Amount (enter % RLE WBAT or #) (%) Recommendations To Nursing Amount of Assist Needed 1 Person Assist Discharge Recommendations PT Discharge Recommendations Home with 24/7 Assist Available,Home Health Transportation Needs at Discharge Private Vehicle
--- NOTE | 2022-11-09 09:34 | P.PN_ITS ---
Subjective Subjective Date Patient Seen: 11/09/22 Time Patient Seen: 09:35 Interval history: Ms Bear is feeling quite well and would like to go home, but she continues to have occasional runs of atrial fibrillation. In review of her records, it looks like she had one at 1900 yesterday. She denies any symptoms with these. Her BP appears to be well-controlled w/ metroprolol 100mg BID. She is doing well w/ PT and having very little post-op pain. Exam Vital Signs (past 8 hours): - 11/09/22 04:35 11/09/22 04:00 11/09/22 04:11 Temperature 97.8 F Pulse Rate 62 62 Respiratory Rate 18 Blood Pressure 138/62 Pulse Oximetry 97 95 Oxygen Delivery Method Room Air 11/09/22 04:12 11/09/22 04:12 11/09/22 09:00 Temperature Pulse Rate 60 Respiratory Rate Blood Pressure 138/62 Pulse Oximetry 97 Oxygen Delivery Method Room Air Fraction of Inspired Oxygen 28 SaO2/FiO2 Ratio 332 Oxygen Delivery Method Room Air Oxygen Flow Rate 0 Narrative Exam Narrative: 5/5 strength in hip flexors, hamstrings, quadriceps, DF, PF, EHL on right. Sensation to light touch intact throughout RLE. Calve soft, compressible, nontender. NAYANA dressing has been disconnected from battery and has scant old, bloody drainage. Objective Labs 11/06/22 03:51 11/07/22 04:10 [facility] Medical History Atrial fibrillation GERD (gastroesophageal reflux disease) GERD without esophagitis Glaucoma Hearing impaired Hypertension Low back pain Neuropathy Osteoarthritis PAC (premature atrial contraction) Presence of pessary PVC's (premature ventricular contractions) Tremor Unspecified hypothyroidism (05/11/13) Surgical History H/O wrist surgery (~2007) History of bilateral cataract extraction History of cardiac radiofrequency ablation (~2015) Hx of eye surgery Status post tonsillectomy and adenoidectomy Family History Sister Cerebral aneurysm Brother Myocardial infarction Father Colon cancer Mother Cerebral aneurysm Social History marital status: household members: spouse Smoking Status: Never smoker alcohol intake: former substance use type: does not use Assessment & Plan Post-op Assessment and plan (1) Atrial fibrillation: Assessment and Plan narrative: Discharge pending Dr Michel/hospitalist service assessment of rate control. (2) S/P total hip arthroplasty: Assessment and Plan narrative: Continue PT, abixaban BID for VTE prophylaxis, multimodal pain control. From a surgical standpoint, pt is appropriate for discharge home w/ family. (3) Essential hypertension: Assessment and Plan narrative: Well-controlled w/ increased metoprolol. (4) Acute postoperative anemia due to expected blood loss: Assessment and Plan narrative: Asymptomatic, no intervention needed. Postoperative Procedures: Procedures Operation Date: 10/31/22 13:45 Actual Procedure Side Surgeon p Total Hip Arthroplasty/Anterior Approach Right Linda Martin MD Postoperative day: 9 Quality VTE Deep Vein Thrombosis/Pulmonary Embolism Present on Admission: No
--- NOTE | 2022-11-09 12:47 | PT.IPTN ---
Current Diagnoses Acute posthemorrhagic anemia (11/02/22) Essential (primary) hypertension (11/02/22) Unspecified atrial fibrillation (11/02/22) Unilateral primary osteoarthritis, right hip (11/02/22) Unilateral primary osteoarthritis, left hip (11/02/22) Pain in right hip (11/02/22) Presence of unspecified artificial hip joint (11/02/22) Surgery Performed Operation Date: 10/31/22 13:45 Actual Procedures p Total Hip Arthroplasty/Anterior Approach(Right) - Linda Martin MD Physical Therapy Treatment Note M2 PT-IP Current Condition Start: 11/01/22 09:34 Freq: NEEDED Status: Active Protocol: Document 11/01/22 08:40 MB (Rec: 11/01/22 09:45 MB [id number]) Physical Therapy Current Condition Current Condition Evaluation Date 11/01/22 Treatment Diagnosis R THR M3 PT-IP Subjective Start: 11/01/22 09:34 Freq: NEEDED Status: Active Protocol: Document 11/09/22 13:09 TS (Rec: 11/09/22 13:33 TS [id number]) Subjective Physical Therapy Visit Type Type Treatment Note Visit Start Time 12:47 Visit Stop Time 13:06 Total Visit Minutes 19 Notes Spo2 94% RA, HR 75 after mobility. Number of JAMB CUTTER Visits 4 Physical Therapy Visit Comments Patient Comments Pt agreeable to PT. M4 PT-IP Mobility and Gait Start: 11/01/22 09:34 Freq: NEEDED Status: Active Protocol: Document 11/09/22 13:09 TS (Rec: 11/09/22 13:33 TS [id number]) PT-Transfer Assessment Sit to and From Stand Sit to and from Stand Standby Assistance,1 Person Assistance,Use of Upper Extremities Equipment Transfer Assistive Device Gait Belt,Front Wheeled Walker Orthotic/Prosthetic Devices or Brace: No Comments Mobility Comments Pt found resting in chair, agreeable to PT. Sit to stand SBA with FWW and BUE support pushing from arms of chair, pt is slow to stand with some difficulty transitioning UEs to FWW, has no retroleaning. She ambulated ~190' SBA with FWW with slow step thru gait, denies any SOB or dizziness, has no buckling or LOB, provided cues for greater step height and length. Pt ambulated back to room, stand to sit in chair SBA with BUE support for slow eccentric control. Pt was left in chair, HR 75, Spo2 94%. Gait Assessment Gait Gait Assistance Required: Standby Assistance Distance (Feet) 190 Able to Maintain Weight Bearing Status Yes During Gait Assistive Devices Assistive Device Gait Belt,Front Wheeled Walker Orthotic/Prosthetic Devices or Brace: No Gait Deviations General Gait Pattern Antalgic,Decreased Stride Length,Decreased Feet Clearance,Narrow Based Gait Factors Limiting Gait Function Factors Limiting Gait Function Decreased Activity Tolerance, Decreased Strength,Limited Range of Motion,Poor Balance, Poor Safety Awareness Comments Gait Comments See mobility comments. PT-Balance Assessment Sitting Balance and Reactions Static Sitting Balance Ability Good Dynamic Sitting Balance Ability Good Standing Balance and Reactions Static Standing Balance Ability Fair Dynamic Standing Balance Ability Fair Device Used FWW M5 PT-IP Objective Assessments Start: 11/01/22 09:34 Freq: NEEDED Status: Active Protocol: Document 11/01/22 08:40 MB (Rec: 11/01/22 09:45 MB [id number]) Orientation Orientation/Cognition Level of Alertness Alert Orientation Name,Age,Birthday,Month,Date, Year,Day of Week,Place, Situation Language Function Ability No Deficits Noted Safety Awareness Decreased Safety Awareness Memory Description No Deficits Noted Gross Range of Motion Upper Extremity ROM Impairments Defer to OT Lower Extremity ROM Assessment Right Impaired Strength Comments Strength Comments Deferred MMT d/t urgency to get up to commode and pt with poor command following. M6 PT-IP Treatment Start: 11/01/22 09:34 Freq: NEEDED Status: Active Protocol: Document 11/09/22 13:09 TS (Rec: 11/09/22 13:33 [id number]) Physical Therapy Treatment Education Education Provided Precautions,Safety M7 PT-IP Assessment and Plan Start: 11/01/22 09:34 Freq: NEEDED Status: Active Protocol: Document 11/09/22 13:09 TS (Rec: 11/09/22 13:33 TS [id number]) PT Summary Assessment and Plan Potential Rehabilitation Potential Good Summary Impairments Pain,ROM,Strength,Balance, Coordination,Sensation,Tone, Cognition,Bed Mobility, Transfers,Gait,Activity Tolerance Progress Towards Goals Slow Progress due to Medical Issues,Slow Progress due to Activity Tolerance Assessment Summary Pt progessed sit to stand to SBA with FWW, she is slow to stand and has some difficulty transitioning hands to FWW. Pt progressed ambulation to ~190 ' SBA, she denied any SOB or dizziness. PT continues to recommend return home with 24/ 7 assist and HHPT. Goals Bed Mobility Goal Standby Assistance Transfer Goal Standby Assistance,Front Wheeled Walker Gait Goal Standby Assistance,Front Wheel Walker Gait Distance 75 Other Goals up/down 2 steps without rails: EMR ANALYST min A Days to Meet Goals 10 Frequency of Treatment Frequency Of Treatment Twice a Day Treatment Plan Physical Therapy Treatment Plan Bed Mobility Training,Transfer Training,Gait Training, Therapeutic Exercise,Balance Retraining,Post Op Education, Discharge Planning,Hot or Cold Pack Other Recommendations and Next Treatment Assess SPC with gait if Focus appropriate. Precautions Anterior Hip Precautions No Hip Extension,No Hip External Rotation Weight Bearing Status Weight Bearing Status Weight Bear as Tolerated Allowed Weight Bearing Amount (enter % RLE WBAT or #) (%) Recommendations To Nursing Amount of Assist Needed 1 Person Assist Discharge Recommendations PT Discharge Recommendations Home with 24/7 Assist Available,Home Health Transportation Needs at Discharge Private Vehicle
--- NOTE | 2022-11-09 19:13 | P.DS_ITS ---
History of Present Illness History of Present Illness Date Patient Seen: 11/09/22 Time Patient Seen: 19:14 Chief complaint: Hip pain Narrative: CC: hip replacement/afib Ms. Bear is feeling well this morning ambulating with PT and is eager to go home. At this point she has been in sinus rhythm since yesterday afternoon except for a brief run this morning when her meds arrived late, which resolved pretty much as soon as she got her meds. 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 Eating eliminating all doing well. Discharge Providers Provider Date of admission: 11/02/22 11:23 Discharge Date: 11/09/22 Primary care physician: Michael Fierro MD Consults: 10/31/22 12:47 Consult to Anesthesiology Routine Comment: Consulting Provider: Anesthesiologist Reason for consultation: Regional block for post operative pain control 10/31/22 17:17 Consult to Discharge Planning Routine Comment: Consult to Occupational Therapy Evaluate & Treat Comment: Physician Instructions: Evaluate and treat Consult to Physical Therapy Evaluate & Treat Comment: Physician Instructions: post op LINNEA protocol 11/02/22 09:56 Consult to Physician Routine Comment: Consulting Provider: Jan Reich Reason for consultation: afib Has provider been notified: Yes 11/02/22 12:07 Consult to Speech Therapy Evaluate & Treat Comment: pt having difficulty with swallow Physician Instructions: Evaluate and treat Discharge provider: Tucker Hartmann MD Summary Hospital Course Discharge Diagnosis: #Right hip osteoarthritis, s/p right total hip arthroplasty #Atrial fibrillation, paroxysmal #Acute congestive heart failure #Acute postoperative anemia #Hypertension Hospital Course: Mrs. Bear was admitted for planned hip replacement which went well but she did have an issue with atrial fibrillation after surgery which required medical management with IV amiodarone. She was able to transition to oral meds and go 24 hrs without unprompted afib by time of discharge and will go home on oral rhythm and rate meds as well as anticoagulation with low dose eliquis. Her hip did well and she was ambulating with PT using RW. Status at Discharge Cognitive/behavioral status at discharge: at baseline, oriented Functional status at discharge: uses cane/walker Overall status at discharge: patient is progressing back to baseline Exam Vital Signs (past 8 hours): - 11/09/22 12:16 Blood Pressure 160/72 H Fraction of Inspired Oxygen 28 SaO2/FiO2 Ratio 332 Oxygen Delivery Method Room Air Oxygen Flow Rate 0 Narrative Exam Narrative: alert sitting in chair with at bedside HENMT Other: normocephalic atraumatic Resp Other: moving air well, clear to auscultation bilaterally Cardio Other: regular rate and rhythm, S1/S2 no murmurs GI Other: soft nontender nondistended active bowel sounds Extrem Other: hip incision under clean dry dressing, stable ambulation with RW Objective Labs 11/06/22 03:51 11/07/22 04:10 [facility] Medical History Atrial fibrillation GERD (gastroesophageal reflux disease) GERD without esophagitis Glaucoma Hearing impaired Hypertension Low back pain Neuropathy Osteoarthritis PAC (premature atrial contraction) Presence of pessary PVC's (premature ventricular contractions) Tremor Unspecified hypothyroidism (05/11/13) Surgical History H/O wrist surgery (~2007) History of bilateral cataract extraction History of cardiac radiofrequency ablation (~2015) Hx of eye surgery Status post tonsillectomy and adenoidectomy Family History Sister Cerebral aneurysm Brother Myocardial infarction Father Colon cancer Mother Cerebral aneurysm Social History marital status: household members: spouse Smoking Status: Never smoker alcohol intake: former substance use type: does not use Discharge Assessment & Plan Assessment and Plan Assessment: #Right hip osteoarthritis, s/p right total hip arthroplasty s/p surgery 10/31, cleared for dc c/o ortho #Atrial fibrillation, paroxysmal this did require some IV amiodarone but has now stabilized in sinus rhythm on oral amio and max metoprolol succ as well as anticoagulation, agree metabolic stress will help this resolve over time. #Acute congestive heart failure good volume status #Acute postoperative anemia 2/2 expected surgical blood loss, stable #Hypertension Blood pressures been stable through all of this.? Patient will have increase in metoprolol as above more in effort to address her rhythm disturbance than anything else dispo: home to f/up with PCP DVT ppx: eliquis diet: regular Time spent: 40 min Plan of Treatment: Discharge home w/ increase of metoprolol, addition of amiodarone and Eliquis as above. Pt has pain medication rx at home. Outpt PT, f/u in 1 week in office as scheduled. Discharge Plan Discharge Plan Patient Disposition: Home Health Service Discharge orders & Medications Prescriptions: New acetaminophen 325 mg Tablet 650 mg PO Q6H Qty: 60 0RF aspirin 81 mg Tablet,Delayed Release (Dr/Ec) 81 mg PO BID Qty: 60 0RF oxycodone 5 mg Tablet 5 mg PO Q3H PRN (Reason: Pain, Moderate (4-6)) Qty: 40 0RF amiodarone 400 mg tablet 400 mg PO BID Qty: 60 0RF apixaban 2.5 mg tablet 2.5 mg PO BID Qty: 60 0RF metoprolol succinate 100 mg tablet extended release 24 hr 100 mg PO BID Qty: 60 0RF Continued ascorbic acid (vitamin C) 500 mg tablet 500 mg PO DAILY cranberry extract 250 mg capsule 250 mg PO DAILY Rx Instructions: administer with a meal metoprolol succinate [Toprol XL] 25 mg tablet extended release 24 hr 25 mg PO BID Qty: 60 12RF carbidopa-levodopa 25-100 mg tablet extended release 1 tab PO BID Qty: 60 1RF cholecalciferol (vitamin D3) 25 mcg (1,000 unit) capsule 25 mcg PO DAILY multivitamin Tablet 1 tab PO DAILY Qty: 0 omega 0-zto-zsk-fish oil [Fish Oil] 1,000 mg (120 mg-180 mg) Capsule 1 cap PO DAILY Qty: 0 calcium carbonate 600 mg calcium (1,500 mg) Tablet 600 mg PO BID Qty: 0 tafluprost (PF) [Zioptan (PF)] 0.0015 % Dropperette 1 drp OPHTHALMIC (EYE) BID Qty: 0 aspirin 81 MG tablet,chewable 81 mg PO QDAY Qty: 0 Trimo-Pepe Jelly 0.025-0.01 % gel See Rx Instructions .ROUTE .COMPLEX Qty: 113.4 2RF Dose Instruction: APPLY 1 APPLICATORFUL VAGINALLY TWICE A WEEK Rx Instructions: APPLY 1 APPLICATORFUL VAGINALLY TWICE A WEEK lisinopril 2.5 mg tablet 2.5 mg PO QDAY Qty: 90 1RF timolol 0.5 % Drops 1 drp OPHTHALMIC (EYE) DAILY Discontinued acetaminophen 650 mg Tablet Extended Release 1,300 mg PO TID Follow up/Referrals: Michael Fierro MD [Primary Care Provider] - Linda Martin MD [Physician] - As previously scheduled (Follow up w/ Divya Dupree PA-C, on 11/13/2022 @ 2:30 pm at [facility] in [place].) Diet/Activity/Treatments Diet: Diet as Tolerated Activity: Weightbearing as tolerated to right leg. Anterior hip precautions. Cold/Heat Therapy: Ice to right hip as needed for pain. Skin/Wound/Dressing Care Report to your healthcare provider any signs of infection, such as:: chills, fever, night sweats, unusual drainage and unusual redness Dressing: May shower. Keep dressing in place until follow up in office. No bathing or otherwise soaking incision. Call the office if the dressing becomes saturated inside. Visit Report/Discharge Packet Instructions: DI for Hip Replacement, DI for Prescription Opioid Use Stand Alone Forms: Patient Portal/API, Stroke Signs & Symptoms, Surgery Discharge Discharge Data Primary Care Provider: Michael Fierro Quality VTE Deep Vein Thrombosis/Pulmonary Embolism Present on Admission: No
== END 2022-11-09 19:29 | disposition home or self-care (01) | DRG 470 ==
LOC: ICU 11:23 → OR 12:23 → ICU 12:23
PROVIDERS: Family Medicine; Internal Medicine; Physician Assistant Medical; Admitting Provider Orthopaedic Surgery; PCP Family Medicine; Referring Provider Orthopaedic Surgery; Visit Provider Family Medicine
PROC: 0SR90JA Replacement of Right Hip Joint with Synthetic Substitute, Uncemented, Open Approach (ICD-10-PCS; CPT 27130; principal; 2022-10-31 13:45)
DX: M16.11 Unilateral primary osteoarthritis, right hip (principal); E87.1 Hypo-osmolality and hyponatremia; E86.0 Dehydration; G20 Parkinson's disease; R09.02 Hypoxemia; I50.9 Heart failure, unspecified; I11.0 Hypertensive heart disease with heart failure; I48.0 Paroxysmal atrial fibrillation; H40.9 Unspecified glaucoma
CPT/HCPCS: 36415; 71045; 73501; 73502; 76000; 80048; 80053; 83735; 83880; 84132; 84484; 85014; 85018; 85025; 87797; 92526; 92610; 93005; 93010; 93306; 94640; 94762; 94799; 97110; 97116; 97161; 97165; 97530; 97535; 99233; C1776; A9270; C9290; J0171; J0282; J0690; J1100; J1170; J1940; J2250; J2405; J2704; J7613

== ENCOUNTER → 2023-01-09 11:29 | Outpatient (CLI) | payer MEDICARE, SELFPAY ==
[2022-10-31 18:05] VITALS: BMI 21.9
--- NOTE | 2023-01-09 | DI.MG.S_ITS ---
BILATERAL DIGITAL SCREENING MAMMOGRAM 3D/2D WITH CAD: 01/09/2023 CLINICAL: Routine screening. Comparison is made to exams dated: 12/12/2021 mammogram, 11/25/2020 mammogram, and 12/19/2018 mammogram - [facility]. There are scattered areas of fibroglandular density in both breasts (category b / 25%-50% glandular tissue). Current study was also evaluated with a Computer Aided Detection (CAD) system. There are benign calcifications in both breasts. No significant masses, calcifications, or other findings are seen in either breast. There has been no significant interval change. IMPRESSION: BENIGN There is no mammographic evidence of malignancy. A 1 year screening mammogram is recommended. Based on the Tyrer Cuzick model (a risk assessment model) the patient's lifetime risk is 0.5% and her 10 year risk is 0.0%. According to the ACR, ACS, and NCCN guidelines, an annual breast MRI exam along with mammogram is recommended if the patient's lifetime risk is 20% or greater. This exam was interpreted at Station ID: [id number]. NOTE: For mammograms, a report in lay terms will be sent to the patient. Approximately 15% of breast malignancies will not be visualized mammographically. In the management of a palpable breast mass, a negative mammogram must not discourage biopsy of a clinically suspicious lesion. Electronically Signed By: Rodri davis/chel:01/09/2023 14:42:11 letter sent: Normal Exam ACR BI-RADS Category 2: Benign Finding(s) [id number]
== END ==
PROVIDERS: PCP Family Medicine; Referring Provider Family Medicine; Visit Provider Family Medicine
DX: Z12.31 Encounter for screening mammogram for malignant neoplasm of breast (principal)
CPT/HCPCS: 77063; 77067

== ENCOUNTER → 2023-01-27 12:14 | Outpatient (CLI) | payer MEDICARE, SELFPAY ==
[2022-10-31 18:05] VITALS: BMI 21.9
[2023-01-27 14:50] LABS: Alanine Aminotransferase 11 IU/L (<35); Albumin 4.3 g/dL (3.5-5.0); Albumin Globulin Ratio 1.3 (1.0-2.8); Alkaline Phosphatase 78 U/L (38-126); Aspartate Aminotransferase 37 IU/L (14-36); Bilirubin Total 0.6 mg/dL (0.2-1.3); Bilirubin Unconjugated 0.6 mg/dL (0.0-1.1); Globulin 3.3 g/dL (1.7-4.1); HEMOLYSIS < 15 (0-50); Total Protein 7.6 g/dL (6.3-8.2)
[2023-01-27 15:12] LABS: TSH w/ Reflex to FT4 6.68 uIU/mL (0.47-4.68)
[2023-01-27 15:40] LABS: Free T4, Direct Thyroxine 1.15 ng/dL (0.78-2.19)
== END ==
PROVIDERS: PCP Family Medicine; Referring Provider Nurse Practitioner Acute Care; Visit Provider Nurse Practitioner Acute Care
DX: Z79.899 Other long term (current) drug therapy (principal)
CPT/HCPCS: 36415; 80076; 84439; 84443

== ENCOUNTER → 2023-02-27 06:51 | Outpatient (CLI) | payer MEDICARE, SELFPAY ==
[2022-10-31 18:05] VITALS: BMI 21.9
[2023-02-27 08:30] LABS: Alanine Aminotransferase 17 IU/L (<35); Albumin 4.1 g/dL (3.5-5.0); Albumin Globulin Ratio 1.2 (1.0-2.8); Alkaline Phosphatase 69 U/L (38-126); Aspartate Aminotransferase 30 IU/L (14-36); Bilirubin Total 0.8 mg/dL (0.2-1.3); Bilirubin Unconjugated 0.6 mg/dL (0.0-1.1); Globulin 3.3 g/dL (1.7-4.1); HEMOLYSIS < 15 (0-50); Total Protein 7.4 g/dL (6.3-8.2)
[2023-02-27 09:03] LABS: TSH w/ Reflex to FT4 2.83 uIU/mL (0.47-4.68)
== END ==
PROVIDERS: PCP Family Medicine; Referring Provider Nurse Practitioner Acute Care; Visit Provider Nurse Practitioner Acute Care
DX: Z79.899 Other long term (current) drug therapy (principal); E03.8 Other specified hypothyroidism
CPT/HCPCS: 36415; 80076; 84443

== ENCOUNTER → 2023-03-12 08:25 | Outpatient (CLI) | payer MEDICARE, SELFPAY ==
[2022-10-31 18:05] VITALS: BMI 21.9
== END ==
PROVIDERS: PCP Family Medicine; Referring Provider Nurse Practitioner Acute Care; Visit Provider Nurse Practitioner Acute Care
DX: Z79.899 Other long term (current) drug therapy (principal); J98.8 Other specified respiratory disorders
CPT/HCPCS: 94060; 94726; 94729

== ENCOUNTER → 2023-04-03 11:46 | Outpatient (CLI) | payer MEDICARE, SELFPAY ==
[2022-10-31 18:05] VITALS: BMI 21.9
[2023-04-03 14:20] LABS: TSH w/ Reflex to FT4 0.79 uIU/mL (0.47-4.68)
== END ==
PROVIDERS: PCP Family Medicine; Referring Provider Family Medicine; Visit Provider Family Medicine
DX: E03.9 Hypothyroidism, unspecified (principal)
CPT/HCPCS: 36415; 84443

== ENCOUNTER → 2023-07-09 06:47 | Outpatient (CLI) | payer MEDICARE, SELFPAY ==
[2022-10-31 18:05] VITALS: BMI 21.9
[2023-07-09 08:35] LABS: Add Manual Diff / Slide Review NO; Basophils Absolute Auto 0 /uL (0-100); Basophils Percent Auto 0.7 % (0-2); Eosinophils Absolute Auto 200 /uL (0-450); Eosinophils Percent Auto 3.3 % (2-4); Hematocrit 43.8 % (36-46); Lymphocytes Absolute Auto 2400 /uL (1100-4500); Mean Corpuscular HGB Conc 34.1 % (30-36); Mean Corpuscular Hemoglobin 32.3 PG (26-34); Mean Corpuscular Volume 94.7 fL (80-100); Monocytes Absolute Auto 500 /uL (0-900); Monocytes Percent Auto 8.5 % (3-14); Neutrophils Absolute Auto 2500 /uL (1500-7000); Neutrophils Percent Auto 44.5 % (50-75); Platelet Count 215 X10^3/uL (150-400); Red Blood Cell Count 4.63 X10^6/uL (4.0-5.2); White Blood Cell Count 5.6 X10^3/uL (4.5-11.0)
[2023-07-09 09:15] LABS: Alanine Aminotransferase 6 IU/L (<35); Albumin Globulin Ratio 1.3 (1.0-2.8); Alkaline Phosphatase 72 U/L (38-126); Aspartate Aminotransferase 25 IU/L (14-36); BUN Creatinine Ratio 22.9 (6-22); Bilirubin Total 0.8 mg/dL (0.2-1.3); Blood Urea Nitrogen 19 mg/dL (7-17); Calcium 9.2 mg/dL (8.4-10.2); Carbon Dioxide 28 mmol/L (22-32); Chloride 105 mmol/L (98-107); Estimated Glomerular Filt Rate > 60 mL/min (>60); Globulin 3.1 g/dL (1.7-4.1); Glucose 90 mg/dL (80-110); HEMOLYSIS < 15 (0-50); Potassium 4.5 mmol/L (3.4-5.1); Sodium 138 mmol/L (137-145); Total Protein 7.1 g/dL (6.3-8.2)
[2023-07-09 09:35] LABS: TSH w/ Reflex to FT4 1.12 uIU/mL (0.47-4.68)
== END ==
PROVIDERS: PCP Family Medicine; Referring Provider Family Medicine; Visit Provider Family Medicine
DX: E03.9 Hypothyroidism, unspecified (principal); I48.91 Unspecified atrial fibrillation; G20.A1 Parkinson's disease without dyskinesia, without mention of fluctuations
CPT/HCPCS: 36415; 80053; 84443; 85025

== ENCOUNTER 2023-11-12 11:15 | Outpatient (RCR) | payer MEDICARE, SELFPAY ==
[2022-10-31 18:05] VITALS: BMI 21.9
--- NOTE | 2023-10-14 13:16 | PT.OPPOC ---
Physical, Occupational & Speech Therapy At [facility] Current Diagnoses Parkinsonism, unspecified (10/14/23) Visit Care Team Role Provider Type Michael Fierro MD Attending Provider Physician Family Provider Primary Care Provider Referring Provider Specialty: Family Practice Address: [address] [place] [address], [address], [address] Email: [email or web address] Plan Of Care PT-OP-T Assessment and Plan Start: 10/13/23 12:58 Freq: Status: Active Protocol: Document 10/14/23 11:16 MB (Rec: 10/14/23 12:06 MB [id number]) Physical Therapy Assessment Rehab Potential Rehabilitation Potential Good Evaluation Complexity Number of Personal Factors/Comorbidities 1-2 Number of Body Systems Impaired 3 Clinical Presentation at Evaluation Evolving Impairments Impairments Activity Tolerance,Balance, Coordination,Functional Activities,Functional Mobility ,Gait,Pain,Posture,Strength, Transfers,Vestibular Goals 4 Impairment Evidence of imbalance Mcfp Goal (LTG) Pt will perform WNLs on FGA to decrease fall risk. LTG Duration 5 weeks 3 Impairment 1181 feet in 6 minutes Mcfp Goal (LTG) Pt will gait train at least 1400 feet without AD in 6 minutes to improve community ambulation. LTG Duration 5 weeks 2 Impairment TUG in 10 sec Ticketer Goal (LTG) Pt will perform TUG without AD in no more than 10 sec to improve functional balance and gait. LTG Duration 5 weeks 1 Impairment Lack of amplitude specific HEP Ticketer Goal (LTG) Pt will perform BIG exercises and therapeutic activities with I daily at home. LTG Duration 5 weeks Assessment Summary Assessment Pt is a hypoverbal patient with reports of about 4 years of PD symptoms with biggest complaint of UE tremors and imbalance. Orthostatic assessment with BP and HR in LUE: supine: 146/83, 65; standin/81, 75; standing 1': left UE tremor is noticeable and machine does not read despite trying twice to check in standing. Pt presents with coordination challenges, postural changes, balance and gait impairment on assessment. Pt is right handed and tremor is noticeable B with poorer coordination of right LE with testing but noticeable left foot and left arm changes with gait. Pt is a good candidate for LSVT BIG to improve amplitude of movement, balance , gait and functional tasks. Tremor may be a challenge for fine motor functional tasks. Physical Therapy Plan Frequency and Duration Frequency of Treatment 16 treatments Duration of treatment (weeks) 5 Plan of Care Start Date 10/14/23 Plan of Care End Date 11/24/23 Therapeutic Interventions Therapeutic Interventions Balance Training,Canalithic Repositioning,Coordination Training,Gait Training,Home Exercise Program,Manual Therapy,Neuromuscular Re- education,Patient/Caregiver Education,Self-Care/Home Management,Therapeutic Activities,Therapeutic Exercises,Vestibular Rehabilitation Modalities Cold Pack/Ice Massage,Hot Packs Next Visit Focus/Plan Next Note Type Treatment Note Next Visit Plan Initiate LSVT BIG exercises and determine functional tasks Plan of Care Dates Plan of Care Start Date 10/14/23 Plan of Care End Date 11/24/23 Electronically Signed by: Kelly Leonard, PT 10/14/23 [id number] If you are in agreement with this Plan of Care, please return a signed and dated copy. I have reviewed this Plan of Care and certify that the skilled therapy services above are required to meet the patient?s needs. Physician Signature Date Printed Name and Credentials Clinical Instructor Signature Printed Name and Credentials
--- NOTE | 2023-10-14 13:17 | PT.OIE ---
Current Diagnoses Parkinsonism, unspecified (10/14/23) Past Medical History (Last Reviewed 11/07/22 @ 10:46 by Perry Hairston PA-C) Atrial fibrillation GERD (gastroesophageal reflux disease) GERD without esophagitis Glaucoma Hearing impaired Hypertension Low back pain Neuropathy Osteoarthritis PAC (premature atrial contraction) Presence of pessary PVC's (premature ventricular contractions) Tremor Unspecified hypothyroidism (05/11/13) Past Surgical History (Last Reviewed 11/07/22 @ 10:46 by Perry Hairston PA-C) H/O wrist surgery (~2007) History of bilateral cataract extraction History of cardiac radiofrequency ablation (~2015) Hx of eye surgery Status post tonsillectomy and adenoidectomy Visit Care Team Role Provider Type Michael Fierro MD Attending Provider Physician Family Provider Primary Care Provider Referring Provider Specialty: [facility] Address: [address] [place] [address], [address], [facility] Email: [email or web address] Physical Therapy Initial Evaluation PT-OP-A Visit Information Start: 10/13/23 12:58 Freq: Status: Active Protocol: Document 10/14/23 11:16 MB (Rec: 10/14/23 12:06 MB [id number]) Out-Patient Physical Therapy Visit Information Visit Information Visit Type Initial Evaluation Visit Note Medicare Progress note by 11/14/23 or 10th visit Visit Start Time 11:16 Visit Stop Time 12:05 Visit Number 1 Number of MACHINE SETTER AUTOMATIC Visits 0 Evaluation Information Evaluation Date 10/14/23 Precautions Precautions [place], fall risk PT-OP-B Current Condition Start: 10/13/23 12:58 Freq: Status: Active Protocol: Document 10/14/23 11:16 MB (Rec: 10/14/23 12:06 MB [id number]) Current Condition History of Current Condition Onset Date 4 years ago Current Complaints Hand tremors and imbalance History of Current Condition 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 Pt lives with her . She drives. She does not use a cane or a walker. She has not had any falls in the past year . Pt reports hand tremors and imbalance are her biggest concerns. Pt appears to under- rate FES fear of falling reports given verbal concern of imbalance today. Pt reports that she is doing okay with buttoning and writing. She is right handed. Maybe buttoning some things is problematic. Pt denies light-headedness getting up in the morning. Treatment Goals Patient/Caregiver Goals Improving balance PT-OP-C Subjective Start: 10/13/23 12:58 Freq: Status: Active Protocol: Document 10/14/23 11:16 MB (Rec: 10/14/23 12:06 MB [id number]) OP-PT Subjective Patient Comments Patient Comments See history of current condition Patient Questionnaires Other Questionnaire Name and Score FES score is 19/64 PT-OP-G Mobility & Gait Start: 10/13/23 12:58 Freq: Status: Active Protocol: Document 10/14/23 11:16 MB (Rec: 10/14/23 12:06 MB [id number]) OP Gait Assessment Comments Gait Comments See 6MWT and pt does have more unsteadines when initiating gait and with slower gait speed. Tremor noticed and left lean with walking counter clockwise for 6MWT and wall is on the left side of patient PT-OP-H Neuro Start: 10/13/23 12:58 Freq: Status: Active Protocol: Document 10/14/23 11:16 MB (Rec: 10/14/23 12:06 MB [id number]) Coordination Evaluation Upper Extremity Tests Left Finger to Nose Test Minimal Impairment Pronation/Supination Test Minimal Impairment Right Finger to Nose Test Minimal Impairment Pronation/Supination Test Minimal Impairment Lower Extremity Tests Left Heel on Calle Test Minimal Impairment Foot Tapping Test Minimal Impairment Right Heel on Calle Test Moderate Impairment Foot Tapping Test Minimal Impairment Vital Signs Comments Vital Signs Comments See orthostatic assessment in assessment portion PT-OP-J Posture/Palpation/Skin Start: 10/13/23 12:58 Freq: Status: Active Protocol: Document 10/14/23 11:16 MB (Rec: 10/14/23 12:06 MB [id number]) Posture Evaluation Comments Posture Comments Forward head, rounded shoulders PT-OP-M Strength Start: 10/13/23 12:58 Freq: Status: Active Protocol: Document 10/14/23 11:16 MB (Rec: 10/14/23 12:06 MB [id number]) Shoulder Strength Shoulder Manual Muscle Testing Bilateral Flexion 4+ Good+ Abduction (C5) 4+ Good+ Hip Strength Hip Manual Muscle Testing Bilateral Flexion (L2) 4+ Good+ Knee Strength Knee Manual Muscle Testing Bilateral Flexion (S2) 5 Normal PT-OP-Q Treatments Start: 10/13/23 12:58 Freq: Status: Active Protocol: Document 10/14/23 11:16 MB (Rec: 10/14/23 12:06 MB [id number]) Therapeutic Activity Therapeutic Activity 30 sec STS Comments A few reps poorly controlled, 15 good reps Gait Training Gait Activity 6MWT Comments Pt gait trains 1181 feet in 6 minutes and pt has decreased LUE swing that improves minimally with increased gait distance. She tends to keep hand in closed position as well. Festinating pattern looks better with increased gait distance as well though she has decreased toe off B and increased flop sound of forefoot B occ rather than controlled steps through full gait swing pattern Neuro Re-Education Treatment Balance Activities TUG Comments 11 sec without AD Self-Care/Home Management Treatment Education Other Education Reviewed education handout about LSVT BIG, ed pt in set- up of program of 16 treatments with expectation that pt will perform exercise once a day on PTs days and twice day on non-PT days. Ed pt on functional task form to fill out today and to bring in to first treatment tomorrow with four functional tasks that she would like to work on and provided example list PT-OP-T Assessment and Plan Start: 10/13/23 12:58 Freq: Status: Active Protocol: Document 10/14/23 11:16 MB (Rec: 10/14/23 12:06 [id number]) Physical Therapy Assessment Rehab Potential Rehabilitation Potential Good Evaluation Complexity Number of Personal Factors/Comorbidities 1-2 Number of Body Systems Impaired 3 Clinical Presentation at Evaluation Evolving Impairments Impairments Activity Tolerance,Balance, Coordination,Functional Activities,Functional Mobility ,Gait,Pain,Posture,Strength, Transfers,Vestibular Goals 4 Impairment Evidence of imbalance Jail Goal (LTG) Pt will perform WNLs on FGA to decrease fall risk. LTG Duration 5 weeks 3 Impairment 1181 feet in 6 minutes Director Of Event Marketing Goal (LTG) Pt will gait train at least 1400 feet without AD in 6 minutes to improve community ambulation. LTG Duration 5 weeks 2 Impairment TUG in 10 sec Director Of Event Marketing Goal (LTG) Pt will perform TUG without AD in no more than 10 sec to improve functional balance and gait. LTG Duration 5 weeks 1 Impairment Lack of amplitude specific HEP Director Of Event Marketing Goal (LTG) Pt will perform BIG exercises and therapeutic activities with I daily at home. LTG Duration 5 weeks Assessment Summary Assessment Pt is a hypoverbal patient with reports of about 4 years of PD symptoms with biggest complaint of UE tremors and imbalance. Orthostatic assessment with BP and HR in LUE: supine: 146/83, 65; standin/81, 75; standing 1': left UE tremor is noticeable and machine does not read despite trying twice to check in standing. Pt presents with coordination challenges, postural changes, balance and gait impairment on assessment. Pt is right handed and tremor is noticeable B with poorer coordination of right LE with testing but noticeable left foot and left arm changes with gait. Pt is a good candidate for LSVT BIG to improve amplitude of movement, balance , gait and functional tasks. Tremor may be a challenge for fine motor functional tasks. Physical Therapy Plan Frequency and Duration Frequency of Treatment 16 treatments Duration of treatment (weeks) 5 Plan of Care Start Date 10/14/23 Plan of Care End Date 11/24/23 Therapeutic Interventions Therapeutic Interventions Balance Training,Canalithic Repositioning,Coordination Training,Gait Training,Home Exercise Program,Manual Therapy,Neuromuscular Re- education,Patient/Caregiver Education,Self-Care/Home Management,Therapeutic Activities,Therapeutic Exercises,Vestibular Rehabilitation Modalities Cold Pack/Ice Massage,Hot Packs Next Visit Focus/Plan Next Note Type Treatment Note Next Visit Plan Initiate LSVT BIG exercises and determine functional tasks
--- NOTE | 2023-10-15 12:18 | PT.OTN ---
Current Diagnoses Parkinsonism, unspecified (10/15/23) Physical Therapy Treatment Note PT-OP-A Visit Information Start: 10/13/23 12:58 Freq: Status: Active Protocol: Document 10/15/23 11:20 MB (Rec: 10/15/23 12:18 MB [id number]) Out-Patient Physical Therapy Visit Information Visit Information Visit Type Treatment Note Visit Note Medicare Progress note by 11/14/23 or 10th visit Visit Start Time 11:20 Visit Stop Time 12:15 Visit Number 2 Number of FOREST SCIENCE PROFESSOR Visits 0 Evaluation Information Evaluation Date 10/14/23 Precautions Precautions [place], fall risk, left foot arthritis occ bothers her PT-OP-B Current Condition Start: 10/13/23 12:58 Freq: Status: Active Protocol: Document 10/14/23 11:16 MB (Rec: 10/14/23 12:06 MB [id number]) Current Condition History of Current Condition Onset Date 4 years ago Current Complaints Hand tremors and imbalance History of Current Condition 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 Pt lives with her . She drives. She does not use a cane or a walker. She has not had any falls in the past year . Pt reports hand tremors and imbalance are her biggest concerns. Pt appears to under- rate FES fear of falling reports given verbal concern of imbalance today. Pt reports that she is doing okay with buttoning and writing. She is right handed. Maybe buttoning some things is problematic. Pt denies light-headedness getting up in the morning. Treatment Goals Patient/Caregiver Goals Improving balance PT-OP-C Subjective Start: 10/13/23 12:58 Freq: Status: Active Protocol: Document 10/15/23 11:20 MB (Rec: 10/15/23 12:18 MB [id number]) OP-PT Subjective Patient Comments Patient Comments Pt wants to let PT know that she had left wrist surgery in the past and right LINNEA. She had to ice her left foot last night d/t discomfort. PT-OP-G Mobility & Gait Start: 10/13/23 12:58 Freq: Status: Active Protocol: Document 10/14/23 11:16 MB (Rec: 10/14/23 12:06 MB [id number]) OP Gait Assessment Comments Gait Comments See 6MWT and pt does have more unsteadines when initiating gait and with slower gait speed. Tremor noticed and left lean with walking counter clockwise for 6MWT and wall is on the left side of patient PT-OP-H Neuro Start: 10/13/23 12:58 Freq: Status: Active Protocol: Document 10/14/23 11:16 MB (Rec: 10/14/23 12:06 MB [id number]) Coordination Evaluation Upper Extremity Tests Left Finger to Nose Test Minimal Impairment Pronation/Supination Test Minimal Impairment Right Finger to Nose Test Minimal Impairment Pronation/Supination Test Minimal Impairment Lower Extremity Tests Left Heel on Calle Test Minimal Impairment Foot Tapping Test Minimal Impairment Right Heel on Calle Test Moderate Impairment Foot Tapping Test Minimal Impairment Vital Signs Comments Vital Signs Comments See orthostatic assessment in assessment portion PT-OP-J Posture/Palpation/Skin Start: 10/13/23 12:58 Freq: Status: Active Protocol: Document 10/14/23 11:16 MB (Rec: 10/14/23 12:06 MB [id number]) Posture Evaluation Comments Posture Comments Forward head, rounded shoulders PT-OP-M Strength Start: 10/13/23 12:58 Freq: Status: Active Protocol: Document 10/14/23 11:16 MB (Rec: 10/14/23 12:06 MB [id number]) Shoulder Strength Shoulder Manual Muscle Testing Bilateral Flexion 4+ Good+ Abduction (C5) 4+ Good+ Hip Strength Hip Manual Muscle Testing Bilateral Flexion (L2) 4+ Good+ Knee Strength Knee Manual Muscle Testing Bilateral Flexion (S2) 5 Normal PT-OP-Q Treatments Start: 10/13/23 12:58 Freq: Status: Active Protocol: Document 10/15/23 11:20 MB (Rec: 10/15/23 12:18 MB [id number]) Therapeutic Exercises Sitting Exercises Side to side Equipment Used BIG chair Comments 6 reps to each side and cues and demo Floor to ceiling Equipment Used BIG chair Comments 6 reps with cues and demo Standing Exercises Side rock and reach Comments Without chair and CGA and cues and demo Forward rock and reach Comments Without chair, CGA to superv, cues and practiced many reps Backward step Equipment Used Tried with and without BIG chair and decided to use chair Comments Cues, demo, shaping cues, many reps Side step Equipment Used No chair Comments CGA and then superv, to try without chair at home and 4 reps twice each sofia Forward step Equipment Used Tried chair and then no chair, CGA to close superv Comments Many reps to each side and opted for no chair with pt Therapeutic Activity Therapeutic Activity BIG STS Reps/Minutes 10 reps Comments BIG chair Demo and VCs, cues not to let knees wobble inwards PT-OP-T Assessment and Plan Start: 10/13/23 12:58 Freq: Status: Active Protocol: Document 10/15/23 11:20 MB (Rec: 10/15/23 12:18 MB [id number]) Physical Therapy Assessment Rehab Potential Rehabilitation Potential Good Evaluation Complexity Number of Personal Factors/Comorbidities 1-2 Number of Body Systems Impaired 3 Clinical Presentation at Evaluation Evolving Impairments Impairments Activity Tolerance,Balance, Coordination,Functional Activities,Functional Mobility ,Gait,Pain,Posture,Strength, Transfers,Vestibular Goals 4 Impairment Evidence of imbalance Mcc Goal (LTG) Pt will perform WNLs on FGA to decrease fall risk. LTG Duration 5 weeks 3 Impairment 1181 feet in 6 minutes Mcc Goal (LTG) Pt will gait train at least 1400 feet without AD in 6 minutes to improve community ambulation. LTG Duration 5 weeks 2 Impairment TUG in 10 sec Mcc Goal (LTG) Pt will perform TUG without AD in no more than 10 sec to improve functional balance and gait. LTG Duration 5 weeks 1 Impairment Lack of amplitude specific HEP Stripper Preliminary Goal (LTG) Pt will perform BIG exercises and therapeutic activities with I daily at home. LTG Duration 5 weeks Assessment Summary Assessment Initiated BIG exercises today and will attempt all standard exercises except adapted with chair for backwards step. Physical Therapy Plan Frequency and Duration Frequency of Treatment 16 treatments Duration of treatment (weeks) 5 Plan of Care Start Date 10/14/23 Plan of Care End Date 11/24/23 Therapeutic Interventions Therapeutic Interventions Balance Training,Canalithic Repositioning,Coordination Training,Gait Training,Home Exercise Program,Manual Therapy,Neuromuscular Re- education,Patient/Caregiver Education,Self-Care/Home Management,Therapeutic Activities,Therapeutic Exercises,Vestibular Rehabilitation Modalities Cold Pack/Ice Massage,Hot Packs Next Visit Focus/Plan Next Note Type Treatment Note Next Visit Plan Review exercises, start BIG walking, functional activities will include: buttoning, in and out of the bathtub, transferring from low chairs, up and down stairs
--- NOTE | 2023-10-21 12:24 | PT.OTN ---
Current Diagnoses Parkinsonism, unspecified (10/21/23) Physical Therapy Treatment Note PT-OP-A Visit Information Start: 10/13/23 12:58 Freq: Status: Active Protocol: Document 10/21/23 11:19 MB (Rec: 10/21/23 12:23 MB [id number]) Out-Patient Physical Therapy Visit Information Visit Information Visit Type Treatment Note Visit Note Medicare Progress note by 11/14/23 or 10th visit Visit Start Time 11:19 Visit Stop Time 12:15 Visit Number 3 Number of COMBINING MACHINE OPERATOR Visits 0 Evaluation Information Evaluation Date 10/14/23 Precautions Precautions [place], fall risk, left foot arthritis occ bothers her PT-OP-B Current Condition Start: 10/13/23 12:58 Freq: Status: Active Protocol: Document 10/14/23 11:16 MB (Rec: 10/14/23 12:06 MB [id number]) Current Condition History of Current Condition Onset Date 4 years ago Current Complaints Hand tremors and imbalance History of Current Condition 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 Pt lives with her . She drives. She does not use a cane or a walker. She has not had any falls in the past year . Pt reports hand tremors and imbalance are her biggest concerns. Pt appears to under- rate FES fear of falling reports given verbal concern of imbalance today. Pt reports that she is doing okay with buttoning and writing. She is right handed. Maybe buttoning some things is problematic. Pt denies light-headedness getting up in the morning. Treatment Goals Patient/Caregiver Goals Improving balance PT-OP-C Subjective Start: 10/13/23 12:58 Freq: Status: Active Protocol: Document 10/21/23 11:19 MB (Rec: 10/21/23 12:23 MB [id number]) OP-PT Subjective Patient Comments Patient Comments Pt has been performing BIG exercises and they are going well. She brings in check off HEP sheet. PT-OP-G Mobility & Gait Start: 10/13/23 12:58 Freq: Status: Active Protocol: Document 10/14/23 11:16 MB (Rec: 10/14/23 12:06 MB [id number]) OP Gait Assessment Comments Gait Comments See 6MWT and pt does have more unsteadines when initiating gait and with slower gait speed. Tremor noticed and left lean with walking counter clockwise for 6MWT and wall is on the left side of patient PT-OP-H Neuro Start: 10/13/23 12:58 Freq: Status: Active Protocol: Document 10/14/23 11:16 MB (Rec: 10/14/23 12:06 MB [id number]) Coordination Evaluation Upper Extremity Tests Left Finger to Nose Test Minimal Impairment Pronation/Supination Test Minimal Impairment Right Finger to Nose Test Minimal Impairment Pronation/Supination Test Minimal Impairment Lower Extremity Tests Left Heel on Calle Test Minimal Impairment Foot Tapping Test Minimal Impairment Right Heel on Calle Test Moderate Impairment Foot Tapping Test Minimal Impairment Vital Signs Comments Vital Signs Comments See orthostatic assessment in assessment portion PT-OP-J Posture/Palpation/Skin Start: 10/13/23 12:58 Freq: Status: Active Protocol: Document 10/14/23 11:16 MB (Rec: 10/14/23 12:06 MB [id number]) Posture Evaluation Comments Posture Comments Forward head, rounded shoulders PT-OP-M Strength Start: 10/13/23 12:58 Freq: Status: Active Protocol: Document 10/14/23 11:16 MB (Rec: 10/14/23 12:06 MB [id number]) Shoulder Strength Shoulder Manual Muscle Testing Bilateral Flexion 4+ Good+ Abduction (C5) 4+ Good+ Hip Strength Hip Manual Muscle Testing Bilateral Flexion (L2) 4+ Good+ Knee Strength Knee Manual Muscle Testing Bilateral Flexion (S2) 5 Normal PT-OP-Q Treatments Start: 10/13/23 12:58 Freq: Status: Active Protocol: Document 10/21/23 11:19 MB (Rec: 10/21/23 12:23 MB [id number]) Therapeutic Exercises Sitting Exercises Side to side Side bilateral Equipment Used BIG chair Comments 10 reps to each side and demo and cues not to move leg first but with arm Floor to ceiling Equipment Used BIG chair Comments 10 reps with cues and demo Standing Exercises Side rock and reach Side bilateral Reps/Minutes 10 reps Comments Demo and cues to slow down and stop in middle, both palms up Forward rock and reach Side bilateral Reps/Minutes 10 reps Comments Cues and demo Backward step Equipment Used BIG chair Reps/Minutes 10 Comments Cues to stop the movement instead of con't to swing through, cues for big t Side step Side bilateral Reps/Minutes 10 reps Comments Demo and cues to look to the side she is stepping and then back to center Forward step Side bilateral Reps/Minutes 10 reps Comments Cues for increasing JAVED, pt does have some imbalance Therapeutic Activity Therapeutic Activity BIG getting in and out of car Comments Pt demos holding steering wheel and door and stepping into seat with one foot first and this actually works better than big backing up and sitting d/t UE support and pt size STS from lower surfaces Comments Practiced from low bariatric mat, gold chair with arms and lat pull down during gait today and pt performs well BIG STS Reps/Minutes 10 reps Comments BIG chair Demo and VCs, pt's knees tend to fall inward with sitting Gait Training Gait Activity BIG walking Comments BIG walking clockwise and counterclockwise around gym and in gym weaving around objects. Pt does better with left arm swing. Stair training in gym with bigger steps and trying between rail right hand and rail left hand to work on balance and stair training. Stair training outside gym on long set of steps and pt performs slower and with rail and SBA. PT-OP-T Assessment and Plan Start: 10/13/23 12:58 Freq: Status: Active Protocol: Document 10/21/23 11:19 MB (Rec: 10/21/23 12:23 MB [id number]) Physical Therapy Assessment Rehab Potential Rehabilitation Potential Good Evaluation Complexity Number of Personal Factors/Comorbidities 1-2 Number of Body Systems Impaired 3 Clinical Presentation at Evaluation Evolving Impairments Impairments Activity Tolerance,Balance, Coordination,Functional Activities,Functional Mobility ,Gait,Pain,Posture,Strength, Transfers,Vestibular Goals 4 Impairment Evidence of imbalance Automobile Technician Goal (LTG) Pt will perform WNLs on FGA to decrease fall risk. LTG Duration 5 weeks 3 Impairment 1181 feet in 6 minutes Automobile Technician Goal (LTG) Pt will gait train at least 1400 feet without AD in 6 minutes to improve community ambulation. LTG Duration 5 weeks 2 Impairment TUG in 10 sec Assisted Goal (LTG) Pt will perform TUG without AD in no more than 10 sec to improve functional balance and gait. LTG Duration 5 weeks 1 Impairment Lack of amplitude specific HEP Automobile Technician Goal (LTG) Pt will perform BIG exercises and therapeutic activities with I daily at home. LTG Duration 5 weeks Assessment Summary Assessment Pt makes a great effort with all BIG exercises and it is evident that she has been performing at home. Backwards step and side rock and reach need the most practice. Initiated BIG gait today and STS from low surfaces and stair training per pt's functional goals. Physical Therapy Plan Frequency and Duration Frequency of Treatment 16 treatments Duration of treatment (weeks) 5 Plan of Care Start Date 10/14/23 Plan of Care End Date 11/24/23 Therapeutic Interventions Therapeutic Interventions Balance Training,Canalithic Repositioning,Coordination Training,Gait Training,Home Exercise Program,Manual Therapy,Neuromuscular Re- education,Patient/Caregiver Education,Self-Care/Home Management,Therapeutic Activities,Therapeutic Exercises,Vestibular Rehabilitation Modalities Cold Pack/Ice Massage,Hot Packs Next Visit Focus/Plan Next Note Type Treatment Note Next Visit Plan BIG exercises with most need for work are backwards step and side rock and recach. Functional activities will include: buttoning, in and out of the bathtub, transferring from low chairs, up and down stairs
--- NOTE | 2023-10-22 12:05 | PT.OTN ---
Current Diagnoses Parkinsonism, unspecified (10/22/23) Physical Therapy Treatment Note PT-OP-A Visit Information Start: 10/13/23 12:58 Freq: Status: Active Protocol: Document 10/22/23 11:12 MB (Rec: 10/22/23 12:05 [id number]) Out-Patient Physical Therapy Visit Information Visit Information Visit Type Treatment Note Visit Note Medicare Progress note by 11/14/23 or 10th visit Visit Start Time 11:12 Visit Stop Time 12:11 Visit Number 4 Number of INDEPENDENT FILM MAKER Visits 0 Evaluation Information Evaluation Date 10/14/23 Precautions Precautions [place], fall risk, left foot arthritis occ bothers her PT-OP-B Current Condition Start: 10/13/23 12:58 Freq: Status: Active Protocol: Document 10/14/23 11:16 MB (Rec: 10/14/23 12:06 MB [id number]) Current Condition History of Current Condition Onset Date 4 years ago Current Complaints Hand tremors and imbalance History of Current Condition 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 Pt lives with her . She drives. She does not use a cane or a walker. She has not had any falls in the past year . Pt reports hand tremors and imbalance are her biggest concerns. Pt appears to under- rate FES fear of falling reports given verbal concern of imbalance today. Pt reports that she is doing okay with buttoning and writing. She is right handed. Maybe buttoning some things is problematic. Pt denies light-headedness getting up in the morning. Treatment Goals Patient/Caregiver Goals Improving balance PT-OP-C Subjective Start: 10/13/23 12:58 Freq: Status: Active Protocol: Document 10/22/23 11:12 MB (Rec: 10/22/23 12:05 [id number]) OP-PT Subjective Patient Comments Patient Comments Pt states that she had an appointment with ERP PROJECT MANAGER yesterday and had her Pessary cleaned and she had spotting later in the day after she did her second set of BIG exercises. She feels good to do BIG PT today. PT speaks with pelvic fur floor worker PT and spotting is okay for exercise and pt would like to con't with PT. PT-OP-G Mobility & Gait Start: 10/13/23 12:58 Freq: Status: Active Protocol: Document 10/14/23 11:16 MB (Rec: 10/14/23 12:06 MB [id number]) OP Gait Assessment Comments Gait Comments See 6MWT and pt does have more unsteadines when initiating gait and with slower gait speed. Tremor noticed and left lean with walking counter clockwise for 6MWT and wall is on the left side of patient PT-OP-H Neuro Start: 10/13/23 12:58 Freq: Status: Active Protocol: Document 10/14/23 11:16 MB (Rec: 10/14/23 12:06 MB [id number]) Coordination Evaluation Upper Extremity Tests Left Finger to Nose Test Minimal Impairment Pronation/Supination Test Minimal Impairment Right Finger to Nose Test Minimal Impairment Pronation/Supination Test Minimal Impairment Lower Extremity Tests Left Heel on Calle Test Minimal Impairment Foot Tapping Test Minimal Impairment Right Heel on Calle Test Moderate Impairment Foot Tapping Test Minimal Impairment Vital Signs Comments Vital Signs Comments See orthostatic assessment in assessment portion PT-OP-J Posture/Palpation/Skin Start: 10/13/23 12:58 Freq: Status: Active Protocol: Document 10/14/23 11:16 MB (Rec: 10/14/23 12:06 MB [id number]) Posture Evaluation Comments Posture Comments Forward head, rounded shoulders PT-OP-M Strength Start: 10/13/23 12:58 Freq: Status: Active Protocol: Document 10/14/23 11:16 MB (Rec: 10/14/23 12:06 MB [id number]) Shoulder Strength Shoulder Manual Muscle Testing Bilateral Flexion 4+ Good+ Abduction (C5) 4+ Good+ Hip Strength Hip Manual Muscle Testing Bilateral Flexion (L2) 4+ Good+ Knee Strength Knee Manual Muscle Testing Bilateral Flexion (S2) 5 Normal PT-OP-Q Treatments Start: 10/13/23 12:58 Freq: Status: Active Protocol: Document 10/22/23 11:12 MB (Rec: 10/22/23 12:05 MB [id number]) Therapeutic Exercises Sitting Exercises Side to side Side bilateral Equipment Used BIG chair Reps/Minutes 10 reps Comments Cues for BIG leg, especially on the left Floor to ceiling Equipment Used BIG chair Comments 10 reps with cues and demo Standing Exercises Side rock and reach Side bilateral Reps/Minutes 10 reps Comments Demo and cues to slow down and stop in middle, both palms up Forward rock and reach Side bilateral Reps/Minutes 10 reps Comments Cues and demo, less weight shift with rocking, especially with left foot fr Backward step Equipment Used BIG chair Reps/Minutes 10 Comments Cues to lower arm, extend wrist and elbow Side step Side bilateral Reps/Minutes 10 reps Comments Demo and cues to look to the side she is stepping and then back to center Forward step Side bilateral Reps/Minutes 10 reps Comments Cues for big step forward and stepping back square to other foot Therapeutic Activity Therapeutic Activity Buttoning Comments [place] short sleeve shirt in standing: cues to face shirt away and pt tends to flip overhead and then get on, several reps and cues for BIG buttoning and may time next treatment date BIG STS Reps/Minutes 10 reps Comments BIG chair Demo and VCs, pt's knees tend to fall inward with sitting Gait Training Gait Activity BIG walking Comments BIG walking with balance challenges incorporated today including hurdles and walking over blue pads with objects underneath and pt tends to slow down and need at least CGA with support about waist for balance activities. Left leg appears weaker in hip for stepping over hurdles and right leg with history of right THR and mild weakness with stepping over hurdles as well: improvement when practiced several times PT-OP-T Assessment and Plan Start: 10/13/23 12:58 Freq: Status: Active Protocol: Document 10/22/23 11:12 MB (Rec: 10/22/23 12:05 MB [id number]) Physical Therapy Assessment Rehab Potential Rehabilitation Potential Good Evaluation Complexity Number of Personal Factors/Comorbidities 1-2 Number of Body Systems Impaired 3 Clinical Presentation at Evaluation Evolving Impairments Impairments Activity Tolerance,Balance, Coordination,Functional Activities,Functional Mobility ,Gait,Pain,Posture,Strength, Transfers,Vestibular Goals 4 Impairment Evidence of imbalance Submarine Diver Goal (LTG) Pt will perform WNLs on FGA to decrease fall risk. LTG Duration 5 weeks 3 Impairment 1181 feet in 6 minutes [facility] Goal (LTG) Pt will gait train at least 1400 feet without AD in 6 minutes to improve community ambulation. LTG Duration 5 weeks 2 Impairment TUG in 10 sec [facility] Goal (LTG) Pt will perform TUG without AD in no more than 10 sec to improve functional balance and gait. LTG Duration 5 weeks 1 Impairment Lack of amplitude specific HEP Submarine Diver Goal (LTG) Pt will perform BIG exercises and therapeutic activities with I daily at home. LTG Duration 5 weeks Assessment Summary Assessment Started buttoning today and balance challenges with BIG gait are very challenging today. Physical Therapy Plan Frequency and Duration Frequency of Treatment 16 treatments Duration of treatment (weeks) 5 Plan of Care Start Date 10/14/23 Plan of Care End Date 11/24/23 Therapeutic Interventions Therapeutic Interventions Balance Training,Canalithic Repositioning,Coordination Training,Gait Training,Home Exercise Program,Manual Therapy,Neuromuscular Re- education,Patient/Caregiver Education,Self-Care/Home Management,Therapeutic Activities,Therapeutic Exercises,Vestibular Rehabilitation Modalities Cold Pack/Ice Massage,Hot Packs Next Visit Focus/Plan Next Note Type Treatment Note Next Visit Plan BIG exercises with most need for work are backwards step and side rock and reach. Progress to alternating and flicks in future. Functional activities will include: buttoning, in and out of the bathtub, transferring from low chairs, up and down stairs
--- NOTE | 2023-10-23 12:17 | PT.OTN ---
Current Diagnoses Parkinsonism, unspecified (10/23/23) Physical Therapy Treatment Note PT-OP-A Visit Information Start: 10/13/23 12:58 Freq: Status: Active Protocol: Document 10/23/23 11:21 SP (Rec: 10/23/23 12:30 SP [id number]) Out-Patient Physical Therapy Visit Information Visit Information Visit Type Treatment Note Visit Note Medicare Progress note by 11/14/23 or 10th visit Visit Start Time 11:21 Visit Stop Time 12:17 Visit Number 5 Number of CAREER AND TECHNOLOGY EDUCATION TEACHER Visits 1 Evaluation Information Evaluation Date 10/14/23 Precautions Precautions [place], fall risk, left foot arthritis occ bothers her PT-OP-B Current Condition Start: 10/13/23 12:58 Freq: Status: Active Protocol: Document 10/14/23 11:16 MB (Rec: 10/14/23 12:06 MB [id number]) Current Condition History of Current Condition Onset Date 4 years ago Current Complaints Hand tremors and imbalance History of Current Condition 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 Pt lives with her . She drives. She does not use a cane or a walker. She has not had any falls in the past year . Pt reports hand tremors and imbalance are her biggest concerns. Pt appears to under- rate FES fear of falling reports given verbal concern of imbalance today. Pt reports that she is doing okay with buttoning and writing. She is right handed. Maybe buttoning some things is problematic. Pt denies light-headedness getting up in the morning. Treatment Goals Patient/Caregiver Goals Improving balance PT-OP-C Subjective Start: 10/13/23 12:58 Freq: Status: Active Protocol: Document 10/23/23 11:21 SP (Rec: 10/23/23 12:30 SP [id number]) OP-PT Subjective Patient Comments Patient Comments Pt reports little tired but felt ok after last tx. PT-OP-G Mobility & Gait Start: 10/13/23 12:58 Freq: Status: Active Protocol: Document 10/14/23 11:16 MB (Rec: 10/14/23 12:06 MB [id number]) OP Gait Assessment Comments Gait Comments See 6MWT and pt does have more unsteadines when initiating gait and with slower gait speed. Tremor noticed and left lean with walking counter clockwise for 6MWT and wall is on the left side of patient PT-OP-H Neuro Start: 10/13/23 12:58 Freq: Status: Active Protocol: Document 10/14/23 11:16 MB (Rec: 10/14/23 12:06 MB [id number]) Coordination Evaluation Upper Extremity Tests Left Finger to Nose Test Minimal Impairment Pronation/Supination Test Minimal Impairment Right Finger to Nose Test Minimal Impairment Pronation/Supination Test Minimal Impairment Lower Extremity Tests Left Heel on Calle Test Minimal Impairment Foot Tapping Test Minimal Impairment Right Heel on Calle Test Moderate Impairment Foot Tapping Test Minimal Impairment Vital Signs Comments Vital Signs Comments See orthostatic assessment in assessment portion PT-OP-J Posture/Palpation/Skin Start: 10/13/23 12:58 Freq: Status: Active Protocol: Document 10/14/23 11:16 MB (Rec: 10/14/23 12:06 MB [id number]) Posture Evaluation Comments Posture Comments Forward head, rounded shoulders PT-OP-M Strength Start: 10/13/23 12:58 Freq: Status: Active Protocol: Document 10/14/23 11:16 MB (Rec: 10/14/23 12:06 MB [id number]) Shoulder Strength Shoulder Manual Muscle Testing Bilateral Flexion 4+ Good+ Abduction (C5) 4+ Good+ Hip Strength Hip Manual Muscle Testing Bilateral Flexion (L2) 4+ Good+ Knee Strength Knee Manual Muscle Testing Bilateral Flexion (S2) 5 Normal PT-OP-Q Treatments Start: 10/13/23 12:58 Freq: Status: Active Protocol: Document 10/23/23 11:21 SP (Rec: 10/23/23 12:30 SP [id number]) Therapeutic Exercises Sitting Exercises Side to side Side bilateral Equipment Used BIG chair Reps/Minutes 10 reps Comments Cues for BIG leg, back pnfree range, added flick & alternating Floor to ceiling Equipment Used BIG chair Reps/Minutes x10 Comments 10 reps with cues and demo, added flicks Standing Exercises Side rock and reach Side bilateral Reps/Minutes 10 reps Comments Demo and cues to slow down, pause end range, both palms up , turn tolerance Forward rock and reach Side bilateral Reps/Minutes 10 reps Comments Cues and demo, back reach on L during L ft fwd Backward step Equipment Used BIG chair support Reps/Minutes 10 (each side) Comments Cues to lower arm, extend wrist and elbow, smaller stride Side step Side bilateral Reps/Minutes 10 reps (count to 20 alternating) Comments Demo and cues to look to the side she is stepping and then back to center Forward step Side bilateral Reps/Minutes 10 reps (count to 20 alternating) Comments Cues for big step forward, arms up higher Therapeutic Activity Therapeutic Activity Buttoning Name Blue plaid shirt 3/4 sleeve Reps/Minutes 3 reps Comments 1st: seated behind back: 58 sec don&button, unbutton 40 sec & doff 16 sec. 2nd: standing face shirt away and pt tends to flip overhead reposition front/collar 38 sec , 24 sec unbutton, 10 sec doff . 3rd: 20 sec don, 15 sec button (35 sec), unbutton 10 sec, 5 sec doff. BIG STS Reps/Minutes 10 reps Comments BIG chair Demo and VCs knees apart, pt's knees tend to fall inward with sitting Gait Training Gait Activity Stairs Comments intially 1 HR, receiprocal stepping. able to decreased UE support- cues for taller posture core facilitation and wt shift into advance LE. Demonstrates WBOS descending but reduced with cuing. BIG walking Comments BIG walking with balance challenges incorporated today including hurdles and walking over blue mats with objects underneath and pt tends to slow down and need at least CGA- min A x3 LOB recovery, support at gait belt at waist for balance activities. Left leg appears weaker in hip for stepping over hurdles and right leg with history of right THR and mild weakness with stepping over hurdles as well: improvement when practiced 4 laps, cues for wt shift into foward foot, taller posture PT-OP-T Assessment and Plan Start: 10/13/23 12:58 Freq: Status: Active Protocol: Document 10/23/23 11:21 SP (Rec: 10/23/23 12:30 SP [id number]) Physical Therapy Assessment Goals 4 Impairment Evidence of imbalance Credit Investigator Goal (LTG) Pt will perform WNLs on FGA to decrease fall risk. LTG Duration 5 weeks 3 Impairment 1181 feet in 6 minutes Credit Investigator Goal (LTG) Pt will gait train at least 1400 feet without AD in 6 minutes to improve community ambulation. LTG Duration 5 weeks 2 Impairment TUG in 10 sec [facility] Goal (LTG) Pt will perform TUG without AD in no more than 10 sec to improve functional balance and gait. LTG Duration 5 weeks 1 Impairment Lack of amplitude specific HEP Credit Investigator Goal (LTG) Pt will perform BIG exercises and therapeutic activities with I daily at home. LTG Duration 5 weeks Assessment Summary Assessment Pt improve bigger movement don and buttoning her shirt when standing and front to overhead shirt don see timing today. Cues for increase arm swing BIG walking. Cues for taller posturing over advanced LE improved reduction 1 UE support during stair mgt asc better than descending. Pt was able to progress adding flicks and alternating sides during BIG exercises. Physical Therapy Plan Frequency and Duration Frequency of Treatment 16 treatments Duration of treatment (weeks) 5 Plan of Care Start Date 10/14/23 Plan of Care End Date 11/24/23 Therapeutic Interventions Therapeutic Interventions Balance Training,Canalithic Repositioning,Coordination Training,Gait Training,Home Exercise Program,Manual Therapy,Neuromuscular Re- education,Patient/Caregiver Education,Self-Care/Home Management,Therapeutic Activities,Therapeutic Exercises,Vestibular Rehabilitation Modalities Cold Pack/Ice Massage,Hot Packs Next Visit Focus/Plan Next Note Type Treatment Note Next Visit Plan BIG exercises with most need for work are backwards step and side rock and reach. Progress to alternating and flicks in future. Functional activities will include: buttoning, in and out of the bathtub, transferring from low chairs, up and down stairs
--- NOTE | 2023-10-27 11:34 | PT.OTN ---
Current Diagnoses Parkinsonism, unspecified (10/27/23) Physical Therapy Treatment Note PT-OP-A Visit Information Start: 10/13/23 12:58 Freq: Status: Active Protocol: Document 10/27/23 10:31 SP (Rec: 10/27/23 11:45 SP [id number]) Out-Patient Physical Therapy Visit Information Visit Information Visit Type Treatment Note Visit Note Medicare Progress note by 11/14/23 or 10th visit Visit Start Time 10:31 Visit Stop Time 11:34 Visit Number 6 Number of AQUATIC BIOLOGIST Visits 2 Evaluation Information Evaluation Date 10/14/23 Precautions Precautions [place], fall risk, left foot arthritis occ bothers her PT-OP-B Current Condition Start: 10/13/23 12:58 Freq: Status: Active Protocol: Document 10/14/23 11:16 MB (Rec: 10/14/23 12:06 MB [id number]) Current Condition History of Current Condition Onset Date 4 years ago Current Complaints Hand tremors and imbalance History of Current Condition 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 Pt lives with her . She drives. She does not use a cane or a walker. She has not had any falls in the past year . Pt reports hand tremors and imbalance are her biggest concerns. Pt appears to under- rate FES fear of falling reports given verbal concern of imbalance today. Pt reports that she is doing okay with buttoning and writing. She is right handed. Maybe buttoning some things is problematic. Pt denies light-headedness getting up in the morning. Treatment Goals Patient/Caregiver Goals Improving balance PT-OP-C Subjective Start: 10/13/23 12:58 Freq: Status: Active Protocol: Document 10/27/23 10:31 SP (Rec: 10/27/23 11:45 SP [id number]) OP-PT Subjective Patient Comments Patient Comments Pt reports doing well with ex feel they are good for helping make bigger motions, her limiting. She is getting back to her walking not as far yet but trying to swing arms more and take bigger steps. , son and DIL states see an improvement since started PT. PT-OP-G Mobility & Gait Start: 10/13/23 12:58 Freq: Status: Active Protocol: Document 10/14/23 11:16 MB (Rec: 10/14/23 12:06 MB [id number]) OP Gait Assessment Comments Gait Comments See 6MWT and pt does have more unsteadines when initiating gait and with slower gait speed. Tremor noticed and left lean with walking counter clockwise for 6MWT and wall is on the left side of patient PT-OP-H Neuro Start: 10/13/23 12:58 Freq: Status: Active Protocol: Document 10/14/23 11:16 MB (Rec: 10/14/23 12:06 MB [id number]) Coordination Evaluation Upper Extremity Tests Left Finger to Nose Test Minimal Impairment Pronation/Supination Test Minimal Impairment Right Finger to Nose Test Minimal Impairment Pronation/Supination Test Minimal Impairment Lower Extremity Tests Left Heel on Calle Test Minimal Impairment Foot Tapping Test Minimal Impairment Right Heel on Calle Test Moderate Impairment Foot Tapping Test Minimal Impairment Vital Signs Comments Vital Signs Comments See orthostatic assessment in assessment portion PT-OP-J Posture/Palpation/Skin Start: 10/13/23 12:58 Freq: Status: Active Protocol: Document 10/14/23 11:16 MB (Rec: 10/14/23 12:06 MB [id number]) Posture Evaluation Comments Posture Comments Forward head, rounded shoulders PT-OP-M Strength Start: 10/13/23 12:58 Freq: Status: Active Protocol: Document 10/14/23 11:16 MB (Rec: 10/14/23 12:06 MB [id number]) Shoulder Strength Shoulder Manual Muscle Testing Bilateral Flexion 4+ Good+ Abduction (C5) 4+ Good+ Hip Strength Hip Manual Muscle Testing Bilateral Flexion (L2) 4+ Good+ Knee Strength Knee Manual Muscle Testing Bilateral Flexion (S2) 5 Normal PT-OP-Q Treatments Start: 10/13/23 12:58 Freq: Status: Active Protocol: Document 10/27/23 10:31 SP (Rec: 10/27/23 11:45 SP [id number]) Therapeutic Exercises Sitting Exercises Side to side Side bilateral Equipment Used BIG chair Reps/Minutes 10 reps Comments Cues for BIG R>L leg back gareth, back pnfree range, flick & alternating Floor to ceiling Equipment Used BIG chair Reps/Minutes x10 Comments continued flicks, cued BIG arms too Standing Exercises Side rock and reach Side bilateral Reps/Minutes 10 reps Comments demo'd,cued slow down, palms & arms up, turn tolerance Forward rock and reach Side bilateral Equipment Used chair nearby Reps/Minutes 10 reps Comments cued& demo'd wt shift into stance LE, LOB self recovery retro Backward step Equipment Used BIG chair support continue needed Reps/Minutes 10 (each side) Comments unable no chair, Cues to lower arm, extend wrist and elbow, smaller stride Side step Side bilateral Reps/Minutes 10 reps (count to 20 alternating) Comments cued arms higher, wt shift into side step Forward step Side bilateral Reps/Minutes 10 reps (count to 20 alternating) Comments Cues for big step wt shift into forward step, arms up higher Therapeutic Activity Therapeutic Activity Buttoning Name orange short sleeve shirt- standing (over head) Reps/Minutes 3 reps Comments 1st: 10 don/25 sec button, 10 unbutton/4 sec doff 2nd: 8 don/37 sec button, 16 unbutton/4 sec doff 3rd: 7 sec don, 20 sec button (35 sec), unbutton 5 sec, 3 sec doff. BIG getting in and out of car Name assimulation in clinic today Comments cued BIG leg over wooden blocks (door jam), bend over supported while sit, BIGGER getting out seat. STS from lower surfaces Comments various surfaces, ed not use arms (habit) and carryover home with recliner after use chair perform exercises with. BIG STS Reps/Minutes 10 reps Comments BIG chair improved knee align out with feet Gait Training Gait Activity Stairs Comments intially 1 HR, receiprocal stepping. able to decreased UE support- cues for taller posture core facilitation and wt shift into advance LE. Demonstrates WBOS descending but reduced with cuing. BIG walking Comments BIG walking around clinic- improved stride and arm swing, incorporating with balance challenges walking over blue mats with objects underneath and pt tends to slow down and need at least CGA- min for recovery, support at gait belt at waist for balance activities. Left leg appears weaker in hip and right leg with history of right THR and mild weakness stepping over disc underneath improvement when practiced 2nd lap, cues for wt shift into forward foot /c taller posture PT-OP-T Assessment and Plan Start: 10/13/23 12:58 Freq: Status: Active Protocol: Document 10/27/23 10:31 SP (Rec: 10/27/23 11:45 SP [id number]) Physical Therapy Assessment Goals 4 Impairment Evidence of imbalance Skilled Nursing Goal (LTG) Pt will perform WNLs on FGA to decrease fall risk. LTG Duration 5 weeks 3 Impairment 1181 feet in 6 minutes Skilled Nursing Goal (LTG) Pt will gait train at least 1400 feet without AD in 6 minutes to improve community ambulation. LTG Duration 5 weeks 2 Impairment TUG in 10 sec Hand Potter Goal (LTG) Pt will perform TUG without AD in no more than 10 sec to improve functional balance and gait. LTG Duration 5 weeks 1 Impairment Lack of amplitude specific HEP Hand Potter Goal (LTG) Pt will perform BIG exercises and therapeutic activities with I daily at home. LTG Duration 5 weeks Assessment Summary Assessment Pt improved bigger movement with don/doff shirt and buttoning, it's easier. Continues need support 1 UE on chair for back step trialed x2 LOB self use chair reach, not ready no chair and suggest nearby rock reach for stability, 1 LOB self recovery contact. Cautious balance gait over mat with disc under today, WBOS, slower but didn't need APPRAISER TIMBER. Homework BIG sit/ stand no UEs for carryover inate in community at restaurant. Physical Therapy Plan Frequency and Duration Frequency of Treatment 16 treatments Duration of treatment (weeks) 5 Plan of Care Start Date 10/14/23 Plan of Care End Date 11/24/23 Therapeutic Interventions Therapeutic Interventions Balance Training,Canalithic Repositioning,Coordination Training,Gait Training,Home Exercise Program,Manual Therapy,Neuromuscular Re- education,Patient/Caregiver Education,Self-Care/Home Management,Therapeutic Activities,Therapeutic Exercises,Vestibular Rehabilitation Modalities Cold Pack/Ice Massage,Hot Packs Next Visit Focus/Plan Next Note Type Treatment Note Next Visit Plan BIG exercises with most need for work are backwards step and side rock and reach. Progress to alternating and flicks in future. Functional activities will include: buttoning, in and out of the bathtub, transferring from low chairs, up and down stairs
--- NOTE | 2023-10-28 12:15 | PT.OTN ---
Current Diagnoses Parkinsonism, unspecified (10/28/23) Physical Therapy Treatment Note PT-OP-A Visit Information Start: 10/13/23 12:58 Freq: Status: Active Protocol: Document 10/28/23 11:17 MB (Rec: 10/28/23 12:10 MB [id number]) Out-Patient Physical Therapy Visit Information Visit Information Visit Type Treatment Note Visit Note Medicare Progress note by 11/14/23 or 10th visit Visit Start Time 11:17 Visit Stop Time 12:15 Visit Number 7 Number of BATCH ROLLER OPERATOR Visits 0 Evaluation Information Evaluation Date 10/14/23 Precautions Precautions [place] L, fall risk, left foot arthritis occ bothers her PT-OP-B Current Condition Start: 10/13/23 12:58 Freq: Status: Active Protocol: Document 10/14/23 11:16 MB (Rec: 10/14/23 12:06 MB [id number]) Current Condition History of Current Condition Onset Date 4 years ago Current Complaints Hand tremors and imbalance History of Current Condition 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 Pt lives with her . She drives. She does not use a cane or a walker. She has not had any falls in the past year . Pt reports hand tremors and imbalance are her biggest concerns. Pt appears to under- rate FES fear of falling reports given verbal concern of imbalance today. Pt reports that she is doing okay with buttoning and writing. She is right handed. Maybe buttoning some things is problematic. Pt denies light-headedness getting up in the morning. Treatment Goals Patient/Caregiver Goals Improving balance PT-OP-C Subjective Start: 10/13/23 12:58 Freq: Status: Active Protocol: Document 10/28/23 11:17 MB (Rec: 10/28/23 12:10 MB [id number]) OP-PT Subjective Patient Comments Patient Comments Pt states that the exercises are going well. Her notices that she is walking better. She is still using the chair for backwards stepping. PT-OP-G Mobility & Gait Start: 10/13/23 12:58 Freq: Status: Active Protocol: Document 10/14/23 11:16 MB (Rec: 10/14/23 12:06 MB [id number]) OP Gait Assessment Comments Gait Comments See 6MWT and pt does have more unsteadines when initiating gait and with slower gait speed. Tremor noticed and left lean with walking counter clockwise for 6MWT and wall is on the left side of patient PT-OP-H Neuro Start: 10/13/23 12:58 Freq: Status: Active Protocol: Document 10/14/23 11:16 MB (Rec: 10/14/23 12:06 MB [id number]) Coordination Evaluation Upper Extremity Tests Left Finger to Nose Test Minimal Impairment Pronation/Supination Test Minimal Impairment Right Finger to Nose Test Minimal Impairment Pronation/Supination Test Minimal Impairment Lower Extremity Tests Left Heel on Calle Test Minimal Impairment Foot Tapping Test Minimal Impairment Right Heel on Calle Test Moderate Impairment Foot Tapping Test Minimal Impairment Vital Signs Comments Vital Signs Comments See orthostatic assessment in assessment portion PT-OP-J Posture/Palpation/Skin Start: 10/13/23 12:58 Freq: Status: Active Protocol: Document 10/14/23 11:16 MB (Rec: 10/14/23 12:06 MB [id number]) Posture Evaluation Comments Posture Comments Forward head, rounded shoulders PT-OP-M Strength Start: 10/13/23 12:58 Freq: Status: Active Protocol: Document 10/14/23 11:16 MB (Rec: 10/14/23 12:06 MB [id number]) Shoulder Strength Shoulder Manual Muscle Testing Bilateral Flexion 4+ Good+ Abduction (C5) 4+ Good+ Hip Strength Hip Manual Muscle Testing Bilateral Flexion (L2) 4+ Good+ Knee Strength Knee Manual Muscle Testing Bilateral Flexion (S2) 5 Normal PT-OP-Q Treatments Start: 10/13/23 12:58 Freq: Status: Active Protocol: Document 10/28/23 11:17 MB (Rec: 10/28/23 12:10 MB [id number]) Therapeutic Exercises Sitting Exercises Side to side Sitting Exercise Name Break skilled nursing through to work on form Side bilateral Equipment Used BIG chair Reps/Minutes 20 alternating reps Comments Cues to wait to move leg, move leg bigger, flicks Floor to ceiling Equipment Used BIG chair Reps/Minutes x10 Comments Flicks Standing Exercises Side rock and reach Side bilateral Reps/Minutes 10 reps each side Comments Cues for slowing down and working on form Forward rock and reach Side bilateral Reps/Minutes 10 reps Comments occ decreased weight shift Backward step Equipment Used BIG chair support continue needed Reps/Minutes 10 (each side) Comments Cues to slow down and step back with same foot as arm going back Side step Side bilateral Reps/Minutes 20 alternating reps Comments Slowed down and cued pt about working on form Forward step Side bilateral Reps/Minutes 20 alternating reps Comments Pt slowly moves forward towards PT during exercise Therapeutic Activity Therapeutic Activity Buttoning Comments Did not doff shirt today as it is challenging over second shirt. Buttoning and unbuttoning in standing today and pt does not button bottom button: 1st rep: 23 sec button , 12 sec unbutton; 2nd rep: 22 sec button, 8 sec unbutton; 3rd rep: 18 sec button, 8 sec; 4th rep: 18 sec button, 7 sec unbutton STS from lower surfaces Comments Advanced today: turned over black plastic block and placed against column and put false grass on it, black cushion on second step and held rails to STS and STS with black cushion on and off stackable steps besides stair case and added in weight bench seat and BIG seat, many reps over 8' BIG STS Reps/Minutes 10 reps Comments BIG chair Cues to slow down to work on form Gait Training Gait Activity BIG walking Comments BIG walking around clinic with balance challenges included: with cues and practice, better B big arm swing. Pt requires SBA for big steps on gym steps with one rail ascend and descend on both sides, CGA and PT hand on belt for pt to perform 6 hurdles, 6 reps with break in between and pt only bumps two hurdles with foot throughout jese stepping. With more practices, pt only requires superv for steps with 1 rail and closer to SBA but PT keeps hand on gait belt for hurdles PT-OP-T Assessment and Plan Start: 10/13/23 12:58 Freq: Status: Active Protocol: Document 10/28/23 11:17 MB (Rec: 10/28/23 12:10 MB [id number]) Physical Therapy Assessment Rehab Potential Rehabilitation Potential Good Evaluation Complexity Number of Personal Factors/Comorbidities 1-2 Number of Body Systems Impaired 3 Clinical Presentation at Evaluation Evolving Impairments Impairments Activity Tolerance,Balance, Coordination,Functional Activities,Functional Mobility ,Gait,Pain,Posture,Strength, Transfers,Vestibular Goals 4 Impairment Evidence of imbalance Longterm Goal (LTG) Pt will perform WNLs on FGA to decrease fall risk. LTG Duration 5 weeks 3 Impairment 1181 feet in 6 minutes Longterm Goal (LTG) Pt will gait train at least 1400 feet without AD in 6 minutes to improve community ambulation. LTG Duration 5 weeks 2 Impairment TUG in 10 sec Hair Baler Goal (LTG) Pt will perform TUG without AD in no more than 10 sec to improve functional balance and gait. LTG Duration 5 weeks 1 Impairment Lack of amplitude specific HEP Hair Baler Goal (LTG) Pt will perform BIG exercises and therapeutic activities with I daily at home. LTG Duration 5 weeks Assessment Summary Assessment Pt tends to rhodes through exercises rather than stopping between each rep and working on form, also cues for big back leg for side to side in sitting and for big back up worker with side stepping. Overall, slowed exercises and worked on finishing each rep and thinking about form today. Gait and balance training are markedly better than last week . Physical Therapy Plan Frequency and Duration Frequency of Treatment 16 treatments Duration of treatment (weeks) 5 Plan of Care Start Date 10/14/23 Plan of Care End Date 11/24/23 Therapeutic Interventions Therapeutic Interventions Balance Training,Canalithic Repositioning,Coordination Training,Gait Training,Home Exercise Program,Manual Therapy,Neuromuscular Re- education,Patient/Caregiver Education,Self-Care/Home Management,Therapeutic Activities,Therapeutic Exercises,Vestibular Rehabilitation Modalities Cold Pack/Ice Massage,Hot Packs Next Visit Focus/Plan Next Note Type Treatment Note Next Visit Plan Con't HEP working on form and finishing each exercise, hurdles and other balance progression with gait
--- NOTE | 2023-10-29 12:11 | PT.OTN ---
Current Diagnoses Parkinsonism, unspecified (10/29/23) Physical Therapy Treatment Note PT-OP-A Visit Information Start: 10/13/23 12:58 Freq: Status: Active Protocol: Document 10/29/23 11:16 MB (Rec: 10/29/23 12:11 MB [id number]) Out-Patient Physical Therapy Visit Information Visit Information Visit Type Progress Note Visit Note Medicare 11/16 before KX Visit Start Time 11:16 Visit Stop Time 12:15 Visit Number 8 Number of SUPERVISOR TELEVISION CHASSIS REPAIR Visits 0 Evaluation Information Evaluation Date 10/14/23 Precautions Precautions [place] L, fall risk, left foot arthritis occ bothers her PT-OP-B Current Condition Start: 10/13/23 12:58 Freq: Status: Active Protocol: Document 10/14/23 11:16 MB (Rec: 10/14/23 12:06 MB [id number]) Current Condition History of Current Condition Onset Date 4 years ago Current Complaints Hand tremors and imbalance History of Current Condition 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 Pt lives with her . She drives. She does not use a cane or a walker. She has not had any falls in the past year . Pt reports hand tremors and imbalance are her biggest concerns. Pt appears to under- rate FES fear of falling reports given verbal concern of imbalance today. Pt reports that she is doing okay with buttoning and writing. She is right handed. Maybe buttoning some things is problematic. Pt denies light-headedness getting up in the morning. Treatment Goals Patient/Caregiver Goals Improving balance PT-OP-C Subjective Start: 10/13/23 12:58 Freq: Status: Active Protocol: Document 10/29/23 11:16 MB (Rec: 10/29/23 12:11 MB [id number]) OP-PT Subjective Patient Comments Patient Comments Pt states that everything is going well. She was tired after PT treatment last date. PT-OP-G Mobility & Gait Start: 10/13/23 12:58 Freq: Status: Active Protocol: Document 10/14/23 11:16 MB (Rec: 10/14/23 12:06 MB [id number]) OP Gait Assessment Comments Gait Comments See 6MWT and pt does have more unsteadines when initiating gait and with slower gait speed. Tremor noticed and left lean with walking counter clockwise for 6MWT and wall is on the left side of patient PT-OP-H Neuro Start: 10/13/23 12:58 Freq: Status: Active Protocol: Document 10/14/23 11:16 MB (Rec: 10/14/23 12:06 MB [id number]) Coordination Evaluation Upper Extremity Tests Left Finger to Nose Test Minimal Impairment Pronation/Supination Test Minimal Impairment Right Finger to Nose Test Minimal Impairment Pronation/Supination Test Minimal Impairment Lower Extremity Tests Left Heel on Calle Test Minimal Impairment Foot Tapping Test Minimal Impairment Right Heel on Calle Test Moderate Impairment Foot Tapping Test Minimal Impairment Vital Signs Comments Vital Signs Comments See orthostatic assessment in assessment portion PT-OP-J Posture/Palpation/Skin Start: 10/13/23 12:58 Freq: Status: Active Protocol: Document 10/14/23 11:16 MB (Rec: 10/14/23 12:06 MB [id number]) Posture Evaluation Comments Posture Comments Forward head, rounded shoulders PT-OP-M Strength Start: 10/13/23 12:58 Freq: Status: Active Protocol: Document 10/14/23 11:16 MB (Rec: 10/14/23 12:06 MB [id number]) Shoulder Strength Shoulder Manual Muscle Testing Bilateral Flexion 4+ Good+ Abduction (C5) 4+ Good+ Hip Strength Hip Manual Muscle Testing Bilateral Flexion (L2) 4+ Good+ Knee Strength Knee Manual Muscle Testing Bilateral Flexion (S2) 5 Normal PT-OP-Q Treatments Start: 10/13/23 12:58 Freq: Status: Active Protocol: Document 10/29/23 11:16 MB (Rec: 10/29/23 12:11 MB [id number]) Therapeutic Exercises Sitting Exercises Side to side Side bilateral Equipment Used BIG chair Reps/Minutes 10 alternating reps Comments Cues to hold chair and not move leg before arm and body Floor to ceiling Equipment Used BIG chair Reps/Minutes 5 Comments Flicks Standing Exercises Side rock and reach Side bilateral Reps/Minutes 10 reps alternating each side Comments Slower, cues to finish rep in the middle before next one Forward rock and reach Side bilateral Reps/Minutes 10 reps Comments occ decreased weight shift Backward step Equipment Used BIG chair support continue needed Reps/Minutes 5 reps each side Comments Cues for BIG arm, BIG front toe Side step Side bilateral Reps/Minutes 10 alternating reps Comments Slowed down and cued for big B arms Forward step Side bilateral Reps/Minutes 10 alternating reps Comments Better performance today Therapeutic Activity Therapeutic Activity BIG STS Reps/Minutes 10 reps Comments BIG chair Improved today Gait Training Gait Activity BIG walking Comments BIG walking throughout clinic and twice with cup full and once with cup empty, occ with cues for BIG stepping, pt tends to take march type with increased hip flexion rather than longer steps 6MWT Comments 1300 feet in 6 minutes with cues for left arm swing and BIG steps and overall, better than initial trial Neuro Re-Education Treatment Balance Activities FGA Comments FGA score is 13/30 with inability to do tandem and a lot of trouble with head turns , backwards gait and forward gait with EC. Stair training is going better. TUG Comments 10 sec, WNLs for age, goal met and d/cd today PT-OP-T Assessment and Plan Start: 10/13/23 12:58 Freq: Status: Active Protocol: Document 10/29/23 11:16 MB (Rec: 10/29/23 12:11 MB [id number]) Physical Therapy Assessment Rehab Potential Rehabilitation Potential Good Evaluation Complexity Number of Personal Factors/Comorbidities 1-2 Number of Body Systems Impaired 3 Clinical Presentation at Evaluation Evolving Impairments Impairments Activity Tolerance,Balance, Coordination,Functional Activities,Functional Mobility ,Gait,Pain,Posture,Strength, Transfers,Vestibular Goals 4 Impairment Evidence of imbalance Assisted Goal (LTG) Pt will perform WNLs on FGA to decrease fall risk. 10/29/23: LTG Duration 5 weeks 3 Impairment 1181 feet in 6 minutes Assisted Goal (LTG) Pt will gait train at least 1400 feet without AD in 6 minutes to improve community ambulation. 10/29/23: Pt gait trains 1300 feet in 6 minutes, cues for BIG arm swing left UE and BIG stepping LTG Duration 5 weeks 2 Impairment TUG in 10 sec Assisted Goal (LTG) Pt will perform TUG without AD in no more than 10 sec to improve functional balance and gait. 09/3123: Pt performs TUG in 10 sec, goal met LTG Duration 5 weeks 1 Impairment Lack of amplitude specific HEP Assisted Goal (LTG) Pt will perform BIG exercises and therapeutic activities with I daily at home. 10/29/23: Pt is performing BIG exercises twice a day on non- therapy days and once a day on therapy days LTG Duration 5 weeks Assessment Summary Assessment Pt has progressed towards all PT goals since starting PT. Occ when cued for BIG steps, pt takes more of a marching step than a longer step. FGA score reveals most imbalance with gait backwards, with eyes closed and tandem. Will add some of these to gait and balance treatments. Physical Therapy Plan Frequency and Duration Frequency of Treatment 16 treatments Duration of treatment (weeks) 5 Plan of Care Start Date 10/14/23 Plan of Care End Date 11/24/23 Therapeutic Interventions Therapeutic Interventions Balance Training,Canalithic Repositioning,Coordination Training,Gait Training,Home Exercise Program,Manual Therapy,Neuromuscular Re- education,Patient/Caregiver Education,Self-Care/Home Management,Therapeutic Activities,Therapeutic Exercises,Vestibular Rehabilitation Modalities Cold Pack/Ice Massage,Hot Packs Next Visit Focus/Plan Next Note Type Treatment Note Next Visit Plan Con't HEP working on form and finishing each exercise, hurdles and other balance progression with gait. Other balance challenges from FGA findings on progress note can be stepping over box, backwards walking, walking with eyes closed and head turns
--- NOTE | 2023-10-30 12:16 | PT.OTN ---
Current Diagnoses Parkinsonism, unspecified (10/30/23) Physical Therapy Treatment Note PT-OP-A Visit Information Start: 10/13/23 12:58 Freq: Status: Active Protocol: Document 10/30/23 11:16 SP (Rec: 10/30/23 12:31 SP [id number]) Out-Patient Physical Therapy Visit Information Visit Information Visit Type Treatment Note Visit Note Medicare 12/17 before KX 05/10 after PN Visit Start Time 11:16 Visit Stop Time 12:16 Visit Number 9 Number of MARKING CLERK Visits 1 Evaluation Information Evaluation Date 10/14/23 Precautions Precautions [place] L, fall risk, left foot arthritis occ bothers her PT-OP-B Current Condition Start: 10/13/23 12:58 Freq: Status: Active Protocol: Document 10/14/23 11:16 MB (Rec: 10/14/23 12:06 MB [id number]) Current Condition History of Current Condition Onset Date 4 years ago Current Complaints Hand tremors and imbalance History of Current Condition 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 Pt lives with her . She drives. She does not use a cane or a walker. She has not had any falls in the past year . Pt reports hand tremors and imbalance are her biggest concerns. Pt appears to under- rate FES fear of falling reports given verbal concern of imbalance today. Pt reports that she is doing okay with buttoning and writing. She is right handed. Maybe buttoning some things is problematic. Pt denies light-headedness getting up in the morning. Treatment Goals Patient/Caregiver Goals Improving balance PT-OP-C Subjective Start: 10/13/23 12:58 Freq: Status: Active Protocol: Document 10/30/23 11:16 SP (Rec: 10/30/23 12:31 SP [id number]) OP-PT Subjective Patient Comments Patient Comments Pt reports doing well and PT helping her feel more confident walking, backwards tried last tx was not easy. PT-OP-G Mobility & Gait Start: 10/13/23 12:58 Freq: Status: Active Protocol: Document 10/14/23 11:16 MB (Rec: 10/14/23 12:06 MB [id number]) OP Gait Assessment Comments Gait Comments See 6MWT and pt does have more unsteadines when initiating gait and with slower gait speed. Tremor noticed and left lean with walking counter clockwise for 6MWT and wall is on the left side of patient PT-OP-H Neuro Start: 10/13/23 12:58 Freq: Status: Active Protocol: Document 10/14/23 11:16 MB (Rec: 10/14/23 12:06 MB [id number]) Coordination Evaluation Upper Extremity Tests Left Finger to Nose Test Minimal Impairment Pronation/Supination Test Minimal Impairment Right Finger to Nose Test Minimal Impairment Pronation/Supination Test Minimal Impairment Lower Extremity Tests Left Heel on Calle Test Minimal Impairment Foot Tapping Test Minimal Impairment Right Heel on Calle Test Moderate Impairment Foot Tapping Test Minimal Impairment Vital Signs Comments Vital Signs Comments See orthostatic assessment in assessment portion PT-OP-J Posture/Palpation/Skin Start: 10/13/23 12:58 Freq: Status: Active Protocol: Document 10/14/23 11:16 MB (Rec: 10/14/23 12:06 MB [id number]) Posture Evaluation Comments Posture Comments Forward head, rounded shoulders PT-OP-M Strength Start: 10/13/23 12:58 Freq: Status: Active Protocol: Document 10/14/23 11:16 MB (Rec: 10/14/23 12:06 MB [id number]) Shoulder Strength Shoulder Manual Muscle Testing Bilateral Flexion 4+ Good+ Abduction (C5) 4+ Good+ Hip Strength Hip Manual Muscle Testing Bilateral Flexion (L2) 4+ Good+ Knee Strength Knee Manual Muscle Testing Bilateral Flexion (S2) 5 Normal PT-OP-Q Treatments Start: 10/13/23 12:58 Freq: Status: Active Protocol: Document 10/30/23 11:16 SP (Rec: 10/30/23 12:31 SP [id number]) Therapeutic Exercises Sitting Exercises Side to side Side bilateral Equipment Used BIG chair Reps/Minutes 20 total alternating reps, flicks Comments Cues to hold chair, improved leg return front Floor to ceiling Equipment Used BIG chair Reps/Minutes 5 Comments Flicks Standing Exercises Side rock and reach Side bilateral Reps/Minutes 10 reps alternating each side Comments cued BIG arms side, turn little further, improved rotation Forward rock and reach Side bilateral Reps/Minutes 10 reps Comments occ decreased weight shift Backward step Equipment Used BIG chair support continue needed Reps/Minutes 10 reps each side Comments Improved form Side step Side bilateral Reps/Minutes 10 alternating reps Comments Slowed down, cued for big B arms turn UB toward direction going Forward step Side bilateral Reps/Minutes 10 alternating reps Comments Cued wt shift into advanced LE , tends to lean back & front tap- improved Therapeutic Activity Therapeutic Activity Buttoning Comments Button top down (off by 1 2- 3rd rep: 1st rep around side/back: 18 sec don 25 sec button, 7 sec unbutton, 4 sec doff 2nd rep: 12 sec don 25 sec button, 7 sec unbutton 4 sec doff 3rd rep: 15 don, 32 sec button , 8 sec unbutton 3 sec doff. BIG getting in and out of car Comments Improved BIG legs in/out car: 1 leg hand held steering wheel . when limit door opening ( assimulate close care nearby), pt good sit Bubba BOG legs in/ out. STS from lower surfaces Reps/Minutes 5 reps each Comments Advanced today: 16 box, 17 pull down bench, large chair 17 . BIG STS Reps/Minutes 10 reps Comments BIG chair Improved today Gait Training Gait Activity Uneven Surface Description 1. outdoor grass incline fwd x2, bwd x2 2. uneven mat 3. hurdles Device Used 0 Level of Assistance close SBA Distance/Duration 1. 8 ft 2 laps each 2. 2 lengths Treatment Focus stability, foot clearance, stability Comments 1. good wt shift forward asc/ desc each, no LOB 2. CG- Min A, initial step retro lean, cues and rep progression improved fwd COG over advanced LE BIG walking Comments 1.BIG walking fwd& bwd hallway 50 ft with cup full, occ with cues for BIG stepping, pt tends to take march type with increased hip flexion rather than longer steps 2. BIG walking full cup water fwd head turns- hallway 50 ft, occasional L foot scuff floor then scissor step cued WBOS, increase clearance and R lat lean LOB x2 Min A 3. walking fwd EC x2 20 ft 2 lengths each- finger glide wall 1st then hover wall, small short steps PT-OP-T Assessment and Plan Start: 10/13/23 12:58 Freq: Status: Active Protocol: Document 10/30/23 11:16 SP (Rec: 10/30/23 12:31 SP [id number]) Physical Therapy Assessment Goals 4 Impairment Evidence of imbalance Drug Enforcement Administration Agent Goal (LTG) Pt will perform WNLs on FGA to decrease fall risk. 10/29/23: LTG Duration 5 weeks 3 Impairment 1181 feet in 6 minutes Drug Enforcement Administration Agent Goal (LTG) Pt will gait train at least 1400 feet without AD in 6 minutes to improve community ambulation. 10/29/23: Pt gait trains 1300 feet in 6 minutes, cues for BIG arm swing left UE and BIG stepping LTG Duration 5 weeks 1 Impairment Lack of amplitude specific HEP Senior Living Goal (LTG) Pt will perform BIG exercises and therapeutic activities with I daily at home. 10/29/23: Pt is performing BIG exercises twice a day on non- therapy days and once a day on therapy days LTG Duration 5 weeks Assessment Summary Assessment Pt reports challenged inclined /decline outside grass but no LOB or deviation, slow and smaller step safety. Michelle stepping trail toe caught but no LOB SBA, uneven mat LOB x2 retro lean cued COG more fwd into advanced LE for safety. Pt improves alternating and BLE return to front, occ cues for BIG arms, modeling for trunk rotation more with arms up side rock reach. Physical Therapy Plan Frequency and Duration Frequency of Treatment 16 treatments Duration of treatment (weeks) 5 Plan of Care Start Date 10/14/23 Plan of Care End Date 11/24/23 Therapeutic Interventions Therapeutic Interventions Balance Training,Canalithic Repositioning,Coordination Training,Gait Training,Home Exercise Program,Manual Therapy,Neuromuscular Re- education,Patient/Caregiver Education,Self-Care/Home Management,Therapeutic Activities,Therapeutic Exercises,Vestibular Rehabilitation Modalities Cold Pack/Ice Massage,Hot Packs Next Visit Focus/Plan Next Note Type Treatment Note Next Visit Plan Con't HEP working on form with slower pacing, hurdles and other balance progression with gait. Other balance challenges from FGA findings on progress note can be stepping over box, backwards walking, walking with eyes closed and head turns
--- NOTE | 2023-11-03 11:30 | PT.OTN ---
Current Diagnoses Parkinsonism, unspecified (11/03/23) Physical Therapy Treatment Note PT-OP-A Visit Information Start: 10/13/23 12:58 Freq: Status: Active Protocol: Document 11/03/23 10:33 SP (Rec: 11/03/23 11:40 SP [id number]) Out-Patient Physical Therapy Visit Information Visit Information Visit Type Treatment Note Visit Note Medicare 01/16 before KX / after PN Visit Start Time 10:33 Visit Stop Time 11:30 Visit Number 10 Number of PROJECT MANAGER/DESIGN MANAGER Visits 2 Evaluation Information Evaluation Date 10/14/23 Precautions Precautions [place] L, fall risk, left foot arthritis occ bothers her PT-OP-B Current Condition Start: 10/13/23 12:58 Freq: Status: Active Protocol: Document 10/14/23 11:16 MB (Rec: 10/14/23 12:06 MB [id number]) Current Condition History of Current Condition Onset Date 4 years ago Current Complaints Hand tremors and imbalance History of Current Condition 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 Pt lives with her . She drives. She does not use a cane or a walker. She has not had any falls in the past year . Pt reports hand tremors and imbalance are her biggest concerns. Pt appears to under- rate FES fear of falling reports given verbal concern of imbalance today. Pt reports that she is doing okay with buttoning and writing. She is right handed. Maybe buttoning some things is problematic. Pt denies light-headedness getting up in the morning. Treatment Goals Patient/Caregiver Goals Improving balance PT-OP-C Subjective Start: 10/13/23 12:58 Freq: Status: Active Protocol: Document 11/03/23 10:33 SP (Rec: 11/03/23 11:40 SP [id number]) OP-PT Subjective Patient Comments Patient Comments Pt reports sometimes tired after PT but depends on how slept night before. Is walking [place] and also [address] to [place] for added challenge and makes her feet better on sand vs pavement path to right on trail. PT-OP-G Mobility & Gait Start: 10/13/23 12:58 Freq: Status: Active Protocol: Document 10/14/23 11:16 MB (Rec: 10/14/23 12:06 MB [id number]) OP Gait Assessment Comments Gait Comments See 6MWT and pt does have more unsteadines when initiating gait and with slower gait speed. Tremor noticed and left lean with walking counter clockwise for 6MWT and wall is on the left side of patient PT-OP-H Neuro Start: 10/13/23 12:58 Freq: Status: Active Protocol: Document 10/14/23 11:16 MB (Rec: 10/14/23 12:06 MB [id number]) Coordination Evaluation Upper Extremity Tests Left Finger to Nose Test Minimal Impairment Pronation/Supination Test Minimal Impairment Right Finger to Nose Test Minimal Impairment Pronation/Supination Test Minimal Impairment Lower Extremity Tests Left Heel on Calle Test Minimal Impairment Foot Tapping Test Minimal Impairment Right Heel on Calle Test Moderate Impairment Foot Tapping Test Minimal Impairment Vital Signs Comments Vital Signs Comments See orthostatic assessment in assessment portion PT-OP-J Posture/Palpation/Skin Start: 10/13/23 12:58 Freq: Status: Active Protocol: Document 10/14/23 11:16 MB (Rec: 10/14/23 12:06 MB [id number]) Posture Evaluation Comments Posture Comments Forward head, rounded shoulders PT-OP-M Strength Start: 10/13/23 12:58 Freq: Status: Active Protocol: Document 10/14/23 11:16 MB (Rec: 10/14/23 12:06 MB [id number]) Shoulder Strength Shoulder Manual Muscle Testing Bilateral Flexion 4+ Good+ Abduction (C5) 4+ Good+ Hip Strength Hip Manual Muscle Testing Bilateral Flexion (L2) 4+ Good+ Knee Strength Knee Manual Muscle Testing Bilateral Flexion (S2) 5 Normal PT-OP-Q Treatments Start: 10/13/23 12:58 Freq: Status: Active Protocol: Document 11/03/23 10:33 SP (Rec: 11/03/23 11:40 SP [id number]) Therapeutic Exercises Sitting Exercises Side to side Side bilateral Equipment Used BIG chair Reps/Minutes 20 total alternating reps, flicks Comments Cues to hold chair, improved leg return front Floor to ceiling Equipment Used BIG chair Reps/Minutes 10 Comments cued Flicks Standing Exercises Side rock and reach Side bilateral Equipment Used chair behind, PRN little off balance 2nd rep contact self recovery Reps/Minutes 10 reps alternating each side Comments cued BIG arms side, turn little further, improved rotation Forward rock and reach Side bilateral Reps/Minutes 10 reps Comments occ decreased weight shift and arms back Backward step Equipment Used BIG chair support continue needed Reps/Minutes 10 reps each side Comments Improved form, improved with reflection outdoor window Side step Side bilateral Equipment Used use reflection window outside helped Reps/Minutes 10 alternating reps Comments Slowed down, cued for big B arms turn UB toward direction going Forward step Side bilateral Reps/Minutes 10 alternating reps Comments Cued wt shift into advanced LE , tends to lean back & front tap- improved Therapeutic Activity Therapeutic Activity BIG getting in and out of car Reps/Minutes 5 reps Comments Improved BIG legs in/out car: 1 leg hand held steering wheel . when limit door opening ( assimulate close care nearby), pt good sit Bubba BIG legs in/ out and lateral scoot bigger motion once sitting. BIG STS Reps/Minutes 10 reps Comments BIG chair Improved today Gait Training Gait Activity Uneven Surface Description 1. outdoor grass incline fwd/ bwd, slant landscape, curbs 2. indoor obstacle Device Used 0 Level of Assistance close SBA Distance/Duration outdoor lawn Treatment Focus stability, foot clearance, stability Comments 1.cued increase JAVED, COG over JAVED, foot clearance improved with reps- 2. 2 mats over wedges/pods/ disc/ 6 step 5 hurdles on top - CGA-Mod A x2 instances trail foot caught jese, cued stop WBOS stance rest then proceed - improved just CGA 3 rep distance BIG walking Comments BIG walking, cues increase arm swing, outdoors pavement change directions- little off balance R vs L but improves with reps PT-OP-T Assessment and Plan Start: 10/13/23 12:58 Freq: Status: Active Protocol: Document 11/03/23 10:33 SP (Rec: 11/03/23 11:40 SP [id number]) Physical Therapy Assessment Goals 4 Impairment Evidence of imbalance [facility] Goal (LTG) Pt will perform WNLs on FGA to decrease fall risk. 10/29/23: LTG Duration 5 weeks 3 Impairment 1181 feet in 6 minutes [facility] Goal (LTG) Pt will gait train at least 1400 feet without AD in 6 minutes to improve community ambulation. 10/29/23: Pt gait trains 1300 feet in 6 minutes, cues for BIG arm swing left UE and BIG stepping LTG Duration 5 weeks 1 Impairment Lack of amplitude specific HEP Auto Technician Goal (LTG) Pt will perform BIG exercises and therapeutic activities with I daily at home. 10/29/23: Pt is performing BIG exercises twice a day on non- therapy days and once a day on therapy days LTG Duration 5 weeks Assessment Summary Assessment Pt demonstrated off balance at first with walking pivot turns outside but improves less sway with reps. She reports her left foot feels sore when stepping on and at times swells, she sees doc but has gotten. Still not confident yet consistant no use rail during stair stepping down more than up. Cues for turn trunk with side step and side rock reach little more, use reflection in window outside helped see self corrections. CG/Mod A during uneven surface obstacle course stepping assimulate trail near [place] [address] over logs ( hurdles in PT). Pt states in PT is harder than trail but finds is helpful for what could come across hasn't tried [place]. Physical Therapy Plan Frequency and Duration Frequency of Treatment 16 treatments Duration of treatment (weeks) 5 Plan of Care Start Date 10/14/23 Plan of Care End Date 11/24/23 Therapeutic Interventions Therapeutic Interventions Balance Training,Canalithic Repositioning,Coordination Training,Gait Training,Home Exercise Program,Manual Therapy,Neuromuscular Re- education,Patient/Caregiver Education,Self-Care/Home Management,Therapeutic Activities,Therapeutic Exercises,Vestibular Rehabilitation Modalities Cold Pack/Ice Massage,Hot Packs Next Visit Focus/Plan Next Note Type Treatment Note Next Visit Plan Con't HEP working on form with slower pacing, uneven hurdles and other balance progression with gait. Other balance challenges from FGA findings on progress note can be stepping over box, backwards walking, walking with eyes closed and head turns
--- NOTE | 2023-11-04 12:19 | PT.OTN ---
Current Diagnoses Parkinsonism, unspecified (11/04/23) Physical Therapy Treatment Note PT-OP-A Visit Information Start: 10/13/23 12:58 Freq: Status: Active Protocol: Document 11/04/23 11:20 MB (Rec: 11/04/23 12:19 MB [id number]) Out-Patient Physical Therapy Visit Information Visit Information Visit Type Treatment Note Visit Note Medicare 02/16 before KX Visit Start Time 11:17 Visit Stop Time 12:10 Visit Number 11 Number of RECORDS CLERK Visits 0 Evaluation Information Evaluation Date 10/14/23 Precautions Precautions [place] L, fall risk, left foot arthritis occ bothers her PT-OP-B Current Condition Start: 10/13/23 12:58 Freq: Status: Active Protocol: Document 10/14/23 11:16 MB (Rec: 10/14/23 12:06 MB [id number]) Current Condition History of Current Condition Onset Date 4 years ago Current Complaints Hand tremors and imbalance History of Current Condition 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 Pt lives with her . She drives. She does not use a cane or a walker. She has not had any falls in the past year . Pt reports hand tremors and imbalance are her biggest concerns. Pt appears to under- rate FES fear of falling reports given verbal concern of imbalance today. Pt reports that she is doing okay with buttoning and writing. She is right handed. Maybe buttoning some things is problematic. Pt denies light-headedness getting up in the morning. Treatment Goals Patient/Caregiver Goals Improving balance PT-OP-C Subjective Start: 10/13/23 12:58 Freq: Status: Active Protocol: Document 11/04/23 11:20 MB (Rec: 11/04/23 12:19 MB [id number]) OP-PT Subjective Patient Comments Patient Comments Pt does not bring in buttoning shirt. Everything is about the same and she thinks that everything is getting a little better. PT-OP-G Mobility & Gait Start: 10/13/23 12:58 Freq: Status: Active Protocol: Document 10/14/23 11:16 MB (Rec: 10/14/23 12:06 MB [id number]) OP Gait Assessment Comments Gait Comments See 6MWT and pt does have more unsteadines when initiating gait and with slower gait speed. Tremor noticed and left lean with walking counter clockwise for 6MWT and wall is on the left side of patient PT-OP-H Neuro Start: 10/13/23 12:58 Freq: Status: Active Protocol: Document 10/14/23 11:16 MB (Rec: 10/14/23 12:06 MB [id number]) Coordination Evaluation Upper Extremity Tests Left Finger to Nose Test Minimal Impairment Pronation/Supination Test Minimal Impairment Right Finger to Nose Test Minimal Impairment Pronation/Supination Test Minimal Impairment Lower Extremity Tests Left Heel on Calle Test Minimal Impairment Foot Tapping Test Minimal Impairment Right Heel on Calle Test Moderate Impairment Foot Tapping Test Minimal Impairment Vital Signs Comments Vital Signs Comments See orthostatic assessment in assessment portion PT-OP-J Posture/Palpation/Skin Start: 10/13/23 12:58 Freq: Status: Active Protocol: Document 10/14/23 11:16 MB (Rec: 10/14/23 12:06 MB [id number]) Posture Evaluation Comments Posture Comments Forward head, rounded shoulders PT-OP-M Strength Start: 10/13/23 12:58 Freq: Status: Active Protocol: Document 10/14/23 11:16 MB (Rec: 10/14/23 12:06 MB [id number]) Shoulder Strength Shoulder Manual Muscle Testing Bilateral Flexion 4+ Good+ Abduction (C5) 4+ Good+ Hip Strength Hip Manual Muscle Testing Bilateral Flexion (L2) 4+ Good+ Knee Strength Knee Manual Muscle Testing Bilateral Flexion (S2) 5 Normal PT-OP-Q Treatments Start: 10/13/23 12:58 Freq: Status: Active Protocol: Document 11/04/23 11:20 MB (Rec: 11/04/23 12:19 MB [id number]) Therapeutic Exercises Sitting Exercises Side to side Sitting Exercise Name Slowed down Side bilateral Equipment Used BIG chair Reps/Minutes 20 total alternating reps, flicks Comments Cues to hold chair, improved leg return front Floor to ceiling Equipment Used BIG chair Reps/Minutes 10 Comments Flicks Standing Exercises Side rock and reach Standing Exercise Name Slower Side bilateral Reps/Minutes 10 reps alternating each side Comments Cues to complete each rep and slap thighs Forward rock and reach Side bilateral Reps/Minutes 10 reps Comments Cues to slow down and mild LOB with left foot in front for final rock and r Backward step Equipment Used BIG chair support continue needed Reps/Minutes 10 reps each side Comments Cues to finish the movement before next rep Side step Standing Exercise Name Slower Side bilateral Reps/Minutes 10 alternating reps Comments Cues for both big arms, big finish Forward step Side bilateral Reps/Minutes 10 alternating reps Therapeutic Activity Therapeutic Activity Getting on and off floor on gym mat Comments Pt sits to step first, then reaches for lower step, moves to half kneel and then to side and then legs out straight and then reverse to get back up off the floor with UE support STS from lower surfaces Comments Many reps from low surfaces including plastic box upside down, weight machine seat, second step of standard steps and shorter steps with B rails for UE support, box steps lower level with hands and higher side without hands, medium step with hands, 2 sets of these exercises, also low stool against wall and guarded with PT's foot BIG STS Reps/Minutes 10 reps Comments BIG chair Gait Training Gait Activity BIG walking Comments BIG walking in and around clinic and over blue cushion to make balance more challenging, stepping over mini hurdles and pt does much better with this and only requires close superv/CGA, backwards walking is most challenging for pt and she slows down gait and has decreased step-length and working on that PT-OP-T Assessment and Plan Start: 10/13/23 12:58 Freq: Status: Active Protocol: Document 11/04/23 11:20 MB (Rec: 11/04/23 12:19 MB [id number]) Physical Therapy Assessment Rehab Potential Rehabilitation Potential Good Evaluation Complexity Number of Personal Factors/Comorbidities 1-2 Number of Body Systems Impaired 3 Clinical Presentation at Evaluation Evolving Impairments Impairments Activity Tolerance,Balance, Coordination,Functional Activities,Functional Mobility ,Gait,Pain,Posture,Strength, Transfers,Vestibular Goals 4 Impairment Evidence of imbalance Alf Goal (LTG) Pt will perform WNLs on FGA to decrease fall risk. 10/29/23: LTG Duration 5 weeks 3 Impairment 1181 feet in 6 minutes Nascar Racer Goal (LTG) Pt will gait train at least 1400 feet without AD in 6 minutes to improve community ambulation. 10/29/23: Pt gait trains 1300 feet in 6 minutes, cues for BIG arm swing left UE and BIG stepping LTG Duration 5 weeks 1 Impairment Lack of amplitude specific HEP Nascar Racer Goal (LTG) Pt will perform BIG exercises and therapeutic activities with I daily at home. 10/29/23: Pt is performing BIG exercises twice a day on non- therapy days and once a day on therapy days LTG Duration 5 weeks Assessment Summary Assessment Pt does an amazing job with STS from lower surfaces and backwards stepping con't to be challenging. Ongoing ed to complete each BIG exercise before starting next one to work on amplitude. Physical Therapy Plan Frequency and Duration Frequency of Treatment 16 treatments Duration of treatment (weeks) 5 Plan of Care Start Date 10/14/23 Plan of Care End Date 11/24/23 Therapeutic Interventions Therapeutic Interventions Balance Training,Canalithic Repositioning,Coordination Training,Gait Training,Home Exercise Program,Manual Therapy,Neuromuscular Re- education,Patient/Caregiver Education,Self-Care/Home Management,Therapeutic Activities,Therapeutic Exercises,Vestibular Rehabilitation Modalities Cold Pack/Ice Massage,Hot Packs Next Visit Focus/Plan Next Note Type Treatment Note Next Visit Plan Con't to work on balance and gait with BIG walking, con't to work on completing each rep and slapping thighs before starting next rep
--- NOTE | 2023-11-05 12:15 | PT.OTN ---
Current Diagnoses Parkinsonism, unspecified (11/05/23) Physical Therapy Treatment Note PT-OP-A Visit Information Start: 10/13/23 12:58 Freq: Status: Active Protocol: Document 11/05/23 11:20 MB (Rec: 11/05/23 11:47 MB [id number]) Out-Patient Physical Therapy Visit Information Visit Information Visit Type Treatment Note Visit Note Medicare 03/18 before KX Visit Start Time 11:20 Visit Stop Time 12:15 Visit Number 12 Number of IT PROGRAM AUDITOR Visits 0 Evaluation Information Evaluation Date 10/14/23 Precautions Precautions [place] L, fall risk, left foot arthritis occ bothers her PT-OP-B Current Condition Start: 10/13/23 12:58 Freq: Status: Active Protocol: Document 10/14/23 11:16 MB (Rec: 10/14/23 12:06 MB [id number]) Current Condition History of Current Condition Onset Date 4 years ago Current Complaints Hand tremors and imbalance History of Current Condition 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 Pt lives with her . She drives. She does not use a cane or a walker. She has not had any falls in the past year . Pt reports hand tremors and imbalance are her biggest concerns. Pt appears to under- rate FES fear of falling reports given verbal concern of imbalance today. Pt reports that she is doing okay with buttoning and writing. She is right handed. Maybe buttoning some things is problematic. Pt denies light-headedness getting up in the morning. Treatment Goals Patient/Caregiver Goals Improving balance PT-OP-C Subjective Start: 10/13/23 12:58 Freq: Status: Active Protocol: Document 11/05/23 11:20 MB (Rec: 11/05/23 11:47 MB [id number]) OP-PT Subjective Patient Comments Patient Comments Pt states that she was a little sore after PT yesterday and she did her exercises later in the day. PT-OP-G Mobility & Gait Start: 10/13/23 12:58 Freq: Status: Active Protocol: Document 10/14/23 11:16 MB (Rec: 10/14/23 12:06 MB [id number]) OP Gait Assessment Comments Gait Comments See 6MWT and pt does have more unsteadines when initiating gait and with slower gait speed. Tremor noticed and left lean with walking counter clockwise for 6MWT and wall is on the left side of patient PT-OP-H Neuro Start: 10/13/23 12:58 Freq: Status: Active Protocol: Document 10/14/23 11:16 MB (Rec: 10/14/23 12:06 MB [id number]) Coordination Evaluation Upper Extremity Tests Left Finger to Nose Test Minimal Impairment Pronation/Supination Test Minimal Impairment Right Finger to Nose Test Minimal Impairment Pronation/Supination Test Minimal Impairment Lower Extremity Tests Left Heel on Calle Test Minimal Impairment Foot Tapping Test Minimal Impairment Right Heel on Calle Test Moderate Impairment Foot Tapping Test Minimal Impairment Vital Signs Comments Vital Signs Comments See orthostatic assessment in assessment portion PT-OP-J Posture/Palpation/Skin Start: 10/13/23 12:58 Freq: Status: Active Protocol: Document 10/14/23 11:16 MB (Rec: 10/14/23 12:06 MB [id number]) Posture Evaluation Comments Posture Comments Forward head, rounded shoulders PT-OP-M Strength Start: 10/13/23 12:58 Freq: Status: Active Protocol: Document 10/14/23 11:16 MB (Rec: 10/14/23 12:06 MB [id number]) Shoulder Strength Shoulder Manual Muscle Testing Bilateral Flexion 4+ Good+ Abduction (C5) 4+ Good+ Hip Strength Hip Manual Muscle Testing Bilateral Flexion (L2) 4+ Good+ Knee Strength Knee Manual Muscle Testing Bilateral Flexion (S2) 5 Normal PT-OP-Q Treatments Start: 10/13/23 12:58 Freq: Status: Active Protocol: Document 11/05/23 11:20 MB (Rec: 11/05/23 11:47 MB [id number]) Therapeutic Exercises Sitting Exercises Side to side Sitting Exercise Name Slowed down Side bilateral Equipment Used BIG chair Reps/Minutes 20 total alternating reps, flicks Comments Cues to hold chair, improved leg return front Floor to ceiling Equipment Used BIG chair Reps/Minutes 10 Comments Flicks Standing Exercises Side rock and reach Standing Exercise Name Slower Side bilateral Reps/Minutes 10 reps alternating each side Comments Cues to complete each rep and slap thighs Forward rock and reach Side bilateral Reps/Minutes 10 reps Comments Pt is cautious to shift weight Backward step Equipment Used BIG chair support continue needed Reps/Minutes 10 reps each side Comments Better finishing of movement today Side step Standing Exercise Name Slower Side bilateral Reps/Minutes 10 alternating reps Comments Better finishing of movement today, cues for B big arms Forward step Side bilateral Reps/Minutes 10 alternating reps Comments Moves forward during the exercise Therapeutic Activity Therapeutic Activity Buttoning Comments Standin reps: button 30 sec, unbutton 19 sec; button 30 sec, unbutton 10 sec; button 18 sec and unbutton 8 sec BIG STS Reps/Minutes 10 reps Comments BIG chair Gait Training Gait Activity BIG walking Comments BIG walking outside today with balance challenges in grass, around trees and off of curbs, backwards walking on sidewalk . Pt is superv with forward gait and CGA with balance challenges and her alisa decreases a lot with balance challenges PT-OP-T Assessment and Plan Start: 10/13/23 12:58 Freq: Status: Active Protocol: Document 11/05/23 11:20 MB (Rec: 11/05/23 11:47 MB [id number]) Physical Therapy Assessment Rehab Potential Rehabilitation Potential Good Evaluation Complexity Number of Personal Factors/Comorbidities 1-2 Number of Body Systems Impaired 3 Clinical Presentation at Evaluation Evolving Impairments Impairments Activity Tolerance,Balance, Coordination,Functional Activities,Functional Mobility ,Gait,Pain,Posture,Strength, Transfers,Vestibular Goals 4 Impairment Evidence of imbalance Elderly Companion Goal (LTG) Pt will perform WNLs on FGA to decrease fall risk. 10/29/23: LTG Duration 5 weeks 3 Impairment 1181 feet in 6 minutes Elderly Companion Goal (LTG) Pt will gait train at least 1400 feet without AD in 6 minutes to improve community ambulation. 10/29/23: Pt gait trains 1300 feet in 6 minutes, cues for BIG arm swing left UE and BIG stepping LTG Duration 5 weeks 1 Impairment Lack of amplitude specific HEP Elderly Companion Goal (LTG) Pt will perform BIG exercises and therapeutic activities with I daily at home. 10/29/23: Pt is performing BIG exercises twice a day on non- therapy days and once a day on therapy days LTG Duration 5 weeks Assessment Summary Assessment Exercises look better and pt slows down greatly with balance challenges with gait including backwards walking and stepping off curb. Physical Therapy Plan Frequency and Duration Frequency of Treatment 16 treatments Duration of treatment (weeks) 5 Plan of Care Start Date 10/14/23 Plan of Care End Date 11/24/23 Therapeutic Interventions Therapeutic Interventions Balance Training,Canalithic Repositioning,Coordination Training,Gait Training,Home Exercise Program,Manual Therapy,Neuromuscular Re- education,Patient/Caregiver Education,Self-Care/Home Management,Therapeutic Activities,Therapeutic Exercises,Vestibular Rehabilitation Modalities Cold Pack/Ice Massage,Hot Packs Next Visit Focus/Plan Next Note Type Treatment Note Next Visit Plan Con't to work on balance and gait with BIG walking, walking backwards, con't to work on completing each rep and slapping thighs before starting next rep
--- NOTE | 2023-11-06 12:15 | PT.OTN ---
Current Diagnoses Parkinsonism, unspecified (11/06/23) Physical Therapy Treatment Note PT-OP-A Visit Information Start: 10/13/23 12:58 Freq: Status: Active Protocol: Document 11/06/23 11:20 SP (Rec: 11/06/23 12:25 SP [id number]) Out-Patient Physical Therapy Visit Information Visit Information Visit Type Treatment Note Visit Note Medicare 03/18 before KX Visit Start Time 11:20 Visit Stop Time 12:15 Visit Number 13 Number of DIRECTOR OF ADULT EPILEPSY Visits 1 Evaluation Information Evaluation Date 10/14/23 Precautions Precautions [place] L, fall risk, left foot arthritis occ bothers her PT-OP-B Current Condition Start: 10/13/23 12:58 Freq: Status: Active Protocol: Document 10/14/23 11:16 MB (Rec: 10/14/23 12:06 MB [id number]) Current Condition History of Current Condition Onset Date 4 years ago Current Complaints Hand tremors and imbalance History of Current Condition 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 Pt lives with her . She drives. She does not use a cane or a walker. She has not had any falls in the past year . Pt reports hand tremors and imbalance are her biggest concerns. Pt appears to under- rate FES fear of falling reports given verbal concern of imbalance today. Pt reports that she is doing okay with buttoning and writing. She is right handed. Maybe buttoning some things is problematic. Pt denies light-headedness getting up in the morning. Treatment Goals Patient/Caregiver Goals Improving balance PT-OP-C Subjective Start: 10/13/23 12:58 Freq: Status: Active Protocol: Document 11/06/23 11:20 SP (Rec: 11/06/23 12:25 SP [id number]) OP-PT Subjective Patient Comments Patient Comments Pt reported saw program director substance abuse, good results from monitor wore in August. She stated tired after yesterday's tx but felt good to be challenged. PT-OP-G Mobility & Gait Start: 10/13/23 12:58 Freq: Status: Active Protocol: Document 10/14/23 11:16 MB (Rec: 10/14/23 12:06 MB [id number]) OP Gait Assessment Comments Gait Comments See 6MWT and pt does have more unsteadines when initiating gait and with slower gait speed. Tremor noticed and left lean with walking counter clockwise for 6MWT and wall is on the left side of patient PT-OP-H Neuro Start: 10/13/23 12:58 Freq: Status: Active Protocol: Document 10/14/23 11:16 MB (Rec: 10/14/23 12:06 MB [id number]) Coordination Evaluation Upper Extremity Tests Left Finger to Nose Test Minimal Impairment Pronation/Supination Test Minimal Impairment Right Finger to Nose Test Minimal Impairment Pronation/Supination Test Minimal Impairment Lower Extremity Tests Left Heel on Calle Test Minimal Impairment Foot Tapping Test Minimal Impairment Right Heel on Calle Test Moderate Impairment Foot Tapping Test Minimal Impairment Vital Signs Comments Vital Signs Comments See orthostatic assessment in assessment portion PT-OP-J Posture/Palpation/Skin Start: 10/13/23 12:58 Freq: Status: Active Protocol: Document 10/14/23 11:16 MB (Rec: 10/14/23 12:06 MB [id number]) Posture Evaluation Comments Posture Comments Forward head, rounded shoulders PT-OP-M Strength Start: 10/13/23 12:58 Freq: Status: Active Protocol: Document 10/14/23 11:16 MB (Rec: 10/14/23 12:06 MB [id number]) Shoulder Strength Shoulder Manual Muscle Testing Bilateral Flexion 4+ Good+ Abduction (C5) 4+ Good+ Hip Strength Hip Manual Muscle Testing Bilateral Flexion (L2) 4+ Good+ Knee Strength Knee Manual Muscle Testing Bilateral Flexion (S2) 5 Normal PT-OP-Q Treatments Start: 10/13/23 12:58 Freq: Status: Active Protocol: Document 11/06/23 11:20 SP (Rec: 11/06/23 12:25 SP [id number]) Therapeutic Exercises Sitting Exercises Side to side Sitting Exercise Name Slowed down Side bilateral Equipment Used BIG chair Reps/Minutes 20 total alternating reps, flicks Comments Cues leg back comfort ext, arm up let go flicks Floor to ceiling Equipment Used BIG chair Reps/Minutes 10 Comments Flicks Standing Exercises Side rock and reach Standing Exercise Name Slower Side bilateral Reps/Minutes 10 reps alternating each side Comments Cues to complete L turn R arm 90 deg out side, slap thigh midline return Forward rock and reach Side bilateral Reps/Minutes 10 reps Comments Slight slower pacing cautious to shift weight /c arms, Cued L back more Backward step Equipment Used BIG chair support continue needed Reps/Minutes 10 reps each side Comments Better finishing of movement today Side step Standing Exercise Name Slower Side bilateral Reps/Minutes 20 alternating reps Comments Cued B big arms, toe and trunk turn toward direction Forward step Side bilateral Reps/Minutes 10 alternating reps Comments Moves forward during the exercise, cued arms higher Therapeutic Activity Therapeutic Activity Getting on and off floor on gym mat Name CG>close SBA Reps/Minutes 1. 2 reps mat 2. 2 reps (1 blue mat, 1 yoga mat) Comments 1. Pt fwd facing use chair support, moves to half kneel and then to side and then legs out straight and then reverse to get back up off the floor with UE support. 2. Pt deep squat, reaches hands on floor slowly lower B knees on floor<>side> back then reverse, down dog positioning, walked hands back into squat then into standing . STS from lower surfaces Comments Many reps from low surfaces including plastic box upside down, weight machine seat, second step of standard steps and shorter steps with B rails for UE support, box steps lower level with hands and higher side without hands, medium step with hands, 2 sets of these exercises, also low stool against wall and guarded with PT's foot BIG STS Reps/Minutes 10 reps Comments BIG chair Gait Training Gait Activity Uneven Surface Description indoor uneven 1 mat over pods, wooden wedges. Device Used 0 Level of Assistance CG at gait belt/close SBA Treatment Focus stability, foot clearance, Comments 3 reps, fwd and side stepping *improved wt shift into advanced LE stability, contact therapist hand x1 initial BLE onto mat 1st rep. Stairs Comments light glide 1 HR, receiprocal stepping. Demonstrates slight decreased in WBOS descending but reduced with cuing. BIG walking Comments BIG walking inside, head turns , backwards walking. Pt is superv with forward gait and CGA with balance challenges and her alisa decreases a lot with balance challenges PT-OP-T Assessment and Plan Start: 10/13/23 12:58 Freq: Status: Active Protocol: Document 11/06/23 11:20 SP (Rec: 11/06/23 12:25 SP [id number]) Physical Therapy Assessment Goals 4 Impairment Evidence of imbalance [employer] Sales Manager Goal (LTG) Pt will perform WNLs on FGA to decrease fall risk. 10/29/23: LTG Duration 5 weeks 3 Impairment 1181 feet in 6 minutes [employer] Sales Manager Goal (LTG) Pt will gait train at least 1400 feet without AD in 6 minutes to improve community ambulation. 10/29/23: Pt gait trains 1300 feet in 6 minutes, cues for BIG arm swing left UE and BIG stepping LTG Duration 5 weeks 1 Impairment Lack of amplitude specific HEP [employer] Sales Manager Goal (LTG) Pt will perform BIG exercises and therapeutic activities with I daily at home. 10/29/23: Pt is performing BIG exercises twice a day on non- therapy days and once a day on therapy days LTG Duration 5 weeks Assessment Summary Assessment Cues for LUE back swing during ex and gait. Improved wt shift over JAVED rising from low surfaces sit stand, cue x1 for slower controlled pacing descend. Pt improved demonstration getting on floor facing chair with support with better pacing and was able to use hands on floor x2 reps intially CGA then close SBA with cuing hand and body positioning then did on yoga mat assimulate could perform home for supine self exercises /stretches states does at times in bed. Pt agreed would like to continue performing in PT for more confidence and ability get something out from under bed or cupboard if needed. Physical Therapy Plan Frequency and Duration Frequency of Treatment 16 treatments Duration of treatment (weeks) 5 Plan of Care Start Date 10/14/23 Plan of Care End Date 11/24/23 Therapeutic Interventions Therapeutic Interventions Balance Training,Canalithic Repositioning,Coordination Training,Gait Training,Home Exercise Program,Manual Therapy,Neuromuscular Re- education,Patient/Caregiver Education,Self-Care/Home Management,Therapeutic Activities,Therapeutic Exercises,Vestibular Rehabilitation Modalities Cold Pack/Ice Massage,Hot Packs Next Visit Focus/Plan Next Note Type Treatment Note Next Visit Plan Con't to work on balance and gait with BIG walking, walking backwards, con't to work on completing each rep and slapping thighs before starting next rep
--- NOTE | 2023-11-10 11:34 | PT.OTN ---
Current Diagnoses Parkinsonism, unspecified (11/10/23) Physical Therapy Treatment Note PT-OP-A Visit Information Start: 10/13/23 12:58 Freq: Status: Active Protocol: Document 11/10/23 10:34 SP (Rec: 11/10/23 12:00 SP [id number]) Out-Patient Physical Therapy Visit Information Visit Information Visit Type Treatment Note Visit Note Medicare 10/07 post PN,14 total BIG visits 03/18 before KX Visit Start Time 10:34 Visit Stop Time 11:34 Visit Number 14 Number of COUNSELING AIDE Visits 2 Evaluation Information Evaluation Date 10/14/23 Precautions Precautions CROW L, fall risk, left foot arthritis occ bothers her PT-OP-B Current Condition Start: 10/13/23 12:58 Freq: Status: Active Protocol: Document 10/14/23 11:16 MB (Rec: 10/14/23 12:06 MB [id number]) Current Condition History of Current Condition Onset Date 4 years ago Current Complaints Hand tremors and imbalance History of Current Condition 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 Pt lives with her . She drives. She does not use a cane or a walker. She has not had any falls in the past year . Pt reports hand tremors and imbalance are her biggest concerns. Pt appears to under- rate FES fear of falling reports given verbal concern of imbalance today. Pt reports that she is doing okay with buttoning and writing. She is right handed. Maybe buttoning some things is problematic. Pt denies light-headedness getting up in the morning. Treatment Goals Patient/Caregiver Goals Improving balance PT-OP-C Subjective Start: 10/13/23 12:58 Freq: Status: Active Protocol: Document 11/10/23 10:34 SP (Rec: 11/10/23 12:00 SP [id number]) OP-PT Subjective Patient Comments Patient Comments Pt Reports can sit>stand from all surfaces without UEs, trying remember to be consistant. Doing HEP 2x/day. PT-OP-G Mobility & Gait Start: 10/13/23 12:58 Freq: Status: Active Protocol: Document 10/14/23 11:16 MB (Rec: 10/14/23 12:06 MB [id number]) OP Gait Assessment Comments Gait Comments See 6MWT and pt does have more unsteadines when initiating gait and with slower gait speed. Tremor noticed and left lean with walking counter clockwise for 6MWT and wall is on the left side of patient PT-OP-H Neuro Start: 10/13/23 12:58 Freq: Status: Active Protocol: Document 10/14/23 11:16 MB (Rec: 10/14/23 12:06 MB [id number]) Coordination Evaluation Upper Extremity Tests Left Finger to Nose Test Minimal Impairment Pronation/Supination Test Minimal Impairment Right Finger to Nose Test Minimal Impairment Pronation/Supination Test Minimal Impairment Lower Extremity Tests Left Heel on Calle Test Minimal Impairment Foot Tapping Test Minimal Impairment Right Heel on Calle Test Moderate Impairment Foot Tapping Test Minimal Impairment Vital Signs Comments Vital Signs Comments See orthostatic assessment in assessment portion PT-OP-J Posture/Palpation/Skin Start: 10/13/23 12:58 Freq: Status: Active Protocol: Document 10/14/23 11:16 MB (Rec: 10/14/23 12:06 MB [id number]) Posture Evaluation Comments Posture Comments Forward head, rounded shoulders PT-OP-M Strength Start: 10/13/23 12:58 Freq: Status: Active Protocol: Document 10/14/23 11:16 MB (Rec: 10/14/23 12:06 MB [id number]) Shoulder Strength Shoulder Manual Muscle Testing Bilateral Flexion 4+ Good+ Abduction (C5) 4+ Good+ Hip Strength Hip Manual Muscle Testing Bilateral Flexion (L2) 4+ Good+ Knee Strength Knee Manual Muscle Testing Bilateral Flexion (S2) 5 Normal PT-OP-Q Treatments Start: 10/13/23 12:58 Freq: Status: Active Protocol: Document 11/10/23 10:34 SP (Rec: 11/10/23 12:00 SP [id number]) Therapeutic Exercises Sitting Exercises Side to side Side bilateral Equipment Used BIG chair Reps/Minutes 20 total alternating reps, flicks Comments Cues leg back comfort ext, Slowed down counting to allow proper form Floor to ceiling Equipment Used BIG chair Reps/Minutes 10 Comments Flicks Standing Exercises Side rock and reach Standing Exercise Name Slower Side bilateral Reps/Minutes 20 reps alternating each side Comments Cues to complete L turn R arm 90 deg out side, slap thigh midline return Forward rock and reach Side bilateral Reps/Minutes 10 reps each stride stance Comments cued slower pace, arms swing back more Backward step Resistance close SBA Equipment Used standing between rail & chair- PRN Reps/Minutes 20 rep alternating Comments Cued & modeled VERY SLOW, LOB x2 rail recovery- improve form /bal with reps Side step Standing Exercise Name Slower Side bilateral Reps/Minutes 20 alternating reps Comments Cued B big arms with maybe slower pace for form, improved turn toward Forward step Side bilateral Reps/Minutes 20 alternating reps Comments Moves forward during the exercise, cued arms higher, challenge /cflick open Therapeutic Activity Therapeutic Activity Getting on and off floor on gym mat Name close SBA Reps/Minutes 2 reps Comments on/of floor use BUEs: squat to BUE on floor, slow bend knees to floor to quadruped then roll on to back, reverse to stand. Not need use outside furniture for support, stable/ no LOB. STS from lower surfaces Comments Many reps from low surfaces including plastic box&carpet upside down, second step of standard steps 8 and shorter 2nd step with B rails for UE support, box 24 no hands, 12 /c hands,8 step with rail, portable metal step /c hands, 2 sets of these exercises, also low stool against wall and guarded with PT's foot Gait Training Gait Activity Uneven Surface Description indoor uneven 1 mat over pods, wooden wedges, stacked foam. Device Used 0 Level of Assistance CG at gait belt/close SBA Treatment Focus stability, foot clearance, Comments 4 reps, fwd and side stepping *improved wt shift into advanced LE stability, very light CGA at gait belt. no LOB . Stairs Distance/Duration MAP 1 flight stairs (14 stairs ) Treatment Focus receiprocal stepping decreased amt UE support Comments light glide 1 HR, receiprocal stepping. Demonstrates slight decreased in WBOS descending but reduced with cuing. BIG walking Comments BIG walking inside hallway, head turns, backwards walking, cues arm swing back. Pt is superv with forward gait and CGA-close SBA with balance challenges: her alisa and stride decrease with balance challenges. Outside curbs Indep. Balance challenge uneven surfaces grassy hill: fwd ascend, back step descend and lateral stepping asc& descend close SBA, improved stability no sways or LOB nor reach out today for confidence support. Neuro Re-Education Treatment Balance Activities STS on uneven foam Details 2UE>1 UE> no UE Equipment BIG firm chair, BFeet on blue foam Reps/Duration 10 reps total. Comments CGA> close SBA last rep cued hip hinge nose over toes asc & desc, slower eccentric si. Does use momentum no UE to ascend. PT-OP-T Assessment and Plan Start: 10/13/23 12:58 Freq: Status: Active Protocol: Document 11/10/23 10:34 SP (Rec: 11/10/23 12:00 SP [id number]) Physical Therapy Assessment Goals 4 Impairment Evidence of imbalance [facility] Goal (LTG) Pt will perform WNLs on FGA to decrease fall risk. 10/29/23: LTG Duration 5 weeks 3 Impairment 1181 feet in 6 minutes Brick Tester Goal (LTG) Pt will gait train at least 1400 feet without AD in 6 minutes to improve community ambulation. 10/29/23: Pt gait trains 1300 feet in 6 minutes, cues for BIG arm swing left UE and BIG stepping LTG Duration 5 weeks 1 Impairment Lack of amplitude specific HEP [facility] Goal (LTG) Pt will perform BIG exercises and therapeutic activities with I daily at home. 10/29/23: Pt is performing BIG exercises twice a day on non- therapy days and once a day on therapy days LTG Duration 5 weeks Assessment Summary Assessment Min cues for arms swing back more during ex and gait. Was able to perform back stepping with VERY SLOW pacing, rail support nearby PRN. had 3 LOB to R initial few steps but rail self support, improved stability with reps but doesn' t feel confident, states will use chair at home. Pt improved uneven surface (mat) stepping no LOB needing outside support. Physical Therapy Plan Frequency and Duration Frequency of Treatment 16 treatments Duration of treatment (weeks) 5 Plan of Care Start Date 10/14/23 Plan of Care End Date 11/24/23 Therapeutic Interventions Therapeutic Interventions Balance Training,Canalithic Repositioning,Coordination Training,Gait Training,Home Exercise Program,Manual Therapy,Neuromuscular Re- education,Patient/Caregiver Education,Self-Care/Home Management,Therapeutic Activities,Therapeutic Exercises,Vestibular Rehabilitation Modalities Cold Pack/Ice Massage,Hot Packs Next Visit Focus/Plan Next Note Type Treatment Note Next Visit Plan Continue on/ off floor no outside support, uneven grass for community park confidence, STS from uneven for off park bench. POC: Con't to work on balance and gait with BIG walking, walking backwards, con't to work on completing each rep and slapping thighs before starting next rep
--- NOTE | 2023-11-11 12:13 | PT.OTN ---
Current Diagnoses Parkinsonism, unspecified (11/11/23) Physical Therapy Treatment Note PT-OP-A Visit Information Start: 10/13/23 12:58 Freq: Status: Active Protocol: Document 11/11/23 11:20 MB (Rec: 11/11/23 12:00 MB [id number]) Out-Patient Physical Therapy Visit Information Visit Information Visit Type Treatment Note Visit Note Medicare Visit Start Time 11:17 Visit Stop Time 12:10 Visit Number 15 Number of [employer] Visits 0 Evaluation Information Evaluation Date 10/14/23 Precautions Precautions ELIM IRA L, fall risk, left foot arthritis occ bothers her PT-OP-B Current Condition Start: 10/13/23 12:58 Freq: Status: Active Protocol: Document 10/14/23 11:16 MB (Rec: 10/14/23 12:06 MB [id number]) Current Condition History of Current Condition Onset Date 4 years ago Current Complaints Hand tremors and imbalance History of Current Condition 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 Pt lives with her . She drives. She does not use a cane or a walker. She has not had any falls in the past year . Pt reports hand tremors and imbalance are her biggest concerns. Pt appears to under- rate FES fear of falling reports given verbal concern of imbalance today. Pt reports that she is doing okay with buttoning and writing. She is right handed. Maybe buttoning some things is problematic. Pt denies light-headedness getting up in the morning. Treatment Goals Patient/Caregiver Goals Improving balance PT-OP-C Subjective Start: 10/13/23 12:58 Freq: Status: Active Protocol: Document 11/11/23 11:20 MB (Rec: 11/11/23 12:00 MB [id number]) OP-PT Subjective Patient Comments Patient Comments Pt is ready to be done with BIG and she thinks everything has gone smoothly and they are great exercises. PT-OP-G Mobility & Gait Start: 10/13/23 12:58 Freq: Status: Active Protocol: Document 10/14/23 11:16 MB (Rec: 10/14/23 12:06 MB [id number]) OP Gait Assessment Comments Gait Comments See 6MWT and pt does have more unsteadines when initiating gait and with slower gait speed. Tremor noticed and left lean with walking counter clockwise for 6MWT and wall is on the left side of patient PT-OP-H Neuro Start: 10/13/23 12:58 Freq: Status: Active Protocol: Document 10/14/23 11:16 MB (Rec: 10/14/23 12:06 MB [id number]) Coordination Evaluation Upper Extremity Tests Left Finger to Nose Test Minimal Impairment Pronation/Supination Test Minimal Impairment Right Finger to Nose Test Minimal Impairment Pronation/Supination Test Minimal Impairment Lower Extremity Tests Left Heel on Calle Test Minimal Impairment Foot Tapping Test Minimal Impairment Right Heel on Calle Test Moderate Impairment Foot Tapping Test Minimal Impairment Vital Signs Comments Vital Signs Comments See orthostatic assessment in assessment portion PT-OP-J Posture/Palpation/Skin Start: 10/13/23 12:58 Freq: Status: Active Protocol: Document 10/14/23 11:16 MB (Rec: 10/14/23 12:06 MB [id number]) Posture Evaluation Comments Posture Comments Forward head, rounded shoulders PT-OP-M Strength Start: 10/13/23 12:58 Freq: Status: Active Protocol: Document 10/14/23 11:16 MB (Rec: 10/14/23 12:06 MB [id number]) Shoulder Strength Shoulder Manual Muscle Testing Bilateral Flexion 4+ Good+ Abduction (C5) 4+ Good+ Hip Strength Hip Manual Muscle Testing Bilateral Flexion (L2) 4+ Good+ Knee Strength Knee Manual Muscle Testing Bilateral Flexion (S2) 5 Normal PT-OP-Q Treatments Start: 10/13/23 12:58 Freq: Status: Active Protocol: Document 11/11/23 11:20 MB (Rec: 11/11/23 12:00 MB [id number]) Therapeutic Exercises Sitting Exercises Side to side Side bilateral Equipment Used BIG chair Reps/Minutes 20 alternating reps Comments Cues not to move leg until turning and cues to slow down and grab chair Floor to ceiling Equipment Used BIG chair Reps/Minutes 10 Comments Flicks Standing Exercises Side rock and reach Standing Exercise Name Slower Side bilateral Reps/Minutes 20 reps alternating each side Comments Cues to complete each rep Forward rock and reach Side bilateral Reps/Minutes 10 reps Comments Cues to increase weight shift Backward step Equipment Used BIG michael for UE support Reps/Minutes 10 reps each side Comments Pt will perform this way at home going forward Side step Standing Exercise Name Slower Side bilateral Reps/Minutes 20 alternating reps Comments Cues to fully complete each rep Forward step Side bilateral Reps/Minutes 20 alternating reps Comments Moves forward during the exercise Therapeutic Activity Therapeutic Activity STS from lower surfaces Comments Many reps from low surfaces including plastic box upside down, second step of standard steps 8 and shorter 2nd step with B rails for UE support, box 24 no hands, seat on weight machines with no hands BIG STS Reps/Minutes 10 reps Comments BIG chair Gait Training Gait Activity BIG walking Comments BIG walking laps in obstacle course in PT gym and hallway: BIG walking and arm swing and superv over blue mat, superv to CGA 8 hurdles, CGA backward stepping x20 reps in one hallway, then turn and walk forward around the curve and then 20 steps backwards walking back hallway and then forward around curve, CGA for backwards walking. 5 reps clockwise, rest break and then 5 more reps counterclockwise. Pt does fatigue and take break after two counterclockwise reps, she kicks some hurdles. PT-OP-T Assessment and Plan Start: 10/13/23 12:58 Freq: Status: Active Protocol: Document 11/11/23 11:20 MB (Rec: 11/11/23 12:00 MB [id number]) Physical Therapy Assessment Rehab Potential Rehabilitation Potential Good Evaluation Complexity Number of Personal Factors/Comorbidities 1-2 Number of Body Systems Impaired 3 Clinical Presentation at Evaluation Evolving Impairments Impairments Activity Tolerance,Balance, Coordination,Functional Activities,Functional Mobility ,Gait,Pain,Posture,Strength, Transfers,Vestibular Goals 4 Impairment Evidence of imbalance Half-Way Goal (LTG) Pt will perform WNLs on FGA to decrease fall risk. 10/29/23: LTG Duration 5 weeks 3 Impairment 1181 feet in 6 minutes Half-Way Goal (LTG) Pt will gait train at least 1400 feet without AD in 6 minutes to improve community ambulation. 10/29/23: Pt gait trains 1300 feet in 6 minutes, cues for BIG arm swing left UE and BIG stepping LTG Duration 5 weeks 1 Impairment Lack of amplitude specific HEP Half-Way Goal (LTG) Pt will perform BIG exercises and therapeutic activities with I daily at home. 10/29/23: Pt is performing BIG exercises twice a day on non- therapy days and once a day on therapy days LTG Duration 5 weeks Assessment Summary Assessment Ongoing cues to stop between reps of some exercises to check form. Improved hurdles and backwards walking today. Physical Therapy Plan Frequency and Duration Frequency of Treatment 16 treatments Duration of treatment (weeks) 5 Plan of Care Start Date 10/14/23 Plan of Care End Date 11/24/23 Therapeutic Interventions Therapeutic Interventions Balance Training,Canalithic Repositioning,Coordination Training,Gait Training,Home Exercise Program,Manual Therapy,Neuromuscular Re- education,Patient/Caregiver Education,Self-Care/Home Management,Therapeutic Activities,Therapeutic Exercises,Vestibular Rehabilitation Modalities Cold Pack/Ice Massage,Hot Packs Next Visit Focus/Plan Next Note Type Discharge Summary
--- NOTE | 2023-11-12 12:13 | PT.OTN ---
Current Diagnoses Parkinsonism, unspecified (11/12/23) Physical Therapy Treatment Note PT-OP-A Visit Information Start: 10/13/23 12:58 Freq: Status: Active Protocol: Document 11/12/23 11:20 MB (Rec: 11/12/23 12:12 MB [id number]) Out-Patient Physical Therapy Visit Information Visit Information Visit Type Discharge Summary Visit Note Medicare Visit Start Time 11:20 Visit Stop Time 12:13 Visit Number 16 Number of AUDIO VISUAL COORDINATOR Visits 0 Evaluation Information Evaluation Date 10/14/23 PT-OP-B Current Condition Start: 10/13/23 12:58 Freq: Status: Active Protocol: Document 10/14/23 11:16 MB (Rec: 10/14/23 12:06 MB [id number]) Current Condition History of Current Condition Onset Date 4 years ago Current Complaints Hand tremors and imbalance History of Current Condition 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 Pt lives with her . She drives. She does not use a cane or a walker. She has not had any falls in the past year . Pt reports hand tremors and imbalance are her biggest concerns. Pt appears to under- rate FES fear of falling reports given verbal concern of imbalance today. Pt reports that she is doing okay with buttoning and writing. She is right handed. Maybe buttoning some things is problematic. Pt denies light-headedness getting up in the morning. Treatment Goals Patient/Caregiver Goals Improving balance PT-OP-C Subjective Start: 10/13/23 12:58 Freq: Status: Active Protocol: Document 11/12/23 11:20 MB (Rec: 11/12/23 12:12 MB [id number]) OP-PT Subjective Patient Comments Patient Comments Pt states that everything is going well. She is agreeable to con't BIG exercises once a day going forward. PT-OP-G Mobility & Gait Start: 10/13/23 12:58 Freq: Status: Active Protocol: Document 10/14/23 11:16 MB (Rec: 10/14/23 12:06 MB [id number]) OP Gait Assessment Comments Gait Comments See 6MWT and pt does have more unsteadines when initiating gait and with slower gait speed. Tremor noticed and left lean with walking counter clockwise for 6MWT and wall is on the left side of patient PT-OP-H Neuro Start: 10/13/23 12:58 Freq: Status: Active Protocol: Document 10/14/23 11:16 MB (Rec: 10/14/23 12:06 MB [id number]) Coordination Evaluation Upper Extremity Tests Left Finger to Nose Test Minimal Impairment Pronation/Supination Test Minimal Impairment Right Finger to Nose Test Minimal Impairment Pronation/Supination Test Minimal Impairment Lower Extremity Tests Left Heel on Calle Test Minimal Impairment Foot Tapping Test Minimal Impairment Right Heel on Calle Test Moderate Impairment Foot Tapping Test Minimal Impairment Vital Signs Comments Vital Signs Comments See orthostatic assessment in assessment portion PT-OP-J Posture/Palpation/Skin Start: 10/13/23 12:58 Freq: Status: Active Protocol: Document 10/14/23 11:16 MB (Rec: 10/14/23 12:06 MB [id number]) Posture Evaluation Comments Posture Comments Forward head, rounded shoulders PT-OP-M Strength Start: 10/13/23 12:58 Freq: Status: Active Protocol: Document 10/14/23 11:16 MB (Rec: 10/14/23 12:06 MB [id number]) Shoulder Strength Shoulder Manual Muscle Testing Bilateral Flexion 4+ Good+ Abduction (C5) 4+ Good+ Hip Strength Hip Manual Muscle Testing Bilateral Flexion (L2) 4+ Good+ Knee Strength Knee Manual Muscle Testing Bilateral Flexion (S2) 5 Normal PT-OP-Q Treatments Start: 10/13/23 12:58 Freq: Status: Active Protocol: Document 11/12/23 11:20 MB (Rec: 11/12/23 12:12 MB [id number]) Therapeutic Exercises Sitting Exercises Side to side Side bilateral Equipment Used BIG chair Reps/Minutes 20 alternating reps Comments Cues not to move leg until turning and cues to slow down and grab chair Floor to ceiling Equipment Used BIG chair Reps/Minutes 10 Comments Flicks Standing Exercises Side rock and reach Standing Exercise Name Slower Side bilateral Reps/Minutes 20 reps alternating each side Comments Cues to complete each rep Forward rock and reach Side bilateral Reps/Minutes 10 reps Comments Cues to increase weight shift Backward step Equipment Used BIG michael for UE support Reps/Minutes 10 reps each side Comments Pt will perform this way at home going forward Side step Standing Exercise Name Slower Side bilateral Reps/Minutes 20 alternating reps Comments Cues to fully complete each rep Forward step Side bilateral Reps/Minutes 20 alternating reps Comments Moves forward during the exercise Therapeutic Activity Therapeutic Activity BIG STS Reps/Minutes 10 reps Comments BIG chair Gait Training Gait Activity BIG walking Comments Performed today throughout treatment and pt con't with shorter steps and decreased left arm swing occ and cues to con't BIG arm swing 6MWT Comments Pt gait trains 1244 feet in 6 minutes today Neuro Re-Education Treatment Balance Activities FGA Comments FGA score is 15/30 today TUG Comments 10 sec without AD PT-OP-T Assessment and Plan Start: 10/13/23 12:58 Freq: Status: Active Protocol: Document 11/12/23 11:20 MB (Rec: 11/12/23 12:12 MB [id number]) Physical Therapy Assessment Rehab Potential Rehabilitation Potential Good Evaluation Complexity Number of Personal Factors/Comorbidities 1-2 Number of Body Systems Impaired 3 Clinical Presentation at Evaluation Evolving Impairments Impairments Activity Tolerance,Balance, Coordination,Functional Activities,Functional Mobility ,Gait,Pain,Posture,Strength, Transfers,Vestibular Goals 4 Impairment Evidence of imbalance Alf Goal (LTG) Pt will perform WNLs on FGA to decrease fall risk. 10/29/23: LTG Duration 5 weeks 3 Impairment 1181 feet in 6 minutes Mva Reactor Operator Head Goal (LTG) Pt will gait train at least 1400 feet without AD in 6 minutes to improve community ambulation. 10/29/23: Pt gait trains 1300 feet in 6 minutes, cues for BIG arm swing left UE and BIG stepping 11/12/23: Pt gait trains 1244 feet in 6 minutes LTG Duration Partially met, improvement 1 Impairment Lack of amplitude specific HEP Mva Reactor Operator Head Goal (LTG) Pt will perform BIG exercises and therapeutic activities with I daily at home. 10/29/23: Pt is performing BIG exercises twice a day on non- therapy days and once a day on therapy days LTG Duration 5 weeks Assessment Summary Assessment Pt has met or progressed towards all PT goals since starting therapy. She gait trains a little less distance in 6MWT today compared to assessment but she still gait trains further today compared to initially. Pt con't with decreased left arm swing and some tremoring in UEs with gait. TUG today: 10 sec. She still has some balance challenges with FGA but she is performing backwards gait better. She is performing BIG exercises at home. LSVT BIG treatments are done. Ed pt that she can check in if needed for refresher.
== END 2023-11-13 14:28 | disposition home or self-care (01) ==
LOC: PHYS 11:15
PROVIDERS: Family Provider Family Medicine; PCP Family Medicine; Referring Provider Family Medicine; Visit Provider Family Medicine
DX: G20.C Parkinsonism, unspecified (principal)
CPT/HCPCS: 97110; 97112; 97116; 97162; 97530; 97535

== ENCOUNTER → 2024-01-16 16:37 | Outpatient (CLI) | payer MEDICARE, SELFPAY ==
[2022-10-31 18:05] VITALS: BMI 21.9
--- NOTE | 2024-01-16 16:38 | DI.MG.S_ITS ---
BILATERAL DIGITAL SCREENING MAMMOGRAM 3D/2D WITH CAD: 01/16/2024 CLINICAL: Routine screening. Comparison is made to exams dated: 01/09/2023 mammogram, 12/12/2021 mammogram, and 11/25/2020 mammogram - [facility]. There are scattered areas of fibroglandular density (category b / 25%-50% glandular tissue). Current study was also evaluated with a Computer Aided Detection (CAD) system. No significant masses, calcifications, or other findings are seen in either breast. There has been no significant interval change. IMPRESSION: NEGATIVE There is no mammographic evidence of malignancy. A 1 year screening mammogram is recommended. Based on the Tyrer Cuzick model (a risk assessment model) the patient's lifetime risk is 0.2% and her 10 year risk is 0.0%. According to the ACR, ACS, and NCCN guidelines, an annual breast MRI exam along with mammogram is recommended if the patient's lifetime risk is 20% or greater. This exam was interpreted at Station ID: [id number]. NOTE: For mammograms, a report in lay terms will be sent to the patient. Approximately 15% of breast malignancies will not be visualized mammographically. In the management of a palpable breast mass, a negative mammogram must not discourage biopsy of a clinically suspicious lesion. Electronically Signed By: Katerine Blood M.D., Ph.D. kenny/chel:01/17/2024 00:36:58 letter sent: Normal Exam ACR BI-RADS Category 1: Negative
== END ==
PROVIDERS: Family Provider Family Medicine; PCP Family Medicine; Referring Provider Family Medicine; Visit Provider Family Medicine
DX: Z12.31 Encounter for screening mammogram for malignant neoplasm of breast (principal); Z80.3 Family history of malignant neoplasm of breast
CPT/HCPCS: 77063; 77067

== ENCOUNTER → 2024-04-30 07:01 | Outpatient (CLI) | payer MEDICARE, SELFPAY ==
[2022-10-31 18:05] VITALS: BMI 21.9
[2024-04-30 08:01] LABS: Alanine Aminotransferase 13 IU/L (<35); Albumin 4.4 g/dL (3.5-5.0); Albumin Globulin Ratio 1.6 (1.0-2.8); Alkaline Phosphatase 76 U/L (38-126); Aspartate Aminotransferase 27 IU/L (14-36); BUN Creatinine Ratio 25.3 (6-22); Bilirubin Total 0.7 mg/dL (0.2-1.3); Blood Urea Nitrogen 19 mg/dL (7-17); Calcium 9.4 mg/dL (8.4-10.2); Carbon Dioxide 25 mmol/L (22-32); Chloride 106 mmol/L (98-107); Estimated Glomerular Filt Rate > 60 mL/min (>60); Globulin 2.8 g/dL (1.7-4.1); Glucose 102 mg/dL (80-110); HEMOLYSIS < 15 (0-50); Potassium 4.2 mmol/L (3.4-5.1); Sodium 139 mmol/L (137-145); Total Protein 7.2 g/dL (6.3-8.2)
[2024-04-30 08:02] LABS: Hematocrit 43.7 % (36-46); Hemoglobin 14.8 g/dL (12.0-16.0); Mean Corpuscular HGB Conc 33.9 % (30-36); Mean Corpuscular Hemoglobin 31.5 PG (26-34); Platelet Count 235 X10^3/uL (150-400); Red Cell Distribution Width 13.3 % (11.6-14.8); White Blood Cell Count 7.2 X10^3/uL (4.5-11.0)
== END ==
PROVIDERS: Family Provider Family Medicine; PCP Family Medicine; Referring Provider Nurse Practitioner; Visit Provider Nurse Practitioner
DX: I48.0 Paroxysmal atrial fibrillation (principal)
CPT/HCPCS: 36415; 80053; 85027

== ENCOUNTER → 2024-05-25 12:35 | Outpatient (CLI) | payer MEDICARE, SELFPAY ==
[2022-10-31 18:05] VITALS: BMI 21.9
--- NOTE | 2024-05-25 12:36 | DI.RAD.S_ITS ---
PROCEDURE: XR DEXA AXIAL SKELETON INDICATIONS: osteopenia COMPARISON: 11/11/2005. FINDINGS: Lumbar Spine: Bone mineral density 0.710 g/cm2, T score -2.4. There is interval 16.8% decrease in lumbar spine bone mineral density. Left Femoral Neck: Bone mineral density 0.500 g/cm2, T score -3.1. Left Hip: Bone mineral density 0.6 x 0 g/cm2, T score -2.4. There is interval 16.1% decrease in left total hip bone mineral density. Fracture Risk Calculation (when applicable): 10-year fracture risk of a major osteoporotic fracture 24 percent and of a hip fracture 10 percent. (T score greater or equal to -1.0 to: NORMAL) (T score from -1.1 to -2.4: OSTEOPENIA) (T score less than or equal to -2.5: OSTEOPOROSIS) IMPRESSION: Osteoporosis. Follow-up guidelines as follows: Osteoporosis: Consider a repeat DEXA and Vertebral Fracture Assessment (VFA) exam in 2 years or sooner if medically necessary, to reassess this patient's status. Osteopenia: Consider a repeat DEXA in 2-3 years to reassess this patient's status, or if there is a new clinical indication. Normal: Consider a repeat DEXA in 5 years or sooner, or if there is a new clinical indication. All treatment decisions require clinical judgment and consideration of individual patient factors, including patient preferences, comorbidities, previous drug use, risk factors not captured in the FRAX model (e.g., frailty, falls, vitamin D deficiency, increased bone turnover, interval significant decline in bone density ) and possible under- or over-estimation of fracture risk by FRAX. In addition, the NOF Guide recommends that FDA-approved medical therapies be considered in postmenopausal women and men age >= 50 years with a: * Hip or vertebral (clinical or morphometric) fracture * T-score of <=-2.5 at the spine or hip * Ten-year fracture probability by FRAX of >= 3% for hip fracture or >=20% for major osteoporotic fracture. Dictated by: Arnoldo Peraza M.D. on 05/25/2024 at 15:28 Approved by: Arnoldo Peraza M.D. on 05/25/2024 at 15:29
== END ==
PROVIDERS: Family Provider Family Medicine; PCP Family Medicine; Referring Provider Family Medicine; Visit Provider Family Medicine
DX: Z78.0 Asymptomatic menopausal state (principal); M81.0 Age-related osteoporosis without current pathological fracture
CPT/HCPCS: 77080

== ENCOUNTER → 2024-07-19 06:53 | Outpatient (CLI) | payer MEDICARE, SELFPAY ==
[2022-10-31 18:05] VITALS: BMI 21.9
[2024-07-19 07:56] LABS: Add Manual Diff / Slide Review NO; Basophils Absolute Auto 0 /uL (0-100); Basophils Percent Auto 0.7 % (0-2); Eosinophils Absolute Auto 200 /uL (0-450); Eosinophils Percent Auto 3.5 % (2-4); Hematocrit 45.1 % (36-46); Hemoglobin 15.3 g/dL (12.0-16.0); Lymphocytes Absolute Auto 2100 /uL (1100-4500); Lymphocytes Percent Auto 38.1 % (25-40); Mean Corpuscular HGB Conc 34.1 % (30-36); Mean Corpuscular Hemoglobin 31.5 PG (26-34); Mean Corpuscular Volume 92.5 fL (80-100); Monocytes Absolute Auto 500 /uL (0-900); Monocytes Percent Auto 9.1 % (3-14); Neutrophils Absolute Auto 2600 /uL (1500-7000); Neutrophils Percent Auto 48.6 % (50-75); Platelet Count 210 X10^3/uL (150-400); Red Blood Cell Count 4.87 X10^6/uL (4.0-5.2); Red Cell Distribution Width 13.5 % (11.6-14.8); White Blood Cell Count 5.4 X10^3/uL (4.5-11.0)
[2024-07-19 08:18] LABS: Alanine Aminotransferase 13 IU/L (<35); Albumin 4.5 g/dL (3.5-5.0); Albumin Globulin Ratio 1.6 (1.0-2.8); Alkaline Phosphatase 68 U/L (38-126); Aspartate Aminotransferase 28 IU/L (14-36); BUN Creatinine Ratio 26.4 (6-22); Bilirubin Total 0.9 mg/dL (0.2-1.3); Blood Urea Nitrogen 19 mg/dL (7-17); Calcium 9.3 mg/dL (8.4-10.2); Carbon Dioxide 25 mmol/L (22-32); Chloride 104 mmol/L (98-107); Cholesterol 172 mg/dL (140-199); Estimated Glomerular Filt Rate > 60 mL/min (>60); Globulin 2.8 g/dL (1.7-4.1); Glucose 104 mg/dL (80-110); HDL Cholesterol 50 mg/dL (40-60); HEMOLYSIS < 15 (0-50); LDL Cholesterol Calculated 104 mg/dL (<100); Potassium 4.3 mmol/L (3.4-5.1); Sodium 137 mmol/L (137-145); Total Protein 7.3 g/dL (6.3-8.2); Triglycerides 91 mg/dL (35-150)
[2024-07-19 08:34] LABS: Vitamin D 25 Hydroxy (D3) 67.3 ng/mL (30.0-100.0)
[2024-07-19 08:49] LABS: TSH w/ Reflex to FT4 0.61 uIU/mL (0.47-4.68)
== END ==
PROVIDERS: Physician Assistant; Family Provider Family Medicine; PCP Family Medicine; Referring Provider Family Medicine; Visit Provider Family Medicine
DX: I10 Essential (primary) hypertension (principal); M81.0 Age-related osteoporosis without current pathological fracture; I48.91 Unspecified atrial fibrillation; E78.5 Hyperlipidemia, unspecified; G20.A1 Parkinson's disease without dyskinesia, without mention of fluctuations
CPT/HCPCS: 36415; 80053; 80061; 82306; 84443; 85025

== ENCOUNTER → 2025-01-19 12:51 | Outpatient (CLI) | payer MEDICARE, SELFPAY ==
[2022-10-31 18:05] VITALS: BMI 21.9
--- NOTE | 2025-01-19 12:52 | DI.MG.S_ITS ---
MM screening mammo BI: 01/19/2025. BI-RADS: 1 CLINICAL: 84-year old female for bilateral screening mammogram. Tyrer-Cuzick lifetime risk of 0.1%. No personal or first-degree family history of breast cancer. PRIOR EXAMS: 01/16/2024, 01/09/2023, 12/12/2021, 11/25/2020, 12/19/2018, 11/19/2017. MAMMOGRAPHY TECHNIQUE: 2D and 3D (tomosynthesis) digital mammographic views obtained, with additional images as needed for full coverage. Current study was also evaluated with a Computer Aided Detection (CAD) system. DENSITY B. There are scattered areas of fibroglandular density. MAMMOGRAPHY FINDINGS Bilateral: No suspicious mass, asymmetry, microcalcification, or other abnormality seen. IMPRESSION: * No evidence of malignancy. RECOMMENDATIONS Bilateral * Annual screening mammography. OVERALL ASSESSMENT CATEGORY BI-RADS-1: Negative. The [employer] recommends annual screening mammography beginning at age 40 for women with average risk of breast cancer. ELECTRONICALLY SIGNED: Lore Oakley M.D. on 01/19/2025 at 03:44:33 PM PT Interpreting Station ID: [id number]
== END ==
LOC: MAMMO 12:51
PROVIDERS: PCP Family Medicine; Referring Provider Family Medicine; Visit Provider Family Medicine
DX: Z12.31 Encounter for screening mammogram for malignant neoplasm of breast (principal)
CPT/HCPCS: 77063; 77067

== ENCOUNTER → 2025-01-21 06:44 | Outpatient (CLI) | payer MEDICARE, SELFPAY ==
[2022-10-31 18:05] VITALS: BMI 21.9
[2025-01-21 08:08] LABS: Add Manual Diff / Slide Review NO; Hematocrit 46.1 % (36-46); Hemoglobin 15.5 g/dL (12.0-16.0); Lymphocytes Absolute Auto 1600 /uL (1100-4500); Mean Corpuscular HGB Conc 33.6 % (30-36); Mean Corpuscular Hemoglobin 31.7 PG (26-34); Mean Corpuscular Volume 94.3 fL (80-100); Platelet Count 176 X10^3/uL (150-400)
[2025-01-21 08:35] LABS: Alanine Aminotransferase 27 IU/L (<35); Albumin 3.8 g/dL (3.5-5.0); Albumin Globulin Ratio 1.5 (1.0-2.8); Alkaline Phosphatase 63 U/L (38-126); Blood Urea Nitrogen 21 mg/dL (7-17); Calcium 8.6 mg/dL (8.4-10.2); Carbon Dioxide 27 mmol/L (22-32); Chloride 103 mmol/L (98-107); Estimated Glomerular Filt Rate > 60 mL/min (>60); Globulin 2.5 g/dL (1.7-4.1); Glucose 102 mg/dL (70-99); HEMOLYSIS 18 (0-50); Potassium 4.3 mmol/L (3.4-5.1); Sodium 137 mmol/L (137-145); Total Protein 6.3 g/dL (6.3-8.2)
[2025-01-21 08:49] LABS: Free T4, Direct Thyroxine 2.20 ng/dL (0.78-2.19)
[2025-01-21 09:03] LABS: Thyroid Stimulating Hormone 2.97 uIU/mL (0.47-4.68)
== END ==
PROVIDERS: PCP Family Medicine; Referring Provider Internal Medicine Cardiovascular Disease; Visit Provider Internal Medicine Cardiovascular Disease
DX: I48.0 Paroxysmal atrial fibrillation (principal)
CPT/HCPCS: 36415; 80053; 84439; 84443; 85025

== ENCOUNTER → 2025-03-08 06:54 | Outpatient (CLI) | payer MEDICARE, SELFPAY ==
[2022-10-31 18:05] VITALS: BMI 21.9
[2025-03-08 07:52] LABS: Add Manual Diff / Slide Review NO; Hematocrit 43.5 % (36-46); Hemoglobin 15.0 g/dL (12.0-16.0); Lymphocytes Absolute Auto 2400 /uL (1100-4500); Mean Corpuscular HGB Conc 34.5 % (30-36); Mean Corpuscular Hemoglobin 32.8 PG (26-34); Mean Corpuscular Volume 95.0 fL (80-100); Platelet Count 229 X10^3/uL (150-400)
[2025-03-08 08:19] LABS: Blood Urea Nitrogen 20 mg/dL (7-17); Calcium 8.9 mg/dL (8.4-10.2); Carbon Dioxide 25 mmol/L (22-32); Chloride 105 mmol/L (98-107); Estimated Glomerular Filt Rate > 60 mL/min (>60); Glucose 120 mg/dL (70-99); HEMOLYSIS 71 (0-50); Potassium 4.9 mmol/L (3.4-5.1); Sodium 139 mmol/L (137-145)
== END ==
PROVIDERS: PCP Family Medicine; Referring Provider Internal Medicine Cardiovascular Disease; Visit Provider Internal Medicine Cardiovascular Disease
DX: I48.0 Paroxysmal atrial fibrillation (principal)
CPT/HCPCS: 36415; 80048; 85025